=== PATIENT | female | born 1975 | race African-American/Black ===

== ENCOUNTER 2018-09-16 08:23 | Inpatient (IN) | payer OTHER ==
[~2018-09-16] VITALS: Ht 180.3 cm; Wt 77.4 kg
[~2018-09-16 08:23] MED LIST: ACET325T14 PO; ALBU0.63 NEB; ALBU1.25 NEB; ALBU18HF INH; ALBU90AE INH; AMOX1TAB64 PO; AZIT250T89 PO; BECL8.7A6 INH; BECL8.7A7 INH; CEFD300C37 PO; CYAN10005 PO; DIPH25CA61 PO; DOXY100T PO; FOLI-17 PO; IBUP-1222 PO; LACT1CAP24 PO; LEVO750T26 PO; METH4TAB2 PO; METO25TA35 PO; MOME13HF2 INH; MULT1TAB60 PO; NICO-485 TD; PRED20TA PO; RISP1TAB45 PO
[2018-09-16 08:54] LABS: BASOPHILS # (AUTO) 0.05 x10^3/uL (0-0.1); BASOPHILS % (AUTO) 1 % (0-1); EOSINOPHILS % (AUTO) 2 % (1-7); LYMPHOCYTES # (AUTO) 2.29 x10^3/uL (1-3.4); LYMPHOCYTES % (AUTO) 49 % (22-44); MD NO; MEAN CORPUSCULAR HEMOGLOBIN 30.5 pg (27.0-34.8); MEAN CORPUSCULAR HGB CONC 32.5 g/dL (32.4-35.8); MEAN CORPUSCULAR VOLUME 93.6 fL (80-100); MEAN PLATELET VOLUME 7.5 fL (7.4-10.4); MONOCYTES # (AUTO) 0.34 x10^3/uL (0.2-0.8); MONOCYTES % (AUTO) 7 % (2-9); NEUTROPHILS % (AUTO) 41 % (42-75); PLATELET COUNT 569 x10^3/uL (130-400); RED BLOOD COUNT 3.68 x10^6/uL (3.82-5.3); RED CELL DISTRIBUTION WIDTH 16.7 % (9.6-15.2)
[2018-09-16 09:04] LABS: ALANINE AMINOTRANSFERASE 38 U/L (12-78); ALBUMIN 2.6 g/dL (3.4-5.0); ANION GAP 7 mmol/L (5-15); CALCIUM 8.3 mg/dL (8.5-10.1); CHLORIDE 112 mmol/L (98-107); CREATININE 0.44 mg/dL (0.55-1.02)
[2018-09-16 09:06] LABS: ALKALINE PHOSPHATASE 80 U/L (45-117); BILIRUBIN,TOTAL 0.1 mg/dL (0.2-1.0); TOTAL PROTEIN 7.7 g/dL (6.4-8.2)
[2018-09-16] MEDS ORDERED: SODIUM CHLORIDE 0.9% 1,000 ML IV ONE ×2 (10:08→11:22)
[2018-09-16] MEDS ORDERED: SODIUM CHLORIDE FLUSH 10ML SYR IVF ONE (10:30)
[2018-09-16] MEDS ORDERED: SODIUM CHLORIDE 0.9% 1,000ML IVBOLUS ONE (10:30)
[2018-09-16] MEDS ORDERED: SODIUM CHLORIDE FLUSH 10ML SYR IVF PRN (11:30)
[2018-09-16] MEDS ORDERED: ONDANSETRON 2MG/ML, 2ML IVPush PRN (13:00)
[2018-09-16] MEDS ORDERED: POLYETHYLENE GLYCOL 17 GM PACKET PO PRN (13:00)
[2018-09-16] MEDS ORDERED: ONDANSETRON ODT 4 MG PO PRN (13:00)
[2018-09-16] MEDS ORDERED: DOCUSATE 100 MG CAPSULE PO PRN (13:00)
[2018-09-16] MEDS ORDERED: GABAPENTIN 300 MG CAPSULE PO PRN (13:00)
[2018-09-16] MEDS ORDERED: BISACODYL 10 MG SUPP PR PRN (13:00)
[2018-09-16 13:54] LABS: FREE T4 (FREE THYROXINE) 0.87 ng/dL (0.76-1.46); THYROID STIMULATING HORMONE 1.31 mIU/L (0.358-3.740)
[2018-09-16 14:07] LABS: HEMOGLOBIN A1C 5.3 % (4.2-6.3)
[2018-09-16 14:17] VITALS: BP 113/69
[2018-09-16 14:39] LABS: MICROSCOPIC NOT IND
[2018-09-16] MEDS: D5%-0.9% NACL+KCL 20MEQ 1,000 ML IV SCH ×2 (14:42→22:08)
[2018-09-16] MEDS: ENOXAPARIN 40 MG/0.4 ML SQ SCH (14:43)
[2018-09-16] MEDS: NICOTINE 7 MG/24 HR PATCH.TD24 TD SCH (14:43)
[2018-09-16 14:48] LABS: CULTURE INDICATED? NO
[2018-09-16] MEDS ORDERED: ALBUTEROL SULFATE 2.5MG/0.5ML ONE (16:28)
[2018-09-16] MEDS ORDERED: ALBUTEROL SULFATE 2.5 MG/3 ML NPPB PRN (17:00)
[2018-09-16] MEDS: PROMETHAZINE 25 MG/ML, 1ML IM PRN (17:07)
[2018-09-16] MEDS: LORazepam 1MG TABLET PO PRN ×2 (18:23→22:09)
[2018-09-16 18:52] VITALS: BP 123/76
[2018-09-16] MEDS: ALBUTEROL SULFATE 2.5 MG/3 ML NPPB SCH (20:31)
[2018-09-16 22:03] VITALS: BP 97/58
[2018-09-16 23:05] VITALS: BP 93/54
[2018-09-17] VITALS (7 sets, daily range): BP systolic 93–125; BP diastolic 55–82
[2018-09-17] MEDS: D5%-0.9% NACL+KCL 20MEQ 1,000 ML IV SCH (04:12)
[2018-09-17] MEDS: LORazepam 1MG TABLET PO PRN ×3 (04:25→16:46)
[2018-09-17] MEDS ORDERED: LORazepam 2 MG/ML, 1ML IV PRN ×5 (04:30)
[2018-09-17] MEDS ORDERED: LORazepam 1MG TABLET PO PRN ×3 (04:30)
[2018-09-17 05:50] LABS: ALBUMIN 2.3 g/dL (3.4-5.0); ANION GAP 7 mmol/L (5-15); CHLORIDE 106 mmol/L (98-107)
[2018-09-17 05:54] LABS: ALANINE AMINOTRANSFERASE 27 U/L (12-78); ALKALINE PHOSPHATASE 68 U/L (45-117); BILIRUBIN,TOTAL 0.2 mg/dL (0.2-1.0); CALCIUM 6.6 mg/dL (8.5-10.1); CHOL/HDL RATIO 1.8; CHOLESTEROL, TOTAL 102 mg/dL (140-239); CREATININE 0.57 mg/dL (0.55-1.02); HDL CHOL % 55 % (28-40); HDL CHOLESTEROL (DIRECT) 56 mg/dL (40-60); LDL CHOLESTEROL,CALCULATED 25 mg/dL (54-169); LDL/HDL RATIO 0.4 (0.5-3.0); TOTAL PROTEIN 6.5 g/dL (6.4-8.2); TRIGLYCERIDES 104 mg/dL (50-200); VLDL CHOLESTEROL 21 mg/dL (0-25)
[2018-09-17] MEDS: ALBUTEROL SULFATE 2.5 MG/3 ML NPPB SCH ×4 (07:07→18:43)
[2018-09-17] MEDS: MULTIVITAMIN 1 TABLET PO SCH (08:59)
[2018-09-17] MEDS: SODIUM CHLORIDE 0.9% 1,000 ML IV SCH ×2 (08:59→19:28)
[2018-09-17 11:25] LABS: BASOPHILS # (AUTO) 0.06 x10^3/uL (0-0.1); BASOPHILS % (AUTO) 1 % (0-1); EOSINOPHILS # (AUTO) 0.07 x10^3/uL (0-0.4); EOSINOPHILS % (AUTO) 1 % (1-7); LYMPHOCYTES % (AUTO) 32 % (22-44); MD NO; MEAN CORPUSCULAR HEMOGLOBIN 30.8 pg (27.0-34.8); MEAN CORPUSCULAR HGB CONC 32.3 g/dL (32.4-35.8); MEAN CORPUSCULAR VOLUME 95.5 fL (80-100); MONOCYTES # (AUTO) 0.82 x10^3/uL (0.2-0.8); MONOCYTES % (AUTO) 12 % (2-9); NEUTROPHILS # (AUTO) 3.64 x10^3/uL (1.8-6.8); NEUTROPHILS % (AUTO) 54 % (42-75); PLATELET COUNT 453 x10^3/uL (130-400); RED BLOOD COUNT 3.08 x10^6/uL (3.82-5.3)
[2018-09-17] MEDS: NICOTINE 7 MG/24 HR PATCH.TD24 TD SCH (13:36)
[2018-09-17] MEDS: ENOXAPARIN 40 MG/0.4 ML SQ SCH (13:36)
[2018-09-17] MEDS: PROMETHAZINE 25 MG/ML, 1ML IM PRN (13:37)
[2018-09-17] MEDS: LORazepam 0.5MG TABLET PO PRN (21:40)
[2018-09-18 01:09] VITALS: BP 128/75
[2018-09-18] MEDS: LORazepam 0.5MG TABLET PO PRN (01:17)
[2018-09-18] MEDS: SODIUM CHLORIDE 0.9% 1,000 ML IV SCH (05:06)
[2018-09-18 05:44] LABS: ANION GAP 8 mmol/L (5-15); CALCIUM 7.9 mg/dL (8.5-10.1); CHLORIDE 111 mmol/L (98-107); CREATININE 0.49 mg/dL (0.55-1.02); TOTAL IRON BINDING CAPACITY 253 mcg/dL (250-450)
[2018-09-18 05:49] LABS: % IRON SATURATION 18 % (20-55); IRON LEVEL 45 mcg/dL (50-170)
[2018-09-18 06:52] VITALS: BP 143/82
[2018-09-18] MEDS: ALBUTEROL SULFATE 2.5 MG/3 ML NPPB SCH ×2 (07:00→09:57)
[2018-09-18] MEDS ORDERED: CARVEDILOL 6.25 MG TABLET PO SCH (07:30)
[2018-09-18] MEDS ORDERED: SODIUM CHLORIDE 0.9% 1,000 ML IV SCH (09:00)
[2018-09-18] MEDS: MULTIVITAMIN 1 TABLET PO SCH (09:22)
[2018-09-18] MEDS: LORazepam 1MG TABLET PO PRN (09:29)
== END 2018-09-18 13:26 | disposition home or self-care (01) | DRG 896 ==
LOC: ED 11:15 → EDIP 11:22 → 4EST 14:11 → DCLOUNGE 09-18 13:18
PROVIDERS: ADMIT Internal Medicine; ATTEND Internal Medicine
DX: F10.229 Alcohol dependence with intoxication, unspecified (principal); E43 Unspecified severe protein-calorie malnutrition; E87.1 Hypo-osmolality and hyponatremia; T68.XXXA Hypothermia, initial encounter; D64.9 Anemia, unspecified; Z71.6 Tobacco abuse counseling; E86.0 Dehydration; F12.10 Cannabis abuse, uncomplicated; Y90.8 Blood alcohol level of 240 mg/100 ml or more; F17.200 Nicotine dependence, unspecified, uncomplicated; G47.00 Insomnia, unspecified; J44.9 Chronic obstructive pulmonary disease, unspecified; X31.XXXA Exposure to excessive natural cold, initial encounter; Z59.0 Homelessness; Z91.14 Patient's other noncompliance with medication regimen; Z68.23 Body mass index [BMI] 23.0-23.9, adult
CPT/HCPCS: 36415; 99285; J7613; 70450; 71045; 80048; 80053; 80061; 80307; 81003; 82274; 82330; 83036; 83540; 83550; 83605; 83735; 84100; 84439; 84443; 85025; 87040; 93005; 93306; 94640; 96360; G0378; J1650; J2550; Q0162; J3480; J7030

== ENCOUNTER 2018-10-08 16:12 | Emergency (ER) | payer SELFPAY ==
[~2018-10-08] VITALS: Ht 180.3 cm; Wt 73.0 kg
[~2018-10-08 16:12] MED LIST changes: +ALBU6.7H INH
[2018-10-08 18:06] VITALS: BP 131/90
== END 2018-10-08 18:45 | disposition home or self-care (01) ==
LOC: ED 17:01
DX: F10.120 Alcohol abuse with intoxication, uncomplicated (principal); J45.909 Unspecified asthma, uncomplicated
CPT/HCPCS: 99283

== ENCOUNTER 2018-10-21 14:47 | Inpatient (IN) | payer SELFPAY ==
[~2018-10-21] VITALS: Ht 180.3 cm; Wt 89.7 kg
--- NOTE | 2018-10-21 14:55 | NUR ---
BIB [facility] FOR WOUND TO R TOE W/ DRAINAGE AND FOUL ODOR AND BILAT LEG SWELLING. WAS TOLD SHE NE, RR EDED IT REMOVED 1 MONTH AGO REFUSED TO HAVE IT REMOVED. ETOH 1 PINT VODAK TODAY. LAST DRINK AT 1400 TODAY. DENIES HX DM. 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 HR , 95% RA, BS 69. WAS PICKED UP BY [employer] FOR WARRANT FOR HER ARREST. RESIDENTIAL WILL NOT TAKE PT UNTIL SHE IS MEDICALLY CLEARED. SHE WAS RELEASED AND PER [facility] MAY/MAY NOT NEED TO HAVE [employer] PICK HER UP ONCE SHE IS MEDICALLY CLEARED. PT RESTING ON GURNEY. MONITORS APPLIED.
[2018-10-21] MEDS ORDERED: SODIUM CHLORIDE FLUSH 10ML SYR IVF ONE (15:00)
[2018-10-21 15:31] LABS: MEAN CORPUSCULAR HEMOGLOBIN 29.6 pg (27.0-34.8); MEAN CORPUSCULAR HGB CONC 32.1 g/dL (32.4-35.8); MEAN CORPUSCULAR VOLUME 92.1 fL (80-100); MEAN PLATELET VOLUME 7.8 fL (7.4-10.4); PLATELET COUNT 359 x10^3/uL (130-400); RED BLOOD COUNT 3.64 x10^6/uL (3.82-5.3); RED CELL DISTRIBUTION WIDTH 16.7 % (9.6-15.2)
[2018-10-21 15:37] LABS: ALANINE AMINOTRANSFERASE 38 U/L (12-78); ANION GAP 9 mmol/L (5-15); CALCIUM 8.3 mg/dL (8.5-10.1); CHLORIDE 104 mmol/L (98-107); CREATININE 0.65 mg/dL (0.55-1.02)
[2018-10-21 15:39] LABS: ALKALINE PHOSPHATASE 113 U/L (45-117); BILIRUBIN,TOTAL 0.2 mg/dL (0.2-1.0); TOTAL PROTEIN 8.8 g/dL (6.4-8.2)
[2018-10-21 15:49] LABS: HCT (SEDRATE) 33.6 % (34.6-47.8)
[2018-10-21] MEDS ORDERED: SODIUM CHLORIDE 0.9% 1,000ML IVBOLUS ONE (16:00)
[2018-10-21] MEDS ORDERED: AMPICILLIN/SULBACTAM 3 GM in SODIUM CHLORIDE 0.9% 100 ML IV ONE (16:00)
[2018-10-21 16:19] LABS: BASOPHILS # (AUTO) 0.25 x10^3/uL (0-0.1); BASOPHILS % (AUTO) 2 % (0-1); EOSINOPHILS # (AUTO) 0.01 x10^3/uL (0-0.4); EOSINOPHILS % (AUTO) 0 % (1-7); LYMPHOCYTES # (AUTO) 2.33 x10^3/uL (1-3.4); LYMPHOCYTES % (AUTO) 15 % (22-44); MD SCAN; MONOCYTES # (AUTO) 0.96 x10^3/uL (0.2-0.8); MONOCYTES % (AUTO) 6 % (2-9); NEUTROPHILS # (AUTO) 12.46 x10^3/uL (1.8-6.8); NEUTROPHILS % (AUTO) 78 % (42-75)
[2018-10-21] MEDS ORDERED: GADOBUTROL 7.5 MMOL/7.5 ML PFS ONE (17:08)
[2018-10-21] MEDS ORDERED: ACETAMINOPHEN 325 MG TABLET ONE (17:57)
[2018-10-21] MEDS ORDERED: ACETAMINOPHEN 325 MG TABLET PO ONE (18:00)
[2018-10-21] MEDS ORDERED: HEPARIN 5,000 UNITS/ML, 1ML SQ SCH (18:30)
--- NOTE | 2018-10-21 18:49 | NUR ---
Report to Lenyn ROME. Pt NAD at this time.
[2018-10-21] MEDS ORDERED: DOCUSATE 100 MG CAPSULE PO PRN (19:00)
[2018-10-21] MEDS ORDERED: hydrALAzine 20 MG/ML, 1ML IVPush PRN (19:00)
[2018-10-21] MEDS ORDERED: LORazepam 1MG TABLET PO PRN (19:00)
[2018-10-21] MEDS ORDERED: ONDANSETRON ODT 4 MG PO PRN (19:00)
--- NOTE | 2018-10-21 19:00 | NUR ---
PT BEDSIDE REPORT FROM EMILIA RN. THIS RN TO ASSUME CARE OF PT.
[2018-10-21] MEDS: SODIUM CHLORIDE 0.9% 1,000 ML IV SCH (20:02)
[2018-10-21 20:05] VITALS: BP 104/59
[2018-10-21] MEDS: TRAZODONE 50MG TABLET PO PRN (21:23)
[2018-10-21] MEDS: GABAPENTIN 300 MG CAPSULE PO PRN (21:23)
[2018-10-21] MEDS: AMPICILLIN/SULBACTAM 3 GM in SODIUM CHLORIDE 0.9% 100 ML IV SCH (23:38)
[2018-10-21 23:41] VITALS: BP 104/59
[2018-10-22 01:22] VITALS: BP 162/77
[2018-10-22] MEDS: ACETAMINOPHEN 325 MG TABLET PO PRN (01:44)
[2018-10-22 07:49] VITALS: BP 149/87
[2018-10-22] MEDS: AMPICILLIN/SULBACTAM 3 GM in SODIUM CHLORIDE 0.9% 100 ML IV SCH ×3 (08:07→23:06)
[2018-10-22] MEDS: SODIUM CHLORIDE 0.9% 1,000 ML IV SCH ×2 (08:07→22:13)
[2018-10-22] MEDS ORDERED: FENTANYL PF 100 MCG/2ML ONE ×2 (10:51→11:43)
[2018-10-22] MEDS ORDERED: MIDAZOLAM 1 MG/ML, 2ML ONE (10:51)
[2018-10-22] MEDS ORDERED: PROPOFOL 10 MG/ML, 20ML ONE (10:51)
[2018-10-22] MEDS ORDERED: LIDOCAINE 2% 100MG/5ML SYRINGE ONE (11:22)
[2018-10-22] MEDS ORDERED: ONDANSETRON 2MG/ML, 2ML ONE (11:22)
[2018-10-22] MEDS ORDERED: DEXAMETHASONE 4 MG/ML, 1ML ONE (11:22)
[2018-10-22] MEDS ORDERED: LABETALOL 5MG/ML, 20ML IV PRN (12:30)
[2018-10-22] MEDS ORDERED: FENTANYL PF 100 MCG/2ML IV PRN (12:30)
[2018-10-22] MEDS ORDERED: HYDROmorphone 2 MG/ML, 1ML IVPush PRN (12:30)
[2018-10-22] MEDS ORDERED: HALOPERIDOL 5 MG/ML IV PRN (12:30)
[2018-10-22] MEDS ORDERED: ALBUTEROL SULFATE 2.5 MG/3 ML NPPB PRN (12:30)
[2018-10-22] MEDS ORDERED: OXYcodone 5 MG/5 ML ORAL.SOL UDC PO PRN (12:30)
[2018-10-22] MEDS ORDERED: PROMETHAZINE 25 MG/ML, 1ML IV PRN (12:30)
[2018-10-22] MEDS ORDERED: hydrALAzine 20 MG/ML, 1ML IV PRN (12:30)
[2018-10-22 13:00] VITALS: BP 138/78
[2018-10-22 14:20] LABS: MEAN CORPUSCULAR HEMOGLOBIN 29.1 pg (27.0-34.8); MEAN CORPUSCULAR HGB CONC 31.8 g/dL (32.4-35.8); MEAN CORPUSCULAR VOLUME 91.6 fL (80-100); MEAN PLATELET VOLUME 7.8 fL (7.4-10.4); PLATELET COUNT 329 x10^3/uL (130-400); RED BLOOD COUNT 3.33 x10^6/uL (3.82-5.3); RED CELL DISTRIBUTION WIDTH 17.3 % (9.6-15.2)
[2018-10-22 14:29] LABS: ANION GAP 9 mmol/L (5-15); CALCIUM 8.2 mg/dL (8.5-10.1); CHLORIDE 103 mmol/L (98-107); CREATININE 0.52 mg/dL (0.55-1.02); INTERNATIONAL NORMALIZED RATIO 1.01 (0.93-1.1); PROTHROMBIN TIME 10.7 Seconds (9.6-11.5)
[2018-10-22 14:40] LABS: BASOPHILS # (AUTO) 0.01 x10^3/uL (0-0.1); BASOPHILS % (AUTO) 0 % (0-1); EOSINOPHILS % (AUTO) 0 % (1-7); LYMPHOCYTES # (AUTO) 0.48 x10^3/uL (1-3.4); LYMPHOCYTES % (AUTO) 5 % (22-44); MD SCAN; MONOCYTES # (AUTO) 0.18 x10^3/uL (0.2-0.8); MONOCYTES % (AUTO) 2 % (2-9); NEUTROPHILS # (AUTO) 9.33 x10^3/uL (1.8-6.8); NEUTROPHILS % (AUTO) 93 % (42-75)
[2018-10-22] MEDS: BACLOFEN 10 MG TABLET PO SCH ×2 (15:11→22:14)
[2018-10-22] MEDS: GABAPENTIN 300 MG CAPSULE PO PRN (15:11)
[2018-10-22 18:41] VITALS: BP 122/83
[2018-10-22] MEDS: TRAZODONE 50MG TABLET PO PRN (22:14)
[2018-10-23] MEDS: ACETAMINOPHEN 325 MG TABLET PO PRN ×3 (00:14→21:20)
[2018-10-23 01:48] VITALS: BP 118/58
[2018-10-23 06:26] LABS: BASOPHILS % (AUTO) 0 % (0-1); EOSINOPHILS # (AUTO) 0.01 x10^3/uL (0-0.4); EOSINOPHILS % (AUTO) 0 % (1-7); LYMPHOCYTES # (AUTO) 1.08 x10^3/uL (1-3.4); LYMPHOCYTES % (AUTO) 15 % (22-44); MD NO; MEAN CORPUSCULAR HEMOGLOBIN 30.3 pg (27.0-34.8); MEAN CORPUSCULAR HGB CONC 32.9 g/dL (32.4-35.8); MEAN CORPUSCULAR VOLUME 92.1 fL (80-100); MEAN PLATELET VOLUME 8.1 fL (7.4-10.4); MONOCYTES # (AUTO) 0.77 x10^3/uL (0.2-0.8); MONOCYTES % (AUTO) 11 % (2-9); NEUTROPHILS # (AUTO) 5.47 x10^3/uL (1.8-6.8); NEUTROPHILS % (AUTO) 75 % (42-75); PLATELET COUNT 311 x10^3/uL (130-400); RED BLOOD COUNT 3.05 x10^6/uL (3.82-5.3); RED CELL DISTRIBUTION WIDTH 17.1 % (9.6-15.2)
[2018-10-23 06:34] LABS: ALBUMIN 2.2 g/dL (3.4-5.0); ANION GAP 7 mmol/L (5-15); CALCIUM 8.1 mg/dL (8.5-10.1); CHLORIDE 108 mmol/L (98-107)
[2018-10-23 06:50] LABS: ALANINE AMINOTRANSFERASE 25 U/L (12-78); ALKALINE PHOSPHATASE 78 U/L (45-117); BILIRUBIN,TOTAL 0.2 mg/dL (0.2-1.0); CREATININE 0.55 mg/dL (0.55-1.02); TOTAL PROTEIN 6.9 g/dL (6.4-8.2)
[2018-10-23] MEDS: SODIUM CHLORIDE 0.9% 1,000 ML IV SCH ×2 (07:00→14:30)
[2018-10-23 07:34] VITALS: BP 150/87
[2018-10-23] MEDS: BACLOFEN 10 MG TABLET PO SCH ×3 (08:04→21:13)
[2018-10-23] MEDS: AMPICILLIN/SULBACTAM 3 GM in SODIUM CHLORIDE 0.9% 100 ML IV SCH ×3 (08:04→23:09)
[2018-10-23] MEDS: GABAPENTIN 300 MG CAPSULE PO PRN (08:04)
[2018-10-23 12:14] VITALS: BP 133/81
[2018-10-23] MEDS: NICOTINE 7 MG/24 HR PATCH.TD24 TD SCH (16:23)
[2018-10-23 19:26] VITALS: BP 126/78
[2018-10-24] MEDS: ACETAMINOPHEN 325 MG TABLET PO PRN ×2 (01:58→16:26)
[2018-10-24] MEDS: GABAPENTIN 300 MG CAPSULE PO PRN ×3 (02:13→20:38)
[2018-10-24 03:28] VITALS: BP 133/87
[2018-10-24 06:02] LABS: ANION GAP 4 mmol/L (5-15); CALCIUM 8.9 mg/dL (8.5-10.1); CHLORIDE 107 mmol/L (98-107); CREATININE 0.53 mg/dL (0.55-1.02)
[2018-10-24 06:15] LABS: BASOPHILS # (AUTO) 0.01 x10^3/uL (0-0.1); BASOPHILS % (AUTO) 0 % (0-1); EOSINOPHILS # (AUTO) 0.03 x10^3/uL (0-0.4); EOSINOPHILS % (AUTO) 0 % (1-7); LYMPHOCYTES # (AUTO) 1.71 x10^3/uL (1-3.4); LYMPHOCYTES % (AUTO) 19 % (22-44); MD NO; MEAN CORPUSCULAR HEMOGLOBIN 29.5 pg (27.0-34.8); MEAN CORPUSCULAR HGB CONC 31.8 g/dL (32.4-35.8); MEAN CORPUSCULAR VOLUME 92.7 fL (80-100); MEAN PLATELET VOLUME 7.7 fL (7.4-10.4); MONOCYTES # (AUTO) 0.92 x10^3/uL (0.2-0.8); MONOCYTES % (AUTO) 10 % (2-9); NEUTROPHILS % (AUTO) 70 % (42-75); PLATELET COUNT 350 x10^3/uL (130-400); RED CELL DISTRIBUTION WIDTH 17.4 % (9.6-15.2)
[2018-10-24 08:30] VITALS: BP 129/83
[2018-10-24] MEDS: BACLOFEN 10 MG TABLET PO SCH ×3 (08:32→20:38)
[2018-10-24] MEDS: AMPICILLIN/SULBACTAM 3 GM in SODIUM CHLORIDE 0.9% 100 ML IV SCH ×3 (08:32→23:31)
[2018-10-24 13:39] VITALS: BP 132/79
[2018-10-24] MEDS: NICOTINE 7 MG/24 HR PATCH.TD24 TD SCH (17:44)
[2018-10-24 19:19] VITALS: BP 127/72
[2018-10-25 02:30] VITALS: BP 132/70
[2018-10-25 05:05] LABS: BASOPHILS # (AUTO) 0.04 x10^3/uL (0-0.1); BASOPHILS % (AUTO) 0 % (0-1); EOSINOPHILS # (AUTO) 0.04 x10^3/uL (0-0.4); EOSINOPHILS % (AUTO) 0 % (1-7); LYMPHOCYTES # (AUTO) 1.86 x10^3/uL (1-3.4); LYMPHOCYTES % (AUTO) 17 % (22-44); MD NO; MEAN CORPUSCULAR HGB CONC 32.7 g/dL (32.4-35.8); MEAN CORPUSCULAR VOLUME 91.9 fL (80-100); MEAN PLATELET VOLUME 7.8 fL (7.4-10.4); MONOCYTES # (AUTO) 0.95 x10^3/uL (0.2-0.8); MONOCYTES % (AUTO) 9 % (2-9); NEUTROPHILS # (AUTO) 7.89 x10^3/uL (1.8-6.8); NEUTROPHILS % (AUTO) 73 % (42-75); PLATELET COUNT 371 x10^3/uL (130-400); RED BLOOD COUNT 3.39 x10^6/uL (3.82-5.3)
[2018-10-25 05:08] LABS: ANION GAP 6 mmol/L (5-15); CALCIUM 8.7 mg/dL (8.5-10.1); CHLORIDE 102 mmol/L (98-107)
[2018-10-25 05:09] LABS: CREATININE 0.61 mg/dL (0.55-1.02)
[2018-10-25] MEDS: BACLOFEN 10 MG TABLET PO SCH ×3 (07:32→21:37)
[2018-10-25] MEDS: THIAMINE 100MG TABLET PO SCH (07:32)
[2018-10-25] MEDS: AMPICILLIN/SULBACTAM 3 GM in SODIUM CHLORIDE 0.9% 100 ML IV SCH ×3 (07:32→23:12)
[2018-10-25 07:44] VITALS: BP 116/72
[2018-10-25 12:50] VITALS: BP 126/77
[2018-10-25] MEDS: NICOTINE 7 MG/24 HR PATCH.TD24 TD SCH (16:31)
[2018-10-25 19:49] VITALS: BP 128/69
[2018-10-25] MEDS: GABAPENTIN 300 MG CAPSULE PO PRN (21:37)
[2018-10-26 01:30] VITALS: BP 113/71
[2018-10-26 05:22] LABS: BASOPHILS # (AUTO) 0.04 x10^3/uL (0-0.1); BASOPHILS % (AUTO) 0 % (0-1); EOSINOPHILS # (AUTO) 0.06 x10^3/uL (0-0.4); EOSINOPHILS % (AUTO) 1 % (1-7); LYMPHOCYTES # (AUTO) 2.13 x10^3/uL (1-3.4); LYMPHOCYTES % (AUTO) 18 % (22-44); MD NO; MEAN CORPUSCULAR HEMOGLOBIN 29.9 pg (27.0-34.8); MEAN CORPUSCULAR HGB CONC 32.2 g/dL (32.4-35.8); MEAN CORPUSCULAR VOLUME 92.8 fL (80-100); MEAN PLATELET VOLUME 7.9 fL (7.4-10.4); MONOCYTES % (AUTO) 10 % (2-9); NEUTROPHILS % (AUTO) 71 % (42-75); PLATELET COUNT 440 x10^3/uL (130-400); RED BLOOD COUNT 3.55 x10^6/uL (3.82-5.3); RED CELL DISTRIBUTION WIDTH 17.1 % (9.6-15.2)
[2018-10-26 05:29] LABS: CHLORIDE 104 mmol/L (98-107)
[2018-10-26 05:39] LABS: ALBUMIN 2.5 g/dL (3.4-5.0); ANION GAP 8 mmol/L (5-15); CALCIUM 9.2 mg/dL (8.5-10.1); CREATININE 0.72 mg/dL (0.55-1.02)
[2018-10-26 07:50] VITALS: BP 103/62
[2018-10-26] MEDS: THIAMINE 100MG TABLET PO SCH (09:05)
[2018-10-26] MEDS: BACLOFEN 10 MG TABLET PO SCH ×3 (09:05→21:35)
[2018-10-26] MEDS: AMPICILLIN/SULBACTAM 3 GM in SODIUM CHLORIDE 0.9% 100 ML IV SCH ×3 (09:05→23:09)
[2018-10-26] MEDS: DOXYCYCLINE 100 MG in DEXTROSE 5% 250 ML IV SCH ×2 (10:15→20:58)
[2018-10-26] MEDS: ACETAMINOPHEN 325 MG TABLET PO PRN ×3 (13:00→23:10)
[2018-10-26 13:29] VITALS: BP 109/71
[2018-10-26] MEDS: NICOTINE 7 MG/24 HR PATCH.TD24 TD SCH (15:54)
[2018-10-26 18:52] VITALS: BP 112/75
[2018-10-26] MEDS: GABAPENTIN 300 MG CAPSULE PO PRN (20:58)
[2018-10-27 00:51] VITALS: BP 103/63
[2018-10-27 05:54] LABS: CHLORIDE 104 mmol/L (98-107)
[2018-10-27 05:55] LABS: BASOPHILS # (AUTO) 0.03 x10^3/uL (0-0.1); BASOPHILS % (AUTO) 0 % (0-1); EOSINOPHILS # (AUTO) 0.08 x10^3/uL (0-0.4); EOSINOPHILS % (AUTO) 1 % (1-7); LYMPHOCYTES # (AUTO) 1.26 x10^3/uL (1-3.4); LYMPHOCYTES % (AUTO) 15 % (22-44); MD NO; MEAN CORPUSCULAR HGB CONC 32.6 g/dL (32.4-35.8); MEAN CORPUSCULAR VOLUME 92.1 fL (80-100); MONOCYTES # (AUTO) 0.86 x10^3/uL (0.2-0.8); MONOCYTES % (AUTO) 10 % (2-9); NEUTROPHILS # (AUTO) 6.07 x10^3/uL (1.8-6.8); NEUTROPHILS % (AUTO) 73 % (42-75); PLATELET COUNT 516 x10^3/uL (130-400); RED BLOOD COUNT 3.32 x10^6/uL (3.82-5.3); RED CELL DISTRIBUTION WIDTH 17.4 % (9.6-15.2)
[2018-10-27 06:04] LABS: ALBUMIN 2.5 g/dL (3.4-5.0); ANION GAP 9 mmol/L (5-15); CALCIUM 9.1 mg/dL (8.5-10.1); CREATININE 0.54 mg/dL (0.55-1.02)
[2018-10-27] MEDS: AMPICILLIN/SULBACTAM 3 GM in SODIUM CHLORIDE 0.9% 100 ML IV SCH ×3 (08:01→22:54)
[2018-10-27 09:35] VITALS: BP 114/75
[2018-10-27] MEDS: THIAMINE 100MG TABLET PO SCH (09:58)
[2018-10-27] MEDS: DOXYCYCLINE 100 MG in DEXTROSE 5% 250 ML IV SCH (09:58)
[2018-10-27] MEDS: BACLOFEN 10 MG TABLET PO SCH ×3 (09:58→21:31)
[2018-10-27 13:50] VITALS: BP 121/75
[2018-10-27] MEDS: NICOTINE 7 MG/24 HR PATCH.TD24 TD SCH (15:41)
[2018-10-27] MEDS: SODIUM CHLORIDE 0.9% 1,000 ML IV SCH (16:30)
[2018-10-27] MEDS ORDERED: VANCOMYCIN PER PHARMACY MC PRN (16:30)
[2018-10-27] MEDS ORDERED: PHARMACOKINETIC MONITORING MC PRN (17:00)
[2018-10-27] MEDS: VANCOMYCIN 1,300 MG in SODIUM CHLORIDE 0.9% 250 ML IV SCH (17:41)
[2018-10-27] MEDS ORDERED: GADOBUTROL 7.5 MMOL/7.5 ML PFS ONE (18:51)
[2018-10-27 20:58] VITALS: BP 122/78
[2018-10-27] MEDS: ACETAMINOPHEN 325 MG TABLET PO PRN (21:31)
[2018-10-28 02:25] VITALS: BP 119/75
[2018-10-28 05:01] LABS: ALBUMIN 2.6 g/dL (3.4-5.0); ANION GAP 6 mmol/L (5-15); CALCIUM 9.1 mg/dL (8.5-10.1); CHLORIDE 104 mmol/L (98-107)
[2018-10-28 05:02] LABS: CREATININE 0.61 mg/dL (0.55-1.02)
[2018-10-28 05:09] LABS: BASOPHILS % (AUTO) 0 % (0-1); EOSINOPHILS # (AUTO) 0.06 x10^3/uL (0-0.4); EOSINOPHILS % (AUTO) 1 % (1-7); LYMPHOCYTES # (AUTO) 1.64 x10^3/uL (1-3.4); LYMPHOCYTES % (AUTO) 20 % (22-44); MD NO; MEAN CORPUSCULAR HEMOGLOBIN 29.8 pg (27.0-34.8); MEAN CORPUSCULAR VOLUME 90.4 fL (80-100); MEAN PLATELET VOLUME 7.9 fL (7.4-10.4); MONOCYTES # (AUTO) 1.07 x10^3/uL (0.2-0.8); MONOCYTES % (AUTO) 13 % (2-9); NEUTROPHILS # (AUTO) 5.67 x10^3/uL (1.8-6.8); NEUTROPHILS % (AUTO) 67 % (42-75); PLATELET COUNT 631 x10^3/uL (130-400); RED BLOOD COUNT 3.27 x10^6/uL (3.82-5.3); RED CELL DISTRIBUTION WIDTH 17.2 % (9.6-15.2)
[2018-10-28] MEDS: VANCOMYCIN 1,300 MG in SODIUM CHLORIDE 0.9% 250 ML IV SCH ×2 (05:23→17:39)
[2018-10-28] MEDS: AMPICILLIN/SULBACTAM 3 GM in SODIUM CHLORIDE 0.9% 100 ML IV SCH ×3 (07:18→22:04)
[2018-10-28 08:39] VITALS: BP 105/73
[2018-10-28] MEDS ORDERED: GADOBUTROL 7.5 MMOL/7.5 ML PFS ONE (09:17)
[2018-10-28] MEDS: BACLOFEN 10 MG TABLET PO SCH ×3 (10:00→22:04)
[2018-10-28] MEDS: THIAMINE 100MG TABLET PO SCH (10:00)
[2018-10-28] MEDS: SODIUM CHLORIDE 0.9% 1,000 ML IV SCH (13:00)
[2018-10-28] MEDS: ACETAMINOPHEN 325 MG TABLET PO PRN (13:38)
[2018-10-28 13:55] VITALS: BP 104/67
[2018-10-28] MEDS: NICOTINE 7 MG/24 HR PATCH.TD24 TD SCH (16:43)
[2018-10-28 19:38] VITALS: BP 120/81
[2018-10-29 01:56] VITALS: BP 120/79
[2018-10-29] MEDS: SODIUM CHLORIDE 0.9% 1,000 ML IV SCH ×2 (03:09→20:44)
[2018-10-29] MEDS: ACETAMINOPHEN 325 MG TABLET PO PRN (04:20)
[2018-10-29] MEDS: GABAPENTIN 300 MG CAPSULE PO PRN ×2 (04:20→20:42)
[2018-10-29] MEDS: VANCOMYCIN 1,300 MG in SODIUM CHLORIDE 0.9% 250 ML IV SCH ×2 (05:11→17:06)
[2018-10-29 06:24] LABS: BASOPHILS # (AUTO) 0.03 x10^3/uL (0-0.1); BASOPHILS % (AUTO) 0 % (0-1); EOSINOPHILS # (AUTO) 0.12 x10^3/uL (0-0.4); EOSINOPHILS % (AUTO) 2 % (1-7); LYMPHOCYTES # (AUTO) 1.63 x10^3/uL (1-3.4); LYMPHOCYTES % (AUTO) 22 % (22-44); MD NO; MEAN CORPUSCULAR HEMOGLOBIN 29.4 pg (27.0-34.8); MEAN CORPUSCULAR HGB CONC 32.4 g/dL (32.4-35.8); MEAN CORPUSCULAR VOLUME 90.9 fL (80-100); MEAN PLATELET VOLUME 7.8 fL (7.4-10.4); MONOCYTES # (AUTO) 0.68 x10^3/uL (0.2-0.8); MONOCYTES % (AUTO) 9 % (2-9); NEUTROPHILS # (AUTO) 5.04 x10^3/uL (1.8-6.8); NEUTROPHILS % (AUTO) 67 % (42-75); PLATELET COUNT 696 x10^3/uL (130-400); RED BLOOD COUNT 3.41 x10^6/uL (3.82-5.3); RED CELL DISTRIBUTION WIDTH 17.4 % (9.6-15.2)
[2018-10-29 06:31] LABS: ALBUMIN 2.5 g/dL (3.4-5.0); ANION GAP 7 mmol/L (5-15); CALCIUM 9.1 mg/dL (8.5-10.1); CHLORIDE 107 mmol/L (98-107)
[2018-10-29 06:33] LABS: CREATININE 0.57 mg/dL (0.55-1.02)
[2018-10-29] MEDS: AMPICILLIN/SULBACTAM 3 GM in SODIUM CHLORIDE 0.9% 100 ML IV SCH ×3 (07:33→23:16)
[2018-10-29 07:35] VITALS: BP 113/84
[2018-10-29] MEDS: THIAMINE 100MG TABLET PO SCH (08:35)
[2018-10-29] MEDS: BACLOFEN 10 MG TABLET PO SCH ×3 (08:35→20:42)
[2018-10-29] MEDS: ASPIRIN 81 MG TABLET EC PO SCH (09:19)
[2018-10-29 13:45] VITALS: BP 117/79
[2018-10-29] MEDS: NICOTINE 7 MG/24 HR PATCH.TD24 TD SCH (16:34)
[2018-10-29 18:55] VITALS: BP 108/72
[2018-10-30 01:15] VITALS: BP 117/60
[2018-10-30 05:53] LABS: VANCOMYCIN,TROUGH 13.8 mcg/mL (5.0-10.0)
[2018-10-30 05:54] LABS: C-REACTIVE PROTEIN, QUANT 1.5 mg/dL (0.02-0.49); LDL/HDL RATIO 1.7 (0.5-3.0)
[2018-10-30] MEDS: VANCOMYCIN 1,300 MG in SODIUM CHLORIDE 0.9% 250 ML IV SCH (06:07)
[2018-10-30] MEDS: ASPIRIN 81 MG TABLET EC PO SCH (06:07)
[2018-10-30 06:58] VITALS: BP 116/78
[2018-10-30] MEDS: ENOXAPARIN 40 MG/0.4 ML SQ SCH (07:57)
[2018-10-30] MEDS: THIAMINE 100MG TABLET PO SCH (07:57)
[2018-10-30] MEDS: FERROUS SULFATE 325 MG TABLET PO SCH (07:57)
[2018-10-30] MEDS: AMPICILLIN/SULBACTAM 3 GM in SODIUM CHLORIDE 0.9% 100 ML IV SCH (07:57)
[2018-10-30] MEDS: BACLOFEN 10 MG TABLET PO SCH ×3 (07:58→21:59)
[2018-10-30] MEDS: SODIUM CHLORIDE 0.9% 1,000 ML IV SCH (12:23)
[2018-10-30 12:52] VITALS: BP 128/84
[2018-10-30] MEDS: DAPTOMYCIN 400 MG in SODIUM CHLORIDE 0.9% 100 ML IVPB SCH (14:50)
[2018-10-30] MEDS: ACETAMINOPHEN 325 MG TABLET PO PRN ×2 (15:07→21:59)
[2018-10-30 18:48] VITALS: BP 137/83
[2018-10-30] MEDS: GABAPENTIN 300 MG CAPSULE PO PRN (21:58)
[2018-10-31] MEDS: SODIUM CHLORIDE 0.9% 1,000 ML IV SCH ×2 (01:13→15:02)
[2018-10-31 04:36] VITALS: BP 113/70
[2018-10-31] MEDS: ASPIRIN 81 MG TABLET EC PO SCH (05:09)
[2018-10-31] MEDS: ACETAMINOPHEN 325 MG TABLET PO PRN (05:09)
[2018-10-31 07:24] VITALS: BP 128/79
[2018-10-31] MEDS: ENOXAPARIN 40 MG/0.4 ML SQ SCH (08:27)
[2018-10-31] MEDS: THIAMINE 100MG TABLET PO SCH (08:27)
[2018-10-31 13:27] VITALS: BP 143/80
[2018-10-31] MEDS: DAPTOMYCIN 400 MG in SODIUM CHLORIDE 0.9% 100 ML IVPB SCH (15:02)
[2018-10-31] MEDS: GABAPENTIN 300 MG CAPSULE PO PRN (15:06)
[2018-10-31 20:06] VITALS: BP 133/87
[2018-11-01 01:15] VITALS: BP 123/77
[2018-11-01] MEDS: ACETAMINOPHEN 325 MG TABLET PO PRN ×2 (04:02→20:55)
[2018-11-01] MEDS: ASPIRIN 81 MG TABLET EC PO SCH (05:09)
[2018-11-01] MEDS: SODIUM CHLORIDE 0.9% 1,000 ML IV SCH ×2 (05:09→20:49)
[2018-11-01] MEDS ORDERED: MULTIVITAMIN 1 TABLET ONE (08:18)
[2018-11-01] MEDS: THIAMINE 100MG TABLET PO SCH (08:21)
[2018-11-01] MEDS: FERROUS SULFATE 325 MG TABLET PO SCH (08:21)
[2018-11-01] MEDS: MULTIVITAMIN 1 TABLET PO SCH (08:21)
[2018-11-01] MEDS: ENOXAPARIN 40 MG/0.4 ML SQ SCH (08:21)
[2018-11-01 09:11] VITALS: BP 125/76
[2018-11-01 12:07] VITALS: BP 132/80
[2018-11-01] MEDS: DAPTOMYCIN 400 MG in SODIUM CHLORIDE 0.9% 100 ML IVPB SCH (15:58)
[2018-11-01 19:51] VITALS: BP 139/79
[2018-11-01] MEDS: GABAPENTIN 300 MG CAPSULE PO PRN (20:55)
[2018-11-02 01:49] VITALS: BP 141/74
[2018-11-02] MEDS: ASPIRIN 81 MG TABLET EC PO SCH (06:17)
[2018-11-02 08:20] VITALS: BP 122/75
[2018-11-02] MEDS: MULTIVITAMIN 1 TABLET PO SCH (08:30)
[2018-11-02] MEDS: THIAMINE 100MG TABLET PO SCH (08:30)
[2018-11-02] MEDS: ENOXAPARIN 40 MG/0.4 ML SQ SCH (08:31)
[2018-11-02] MEDS: SODIUM CHLORIDE 0.9% 1,000 ML IV SCH (14:15)
[2018-11-02 14:54] VITALS: BP 110/68
[2018-11-02] MEDS: GABAPENTIN 300 MG CAPSULE PO SCH ×2 (16:58→21:18)
[2018-11-02] MEDS: DAPTOMYCIN 400 MG in SODIUM CHLORIDE 0.9% 100 ML IVPB SCH (16:58)
[2018-11-02 18:45] VITALS: BP 117/72
[2018-11-03 01:31] VITALS: BP 119/67
[2018-11-03] MEDS: ASPIRIN 81 MG TABLET EC PO SCH (05:48)
[2018-11-03 07:20] VITALS: BP 107/70
[2018-11-03] MEDS: THIAMINE 100MG TABLET PO SCH (07:59)
[2018-11-03] MEDS: ENOXAPARIN 40 MG/0.4 ML SQ SCH (07:59)
[2018-11-03] MEDS: MULTIVITAMIN 1 TABLET PO SCH (07:59)
[2018-11-03] MEDS: FERROUS SULFATE 325 MG TABLET PO SCH (07:59)
[2018-11-03] MEDS: GABAPENTIN 300 MG CAPSULE PO SCH ×3 (07:59→21:08)
[2018-11-03] MEDS: SODIUM CHLORIDE 0.9% 1,000 ML IV SCH (08:04)
[2018-11-03 12:45] VITALS: BP 117/70
[2018-11-03] MEDS: DAPTOMYCIN 400 MG in SODIUM CHLORIDE 0.9% 100 ML IVPB SCH (16:36)
[2018-11-03] MEDS: ACETAMINOPHEN 325 MG TABLET PO PRN (16:39)
[2018-11-03 18:48] VITALS: BP 119/68
[2018-11-04 00:27] VITALS: BP 121/75
[2018-11-04] MEDS: SODIUM CHLORIDE 0.9% 1,000 ML IV SCH (03:23)
[2018-11-04] MEDS: ASPIRIN 81 MG TABLET EC PO SCH (05:02)
[2018-11-04 06:14] LABS: ALANINE AMINOTRANSFERASE 18 U/L (12-78); ANION GAP 6 mmol/L (5-15); CALCIUM 9.6 mg/dL (8.5-10.1); CHLORIDE 103 mmol/L (98-107); CREATININE 0.69 mg/dL (0.55-1.02)
[2018-11-04 06:17] LABS: ALKALINE PHOSPHATASE 66 U/L (45-117); BILIRUBIN,TOTAL 0.2 mg/dL (0.2-1.0); TOTAL PROTEIN 8.2 g/dL (6.4-8.2)
[2018-11-04 06:18] LABS: BASOPHILS # (AUTO) 0.04 x10^3/uL (0-0.1); BASOPHILS % (AUTO) 1 % (0-1); EOSINOPHILS # (AUTO) 0.05 x10^3/uL (0-0.4); EOSINOPHILS % (AUTO) 1 % (1-7); LYMPHOCYTES # (AUTO) 2.02 x10^3/uL (1-3.4); LYMPHOCYTES % (AUTO) 24 % (22-44); MD NO; MEAN CORPUSCULAR HGB CONC 32.2 g/dL (32.4-35.8); MEAN CORPUSCULAR VOLUME 90.2 fL (80-100); MEAN PLATELET VOLUME 7.1 fL (7.4-10.4); MONOCYTES # (AUTO) 0.34 x10^3/uL (0.2-0.8); MONOCYTES % (AUTO) 4 % (2-9); NEUTROPHILS # (AUTO) 6.01 x10^3/uL (1.8-6.8); NEUTROPHILS % (AUTO) 71 % (42-75); PLATELET COUNT 926 x10^3/uL (130-400); RED CELL DISTRIBUTION WIDTH 17.5 % (9.6-15.2)
[2018-11-04 07:26] VITALS: BP 100/72
[2018-11-04] MEDS: GABAPENTIN 300 MG CAPSULE PO SCH ×3 (10:35→19:40)
[2018-11-04] MEDS: THIAMINE 100MG TABLET PO SCH (10:35)
[2018-11-04] MEDS: ENOXAPARIN 40 MG/0.4 ML SQ SCH (10:35)
[2018-11-04] MEDS: MULTIVITAMIN 1 TABLET PO SCH (10:35)
[2018-11-04] MEDS: AMPICILLIN/SULBACTAM 1,500 MG in SODIUM CHLORIDE 0.9% 50 ML IV SCH ×2 (13:23→18:31)
[2018-11-04 14:00] VITALS: BP 117/70
[2018-11-04] MEDS: DAPTOMYCIN 400 MG in SODIUM CHLORIDE 0.9% 100 ML IVPB SCH (16:09)
[2018-11-04 16:30] VITALS: BP 107/70
[2018-11-04 20:06] VITALS: BP 104/64
[2018-11-05] MEDS: AMPICILLIN/SULBACTAM 1,500 MG in SODIUM CHLORIDE 0.9% 50 ML IV SCH ×4 (00:28→19:41)
[2018-11-05 01:58] VITALS: BP 101/65
[2018-11-05] MEDS: ASPIRIN 81 MG TABLET EC PO SCH (06:04)
[2018-11-05 07:58] VITALS: BP 97/62
[2018-11-05] MEDS: GABAPENTIN 300 MG CAPSULE PO SCH ×3 (07:59→21:26)
[2018-11-05] MEDS: MULTIVITAMIN 1 TABLET PO SCH (07:59)
[2018-11-05] MEDS: ENOXAPARIN 40 MG/0.4 ML SQ SCH (07:59)
[2018-11-05] MEDS: THIAMINE 100MG TABLET PO SCH (07:59)
[2018-11-05] MEDS: FERROUS SULFATE 325 MG TABLET PO SCH (08:00)
[2018-11-05] MEDS: NICOTINE 14MG/24 HR PATCH.TD24 TD SCH (13:19)
[2018-11-05 14:34] VITALS: BP 99/68
[2018-11-05] MEDS: DAPTOMYCIN 400 MG in SODIUM CHLORIDE 0.9% 100 ML IVPB SCH (17:38)
[2018-11-05 19:44] VITALS: BP 109/64
[2018-11-06] MEDS: AMPICILLIN/SULBACTAM 1,500 MG in SODIUM CHLORIDE 0.9% 50 ML IV SCH ×4 (01:10→20:32)
[2018-11-06 01:15] VITALS: BP 104/62
[2018-11-06] MEDS: ASPIRIN 81 MG TABLET EC PO SCH (05:20)
[2018-11-06 05:57] LABS: HCT (SEDRATE) 32.9 % (34.6-47.8)
[2018-11-06 06:45] VITALS: BP 100/66
[2018-11-06] MEDS: ENOXAPARIN 40 MG/0.4 ML SQ SCH (08:27)
[2018-11-06] MEDS: GABAPENTIN 300 MG CAPSULE PO SCH ×3 (08:27→20:32)
[2018-11-06] MEDS: THIAMINE 100MG TABLET PO SCH (08:27)
[2018-11-06] MEDS: MULTIVITAMIN 1 TABLET PO SCH (08:27)
[2018-11-06 13:37] VITALS: BP 111/67
[2018-11-06] MEDS: ACETAMINOPHEN 325 MG TABLET PO PRN (14:09)
[2018-11-06] MEDS: DAPTOMYCIN 400 MG in SODIUM CHLORIDE 0.9% 100 ML IVPB SCH (17:00)
[2018-11-06] MEDS: NICOTINE 14MG/24 HR PATCH.TD24 TD SCH (17:00)
[2018-11-06 19:59] VITALS: BP 113/65
[2018-11-07 01:50] VITALS: BP 97/62
[2018-11-07] MEDS: AMPICILLIN/SULBACTAM 1,500 MG in SODIUM CHLORIDE 0.9% 50 ML IV SCH ×4 (02:19→21:00)
[2018-11-07] MEDS: ASPIRIN 81 MG TABLET EC PO SCH (05:39)
[2018-11-07] MEDS: ACETAMINOPHEN 325 MG TABLET PO PRN ×2 (05:39→13:28)
[2018-11-07 07:25] VITALS: BP 100/67
[2018-11-07] MEDS: THIAMINE 100MG TABLET PO SCH (08:46)
[2018-11-07] MEDS: ENOXAPARIN 40 MG/0.4 ML SQ SCH (08:47)
[2018-11-07] MEDS: GABAPENTIN 300 MG CAPSULE PO SCH ×3 (08:47→20:59)
[2018-11-07] MEDS: MULTIVITAMIN 1 TABLET PO SCH (08:47)
[2018-11-07] MEDS: FERROUS SULFATE 325 MG TABLET PO SCH (08:53)
[2018-11-07 13:25] VITALS: BP 109/67
[2018-11-07] MEDS: NICOTINE 14MG/24 HR PATCH.TD24 TD SCH (16:35)
[2018-11-07] MEDS: DAPTOMYCIN 400 MG in SODIUM CHLORIDE 0.9% 100 ML IVPB SCH (17:47)
[2018-11-07 19:51] VITALS: BP 120/75
[2018-11-08 01:18] VITALS: BP 98/63
[2018-11-08] MEDS: AMPICILLIN/SULBACTAM 1,500 MG in SODIUM CHLORIDE 0.9% 50 ML IV SCH ×4 (02:04→20:56)
[2018-11-08] MEDS: ASPIRIN 81 MG TABLET EC PO SCH (05:31)
[2018-11-08 06:41] LABS: BASOPHILS % (AUTO) 1 % (0-1); EOSINOPHILS # (AUTO) 0.05 x10^3/uL (0-0.4); EOSINOPHILS % (AUTO) 1 % (1-7); LYMPHOCYTES # (AUTO) 2.35 x10^3/uL (1-3.4); LYMPHOCYTES % (AUTO) 31 % (22-44); MD NO; MEAN CORPUSCULAR VOLUME 90.5 fL (80-100); MEAN PLATELET VOLUME 7.2 fL (7.4-10.4); MONOCYTES # (AUTO) 0.42 x10^3/uL (0.2-0.8); MONOCYTES % (AUTO) 6 % (2-9); NEUTROPHILS # (AUTO) 4.58 x10^3/uL (1.8-6.8); NEUTROPHILS % (AUTO) 61 % (42-75); PLATELET COUNT 658 x10^3/uL (130-400); RED BLOOD COUNT 3.72 x10^6/uL (3.82-5.3); RED CELL DISTRIBUTION WIDTH 17.1 % (9.6-15.2)
[2018-11-08 06:52] LABS: ALBUMIN 3.1 g/dL (3.4-5.0); ANION GAP 7 mmol/L (5-15); CALCIUM 9.2 mg/dL (8.5-10.1); CHLORIDE 102 mmol/L (98-107)
[2018-11-08 06:56] LABS: ALANINE AMINOTRANSFERASE 23 U/L (12-78); ALKALINE PHOSPHATASE 66 U/L (45-117); BILIRUBIN,TOTAL 0.2 mg/dL (0.2-1.0); CREATININE 0.83 mg/dL (0.55-1.02); TOTAL PROTEIN 7.9 g/dL (6.4-8.2)
[2018-11-08 07:42] VITALS: BP 110/73
[2018-11-08] MEDS: ENOXAPARIN 40 MG/0.4 ML SQ SCH (08:13)
[2018-11-08] MEDS: THIAMINE 100MG TABLET PO SCH (08:13)
[2018-11-08] MEDS: GABAPENTIN 300 MG CAPSULE PO SCH ×3 (08:13→20:56)
[2018-11-08] MEDS: MULTIVITAMIN 1 TABLET PO SCH (08:13)
[2018-11-08 13:20] VITALS: BP 113/72
[2018-11-08] MEDS: DAPTOMYCIN 400 MG in SODIUM CHLORIDE 0.9% 100 ML IVPB SCH (17:35)
[2018-11-08] MEDS: NICOTINE 14MG/24 HR PATCH.TD24 TD SCH (17:36)
[2018-11-08 19:30] VITALS: BP 109/71
[2018-11-09 01:01] VITALS: BP 111/66
[2018-11-09] MEDS: AMPICILLIN/SULBACTAM 1,500 MG in SODIUM CHLORIDE 0.9% 50 ML IV SCH ×4 (02:36→22:59)
[2018-11-09] MEDS: ACETAMINOPHEN 325 MG TABLET PO PRN ×2 (03:45→23:05)
[2018-11-09] MEDS: ASPIRIN 81 MG TABLET EC PO SCH (05:28)
[2018-11-09 07:27] VITALS: BP 119/79
[2018-11-09] MEDS: MULTIVITAMIN 1 TABLET PO SCH (08:29)
[2018-11-09] MEDS: THIAMINE 100MG TABLET PO SCH (08:29)
[2018-11-09] MEDS: GABAPENTIN 300 MG CAPSULE PO SCH ×3 (08:29→22:59)
[2018-11-09] MEDS: ENOXAPARIN 40 MG/0.4 ML SQ SCH (08:30)
[2018-11-09] MEDS: FERROUS SULFATE 325 MG TABLET PO SCH (08:33)
[2018-11-09 13:38] VITALS: BP 118/76
[2018-11-09] MEDS: DAPTOMYCIN 400 MG in SODIUM CHLORIDE 0.9% 100 ML IVPB SCH (18:36)
[2018-11-09] MEDS: NICOTINE 14MG/24 HR PATCH.TD24 TD SCH (18:37)
[2018-11-09 19:35] VITALS: BP 111/73
[2018-11-10 00:56] VITALS: BP 126/81
[2018-11-10] MEDS: AMPICILLIN/SULBACTAM 1,500 MG in SODIUM CHLORIDE 0.9% 50 ML IV SCH ×4 (05:03→22:51)
[2018-11-10] MEDS: ASPIRIN 81 MG TABLET EC PO SCH (05:06)
[2018-11-10 07:07] VITALS: BP 104/70
[2018-11-10] MEDS: THIAMINE 100MG TABLET PO SCH (10:59)
[2018-11-10] MEDS: GABAPENTIN 300 MG CAPSULE PO SCH ×3 (10:59→22:50)
[2018-11-10] MEDS: MULTIVITAMIN 1 TABLET PO SCH (10:59)
[2018-11-10] MEDS: ENOXAPARIN 40 MG/0.4 ML SQ SCH (11:00)
[2018-11-10 13:29] VITALS: BP 116/72
[2018-11-10] MEDS: NICOTINE 14MG/24 HR PATCH.TD24 TD SCH (17:19)
[2018-11-10] MEDS: DAPTOMYCIN 400 MG in SODIUM CHLORIDE 0.9% 100 ML IVPB SCH (17:20)
[2018-11-10 19:52] VITALS: BP 105/68
[2018-11-11 01:43] VITALS: BP 83/39
[2018-11-11] MEDS: AMPICILLIN/SULBACTAM 1,500 MG in SODIUM CHLORIDE 0.9% 50 ML IV SCH ×4 (04:42→23:44)
[2018-11-11] MEDS: ASPIRIN 81 MG TABLET EC PO SCH (04:42)
[2018-11-11 06:34] VITALS: BP 112/74
[2018-11-11] MEDS: MULTIVITAMIN 1 TABLET PO SCH (09:36)
[2018-11-11] MEDS: THIAMINE 100MG TABLET PO SCH (09:36)
[2018-11-11] MEDS: GABAPENTIN 300 MG CAPSULE PO SCH ×3 (09:36→20:48)
[2018-11-11] MEDS: ENOXAPARIN 40 MG/0.4 ML SQ SCH (09:37)
[2018-11-11] MEDS: ACETAMINOPHEN 325 MG TABLET PO PRN ×2 (10:16→19:32)
[2018-11-11] MEDS: FERROUS SULFATE 325 MG TABLET PO SCH (12:19)
[2018-11-11 13:49] VITALS: BP 104/61
[2018-11-11] MEDS: NICOTINE 14MG/24 HR PATCH.TD24 TD SCH (17:47)
[2018-11-11 19:00] VITALS: BP 115/69
[2018-11-11] MEDS: DAPTOMYCIN 500 MG in SODIUM CHLORIDE 0.9% 100 ML IVPB SCH (19:32)
[2018-11-11] MEDS: TRAZODONE 50MG TABLET PO PRN (20:48)
[2018-11-12 01:13] VITALS: BP 102/58
[2018-11-12] MEDS: ASPIRIN 81 MG TABLET EC PO SCH (05:43)
[2018-11-12] MEDS: AMPICILLIN/SULBACTAM 1,500 MG in SODIUM CHLORIDE 0.9% 50 ML IV SCH ×3 (05:43→19:22)
[2018-11-12 07:04] VITALS: BP 113/74
[2018-11-12] MEDS: GABAPENTIN 300 MG CAPSULE PO SCH ×3 (08:15→21:01)
[2018-11-12] MEDS: ENOXAPARIN 40 MG/0.4 ML SQ SCH (08:15)
[2018-11-12] MEDS: THIAMINE 100MG TABLET PO SCH (08:15)
[2018-11-12] MEDS: MULTIVITAMIN 1 TABLET PO SCH (08:15)
[2018-11-12 12:37] VITALS: BP 112/69
[2018-11-12] MEDS: NICOTINE 14MG/24 HR PATCH.TD24 TD SCH (17:28)
[2018-11-12] MEDS: ACETAMINOPHEN 325 MG TABLET PO PRN (19:22)
[2018-11-12] MEDS: DAPTOMYCIN 500 MG in SODIUM CHLORIDE 0.9% 100 ML IVPB SCH (20:00)
[2018-11-12 20:23] VITALS: BP 115/75
[2018-11-12] MEDS: TRAZODONE 50MG TABLET PO PRN (21:01)
[2018-11-13] MEDS: AMPICILLIN/SULBACTAM 1,500 MG in SODIUM CHLORIDE 0.9% 50 ML IV SCH ×4 (01:24→19:44)
[2018-11-13 01:50] VITALS: BP 120/71
[2018-11-13] MEDS: ACETAMINOPHEN 325 MG TABLET PO PRN ×2 (05:09→19:44)
[2018-11-13] MEDS: ASPIRIN 81 MG TABLET EC PO SCH (05:09)
[2018-11-13 06:46] VITALS: BP 97/57
[2018-11-13] MEDS: MULTIVITAMIN 1 TABLET PO SCH (08:13)
[2018-11-13] MEDS: THIAMINE 100MG TABLET PO SCH (08:13)
[2018-11-13] MEDS: ENOXAPARIN 40 MG/0.4 ML SQ SCH (08:13)
[2018-11-13] MEDS: GABAPENTIN 300 MG CAPSULE PO SCH ×3 (08:13→21:05)
[2018-11-13] MEDS: FERROUS SULFATE 325 MG TABLET PO SCH (10:41)
[2018-11-13 12:29] VITALS: BP 120/77
[2018-11-13] MEDS: NICOTINE 14MG/24 HR PATCH.TD24 TD SCH (16:00)
[2018-11-13 20:25] VITALS: BP 100/63
[2018-11-13] MEDS: DAPTOMYCIN 500 MG in SODIUM CHLORIDE 0.9% 100 ML IVPB SCH (21:05)
[2018-11-14 01:30] VITALS: BP 104/53
[2018-11-14] MEDS: AMPICILLIN/SULBACTAM 1,500 MG in SODIUM CHLORIDE 0.9% 50 ML IV SCH ×4 (02:27→19:29)
[2018-11-14] MEDS: ASPIRIN 81 MG TABLET EC PO SCH (04:57)
[2018-11-14 06:48] LABS: BASOPHILS # (AUTO) 0.13 x10^3/uL (0-0.1); BASOPHILS % (AUTO) 2 % (0-1); EOSINOPHILS # (AUTO) 0.11 x10^3/uL (0-0.4); EOSINOPHILS % (AUTO) 2 % (1-7); HCT (SEDRATE) 33.4 % (34.6-47.8); LYMPHOCYTES # (AUTO) 1.96 x10^3/uL (1-3.4); LYMPHOCYTES % (AUTO) 28 % (22-44); MD NO; MEAN CORPUSCULAR HEMOGLOBIN 28.8 pg (27.0-34.8); MEAN CORPUSCULAR HGB CONC 32.2 g/dL (32.4-35.8); MEAN CORPUSCULAR VOLUME 89.4 fL (80-100); MEAN PLATELET VOLUME 7.4 fL (7.4-10.4); MONOCYTES # (AUTO) 0.47 x10^3/uL (0.2-0.8); MONOCYTES % (AUTO) 7 % (2-9); NEUTROPHILS # (AUTO) 4.28 x10^3/uL (1.8-6.8); NEUTROPHILS % (AUTO) 62 % (42-75); PLATELET COUNT 445 x10^3/uL (130-400); RED BLOOD COUNT 3.79 x10^6/uL (3.82-5.3); RED CELL DISTRIBUTION WIDTH 17.5 % (9.6-15.2)
[2018-11-14 07:01] LABS: ALANINE AMINOTRANSFERASE 18 U/L (12-78); ALBUMIN 3.2 g/dL (3.4-5.0); ANION GAP 4 mmol/L (5-15); C-REACTIVE PROTEIN, QUANT 0.27 mg/dL (0.02-0.49); CALCIUM 9.1 mg/dL (8.5-10.1); CHLORIDE 107 mmol/L (98-107); CREATININE 0.73 mg/dL (0.55-1.02)
[2018-11-14 07:04] LABS: ALKALINE PHOSPHATASE 64 U/L (45-117); BILIRUBIN,TOTAL 0.2 mg/dL (0.2-1.0); CREATINE KINASE, TOTAL 67 U/L (26-192); TOTAL PROTEIN 7.8 g/dL (6.4-8.2)
[2018-11-14 07:05] VITALS: BP 105/71
[2018-11-14] MEDS: GABAPENTIN 300 MG CAPSULE PO SCH ×3 (07:49→20:20)
[2018-11-14] MEDS: MULTIVITAMIN 1 TABLET PO SCH (07:49)
[2018-11-14] MEDS: THIAMINE 100MG TABLET PO SCH (07:49)
[2018-11-14] MEDS: ENOXAPARIN 40 MG/0.4 ML SQ SCH (07:50)
[2018-11-14 13:11] VITALS: BP 111/73
[2018-11-14] MEDS: NICOTINE 14MG/24 HR PATCH.TD24 TD SCH (16:32)
[2018-11-14] MEDS: ACETAMINOPHEN 325 MG TABLET PO PRN (20:20)
[2018-11-14] MEDS: DAPTOMYCIN 500 MG in SODIUM CHLORIDE 0.9% 100 ML IVPB SCH (20:20)
[2018-11-14 21:57] VITALS: BP 127/82
[2018-11-15 01:27] VITALS: BP 109/73
[2018-11-15] MEDS: AMPICILLIN/SULBACTAM 1,500 MG in SODIUM CHLORIDE 0.9% 50 ML IV SCH ×4 (01:31→19:42)
[2018-11-15] MEDS: ASPIRIN 81 MG TABLET EC PO SCH (06:36)
[2018-11-15] MEDS: MULTIVITAMIN 1 TABLET PO SCH (07:37)
[2018-11-15] MEDS: THIAMINE 100MG TABLET PO SCH (07:37)
[2018-11-15] MEDS: ENOXAPARIN 40 MG/0.4 ML SQ SCH (07:37)
[2018-11-15] MEDS: GABAPENTIN 300 MG CAPSULE PO SCH ×3 (07:37→21:10)
[2018-11-15 08:29] VITALS: BP 95/55
[2018-11-15] MEDS: FERROUS SULFATE 325 MG TABLET PO SCH (13:56)
[2018-11-15 14:01] VITALS: BP 93/61
[2018-11-15] MEDS: NICOTINE 14MG/24 HR PATCH.TD24 TD SCH (17:19)
[2018-11-15 21:08] VITALS: BP 108/69
[2018-11-15] MEDS: DAPTOMYCIN 500 MG in SODIUM CHLORIDE 0.9% 100 ML IVPB SCH (21:10)
[2018-11-16] MEDS: ACETAMINOPHEN 325 MG TABLET PO PRN ×2 (00:15→12:40)
[2018-11-16 01:25] VITALS: BP 112/76
[2018-11-16] MEDS: AMPICILLIN/SULBACTAM 1,500 MG in SODIUM CHLORIDE 0.9% 50 ML IV SCH ×4 (01:36→21:35)
[2018-11-16] MEDS: ASPIRIN 81 MG TABLET EC PO SCH (06:29)
[2018-11-16 08:00] VITALS: BP 101/73
[2018-11-16] MEDS: ENOXAPARIN 40 MG/0.4 ML SQ SCH (08:54)
[2018-11-16] MEDS: THIAMINE 100MG TABLET PO SCH (08:54)
[2018-11-16] MEDS: GABAPENTIN 300 MG CAPSULE PO SCH ×3 (08:54→19:55)
[2018-11-16] MEDS: MULTIVITAMIN 1 TABLET PO SCH (08:54)
[2018-11-16 14:44] VITALS: BP 94/56
[2018-11-16] MEDS: NICOTINE 14MG/24 HR PATCH.TD24 TD SCH (15:16)
[2018-11-16] MEDS: DAPTOMYCIN 500 MG in SODIUM CHLORIDE 0.9% 100 ML IVPB SCH (19:56)
[2018-11-16 21:04] VITALS: BP 112/63
[2018-11-17 00:30] VITALS: BP 108/73
[2018-11-17] MEDS: AMPICILLIN/SULBACTAM 1,500 MG in SODIUM CHLORIDE 0.9% 50 ML IV SCH ×4 (02:54→21:12)
[2018-11-17] MEDS: ASPIRIN 81 MG TABLET EC PO SCH (06:27)
[2018-11-17] MEDS: THIAMINE 100MG TABLET PO SCH (08:46)
[2018-11-17] MEDS: ENOXAPARIN 40 MG/0.4 ML SQ SCH (08:46)
[2018-11-17] MEDS: GABAPENTIN 300 MG CAPSULE PO SCH ×3 (08:46→21:12)
[2018-11-17] MEDS: MULTIVITAMIN 1 TABLET PO SCH (08:46)
[2018-11-17 09:21] VITALS: BP 109/69
[2018-11-17] MEDS: FERROUS SULFATE 325 MG TABLET PO SCH (13:24)
[2018-11-17] MEDS: ACETAMINOPHEN 325 MG TABLET PO PRN (13:24)
[2018-11-17 15:53] VITALS: BP 103/62
[2018-11-17] MEDS: NICOTINE 14MG/24 HR PATCH.TD24 TD SCH (16:30)
[2018-11-17] MEDS: DAPTOMYCIN 500 MG in SODIUM CHLORIDE 0.9% 100 ML IVPB SCH (20:18)
[2018-11-17 20:27] VITALS: BP 101/66
[2018-11-18 02:41] VITALS: BP 95/59
[2018-11-18] MEDS: AMPICILLIN/SULBACTAM 1,500 MG in SODIUM CHLORIDE 0.9% 50 ML IV SCH ×4 (03:11→23:45)
[2018-11-18] MEDS: ASPIRIN 81 MG TABLET EC PO SCH (06:18)
[2018-11-18 07:20] VITALS: BP 106/63
[2018-11-18] MEDS: THIAMINE 100MG TABLET PO SCH (09:04)
[2018-11-18] MEDS: MULTIVITAMIN 1 TABLET PO SCH (09:04)
[2018-11-18] MEDS: GABAPENTIN 300 MG CAPSULE PO SCH ×3 (09:04→21:12)
[2018-11-18] MEDS: ENOXAPARIN 40 MG/0.4 ML SQ SCH (09:04)
[2018-11-18 13:56] VITALS: BP 110/61
[2018-11-18] MEDS: NICOTINE 14MG/24 HR PATCH.TD24 TD SCH (16:47)
[2018-11-18 19:34] VITALS: BP 98/63
[2018-11-18] MEDS: DAPTOMYCIN 500 MG in SODIUM CHLORIDE 0.9% 100 ML IVPB SCH (20:00)
[2018-11-19 02:06] VITALS: BP 95/61
[2018-11-19 05:56] LABS: BASOPHILS # (AUTO) 0.03 x10^3/uL (0-0.1); BASOPHILS % (AUTO) 0 % (0-1); EOSINOPHILS % (AUTO) 3 % (1-7); LYMPHOCYTES # (AUTO) 2.11 x10^3/uL (1-3.4); LYMPHOCYTES % (AUTO) 32 % (22-44); MD NO; MEAN CORPUSCULAR HEMOGLOBIN 28.4 pg (27.0-34.8); MEAN CORPUSCULAR VOLUME 88.7 fL (80-100); MEAN PLATELET VOLUME 7.7 fL (7.4-10.4); MONOCYTES # (AUTO) 0.82 x10^3/uL (0.2-0.8); MONOCYTES % (AUTO) 13 % (2-9); NEUTROPHILS # (AUTO) 3.35 x10^3/uL (1.8-6.8); NEUTROPHILS % (AUTO) 52 % (42-75); PLATELET COUNT 393 x10^3/uL (130-400); RED BLOOD COUNT 3.67 x10^6/uL (3.82-5.3); RED CELL DISTRIBUTION WIDTH 17.5 % (9.6-15.2)
[2018-11-19] MEDS: AMPICILLIN/SULBACTAM 1,500 MG in SODIUM CHLORIDE 0.9% 50 ML IV SCH ×3 (05:59→18:23)
[2018-11-19] MEDS: ASPIRIN 81 MG TABLET EC PO SCH (06:00)
[2018-11-19 06:01] LABS: ALBUMIN 3.2 g/dL (3.4-5.0); ANION GAP 6 mmol/L (5-15); CALCIUM 8.8 mg/dL (8.5-10.1); CHLORIDE 110 mmol/L (98-107)
[2018-11-19 06:05] LABS: ALANINE AMINOTRANSFERASE 16 U/L (12-78); ALKALINE PHOSPHATASE 57 U/L (45-117); BILIRUBIN,TOTAL 0.3 mg/dL (0.2-1.0); CREATININE 0.69 mg/dL (0.55-1.02); TOTAL PROTEIN 7.5 g/dL (6.4-8.2)
[2018-11-19 07:03] VITALS: BP 119/75
[2018-11-19] MEDS: ACETAMINOPHEN 325 MG TABLET PO PRN ×2 (08:54→16:14)
[2018-11-19] MEDS: THIAMINE 100MG TABLET PO SCH (08:54)
[2018-11-19] MEDS: ENOXAPARIN 40 MG/0.4 ML SQ SCH (08:55)
[2018-11-19] MEDS: GABAPENTIN 300 MG CAPSULE PO SCH ×3 (08:55→20:24)
[2018-11-19] MEDS: MULTIVITAMIN 1 TABLET PO SCH (08:55)
[2018-11-19] MEDS: FERROUS SULFATE 325 MG TABLET PO SCH (11:58)
[2018-11-19 12:32] VITALS: BP 106/70
[2018-11-19] MEDS: NICOTINE 14MG/24 HR PATCH.TD24 TD SCH (16:18)
[2018-11-19 19:25] VITALS: BP 109/65
[2018-11-19] MEDS: DAPTOMYCIN 500 MG in SODIUM CHLORIDE 0.9% 100 ML IVPB SCH (20:27)
[2018-11-20] MEDS: AMPICILLIN/SULBACTAM 1,500 MG in SODIUM CHLORIDE 0.9% 50 ML IV SCH ×4 (00:04→17:53)
[2018-11-20 01:00] VITALS: BP 93/55
[2018-11-20] MEDS: ASPIRIN 81 MG TABLET EC PO SCH (05:33)
[2018-11-20 06:42] VITALS: BP 114/69
[2018-11-20] MEDS: THIAMINE 100MG TABLET PO SCH (08:00)
[2018-11-20] MEDS: MULTIVITAMIN 1 TABLET PO SCH (08:00)
[2018-11-20] MEDS: GABAPENTIN 300 MG CAPSULE PO SCH ×3 (08:00→21:16)
[2018-11-20] MEDS: ACETAMINOPHEN 325 MG TABLET PO PRN ×2 (08:00→15:53)
[2018-11-20] MEDS: ENOXAPARIN 40 MG/0.4 ML SQ SCH (08:01)
[2018-11-20] MEDS: BACLOFEN 10 MG TABLET PO PRN (12:11)
[2018-11-20 12:13] VITALS: BP 121/73
[2018-11-20] MEDS: NICOTINE 14MG/24 HR PATCH.TD24 TD SCH (15:55)
[2018-11-20 19:48] VITALS: BP 117/68
[2018-11-20] MEDS: DAPTOMYCIN 500 MG in SODIUM CHLORIDE 0.9% 100 ML IVPB SCH (21:16)
[2018-11-21] MEDS: AMPICILLIN/SULBACTAM 1,500 MG in SODIUM CHLORIDE 0.9% 50 ML IV SCH ×4 (00:11→18:03)
[2018-11-21 01:24] VITALS: BP 110/64
[2018-11-21] MEDS: ASPIRIN 81 MG TABLET EC PO SCH (06:01)
[2018-11-21 07:52] VITALS: BP 97/60
[2018-11-21] MEDS: MULTIVITAMIN 1 TABLET PO SCH (08:20)
[2018-11-21] MEDS: THIAMINE 100MG TABLET PO SCH (08:20)
[2018-11-21] MEDS: GABAPENTIN 300 MG CAPSULE PO SCH ×3 (08:21→19:48)
[2018-11-21] MEDS: ENOXAPARIN 40 MG/0.4 ML SQ SCH (08:22)
[2018-11-21] MEDS: FERROUS SULFATE 325 MG TABLET PO SCH (12:05)
[2018-11-21] MEDS: ACETAMINOPHEN 325 MG TABLET PO PRN (12:05)
[2018-11-21 12:29] VITALS: BP 109/67
[2018-11-21] MEDS: NICOTINE 14MG/24 HR PATCH.TD24 TD SCH (16:16)
[2018-11-21] MEDS: DAPTOMYCIN 500 MG in SODIUM CHLORIDE 0.9% 100 ML IVPB SCH (19:49)
[2018-11-21 20:00] VITALS: BP 109/73
[2018-11-22 02:00] VITALS: BP 106/72
[2018-11-22 05:11] LABS: CREATININE 0.69 mg/dL (0.55-1.02)
[2018-11-22] MEDS: AMPICILLIN/SULBACTAM 1,500 MG in SODIUM CHLORIDE 0.9% 50 ML IV SCH ×4 (05:17→23:17)
[2018-11-22] MEDS: ASPIRIN 81 MG TABLET EC PO SCH (05:21)
[2018-11-22 06:49] VITALS: BP 98/67
[2018-11-22] MEDS: ENOXAPARIN 40 MG/0.4 ML SQ SCH (08:27)
[2018-11-22] MEDS: GABAPENTIN 300 MG CAPSULE PO SCH ×3 (08:27→20:03)
[2018-11-22] MEDS: MULTIVITAMIN 1 TABLET PO SCH (08:28)
[2018-11-22] MEDS: THIAMINE 100MG TABLET PO SCH (08:28)
[2018-11-22 15:27] VITALS: BP 100/64
[2018-11-22] MEDS: NICOTINE 14MG/24 HR PATCH.TD24 TD SCH (17:05)
[2018-11-22 20:00] VITALS: BP 105/69
[2018-11-22] MEDS: ACETAMINOPHEN 325 MG TABLET PO PRN (20:09)
[2018-11-22] MEDS: DAPTOMYCIN 500 MG in SODIUM CHLORIDE 0.9% 100 ML IVPB SCH (20:57)
[2018-11-23 02:00] VITALS: BP 106/71
[2018-11-23] MEDS: ASPIRIN 81 MG TABLET EC PO SCH (05:06)
[2018-11-23] MEDS: AMPICILLIN/SULBACTAM 1,500 MG in SODIUM CHLORIDE 0.9% 50 ML IV SCH ×4 (05:06→23:05)
[2018-11-23 07:38] VITALS: BP 101/63
[2018-11-23] MEDS: THIAMINE 100MG TABLET PO SCH (08:37)
[2018-11-23] MEDS: GABAPENTIN 300 MG CAPSULE PO SCH ×3 (08:37→20:13)
[2018-11-23] MEDS: ENOXAPARIN 40 MG/0.4 ML SQ SCH (08:37)
[2018-11-23] MEDS: MULTIVITAMIN 1 TABLET PO SCH (08:37)
[2018-11-23] MEDS: FERROUS SULFATE 325 MG TABLET PO SCH (11:50)
[2018-11-23 12:37] VITALS: BP 105/69
[2018-11-23] MEDS: NICOTINE 14MG/24 HR PATCH.TD24 TD SCH (16:15)
[2018-11-23 19:51] VITALS: BP 105/57
[2018-11-23] MEDS: DAPTOMYCIN 500 MG in SODIUM CHLORIDE 0.9% 100 ML IVPB SCH (20:12)
[2018-11-23] MEDS: ACETAMINOPHEN 325 MG TABLET PO PRN (20:12)
[2018-11-24 02:00] VITALS: BP 103/69
[2018-11-24] MEDS: AMPICILLIN/SULBACTAM 1,500 MG in SODIUM CHLORIDE 0.9% 50 ML IV SCH ×4 (05:32→22:58)
[2018-11-24] MEDS: ASPIRIN 81 MG TABLET EC PO SCH (05:32)
[2018-11-24 07:08] VITALS: BP 102/71
[2018-11-24] MEDS: THIAMINE 100MG TABLET PO SCH (07:50)
[2018-11-24] MEDS: ACETAMINOPHEN 325 MG TABLET PO PRN ×2 (07:50→16:49)
[2018-11-24] MEDS: GABAPENTIN 300 MG CAPSULE PO SCH ×3 (07:51→20:28)
[2018-11-24] MEDS: MULTIVITAMIN 1 TABLET PO SCH (07:51)
[2018-11-24] MEDS: BACLOFEN 10 MG TABLET PO PRN (09:04)
[2018-11-24] MEDS: LIDODERM 5% PATCH TD PRN (09:04)
[2018-11-24] MEDS: ENOXAPARIN 40 MG/0.4 ML SQ SCH (09:20)
[2018-11-24 14:35] VITALS: BP 114/77
[2018-11-24] MEDS: NICOTINE 14MG/24 HR PATCH.TD24 TD SCH (16:49)
[2018-11-24 19:17] VITALS: BP 114/77
[2018-11-24] MEDS: DAPTOMYCIN 500 MG in SODIUM CHLORIDE 0.9% 100 ML IVPB SCH (21:20)
[2018-11-25 00:34] VITALS: BP 117/68
[2018-11-25] MEDS: AMPICILLIN/SULBACTAM 1,500 MG in SODIUM CHLORIDE 0.9% 50 ML IV SCH ×4 (05:07→23:06)
[2018-11-25] MEDS: ASPIRIN 81 MG TABLET EC PO SCH (05:07)
[2018-11-25 07:05] VITALS: BP 120/89
[2018-11-25] MEDS: GABAPENTIN 300 MG CAPSULE PO SCH ×3 (08:31→20:51)
[2018-11-25] MEDS: MULTIVITAMIN 1 TABLET PO SCH (08:31)
[2018-11-25] MEDS: ENOXAPARIN 40 MG/0.4 ML SQ SCH (08:31)
[2018-11-25] MEDS: THIAMINE 100MG TABLET PO SCH (08:31)
[2018-11-25] MEDS: FERROUS SULFATE 325 MG TABLET PO SCH (11:07)
[2018-11-25] MEDS: ACETAMINOPHEN 325 MG TABLET PO PRN ×2 (11:26→19:32)
[2018-11-25 13:11] VITALS: BP 113/72
[2018-11-25] MEDS: NICOTINE 14MG/24 HR PATCH.TD24 TD SCH (17:17)
[2018-11-25 20:21] VITALS: BP 128/74
[2018-11-25] MEDS: DAPTOMYCIN 500 MG in SODIUM CHLORIDE 0.9% 100 ML IVPB SCH (21:10)
[2018-11-26 01:38] VITALS: BP 100/66
[2018-11-26] MEDS: AMPICILLIN/SULBACTAM 1,500 MG in SODIUM CHLORIDE 0.9% 50 ML IV SCH ×4 (03:06→22:38)
[2018-11-26] MEDS: ASPIRIN 81 MG TABLET EC PO SCH (06:18)
[2018-11-26 08:30] VITALS: BP 97/63
[2018-11-26] MEDS: GABAPENTIN 300 MG CAPSULE PO SCH ×3 (09:27→20:22)
[2018-11-26] MEDS: MULTIVITAMIN 1 TABLET PO SCH (09:27)
[2018-11-26] MEDS: THIAMINE 100MG TABLET PO SCH (09:27)
[2018-11-26] MEDS: ENOXAPARIN 40 MG/0.4 ML SQ SCH (09:27)
[2018-11-26] MEDS: ACETAMINOPHEN 325 MG TABLET PO PRN (10:16)
[2018-11-26 14:58] VITALS: BP 112/72
[2018-11-26] MEDS: NICOTINE 14MG/24 HR PATCH.TD24 TD SCH (16:47)
[2018-11-26 19:53] VITALS: BP 125/79
[2018-11-26] MEDS: DAPTOMYCIN 500 MG in SODIUM CHLORIDE 0.9% 100 ML IVPB SCH (20:22)
[2018-11-26] MEDS: LIDODERM 5% PATCH TD PRN (20:23)
[2018-11-27 01:12] VITALS: BP 102/64
[2018-11-27] MEDS: ASPIRIN 81 MG TABLET EC PO SCH (04:29)
[2018-11-27] MEDS: AMPICILLIN/SULBACTAM 1,500 MG in SODIUM CHLORIDE 0.9% 50 ML IV SCH ×4 (04:30→23:10)
[2018-11-27 05:20] LABS: BASOPHILS # (AUTO) 0.03 x10^3/uL (0-0.1); BASOPHILS % (AUTO) 1 % (0-1); EOSINOPHILS # (AUTO) 0.18 x10^3/uL (0-0.4); EOSINOPHILS % (AUTO) 3 % (1-7); LYMPHOCYTES # (AUTO) 2.41 x10^3/uL (1-3.4); LYMPHOCYTES % (AUTO) 38 % (22-44); MD NO; MEAN CORPUSCULAR HEMOGLOBIN 28.8 pg (27.0-34.8); MEAN CORPUSCULAR HGB CONC 32.8 g/dL (32.4-35.8); MEAN CORPUSCULAR VOLUME 87.8 fL (80-100); MEAN PLATELET VOLUME 7.7 fL (7.4-10.4); MONOCYTES # (AUTO) 0.51 x10^3/uL (0.2-0.8); MONOCYTES % (AUTO) 8 % (2-9); NEUTROPHILS # (AUTO) 3.25 x10^3/uL (1.8-6.8); NEUTROPHILS % (AUTO) 51 % (42-75); PLATELET COUNT 432 x10^3/uL (130-400); RED BLOOD COUNT 3.81 x10^6/uL (3.82-5.3)
[2018-11-27 05:22] LABS: HCT (SEDRATE) 33.8 % (34.6-47.8)
[2018-11-27 05:27] LABS: CHLORIDE 107 mmol/L (98-107)
[2018-11-27 05:34] LABS: ALANINE AMINOTRANSFERASE 17 U/L (12-78); ALBUMIN 3.1 g/dL (3.4-5.0); ALKALINE PHOSPHATASE 60 U/L (45-117); ANION GAP 6 mmol/L (5-15); BILIRUBIN,TOTAL 0.1 mg/dL (0.2-1.0); CALCIUM 9.3 mg/dL (8.5-10.1); CREATINE KINASE, TOTAL 86 U/L (26-192); TOTAL PROTEIN 7.4 g/dL (6.4-8.2)
[2018-11-27 07:30] VITALS: BP 106/68
[2018-11-27] MEDS: MULTIVITAMIN 1 TABLET PO SCH (08:48)
[2018-11-27] MEDS: GABAPENTIN 300 MG CAPSULE PO SCH ×3 (08:48→20:39)
[2018-11-27] MEDS: ACETAMINOPHEN 325 MG TABLET PO PRN (08:48)
[2018-11-27] MEDS: ENOXAPARIN 40 MG/0.4 ML SQ SCH (08:48)
[2018-11-27] MEDS: FERROUS SULFATE 325 MG TABLET PO SCH (11:27)
[2018-11-27 14:03] VITALS: BP 110/74
[2018-11-27] MEDS: NICOTINE 14MG/24 HR PATCH.TD24 TD SCH (16:44)
[2018-11-27 20:35] VITALS: BP 115/72
[2018-11-27] MEDS: DAPTOMYCIN 500 MG in SODIUM CHLORIDE 0.9% 100 ML IVPB SCH (20:39)
[2018-11-28 03:31] VITALS: BP 103/66
[2018-11-28] MEDS: ASPIRIN 81 MG TABLET EC PO SCH (04:48)
[2018-11-28] MEDS: AMPICILLIN/SULBACTAM 1,500 MG in SODIUM CHLORIDE 0.9% 50 ML IV SCH ×4 (04:48→22:31)
[2018-11-28 05:24] LABS: CREATININE 0.73 mg/dL (0.55-1.02)
[2018-11-28 07:13] VITALS: BP 111/73
[2018-11-28] MEDS: MULTIVITAMIN 1 TABLET PO SCH (08:50)
[2018-11-28] MEDS: GABAPENTIN 300 MG CAPSULE PO SCH ×3 (08:51→20:30)
[2018-11-28] MEDS: ENOXAPARIN 40 MG/0.4 ML SQ SCH (08:51)
[2018-11-28 13:57] VITALS: BP 112/68
[2018-11-28] MEDS: NICOTINE 14MG/24 HR PATCH.TD24 TD SCH (16:52)
[2018-11-28 20:10] VITALS: BP 99/63
[2018-11-28] MEDS: DAPTOMYCIN 500 MG in SODIUM CHLORIDE 0.9% 100 ML IVPB SCH (20:30)
[2018-11-29 01:26] VITALS: BP 102/65
[2018-11-29] MEDS: ASPIRIN 81 MG TABLET EC PO SCH (04:30)
[2018-11-29] MEDS: AMPICILLIN/SULBACTAM 1,500 MG in SODIUM CHLORIDE 0.9% 50 ML IV SCH ×4 (04:31→22:54)
[2018-11-29 07:14] VITALS: BP 99/66
[2018-11-29] MEDS: ENOXAPARIN 40 MG/0.4 ML SQ SCH (08:50)
[2018-11-29] MEDS: GABAPENTIN 300 MG CAPSULE PO SCH ×3 (08:51→20:43)
[2018-11-29] MEDS: MULTIVITAMIN 1 TABLET PO SCH (08:51)
[2018-11-29] MEDS: FERROUS SULFATE 325 MG TABLET PO SCH (12:24)
[2018-11-29 14:00] VITALS: BP 107/69
[2018-11-29] MEDS: NICOTINE 14MG/24 HR PATCH.TD24 TD SCH (15:41)
[2018-11-29 19:53] VITALS: BP 99/64
[2018-11-29] MEDS: DAPTOMYCIN 500 MG in SODIUM CHLORIDE 0.9% 100 ML IVPB SCH (20:43)
[2018-11-30 02:44] VITALS: BP 102/63
[2018-11-30] MEDS: AMPICILLIN/SULBACTAM 1,500 MG in SODIUM CHLORIDE 0.9% 50 ML IV SCH ×3 (04:55→17:08)
[2018-11-30] MEDS: ASPIRIN 81 MG TABLET EC PO SCH (04:55)
[2018-11-30 06:53] VITALS: BP 102/66
[2018-11-30] MEDS ORDERED: ACETAMINOPHEN 650 MG/20.3 ML UDC ONE (10:09)
[2018-11-30] MEDS: ENOXAPARIN 40 MG/0.4 ML SQ SCH (10:13)
[2018-11-30] MEDS: MULTIVITAMIN 1 TABLET PO SCH (10:13)
[2018-11-30] MEDS: ACETAMINOPHEN 325 MG TABLET PO PRN (10:13)
[2018-11-30] MEDS: GABAPENTIN 300 MG CAPSULE PO SCH ×3 (10:13→21:41)
[2018-11-30 13:01] VITALS: BP 112/70
[2018-11-30] MEDS: NICOTINE 14MG/24 HR PATCH.TD24 TD SCH (17:09)
[2018-11-30 19:37] VITALS: BP 103/64
[2018-11-30] MEDS: DAPTOMYCIN 500 MG in SODIUM CHLORIDE 0.9% 100 ML IVPB SCH (21:41)
[2018-12-01] MEDS: AMPICILLIN/SULBACTAM 1,500 MG in SODIUM CHLORIDE 0.9% 50 ML IV SCH ×5 (00:08→23:36)
[2018-12-01 02:08] VITALS: BP 98/60
[2018-12-01] MEDS: ACETAMINOPHEN 325 MG TABLET PO PRN (02:20)
[2018-12-01] MEDS: ASPIRIN 81 MG TABLET EC PO SCH (05:41)
[2018-12-01 05:42] LABS: CREATININE 0.74 mg/dL (0.55-1.02)
[2018-12-01 07:45] VITALS: BP 101/55
[2018-12-01] MEDS: MULTIVITAMIN 1 TABLET PO SCH (09:32)
[2018-12-01] MEDS: GABAPENTIN 300 MG CAPSULE PO SCH ×3 (09:32→20:59)
[2018-12-01] MEDS: ENOXAPARIN 40 MG/0.4 ML SQ SCH (09:32)
[2018-12-01] MEDS: FERROUS SULFATE 325 MG TABLET PO SCH (11:57)
[2018-12-01 14:00] VITALS: BP 109/63
[2018-12-01] MEDS: NICOTINE 14MG/24 HR PATCH.TD24 TD SCH (17:49)
[2018-12-01 19:41] VITALS: BP 99/66
[2018-12-01] MEDS: TRAZODONE 50MG TABLET PO PRN (20:59)
[2018-12-01] MEDS: DAPTOMYCIN 500 MG in SODIUM CHLORIDE 0.9% 100 ML IVPB SCH (20:59)
[2018-12-02 03:15] VITALS: BP 97/64
[2018-12-02] MEDS: AMPICILLIN/SULBACTAM 1,500 MG in SODIUM CHLORIDE 0.9% 50 ML IV SCH ×4 (05:38→23:49)
[2018-12-02] MEDS: ASPIRIN 81 MG TABLET EC PO SCH (05:42)
[2018-12-02 08:00] VITALS: BP 120/73
[2018-12-02] MEDS: ENOXAPARIN 40 MG/0.4 ML SQ SCH (09:03)
[2018-12-02] MEDS: MULTIVITAMIN 1 TABLET PO SCH (09:03)
[2018-12-02] MEDS: GABAPENTIN 300 MG CAPSULE PO SCH ×3 (09:03→22:04)
[2018-12-02 14:43] VITALS: BP 119/71
[2018-12-02] MEDS: NICOTINE 14MG/24 HR PATCH.TD24 TD SCH (16:53)
[2018-12-02 19:25] VITALS: BP 114/74
[2018-12-02] MEDS: DAPTOMYCIN 500 MG in SODIUM CHLORIDE 0.9% 100 ML IVPB SCH (22:03)
[2018-12-03 00:21] VITALS: BP 115/75
[2018-12-03] MEDS: LIDODERM 5% PATCH TD PRN (01:18)
[2018-12-03] MEDS: AMPICILLIN/SULBACTAM 1,500 MG in SODIUM CHLORIDE 0.9% 50 ML IV SCH ×4 (05:46→23:16)
[2018-12-03] MEDS: ASPIRIN 81 MG TABLET EC PO SCH (05:54)
[2018-12-03 07:05] VITALS: BP 93/55
[2018-12-03] MEDS: GABAPENTIN 300 MG CAPSULE PO SCH ×3 (09:55→20:55)
[2018-12-03] MEDS: FERROUS SULFATE 325 MG TABLET PO SCH (09:55)
[2018-12-03] MEDS: ENOXAPARIN 40 MG/0.4 ML SQ SCH (09:55)
[2018-12-03] MEDS: MULTIVITAMIN 1 TABLET PO SCH (09:55)
[2018-12-03 12:44] VITALS: BP 111/75
[2018-12-03] MEDS: NICOTINE 14MG/24 HR PATCH.TD24 TD SCH (17:17)
[2018-12-03 20:50] VITALS: BP 111/70
[2018-12-03] MEDS: DAPTOMYCIN 500 MG in SODIUM CHLORIDE 0.9% 100 ML IVPB SCH (20:55)
[2018-12-04 00:30] VITALS: BP 100/65
[2018-12-04] MEDS: ASPIRIN 81 MG TABLET EC PO SCH (05:08)
[2018-12-04] MEDS: AMPICILLIN/SULBACTAM 1,500 MG in SODIUM CHLORIDE 0.9% 50 ML IV SCH ×4 (05:08→23:00)
[2018-12-04 05:14] LABS: CREATININE 0.73 mg/dL (0.55-1.02)
[2018-12-04 07:37] VITALS: BP 111/71
[2018-12-04] MEDS: MULTIVITAMIN 1 TABLET PO SCH (07:55)
[2018-12-04] MEDS: ENOXAPARIN 40 MG/0.4 ML SQ SCH (07:55)
[2018-12-04] MEDS: GABAPENTIN 300 MG CAPSULE PO SCH ×3 (07:55→20:42)
[2018-12-04] MEDS: NICOTINE 14MG/24 HR PATCH.TD24 TD SCH (16:26)
[2018-12-04] MEDS: LIDODERM 5% PATCH TD PRN (16:41)
[2018-12-04 20:38] VITALS: BP 118/77
[2018-12-04] MEDS: DAPTOMYCIN 500 MG in SODIUM CHLORIDE 0.9% 100 ML IVPB SCH (20:42)
[2018-12-05 00:48] VITALS: BP 101/65
[2018-12-05] MEDS: ASPIRIN 81 MG TABLET EC PO SCH (05:22)
[2018-12-05] MEDS: AMPICILLIN/SULBACTAM 1,500 MG in SODIUM CHLORIDE 0.9% 50 ML IV SCH ×4 (05:22→22:46)
[2018-12-05 07:22] VITALS: BP 105/66
[2018-12-05] MEDS: ENOXAPARIN 40 MG/0.4 ML SQ SCH (08:52)
[2018-12-05] MEDS: MULTIVITAMIN 1 TABLET PO SCH (08:52)
[2018-12-05] MEDS: GABAPENTIN 300 MG CAPSULE PO SCH ×3 (08:52→20:27)
[2018-12-05] MEDS: FERROUS SULFATE 325 MG TABLET PO SCH (11:46)
[2018-12-05 13:50] VITALS: BP 114/73
[2018-12-05] MEDS: NICOTINE 14MG/24 HR PATCH.TD24 TD SCH (16:51)
[2018-12-05 18:38] VITALS: BP 113/75
[2018-12-05] MEDS: DAPTOMYCIN 500 MG in SODIUM CHLORIDE 0.9% 100 ML IVPB SCH (20:27)
[2018-12-06 01:18] VITALS: BP 109/71
[2018-12-06] MEDS: AMPICILLIN/SULBACTAM 1,500 MG in SODIUM CHLORIDE 0.9% 50 ML IV SCH ×4 (05:00→23:40)
[2018-12-06] MEDS: ASPIRIN 81 MG TABLET EC PO SCH (05:00)
[2018-12-06 08:00] VITALS: BP 95/61
[2018-12-06] MEDS: GABAPENTIN 300 MG CAPSULE PO SCH ×3 (09:07→21:05)
[2018-12-06] MEDS: ENOXAPARIN 40 MG/0.4 ML SQ SCH (09:07)
[2018-12-06] MEDS: MULTIVITAMIN 1 TABLET PO SCH (09:07)
[2018-12-06 14:00] VITALS: BP 109/71
[2018-12-06] MEDS: NICOTINE 14MG/24 HR PATCH.TD24 TD SCH (17:19)
[2018-12-06 19:28] VITALS: BP 115/76
[2018-12-06] MEDS: DAPTOMYCIN 500 MG in SODIUM CHLORIDE 0.9% 100 ML IVPB SCH (21:05)
[2018-12-07 01:13] VITALS: BP 113/73
[2018-12-07] MEDS: ASPIRIN 81 MG TABLET EC PO SCH (05:33)
[2018-12-07] MEDS: AMPICILLIN/SULBACTAM 1,500 MG in SODIUM CHLORIDE 0.9% 50 ML IV SCH ×4 (05:33→22:54)
[2018-12-07 05:59] LABS: CREATININE 0.82 mg/dL (0.55-1.02)
[2018-12-07 07:50] VITALS: BP 89/55
[2018-12-07] MEDS: ENOXAPARIN 40 MG/0.4 ML SQ SCH (09:53)
[2018-12-07] MEDS: GABAPENTIN 300 MG CAPSULE PO SCH ×3 (09:53→20:51)
[2018-12-07] MEDS: MULTIVITAMIN 1 TABLET PO SCH (09:53)
[2018-12-07] MEDS: FERROUS SULFATE 325 MG TABLET PO SCH (11:26)
[2018-12-07 13:06] VITALS: BP 110/73
[2018-12-07] MEDS: NICOTINE 14MG/24 HR PATCH.TD24 TD SCH (16:14)
[2018-12-07 19:37] VITALS: BP 104/72
[2018-12-07] MEDS: DAPTOMYCIN 500 MG in SODIUM CHLORIDE 0.9% 100 ML IVPB SCH (20:51)
[2018-12-08 01:31] VITALS: BP 98/65
[2018-12-08] MEDS: ASPIRIN 81 MG TABLET EC PO SCH (06:08)
[2018-12-08] MEDS: AMPICILLIN/SULBACTAM 1,500 MG in SODIUM CHLORIDE 0.9% 50 ML IV SCH ×4 (06:08→23:44)
[2018-12-08 08:15] VITALS: BP 89/51
[2018-12-08 08:42] VITALS: BP 98/63
[2018-12-08] MEDS: ENOXAPARIN 40 MG/0.4 ML SQ SCH (08:44)
[2018-12-08] MEDS: MULTIVITAMIN 1 TABLET PO SCH (08:44)
[2018-12-08] MEDS: GABAPENTIN 300 MG CAPSULE PO SCH ×3 (08:44→20:26)
[2018-12-08 13:32] VITALS: BP 107/74
[2018-12-08] MEDS: NICOTINE 14MG/24 HR PATCH.TD24 TD SCH (16:58)
[2018-12-08 19:25] VITALS: BP 106/71
[2018-12-08] MEDS: DAPTOMYCIN 500 MG in SODIUM CHLORIDE 0.9% 100 ML IVPB SCH (20:27)
[2018-12-09 01:29] VITALS: BP 106/70
[2018-12-09] MEDS: ASPIRIN 81 MG TABLET EC PO SCH (04:58)
[2018-12-09] MEDS: AMPICILLIN/SULBACTAM 1,500 MG in SODIUM CHLORIDE 0.9% 50 ML IV SCH ×4 (04:58→23:50)
[2018-12-09] MEDS: LIDODERM 5% PATCH TD PRN (05:05)
[2018-12-09 07:01] VITALS: BP 105/69
[2018-12-09] MEDS: ENOXAPARIN 40 MG/0.4 ML SQ SCH (10:05)
[2018-12-09] MEDS: MULTIVITAMIN 1 TABLET PO SCH (10:05)
[2018-12-09] MEDS: GABAPENTIN 300 MG CAPSULE PO SCH ×3 (10:05→20:49)
[2018-12-09] MEDS: FERROUS SULFATE 325 MG TABLET PO SCH (10:05)
[2018-12-09 14:26] VITALS: BP 114/73
[2018-12-09] MEDS: NICOTINE 14MG/24 HR PATCH.TD24 TD SCH (16:15)
[2018-12-09 19:30] VITALS: BP 103/68
[2018-12-09] MEDS: DAPTOMYCIN 500 MG in SODIUM CHLORIDE 0.9% 100 ML IVPB SCH (20:45)
[2018-12-09] MEDS: TRAZODONE 50MG TABLET PO PRN (20:45)
[2018-12-10 00:50] VITALS: BP 112/72
[2018-12-10] MEDS: ASPIRIN 81 MG TABLET EC PO SCH (05:10)
[2018-12-10] MEDS: AMPICILLIN/SULBACTAM 1,500 MG in SODIUM CHLORIDE 0.9% 50 ML IV SCH ×3 (05:10→17:19)
[2018-12-10] MEDS: LIDODERM 5% PATCH TD PRN (05:17)
[2018-12-10 05:18] LABS: CREATININE 0.81 mg/dL (0.55-1.02)
[2018-12-10] MEDS: GABAPENTIN 300 MG CAPSULE PO SCH ×3 (09:39→21:33)
[2018-12-10] MEDS: MULTIVITAMIN 1 TABLET PO SCH (09:39)
[2018-12-10] MEDS: ENOXAPARIN 40 MG/0.4 ML SQ SCH (09:40)
[2018-12-10 09:50] VITALS: BP 101/65
[2018-12-10 14:34] VITALS: BP 103/70
[2018-12-10] MEDS: NICOTINE 14MG/24 HR PATCH.TD24 TD SCH (16:10)
[2018-12-10 19:55] VITALS: BP 101/66
[2018-12-10] MEDS: DAPTOMYCIN 500 MG in SODIUM CHLORIDE 0.9% 100 ML IVPB SCH (21:32)
[2018-12-10] MEDS: TRAZODONE 50MG TABLET PO PRN (21:33)
[2018-12-11] MEDS: AMPICILLIN/SULBACTAM 1,500 MG in SODIUM CHLORIDE 0.9% 50 ML IV SCH ×3 (00:10→12:00)
[2018-12-11 01:30] VITALS: BP 104/60
[2018-12-11] MEDS: ASPIRIN 81 MG TABLET EC PO SCH (05:48)
[2018-12-11 07:45] VITALS: BP 102/67
[2018-12-11] MEDS: GABAPENTIN 300 MG CAPSULE PO SCH ×2 (09:37→16:09)
[2018-12-11] MEDS: MULTIVITAMIN 1 TABLET PO SCH (09:37)
[2018-12-11] MEDS: ENOXAPARIN 40 MG/0.4 ML SQ SCH (09:37)
[2018-12-11] MEDS ORDERED: ERTAPENEM 1 GM in SODIUM CHLORIDE 0.9% 50 ML IV ONE (10:00)
[2018-12-11] MEDS: FERROUS SULFATE 325 MG TABLET PO SCH (11:00)
[2018-12-11] MEDS ORDERED: ASPI81TA45 PO (12:51)
[2018-12-11] MEDS ORDERED: GABA300C10 PO (12:51)
[2018-12-11 13:43] VITALS: BP 106/73
[2018-12-11] MEDS: DAPTOMYCIN 500 MG in SODIUM CHLORIDE 0.9% 100 ML IVPB SCH (14:10)
[2018-12-11] MEDS: NICOTINE 14MG/24 HR PATCH.TD24 TD SCH (16:00)
== END 2018-12-11 16:48 | disposition home or self-care (01) | DRG 854 ==
LOC: ED 15:39 → EDIP 18:18 → 4EST 19:27 → 4WST 19:40 → 3NE 11-04 03:25
PROVIDERS: ADMIT Hospitalist; ATTEND Hospitalist
PROC: 0Y6W0Z0 Detachment at Left 4th Toe, Complete, Open Approach (ICD-10-PCS; principal; 2018-10-22 11:00)
DX: A41.9 Sepsis, unspecified organism (principal); L02.811 Cutaneous abscess of head [any part, except face]; L02.612 Cutaneous abscess of left foot; L03.116 Cellulitis of left lower limb; L03.115 Cellulitis of right lower limb; F10.239 Alcohol dependence with withdrawal, unspecified; E87.1 Hypo-osmolality and hyponatremia; M86.8X7 Other osteomyelitis, ankle and foot; D50.9 Iron deficiency anemia, unspecified; E11.649 Type 2 diabetes mellitus with hypoglycemia without coma; E11.69 Type 2 diabetes mellitus with other specified complication; F17.210 Nicotine dependence, cigarettes, uncomplicated; R65.20 Severe sepsis without septic shock; F12.90 Cannabis use, unspecified, uncomplicated; Z53.20 Procedure and treatment not carried out because of patient's decision for unspecified reasons; Z79.82 Long term (current) use of aspirin; Z59.0 Homelessness; Z83.3 Family history of diabetes mellitus; Z91.19 Patient's noncompliance with other medical treatment and regimen; J45.909 Unspecified asthma, uncomplicated; E11.40 Type 2 diabetes mellitus with diabetic neuropathy, unspecified
CPT/HCPCS: 36415; 71045; 80048; 80053; 80061; 80202; 82040; 82550; 82565; 83540; 83550; 83605; 83735; 84100; 84145; 84702; 85025; 85610; 85651; 86140; 87040; 87070; 87205; 88305; 88311; 90656; 93922; 96365; 99291; A9585; G0378; J0295; J0878; J1100; J1335; J1644; J1650; J2250; J2405; J2704; J3010; J3370; J7060; J7030; J7050

== ENCOUNTER 2018-12-12 10:16 | Emergency (ER) | payer SELFPAY ==
[~2018-12-12] VITALS: Ht 180.3 cm; Wt 80.8 kg
[~2018-12-12 10:16] MED LIST changes: +ASPI81TA45 PO; +GABA300C10 PO
--- NOTE | 2018-12-12 10:55 | NUR ---
NO ANSWER IN LOBBY OR LOBBY RESTROOM.
[2018-12-12 11:07] VITALS: BP 118/66
[2018-12-12 11:29] LABS: BASOPHILS # (AUTO) 0.04 x10^3/uL (0-0.1); BASOPHILS % (AUTO) 0 % (0-1); EOSINOPHILS # (AUTO) 0.02 x10^3/uL (0-0.4); EOSINOPHILS % (AUTO) 0 % (1-7); LYMPHOCYTES # (AUTO) 1.95 x10^3/uL (1-3.4); LYMPHOCYTES % (AUTO) 18 % (22-44); MD NO; MEAN CORPUSCULAR HEMOGLOBIN 28.1 pg (27.0-34.8); MEAN CORPUSCULAR HGB CONC 32.3 g/dL (32.4-35.8); MEAN CORPUSCULAR VOLUME 86.9 fL (80-100); MEAN PLATELET VOLUME 7.5 fL (7.4-10.4); MONOCYTES # (AUTO) 0.45 x10^3/uL (0.2-0.8); MONOCYTES % (AUTO) 4 % (2-9); NEUTROPHILS # (AUTO) 8.28 x10^3/uL (1.8-6.8); NEUTROPHILS % (AUTO) 77 % (42-75); PLATELET COUNT 422 x10^3/uL (130-400); RED BLOOD COUNT 4.43 x10^6/uL (3.82-5.3); RED CELL DISTRIBUTION WIDTH 16.1 % (9.6-15.2)
--- NOTE | 2018-12-12 11:42 | NUR ---
GRINDER OPERATOR AUTOMATIC: PT NOT IN LOBBY AT THIS TIME
--- NOTE | 2018-12-12 11:45 | NUR ---
PAN DEVULCANIZER: PT NOT IN LOBBY AT THIS TIME
--- NOTE | 2018-12-12 11:56 | NUR ---
GARMENT FINISHER: PT NOT IN LOBBY AT THIS TIME
== END 2018-12-12 11:59 | disposition left against medical advice (07) ==
LOC: ED 11:53
DX: L03.116 Cellulitis of left lower limb (principal); R53.81 Other malaise
CPT/HCPCS: 36415; 80307; 83605; 85025; 99283

== ENCOUNTER 2018-12-25 07:30 | Emergency (ER) | payer OTHER ==
[~2018-12-25] VITALS: Ht 180.3 cm; Wt 72.7 kg
[~2018-12-25 07:30] MED LIST changes: +OLAN5TAB3 PO
--- NOTE | 2018-12-25 07:32 | NUR ---
First contact with pt. Pt resting on gurney with [facility] guard at bedside, pt in ankle cuffs and waist chair with hand cuffs as pt came in to ED in custody. DONAVAN. 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 I started having the same thing happen to my right foot (second toe). I was given 6 weeks antibiotics to help it heal, but they said if the bone started showing I had to come back in. The bone is showing now, it's been this way since October." Pt denies n/v/d. Pt states she has loss of sensation in her right second toe and numbness throughout her feet bilaterally. All safety measures in place. Call light within reach. Pt connected to NIBP and continous pulse ox.
[2018-12-25 08:36] LABS: BASOPHILS # (AUTO) 0.07 x10^3/uL (0-0.1); BASOPHILS % (AUTO) 2 % (0-1); EOSINOPHILS # (AUTO) 0.14 x10^3/uL (0-0.4); EOSINOPHILS % (AUTO) 3 % (1-7); LYMPHOCYTES # (AUTO) 1.72 x10^3/uL (1-3.4); LYMPHOCYTES % (AUTO) 40 % (22-44); MD NO; MEAN CORPUSCULAR HEMOGLOBIN 27.7 pg (27.0-34.8); MEAN CORPUSCULAR VOLUME 86.7 fL (80-100); MEAN PLATELET VOLUME 7.4 fL (7.4-10.4); MONOCYTES # (AUTO) 0.35 x10^3/uL (0.2-0.8); MONOCYTES % (AUTO) 8 % (2-9); NEUTROPHILS # (AUTO) 1.99 x10^3/uL (1.8-6.8); NEUTROPHILS % (AUTO) 47 % (42-75); PLATELET COUNT 511 x10^3/uL (130-400); RED BLOOD COUNT 4.28 x10^6/uL (3.82-5.3); RED CELL DISTRIBUTION WIDTH 16.4 % (9.6-15.2)
[2018-12-25 08:54] LABS: ANION GAP 4 mmol/L (5-15); CALCIUM 9.2 mg/dL (8.5-10.1); CHLORIDE 108 mmol/L (98-107); CREATININE 0.88 mg/dL (0.55-1.02)
[2018-12-25] MEDS ORDERED: BACITRACIN ZINC OINT 500U/GM, 0.9 GM ONE (10:22)
[2018-12-25 10:35] VITALS: BP 126/80
--- NOTE | 2018-12-25 10:59 | NUR ---
Patient given discharge instructions and they have confirmed that they understand the instructions. Patient ambulatory with steady gait. Pt and law enforcement left with all personal belongings and discharge paperwork.
== END 2018-12-25 11:02 | disposition home or self-care (01) ==
LOC: ED 07:55
DX: L89.899 Pressure ulcer of other site, unspecified stage (principal); E11.9 Type 2 diabetes mellitus without complications; J45.909 Unspecified asthma, uncomplicated
CPT/HCPCS: 36415; 80048; 82040; 85025; 99284

== ENCOUNTER 2019-02-22 03:10 | Emergency (ER) | payer MEDICAID ==
[~2019-02-22] VITALS: Ht 180.3 cm; Wt 75.0 kg
--- NOTE | 2019-02-22 03:15 | NUR ---
BIB [facility] W/ CO DIARRHEA X FOUR DAYS. +GENERALIZED ABD PAIN. WHEN ASKED, PT REPORTS STERNAL CP/MORA/"ALL OVER BODY PAIN". DENIES PAINFUL URINATION/PRODUCTIVE COUGH/BLOOD IN STOOL. SINUS TACH ON MONITOR, HR 115 BP/SPO2/ECG MONITORING IN PLACE
--- NOTE | 2019-02-22 04:00 | NUR ---
REPORT TO WILD HERNANDES
[2019-02-22 04:40] LABS: ANION GAP 8 mmol/L (5-15); CALCIUM 8.5 mg/dL (8.5-10.1); CHLORIDE 107 mmol/L (98-107); CREATININE 0.74 mg/dL (0.55-1.02)
--- NOTE | 2019-02-22 04:48 | NUR ---
Patient up to use restroom, ambulates independently with steady gait.
[2019-02-22 04:55] LABS: MD YES; MEAN CORPUSCULAR HEMOGLOBIN 28.2 pg (27.0-34.8); MEAN CORPUSCULAR HGB CONC 33.7 g/dL (32.4-35.8); MEAN CORPUSCULAR VOLUME 83.6 fL (80-100); MEAN PLATELET VOLUME 8.1 fL (7.4-10.4); PLATELET COUNT 287 x10^3/uL (130-400); RED BLOOD COUNT 3.74 x10^6/uL (3.82-5.3); RED CELL DISTRIBUTION WIDTH 15.1 % (9.6-15.2)
[2019-02-22 04:58] LABS: LYMPH#(MANUAL) 2.81 x10^3/uL (1-3.4); LYMPHS% (MANUAL) 36 % (22-44); MONOS#(MANUAL) 0.31 x10^3/uL (0.3-2.7); MONOS% (MANUAL) 4 % (2-9); SEG#(MANUAL) 4.68 x10^3/uL (1.8-6.8); SEGS% (MANUAL) 60 % (42-75)
[2019-02-22 04:59] LABS: <PLATELET ESTIMATE> ADEQUATE; <PLT MORPHOLOGY> NORMAL PLT MORPH; ANISOCYTOSIS 1+
[2019-02-22 05:35] VITALS: BP 131/81
--- NOTE | 2019-02-22 05:40 | NUR ---
Discharge instructions discussed with patient, patient verbalizes understanding. Patient ambulates with steady gait to discharge desk in no acute distress.
== END 2019-02-22 05:42 | disposition home or self-care (01) ==
LOC: ED 03:44
DX: G89.29 Other chronic pain (principal); R19.7 Diarrhea, unspecified; M79.672 Pain in left foot; M79.671 Pain in right foot; F17.200 Nicotine dependence, unspecified, uncomplicated; E11.9 Type 2 diabetes mellitus without complications; J45.909 Unspecified asthma, uncomplicated
CPT/HCPCS: 36415; 80048; 80307; 85025; 93005; 99284

== ENCOUNTER 2019-08-21 06:11 | Emergency (ER) | payer SELFPAY ==
[~2019-08-21] VITALS: Ht 177.8 cm; Wt 98.8 kg
[~2019-08-21 06:11] MED LIST changes: -ALBU6.7H INH; +ALBU6.7H8 INH; +CYAN-27 PO; -CYAN10005 PO
[2019-08-21] MEDS ORDERED: ASPIRIN 81 MG TABLET CHEW ONE (06:53)
[2019-08-21] MEDS ORDERED: KETOROLAC 30 MG/1 ML ONE (06:53)
[2019-08-21] MEDS ORDERED: ONDANSETRON ODT 4 MG ONE (06:53)
[2019-08-21] MEDS ORDERED: ASPIRIN 81 MG TABLET CHEW PO ONE (07:00)
[2019-08-21] MEDS ORDERED: ONDANSETRON ODT 4 MG PO ONE (07:00)
[2019-08-21] MEDS ORDERED: KETOROLAC 30 MG/1 ML IM ONE (07:00)
--- NOTE | 2019-08-21 07:05 | NUR ---
REPORT RECEIVED FROM WILD LEI. PLAN OF CARE DISCUSSED WITH THERESA MARCELO. THIS IS A 44 YO FEMALE COMING IN FOR CHEST PAIN STARTING AT 0400 THIS MORNING. PATIENT STATES IT WORSENS WITH BREATHING AND MOVEMENT, RATED 8/10. PATIENT STATES TAHT SHE ALSO HAS DIZZINESS, HEADACHE, NAUSEA, LOW BACK PAIN, AND ABDOMINAL PAIN ACCOMPANYING THE CHEST PAIN. ALL SX STARTED AT 0400. PATIENT MEDICATED PER EMAR, PLACED ON TRIAL JUDGE, SINUS TACHYCARDIA NOTED. CONTINUOUS SPO2 AT 96%, CYCLE BP Q1HR.
[2019-08-21] MEDS ORDERED: ACETAMINOPHEN 500 MG TABLET ONE (07:09)
[2019-08-21 07:14] LABS: BASOPHILS # (AUTO) 0.04 x10^3/uL (0-0.1); BASOPHILS % (AUTO) 1 % (0-1); EOSINOPHILS # (AUTO) 0.01 x10^3/uL (0-0.4); EOSINOPHILS % (AUTO) 0 % (1-7); LYMPHOCYTES # (AUTO) 1.34 x10^3/uL (1-3.4); LYMPHOCYTES % (AUTO) 15 % (22-44); MD NO; MEAN CORPUSCULAR HEMOGLOBIN 28.2 pg (27.0-34.8); MEAN CORPUSCULAR HGB CONC 32.5 g/dL (32.4-35.8); MEAN CORPUSCULAR VOLUME 86.7 fL (80-100); MEAN PLATELET VOLUME 7.2 fL (7.4-10.4); MONOCYTES # (AUTO) 0.36 x10^3/uL (0.2-0.8); MONOCYTES % (AUTO) 4 % (2-9); NEUTROPHILS # (AUTO) 7.07 x10^3/uL (1.8-6.8); NEUTROPHILS % (AUTO) 80 % (42-75); PLATELET COUNT 340 x10^3/uL (130-400); RED BLOOD COUNT 4.19 x10^6/uL (3.82-5.3); RED CELL DISTRIBUTION WIDTH 13.1 % (9.6-15.2)
[2019-08-21 07:16] LABS: ALBUMIN 4.1 g/dL (3.4-5.0); ANION GAP 10 mmol/L (5-15); CALCIUM 8.7 mg/dL (8.5-10.1); CHLORIDE 104 mmol/L (98-107); CREATININE 0.84 mg/dL (0.55-1.02)
[2019-08-21 07:19] LABS: TROPONIN I < 0.015 ng/mL (0.000-0.045)
--- NOTE | 2019-08-21 07:42 | NUR ---
PT PROVIDED WITH JUICE DUE TO LOW BG. PT RESTING COMFORTABLY. DENIES FURTHER NEEDS AT THIS TIME.
[2019-08-21 07:47] VITALS: BP 149/74
[2019-08-21] MEDS ORDERED: ALBUTEROL/IPRATROPIUM 2.5MG/0.5MG, 3 ML ONE (07:51)
[2019-08-21] MEDS: ALBUTEROL/IPRATROPIUM 2.5MG/0.5MG, 3 ML NPPB SCH (07:55)
--- NOTE | 2019-08-21 07:58 | NUR ---
PATIENT MEDICATED PER EMAR, RT FINISHED BREATHING TX. PATIENT STATES NO IMPROVEMENT IN PAIN OR BREATHING.
--- NOTE | 2019-08-21 08:26 | NUR ---
PATIENT PRESENTED WITH DISCHARGE PAPERWORK, STATES "I'M NOT SIGNING ANYTHING, THAT'S NOT MY NAME. MY NAME IS DMITRIY CORBETT". WHEN ASKED IF PATIENT HAD AN ID CARD PATIENT STATED "I DON'T HAVE AN ID MY WALLET WAS STOLEN". MD AND PA AWARE, REGISTRATION AWARE. REGISTRATION CHECKED WITH FUNNEL COATER, STATED "PATIENT STATED THAT NAME NAD WAS CORRECT WHEN PRESENTED WITH WRIST BAND".
== END 2019-08-21 08:36 | disposition home or self-care (01) ==
LOC: ED 08:20
DX: J40 Bronchitis, not specified as acute or chronic (principal); R07.89 Other chest pain; E11.649 Type 2 diabetes mellitus with hypoglycemia without coma; F17.209 Nicotine dependence, unspecified, with unspecified nicotine-induced disorders; F12.90 Cannabis use, unspecified, uncomplicated
CPT/HCPCS: 36415; 71046; 80048; 82040; 83880; 84484; 85025; 93005; 94640; 96372; 99284; J1885; J7512; J7620; Q0162

== ENCOUNTER 2019-09-16 21:15 | Emergency (ER) | payer SELFPAY ==
[~2019-09-16] VITALS: Ht 180.3 cm; Wt 86.0 kg
--- NOTE | 2019-09-16 21:45 | NUR ---
CALLED RESP. FOR NEB.
[2019-09-16] MEDS ORDERED: PLEASE ENTER ALLERGIES MC SCH (21:46)
[2019-09-16] MEDS ORDERED: ALBUTEROL SULFATE 2.5 MG/3 ML NPPB ONE (22:00)
[2019-09-16] MEDS ORDERED: ALBUTEROL SULFATE 2.5 MG/3 ML ONE (22:02)
[2019-09-16 22:05] LABS: MEAN CORPUSCULAR HEMOGLOBIN 28.7 pg (27.0-34.8); MEAN CORPUSCULAR VOLUME 89.6 fL (80-100); RED BLOOD COUNT 4.74 x10^6/uL (3.82-5.3); RED CELL DISTRIBUTION WIDTH 16.4 % (9.6-15.2)
[2019-09-16 22:06] LABS: MD YES; MEAN PLATELET VOLUME 8.1 fL (7.4-10.4); PLATELET COUNT 274 x10^3/uL (130-400)
--- NOTE | 2019-09-16 22:06 | NUR ---
ANNY FROM STREET. [facility] CALLED AMBULANCE, PT WAS SITTING ON [address] ALL DAY IN RAIN AND SNOW. 1 PINT VODKA. PANTS WET ON ARRIVAL. PT PLACED IN GOWN AND WRAPPED IN WARM BLANKETS W/ MARVA HUGGER. BILAT COLD RED LOWER LEGS, BILAT COLD PALE FEET. PALPABLE DP R FOOT. CAN MOVE FEET, TROUBLE WIGGLING TOES. C/O 9/10 PAIN. C/O NUMBNESS. ST ON MONITOR. C/O SOB, HX COPD, COUGH X1 WK.RHONCHI/WHEEZES BILAT. DENIES FEVER/N/V/D/CP. ERMD AT BEDSIDE FOR EVAL. PLAN FOR LABS/CXR/DOPPLER. CALL IN REACH.
[2019-09-16 22:15] LABS: LYMPH#(MANUAL) 2.05 x10^3/uL (1-3.4); LYMPHS% (MANUAL) 41 % (22-44); MONOS#(MANUAL) 0.25 x10^3/uL (0.3-2.7); MONOS% (MANUAL) 5 % (2-9); REACTIVE LYMPHS # (MANUAL) 0.15 x10^3/uL (0-0); REACTIVE LYMPHS % (MANUAL) 3 % (0-0); SEG#(MANUAL) 2.55 x10^3/uL (1.8-6.8); SEGS% (MANUAL) 51 % (42-75)
--- NOTE | 2019-09-16 22:15 | NUR ---
ATTEMPT TO DOPPLER PULSE ON L FOOT, UNABLE. WILL NOTIFY . MEDS PER MAR, NEB TX PER RESP, PT REPORTS FEELS NO DIFFERENT. CNTINUE TO WARM.
[2019-09-16 22:16] LABS: <PLATELET ESTIMATE> ADEQUATE; <PLT MORPHOLOGY> NORMAL PLT MORPH; ANISOCYTOSIS 1+
--- NOTE | 2019-09-16 22:16 | NUR ---
Received report from serajesús ROME. Assumed patient care. Patient resting comfortably, awaiting results.
--- NOTE | 2019-09-16 22:16 | NUR ---
REPORT TO LASHONDA ROME.
[2019-09-16 22:20] LABS: ALANINE AMINOTRANSFERASE 103 U/L (12-78); ALBUMIN 3.2 g/dL (3.4-5.0); ANION GAP 8 mmol/L (5-15); CALCIUM 8.2 mg/dL (8.5-10.1); CHLORIDE 103 mmol/L (98-107); CREATININE 0.64 mg/dL (0.55-1.02)
[2019-09-16 22:24] LABS: ALKALINE PHOSPHATASE 116 U/L (45-117); BILIRUBIN,TOTAL 0.1 mg/dL (0.2-1.0); TOTAL PROTEIN 7.9 g/dL (6.4-8.2); TROPONIN I < 0.015 ng/mL (0.000-0.045)
--- NOTE | 2019-09-16 22:43 | NUR ---
RN returned to bedside given update on plan of care. RN to bedside to inform of urinalysis order. Patient verbalized understanding. Reevaluated pedal pulses. Left foot and right foot pedal pulses are weak but palpable. Feet are cold, but sensation is intact.
--- NOTE | 2019-09-17 00:51 | NUR ---
break rn: pt resting with eyess closed, nadn, respirations even and unlabored, monitors in place, call light within reach
--- NOTE | 2019-09-17 01:39 | NUR ---
Rn returned from break. To bedside, patient still lethargic. Vital signs updated (see vital signs flowsheet) and stable.
--- NOTE | 2019-09-17 03:11 | NUR ---
ATTEMPTED TO AMBULATE PT. PT WAS UNSTEADY ON FEET. STAFF ENCOURAGE PT TO LAY BACK DOWN.
[2019-09-17 03:32] VITALS: BP 128/75
[2019-09-17 03:38] LABS: RAPID INFLUENZA A Negative (Negative); RAPID INFLUENZA B Negative (Negative)
== END 2019-09-17 04:52 | disposition home or self-care (01) ==
LOC: MERGE 22:21 → ED 22:21
DX: T33.72XA Superficial frostbite of left knee and lower leg, initial encounter (principal); T33.71XA Superficial frostbite of right knee and lower leg, initial encounter; M79.662 Pain in left lower leg; M79.661 Pain in right lower leg; F10.120 Alcohol abuse with intoxication, uncomplicated; J44.9 Chronic obstructive pulmonary disease, unspecified; X31.XXXA Exposure to excessive natural cold, initial encounter; Y93.89 Activity, other specified; Y92.89 Other specified places as the place of occurrence of the external cause; Y99.8 Other external cause status
CPT/HCPCS: 36415; 71045; 80053; 80307; 84484; 85025; 87400; 93005; 94640; 99284; J7512

== ENCOUNTER 2019-09-22 19:14 | Emergency (ER) | payer OTHER ==
[~2019-09-22] VITALS: Ht 167.6 cm; Wt 75.0 kg
--- NOTE | 2019-09-22 20:05 | NUR ---
PT WITH WET CLOTHES REMOVED AND NOW WITH WARMING MEASURES IN PLACE.
--- NOTE | 2019-09-22 20:16 | NUR ---
PT TO US
[2019-09-22 21:06] LABS: BASOPHILS # (AUTO) 0.05 x10^3/uL (0-0.1); BASOPHILS % (AUTO) 1 % (0-1); EOSINOPHILS # (AUTO) 0.01 x10^3/uL (0-0.4); EOSINOPHILS % (AUTO) 0 % (1-7); LYMPHOCYTES # (AUTO) 1.04 x10^3/uL (1-3.4); LYMPHOCYTES % (AUTO) 12 % (22-44); MD NO; MEAN CORPUSCULAR HEMOGLOBIN 28.8 pg (27.0-34.8); MEAN PLATELET VOLUME 8.6 fL (7.4-10.4); MONOCYTES # (AUTO) 0.44 x10^3/uL (0.2-0.8); MONOCYTES % (AUTO) 5 % (2-9); NEUTROPHILS # (AUTO) 7.21 x10^3/uL (1.8-6.8); NEUTROPHILS % (AUTO) 82 % (42-75); PLATELET COUNT 237 x10^3/uL (130-400); RED CELL DISTRIBUTION WIDTH 15.9 % (9.6-15.2)
[2019-09-22 21:18] LABS: ALANINE AMINOTRANSFERASE 135 U/L (12-78); ALBUMIN 2.2 g/dL (3.4-5.0); ANION GAP 12 mmol/L (5-15); CALCIUM 8.6 mg/dL (8.5-10.1); CHLORIDE 89 mmol/L (98-107); CREATININE 0.58 mg/dL (0.55-1.02)
[2019-09-22 21:20] LABS: ALKALINE PHOSPHATASE 113 U/L (45-117); BILIRUBIN,TOTAL 0.3 mg/dL (0.2-1.0); TOTAL PROTEIN 8.2 g/dL (6.4-8.2)
[2019-09-22] MEDS ORDERED: POTASSIUM CHLORIDE 20 MEQ TAB.ER.PRT PO ONE (21:30)
--- NOTE | 2019-09-22 21:30 | NUR ---
PT ASLEEP HEATER IN PLACE PT IN NO DISTRESS VSS
[2019-09-22] MEDS ORDERED: SODIUM CHLORIDE 0.9% 1,000ML IVBOLUS ONE (22:00)
[2019-09-22] MEDS ORDERED: POTASSIUM CHLORIDE 20 MEQ TAB.ER.PRT ONE (22:05)
--- NOTE | 2019-09-22 22:30 | NUR ---
PT ASLEEP NO CHANGE IVF RUNNING
--- NOTE | 2019-09-22 23:40 | NUR ---
PT GIVEN SNACK AND WILL BE DC VIA CAB TO THE LONG-TERM.
[2019-09-22 23:42] VITALS: BP 137/81
== END 2019-09-23 00:31 | disposition home or self-care (01) ==
LOC: ED 22:35
DX: F10.220 Alcohol dependence with intoxication, uncomplicated (principal); E87.6 Hypokalemia; E87.1 Hypo-osmolality and hyponatremia; F17.200 Nicotine dependence, unspecified, uncomplicated; J44.9 Chronic obstructive pulmonary disease, unspecified; E11.9 Type 2 diabetes mellitus without complications
CPT/HCPCS: 36415; 80053; 80307; 85025; 93970; 99284; J7030

== ENCOUNTER 2019-09-27 18:55 | Inpatient (IN) | payer SELFPAY ==
[~2019-09-27] VITALS: Ht 180.3 cm; Wt 85.9 kg
[2019-09-27 20:36] LABS: MEAN CORPUSCULAR HEMOGLOBIN 28.4 pg (27.0-34.8); MEAN CORPUSCULAR HGB CONC 32.4 g/dL (32.4-35.8); MEAN CORPUSCULAR VOLUME 87.6 fL (80-100); MEAN PLATELET VOLUME 8.1 fL (7.4-10.4); PLATELET COUNT 256 x10^3/uL (130-400); RED BLOOD COUNT 4.15 x10^6/uL (3.82-5.3); RED CELL DISTRIBUTION WIDTH 15.9 % (9.6-15.2)
[2019-09-27 20:44] LABS: PROTHROMBIN TIME 10.5 Seconds (9.6-11.5)
[2019-09-27 20:47] LABS: ANION GAP 8 mmol/L (5-15); CALCIUM 8.4 mg/dL (8.5-10.1); CHLORIDE 89 mmol/L (98-107); CREATININE 0.68 mg/dL (0.55-1.02)
[2019-09-27 20:48] LABS: ALANINE AMINOTRANSFERASE 91 U/L (12-78); ALBUMIN 2.1 g/dL (3.4-5.0)
[2019-09-27 20:50] LABS: ALKALINE PHOSPHATASE 108 U/L (45-117); BILIRUBIN,TOTAL 0.4 mg/dL (0.2-1.0); TOTAL PROTEIN 7.1 g/dL (6.4-8.2)
--- NOTE | 2019-09-27 20:59 | NUR ---
REPORT RECEIVED FROM EARNEST ROME
[2019-09-27 21:02] LABS: MD YES
[2019-09-27 21:05] LABS: BAND#(MANUAL) 0.68 x10^3/uL; BANDS%(MANUAL) 6 % (0-7); LYMPHS% (MANUAL) 8 % (22-44); MONOS% (MANUAL) 8 % (2-9); SEG#(MANUAL) 8.81 x10^3/uL (1.8-6.8); SEGS% (MANUAL) 78 % (42-75)
[2019-09-27 21:06] LABS: <PLATELET ESTIMATE> ADEQUATE; <PLT MORPHOLOGY> NORMAL PLT MORPH; ANISOCYTOSIS 1+
[2019-09-27] MEDS ORDERED: OMNIPAQUE 350 MG/ML, 150 ML BOTTLE ONE (21:23)
--- NOTE | 2019-09-27 22:10 | NUR ---
REPORT GIVEN TO LISA ROME
--- NOTE | 2019-09-27 22:17 | NUR ---
RECEIVED REPORT FROM SG RN AT 2205 TO ASSUME CARE OF PT.
--- NOTE | 2019-09-27 23:03 | NUR ---
PT. RESTING ON GURNEY IN POSITION. PT. AWARE OF PLAN FOR ADMISSION TO THE HOSPITAL. PT. C/O 07/26 PAIN; WILL DISCUSS WITH ERP.
[2019-09-27] MEDS ORDERED: MORPHINE SULFATE 4 MG/ML, 1ML ONE (23:39)
--- NOTE | 2019-09-27 23:43 | NUR ---
REPORT WAS CALLED TO FLOOR RN PREVIOUSLY; WAS AWAITING TO SPEAK WITH ERP PRIOR TO PT. TRANSPORT TO FLOOR. FLOOR READY FOR PT. TRANPORT.
--- NOTE | 2019-09-27 23:43 | NUR ---
NEW ORDERS RECEIVED AFTER DISCUSSION WITH DR. POMPA.
[2019-09-28] MEDS ORDERED: MORPHINE SULFATE 4 MG/ML, 1ML IVPush PRN
[2019-09-28] MEDS ORDERED: SODIUM CHLORIDE 0.9% 1,000ML IVBOLUS ONE
[2019-09-28 00:22] VITALS: BP 103/66
[2019-09-28 00:44] VITALS: BP 121/75
[2019-09-28] MEDS ORDERED: LIDODERM 5% PATCH TD PRN (01:00)
[2019-09-28] MEDS ORDERED: ENALAPRILAT 1.25 MG/ML, 2ML IVPush PRN (01:00)
[2019-09-28] MEDS ORDERED: TEMAZEPAM 15 MG CAPSULE PO PRN (01:00)
[2019-09-28] MEDS ORDERED: ONDANSETRON 2MG/ML, 2ML IVPush PRN (01:00)
[2019-09-28] MEDS ORDERED: DOCUSATE 100 MG CAPSULE PO PRN (01:00)
[2019-09-28] MEDS ORDERED: LORazepam 2 MG/ML, 1ML IV PRN ×5 (01:30)
[2019-09-28] MEDS: morphine SULFATE 10 MG/ML, 1ML IVPush PRN ×6 (01:34→22:17)
[2019-09-28] MEDS: IBUPROFEN 600 MG TABLET PO PRN (01:34)
[2019-09-28] MEDS: ENOXAPARIN 40 MG/0.4 ML SQ SCH (01:35)
[2019-09-28 04:26] LABS: CHLORIDE,URINE RANDOM < 10 mmol/L; POTASSIUM,URINE RANDOM 42 mmol/L; SODIUM,URINE RANDOM 13 mmol/L
[2019-09-28 04:50] LABS: OSMOLALITY,URINE 400 mOsm/kg (500-850)
[2019-09-28] MEDS: ASPIRIN 81 MG TABLET EC PO SCH (05:16)
[2019-09-28] MEDS ORDERED: FLU VACC QS2019-20 36MOS UP/PF 0.5 ML IM-VACC ONE (07:00)
[2019-09-28] MEDS ORDERED: OLANZAPINE 5 MG TABLET PO SCH (09:00)
[2019-09-28] MEDS: MULTIVITAMINS/MINERALS TABLET PO SCH (09:20)
[2019-09-28] MEDS: GABAPENTIN 300 MG CAPSULE PO SCH ×3 (09:21→21:17)
[2019-09-28 09:48] VITALS: BP 94/62
[2019-09-28 14:00] VITALS: BP 102/64
[2019-09-28 19:52] VITALS: BP 113/65
[2019-09-29] MEDS: IBUPROFEN 600 MG TABLET PO PRN (01:36)
[2019-09-29] MEDS: ENOXAPARIN 40 MG/0.4 ML SQ SCH (01:36)
[2019-09-29 03:39] VITALS: BP 102/59
[2019-09-29] MEDS: ASPIRIN 81 MG TABLET EC PO SCH (05:43)
[2019-09-29] MEDS: morphine SULFATE 10 MG/ML, 1ML IVPush PRN ×5 (05:45→20:58)
[2019-09-29 06:11] LABS: BASOPHILS # (AUTO) 0.02 x10^3/uL (0-0.1); BASOPHILS % (AUTO) 0 % (0-1); EOSINOPHILS # (AUTO) 0.03 x10^3/uL (0-0.4); EOSINOPHILS % (AUTO) 0 % (1-7); LYMPHOCYTES # (AUTO) 2.05 x10^3/uL (1-3.4); LYMPHOCYTES % (AUTO) 16 % (22-44); MD NO; MEAN CORPUSCULAR HEMOGLOBIN 28.8 pg (27.0-34.8); MEAN CORPUSCULAR HGB CONC 32.3 g/dL (32.4-35.8); MEAN CORPUSCULAR VOLUME 89.2 fL (80-100); MEAN PLATELET VOLUME 7.8 fL (7.4-10.4); MONOCYTES # (AUTO) 0.55 x10^3/uL (0.2-0.8); MONOCYTES % (AUTO) 4 % (2-9); NEUTROPHILS # (AUTO) 10.02 x10^3/uL (1.8-6.8); NEUTROPHILS % (AUTO) 79 % (42-75); PLATELET COUNT 247 x10^3/uL (130-400); RED BLOOD COUNT 3.33 x10^6/uL (3.82-5.3)
[2019-09-29 07:49] LABS: ANION GAP 6 mmol/L (5-15); CALCIUM 7.6 mg/dL (8.5-10.1); CHLORIDE 85 mmol/L (98-107)
[2019-09-29 07:50] LABS: CREATININE 1.04 mg/dL (0.55-1.02)
[2019-09-29 08:34] VITALS: BP 95/52
[2019-09-29] MEDS: SODIUM CHLORIDE 1 GM TABLET PO SCH ×2 (09:00→09:56)
[2019-09-29] MEDS: MULTIVITAMINS/MINERALS TABLET PO SCH (09:55)
[2019-09-29] MEDS: GABAPENTIN 300 MG CAPSULE PO SCH ×3 (09:56→20:59)
[2019-09-29 12:27] LABS: ANION GAP 7 mmol/L (5-15); CALCIUM 7.9 mg/dL (8.5-10.1); CHLORIDE 91 mmol/L (98-107); CREATININE 0.92 mg/dL (0.55-1.02)
[2019-09-29 13:02] VITALS: BP 154/87
[2019-09-29] MEDS: SODIUM CHLORIDE 0.9% 1,000 ML IV SCH (15:00)
[2019-09-29 17:12] LABS: ANION GAP 7 mmol/L (5-15); CHLORIDE 94 mmol/L (98-107); CREATININE 0.84 mg/dL (0.55-1.02)
[2019-09-29 18:49] VITALS: BP 103/65
[2019-09-29] MEDS: ACETAMINOPHEN 325 MG TABLET PO PRN (20:58)
[2019-09-29] MEDS: THIAMINE 100MG TABLET PO SCH (20:59)
[2019-09-29] MEDS ORDERED: ATORVASTATIN 40 MG TABLET PO SCH (21:00)
[2019-09-29 21:39] LABS: ANION GAP 5 mmol/L (5-15); CALCIUM 7.8 mg/dL (8.5-10.1); CHLORIDE 95 mmol/L (98-107); CREATININE 0.89 mg/dL (0.55-1.02)
[2019-09-30] MEDS: morphine SULFATE 10 MG/ML, 1ML IVPush PRN ×3 (01:56→10:16)
[2019-09-30 04:14] VITALS: BP 108/65
[2019-09-30] MEDS: SODIUM CHLORIDE 0.9% 1,000 ML IV SCH ×5 (04:24→21:49)
[2019-09-30] MEDS: ACETAMINOPHEN 325 MG TABLET PO PRN (04:24)
[2019-09-30 05:12] LABS: MEAN CORPUSCULAR HEMOGLOBIN 28.9 pg (27.0-34.8); MEAN CORPUSCULAR HGB CONC 32.4 g/dL (32.4-35.8); MEAN CORPUSCULAR VOLUME 89.3 fL (80-100); MEAN PLATELET VOLUME 7.5 fL (7.4-10.4); PLATELET COUNT 294 x10^3/uL (130-400); RED BLOOD COUNT 3.05 x10^6/uL (3.82-5.3); RED CELL DISTRIBUTION WIDTH 15.8 % (9.6-15.2)
[2019-09-30 05:22] LABS: ALANINE AMINOTRANSFERASE 143 U/L (12-78); ALBUMIN 1.5 g/dL (3.4-5.0); ANION GAP 5 mmol/L (5-15); CALCIUM 7.4 mg/dL (8.5-10.1); CHLORIDE 94 mmol/L (98-107); CREATININE 0.92 mg/dL (0.55-1.02)
[2019-09-30 05:24] LABS: ALKALINE PHOSPHATASE 83 U/L (45-117); BILIRUBIN,TOTAL 0.3 mg/dL (0.2-1.0); TOTAL PROTEIN 6.1 g/dL (6.4-8.2)
[2019-09-30] MEDS ORDERED: ENOXAPARIN 40 MG/0.4 ML SQ ONE (05:30)
[2019-09-30 05:57] LABS: BASOPHILS % (AUTO) 0 % (0-1); EOSINOPHILS % (AUTO) 0 % (1-7); LYMPHOCYTES # (AUTO) 0.67 x10^3/uL (1-3.4); LYMPHOCYTES % (AUTO) 6 % (22-44); MD SCAN; MONOCYTES # (AUTO) 0.53 x10^3/uL (0.2-0.8); MONOCYTES % (AUTO) 4 % (2-9); NEUTROPHILS # (AUTO) 10.67 x10^3/uL (1.8-6.8); NEUTROPHILS % (AUTO) 90 % (42-75)
[2019-09-30] MEDS: ASPIRIN 81 MG TABLET EC PO SCH (06:24)
[2019-09-30] MEDS: PIPERACILLIN/TAZO/PMX 3.375GM 50 ML IV SCH ×3 (06:28→20:06)
[2019-09-30 07:28] VITALS: BP 102/53
[2019-09-30] MEDS ORDERED: VANCOMYCIN PER PHARMACY MC PRN (07:30)
[2019-09-30] MEDS ORDERED: IBUPROFEN 200 MG TABLET ONE (07:47)
[2019-09-30] MEDS: MULTIVITAMINS/MINERALS TABLET PO SCH (07:50)
[2019-09-30] MEDS: FOLIC ACID 1 MG TABLET PO SCH (07:50)
[2019-09-30] MEDS: GABAPENTIN 300 MG CAPSULE PO SCH ×3 (07:50→20:07)
[2019-09-30] MEDS: THIAMINE 100MG TABLET PO SCH ×2 (07:50→20:07)
[2019-09-30] MEDS: IBUPROFEN 200 MG TABLET PO PRN ×2 (07:50→22:38)
[2019-09-30] MEDS: OXYcodone IR 5MG TABLET PO SCH ×3 (07:54→20:07)
[2019-09-30] MEDS ORDERED: PHARMACOKINETIC MONITORING MC PRN (09:00)
[2019-09-30 09:26] VITALS: BP 111/62
[2019-09-30 11:40] LABS: ANION GAP 9 mmol/L (5-15); CALCIUM 7.2 mg/dL (8.5-10.1); CHLORIDE 91 mmol/L (98-107); CREATININE 0.94 mg/dL (0.55-1.02)
[2019-09-30] MEDS: VANCOMYCIN 1,400 MG in SODIUM CHLORIDE 0.9% 250 ML IV SCH ×2 (11:57→21:49)
[2019-09-30 13:40] VITALS: BP 111/62
[2019-09-30 13:49] LABS: ANION GAP 7 mmol/L (5-15); CALCIUM 7.5 mg/dL (8.5-10.1); CHLORIDE 93 mmol/L (98-107); CREATININE 0.82 mg/dL (0.55-1.02)
[2019-09-30 13:52] LABS: TROPONIN I < 0.015 ng/mL (0.000-0.045)
[2019-09-30] MEDS: HEPARIN 5,000 UNITS/ML, 1ML SQ SCH ×2 (14:44→22:38)
[2019-09-30] MEDS: METOPROLOL TARTRATE 25 MG TABLET PO SCH ×2 (17:14→22:38)
[2019-09-30 18:43] VITALS: BP 131/68
[2019-09-30 22:40] VITALS: BP 103/58
[2019-10-01 00:05] LABS: TROPONIN I 0.035 ng/mL (0.000-0.045)
[2019-10-01 00:19] VITALS: BP 90/55
[2019-10-01] MEDS: PIPERACILLIN/TAZO/PMX 3.375GM 50 ML IV SCH ×4 (02:49→19:43)
[2019-10-01] MEDS: OXYcodone IR 5MG TABLET PO SCH ×4 (02:50→19:43)
[2019-10-01 05:21] VITALS: BP 102/59
[2019-10-01] MEDS: ASPIRIN 81 MG TABLET EC PO SCH (05:22)
[2019-10-01] MEDS: METOPROLOL TARTRATE 25 MG TABLET PO SCH ×4 (05:22→19:43)
[2019-10-01] MEDS: IBUPROFEN 200 MG TABLET PO PRN ×2 (06:46→20:56)
[2019-10-01 06:56] LABS: MICROSCOPIC AUTO
[2019-10-01 06:59] LABS: CULTURE INDICATED? YES
[2019-10-01 07:00] VITALS: BP 106/64
[2019-10-01 07:20] LABS: BASOPHILS # (AUTO) 0.02 x10^3/uL (0-0.1); BASOPHILS % (AUTO) 0 % (0-1); EOSINOPHILS # (AUTO) 0.04 x10^3/uL (0-0.4); EOSINOPHILS % (AUTO) 0 % (1-7); LYMPHOCYTES % (AUTO) 9 % (22-44); MD NO; MEAN CORPUSCULAR HEMOGLOBIN 29.1 pg (27.0-34.8); MEAN CORPUSCULAR HGB CONC 32.3 g/dL (32.4-35.8); MEAN CORPUSCULAR VOLUME 90.1 fL (80-100); MEAN PLATELET VOLUME 7.2 fL (7.4-10.4); MONOCYTES # (AUTO) 0.59 x10^3/uL (0.2-0.8); MONOCYTES % (AUTO) 7 % (2-9); NEUTROPHILS # (AUTO) 7.56 x10^3/uL (1.8-6.8); NEUTROPHILS % (AUTO) 84 % (42-75); PLATELET COUNT 310 x10^3/uL (130-400); RED BLOOD COUNT 2.77 x10^6/uL (3.82-5.3); RED CELL DISTRIBUTION WIDTH 16.1 % (9.6-15.2)
[2019-10-01 07:29] LABS: ALBUMIN 1.5 g/dL (3.4-5.0); ANION GAP 7 mmol/L (5-15); CALCIUM 7.3 mg/dL (8.5-10.1); CHLORIDE 98 mmol/L (98-107); TROPONIN I 0.041 ng/mL (0.000-0.045)
[2019-10-01 07:32] LABS: ALANINE AMINOTRANSFERASE 136 U/L (12-78); ALKALINE PHOSPHATASE 80 U/L (45-117); BILIRUBIN,TOTAL 0.4 mg/dL (0.2-1.0)
[2019-10-01] MEDS: VANCOMYCIN 1,400 MG in SODIUM CHLORIDE 0.9% 250 ML IV SCH ×2 (10:03→20:56)
[2019-10-01] MEDS: POTASSIUM CHLORIDE 20 MEQ TAB.ER.PRT PO SCH ×2 (10:03→17:48)
[2019-10-01] MEDS: HEPARIN 5,000 UNITS/ML, 1ML SQ SCH ×2 (10:03→17:49)
[2019-10-01] MEDS: THIAMINE 100MG TABLET PO SCH ×2 (10:03→19:44)
[2019-10-01] MEDS: GABAPENTIN 300 MG CAPSULE PO SCH ×3 (10:03→19:43)
[2019-10-01] MEDS: FOLIC ACID 1 MG TABLET PO SCH (10:03)
[2019-10-01] MEDS: MULTIVITAMINS/MINERALS TABLET PO SCH (10:04)
[2019-10-01] MEDS: morphine SULFATE 10 MG/ML, 1ML IVPush PRN ×2 (10:50→15:23)
[2019-10-01 11:57] VITALS: BP 95/61
[2019-10-01 12:00] VITALS: BP 119/65
[2019-10-01 13:49] LABS: HCG UR SG 1.008 (1.003-1.030)
[2019-10-01] MEDS: SODIUM CHLORIDE 0.9% 1,000 ML IV SCH (15:22)
[2019-10-01 18:52] VITALS: BP 119/68
[2019-10-02] MEDS: HEPARIN 5,000 UNITS/ML, 1ML SQ SCH ×3 (00:11→16:08)
[2019-10-02 00:18] VITALS: BP 99/69
[2019-10-02] MEDS: morphine SULFATE 10 MG/ML, 1ML IVPush PRN ×3 (00:27→12:16)
[2019-10-02] MEDS: SODIUM CHLORIDE 0.9% 1,000 ML IV SCH ×2 (00:27→07:30)
[2019-10-02] MEDS: PIPERACILLIN/TAZO/PMX 3.375GM 50 ML IV SCH ×4 (02:37→20:30)
[2019-10-02] MEDS: OXYcodone IR 5MG TABLET PO SCH ×4 (02:37→20:31)
[2019-10-02] MEDS: ASPIRIN 81 MG TABLET EC PO SCH (05:31)
[2019-10-02 06:53] LABS: BASOPHILS # (AUTO) 0.06 x10^3/uL (0-0.1); BASOPHILS % (AUTO) 1 % (0-1); EOSINOPHILS # (AUTO) 0.01 x10^3/uL (0-0.4); EOSINOPHILS % (AUTO) 0 % (1-7); LYMPHOCYTES # (AUTO) 1.24 x10^3/uL (1-3.4); LYMPHOCYTES % (AUTO) 20 % (22-44); MD NO; MEAN CORPUSCULAR HEMOGLOBIN 28.6 pg (27.0-34.8); MEAN CORPUSCULAR HGB CONC 31.7 g/dL (32.4-35.8); MEAN CORPUSCULAR VOLUME 90.3 fL (80-100); MEAN PLATELET VOLUME 7.2 fL (7.4-10.4); MONOCYTES # (AUTO) 0.65 x10^3/uL (0.2-0.8); MONOCYTES % (AUTO) 10 % (2-9); NEUTROPHILS # (AUTO) 4.32 x10^3/uL (1.8-6.8); NEUTROPHILS % (AUTO) 69 % (42-75); PLATELET COUNT 362 x10^3/uL (130-400); RED BLOOD COUNT 2.91 x10^6/uL (3.82-5.3); RED CELL DISTRIBUTION WIDTH 16.2 % (9.6-15.2)
[2019-10-02 07:04] LABS: CHLORIDE 101 mmol/L (98-107)
[2019-10-02 07:16] LABS: ALANINE AMINOTRANSFERASE 127 U/L (12-78); ALBUMIN 1.6 g/dL (3.4-5.0); ALKALINE PHOSPHATASE 74 U/L (45-117); ANION GAP 7 mmol/L (5-15); BILIRUBIN,TOTAL 0.2 mg/dL (0.2-1.0); CALCIUM 7.8 mg/dL (8.5-10.1); TOTAL PROTEIN 6.1 g/dL (6.4-8.2)
[2019-10-02 07:21] VITALS: BP 103/68
[2019-10-02] MEDS: GABAPENTIN 300 MG CAPSULE PO SCH ×3 (08:54→20:31)
[2019-10-02] MEDS: MULTIVITAMINS/MINERALS TABLET PO SCH (08:54)
[2019-10-02] MEDS: METOPROLOL TARTRATE 25 MG TABLET PO SCH ×2 (08:54→20:32)
[2019-10-02] MEDS: FOLIC ACID 1 MG TABLET PO SCH (08:54)
[2019-10-02] MEDS: THIAMINE 100MG TABLET PO SCH ×2 (08:55→20:32)
[2019-10-02] MEDS: POTASSIUM CHLORIDE 20 MEQ TAB.ER.PRT PO SCH ×2 (10:15→16:07)
[2019-10-02] MEDS: VANCOMYCIN 1,400 MG in SODIUM CHLORIDE 0.9% 250 ML IV SCH (10:15)
[2019-10-02] MEDS: IBUPROFEN 200 MG TABLET PO PRN (12:16)
[2019-10-02] MEDS ORDERED: ALBUTEROL/IPRATROPIUM 2.5MG/0.5MG, 3 ML ONE (12:34)
[2019-10-02 12:36] VITALS: BP 97/64
[2019-10-02] MEDS ORDERED: ALBUTEROL SULFATE 2.5 MG/3 ML NPPB PRN (13:00)
[2019-10-02] MEDS ORDERED: SODIUM CHLORIDE 0.9% 1,000 ML IV SCH (15:00)
[2019-10-02] MEDS: ALBUTEROL/IPRATROPIUM 2.5MG/0.5MG, 3 ML NPPB SCH ×2 (16:03→19:15)
[2019-10-02 19:56] VITALS: BP 98/65
[2019-10-03] MEDS: morphine SULFATE 10 MG/ML, 1ML IVPush PRN ×4 (00:12→20:58)
[2019-10-03] MEDS: HEPARIN 5,000 UNITS/ML, 1ML SQ SCH ×3 (00:13→16:35)
[2019-10-03 02:14] VITALS: BP 95/62
[2019-10-03] MEDS: PIPERACILLIN/TAZO/PMX 3.375GM 50 ML IV SCH ×4 (02:38→20:01)
[2019-10-03] MEDS: OXYcodone IR 5MG TABLET PO SCH ×2 (02:38→09:00)
[2019-10-03] MEDS: VANCOMYCIN 1,800 MG in SODIUM CHLORIDE 0.9% 250 ML IV SCH ×2 (04:55→22:18)
[2019-10-03] MEDS: ASPIRIN 81 MG TABLET EC PO SCH (05:40)
[2019-10-03 05:50] LABS: BASOPHILS % (AUTO) 0 % (0-1); EOSINOPHILS % (AUTO) 0 % (1-7); LYMPHOCYTES # (AUTO) 0.58 x10^3/uL (1-3.4); LYMPHOCYTES % (AUTO) 11 % (22-44); MD NO; MEAN CORPUSCULAR HEMOGLOBIN 28.3 pg (27.0-34.8); MEAN CORPUSCULAR VOLUME 88.4 fL (80-100); MONOCYTES # (AUTO) 0.42 x10^3/uL (0.2-0.8); MONOCYTES % (AUTO) 8 % (2-9); NEUTROPHILS # (AUTO) 4.22 x10^3/uL (1.8-6.8); NEUTROPHILS % (AUTO) 81 % (42-75); PLATELET COUNT 408 x10^3/uL (130-400); RED BLOOD COUNT 2.98 x10^6/uL (3.82-5.3); RED CELL DISTRIBUTION WIDTH 16.2 % (9.6-15.2)
[2019-10-03 06:00] LABS: CHLORIDE 99 mmol/L (98-107)
[2019-10-03 06:05] LABS: ALANINE AMINOTRANSFERASE 126 U/L (12-78); ALBUMIN 1.8 g/dL (3.4-5.0); ALKALINE PHOSPHATASE 68 U/L (45-117); ANION GAP 5 mmol/L (5-15); BILIRUBIN,TOTAL 0.2 mg/dL (0.2-1.0); CALCIUM 8.2 mg/dL (8.5-10.1); CREATININE 0.97 mg/dL (0.55-1.02); TOTAL PROTEIN 6.7 g/dL (6.4-8.2)
[2019-10-03] MEDS: ALBUTEROL/IPRATROPIUM 2.5MG/0.5MG, 3 ML NPPB SCH ×4 (07:51→20:00)
[2019-10-03 08:00] VITALS: BP 101/61
[2019-10-03] MEDS: METOPROLOL TARTRATE 25 MG TABLET PO SCH ×2 (10:19→20:57)
[2019-10-03] MEDS: FOLIC ACID 1 MG TABLET PO SCH (10:20)
[2019-10-03] MEDS: MULTIVITAMINS/MINERALS TABLET PO SCH (10:20)
[2019-10-03] MEDS: GABAPENTIN 300 MG CAPSULE PO SCH ×3 (10:20→20:57)
[2019-10-03] MEDS: THIAMINE 100MG TABLET PO SCH ×2 (10:20→20:57)
[2019-10-03 14:30] VITALS: BP 112/73
[2019-10-03 20:04] VITALS: BP 119/78
[2019-10-04] MEDS: HEPARIN 5,000 UNITS/ML, 1ML SQ SCH ×3 (00:11→15:57)
[2019-10-04 01:32] VITALS: BP 120/81
[2019-10-04] MEDS: PIPERACILLIN/TAZO/PMX 3.375GM 50 ML IV SCH ×3 (02:33→14:46)
[2019-10-04] MEDS: morphine SULFATE 10 MG/ML, 1ML IVPush PRN ×5 (02:49→21:35)
[2019-10-04] MEDS: ALBUTEROL/IPRATROPIUM 2.5MG/0.5MG, 3 ML NPPB SCH ×4 (06:57→19:00)
[2019-10-04 07:20] LABS: ALANINE AMINOTRANSFERASE 110 U/L (12-78); ALBUMIN 1.7 g/dL (3.4-5.0); ANION GAP 7 mmol/L (5-15); CALCIUM 8.4 mg/dL (8.5-10.1); CHLORIDE 101 mmol/L (98-107); CREATININE 0.96 mg/dL (0.55-1.02)
[2019-10-04 07:23] LABS: ALKALINE PHOSPHATASE 65 U/L (45-117); BILIRUBIN,TOTAL 0.3 mg/dL (0.2-1.0); TOTAL PROTEIN 6.5 g/dL (6.4-8.2)
[2019-10-04 07:58] VITALS: BP 140/89
[2019-10-04] MEDS: METOPROLOL TARTRATE 25 MG TABLET PO SCH ×2 (08:01→20:22)
[2019-10-04] MEDS: FOLIC ACID 1 MG TABLET PO SCH (08:01)
[2019-10-04] MEDS: MULTIVITAMINS/MINERALS TABLET PO SCH (08:01)
[2019-10-04] MEDS: GABAPENTIN 300 MG CAPSULE PO SCH ×3 (08:01→20:23)
[2019-10-04] MEDS: THIAMINE 100MG TABLET PO SCH ×2 (08:02→20:23)
[2019-10-04 12:55] VITALS: BP 137/87
[2019-10-04] MEDS: VANCOMYCIN 1,800 MG in SODIUM CHLORIDE 0.9% 250 ML IV SCH (16:00)
[2019-10-04] MEDS ORDERED: DAPTOMYCIN 400 MG in SODIUM CHLORIDE 0.9% 100 ML IV SCH (17:00)
[2019-10-04 20:20] VITALS: BP 127/79
[2019-10-04] MEDS: AMPICILLIN/SULBACTAM 3 GM in SODIUM CHLORIDE 0.9% 100 ML IV SCH (20:23)
[2019-10-05] MEDS: HEPARIN 5,000 UNITS/ML, 1ML SQ SCH ×4 (00:06→23:24)
[2019-10-05] MEDS: AMPICILLIN/SULBACTAM 3 GM in SODIUM CHLORIDE 0.9% 100 ML IV SCH ×3 (00:42→13:00)
[2019-10-05 00:49] VITALS: BP 127/81
[2019-10-05] MEDS: morphine SULFATE 10 MG/ML, 1ML IVPush PRN ×6 (02:50→23:24)
[2019-10-05 06:33] LABS: ANION GAP 7 mmol/L (5-15); CALCIUM 8.9 mg/dL (8.5-10.1); CHLORIDE 102 mmol/L (98-107)
[2019-10-05 06:48] LABS: ALANINE AMINOTRANSFERASE 108 U/L (12-78); ALKALINE PHOSPHATASE 65 U/L (45-117); BILIRUBIN,TOTAL 0.2 mg/dL (0.2-1.0); CREATINE KINASE, TOTAL 1184 U/L (26-192); CREATININE 0.79 mg/dL (0.55-1.02); TOTAL PROTEIN 6.8 g/dL (6.4-8.2)
[2019-10-05 07:04] VITALS: BP 113/74
[2019-10-05] MEDS: ALBUTEROL/IPRATROPIUM 2.5MG/0.5MG, 3 ML NPPB SCH ×4 (07:30→19:25)
[2019-10-05] MEDS: THIAMINE 100MG TABLET PO SCH ×2 (07:33→20:04)
[2019-10-05] MEDS: METOPROLOL TARTRATE 25 MG TABLET PO SCH ×2 (07:33→20:04)
[2019-10-05] MEDS: MULTIVITAMINS/MINERALS TABLET PO SCH (07:33)
[2019-10-05] MEDS: FOLIC ACID 1 MG TABLET PO SCH (07:34)
[2019-10-05] MEDS: GABAPENTIN 300 MG CAPSULE PO SCH ×3 (07:34→20:05)
[2019-10-05] MEDS ORDERED: GADOTERATE 10 MMOL/20 ML VIAL ONE (11:18)
[2019-10-05 13:54] VITALS: BP 123/77
[2019-10-05 20:01] VITALS: BP 126/78
[2019-10-05] MEDS: CEFTAROLINE 600 MG in SODIUM CHLORIDE 0.9% 100 ML IV SCH (20:03)
[2019-10-06 01:34] VITALS: BP 124/81
[2019-10-06] MEDS: morphine SULFATE 10 MG/ML, 1ML IVPush PRN ×6 (02:56→21:57)
[2019-10-06 04:50] LABS: ALANINE AMINOTRANSFERASE 92 U/L (12-78); ALBUMIN 1.9 g/dL (3.4-5.0); ANION GAP 7 mmol/L (5-15); CHLORIDE 100 mmol/L (98-107); CREATININE 0.77 mg/dL (0.55-1.02)
[2019-10-06 04:52] LABS: ALKALINE PHOSPHATASE 65 U/L (45-117); BILIRUBIN,TOTAL 0.5 mg/dL (0.2-1.0); TOTAL PROTEIN 6.4 g/dL (6.4-8.2)
[2019-10-06 05:00] LABS: MEAN CORPUSCULAR HEMOGLOBIN 28.5 pg (27.0-34.8); MEAN CORPUSCULAR HGB CONC 31.8 g/dL (32.4-35.8); MEAN CORPUSCULAR VOLUME 89.6 fL (80-100); MEAN PLATELET VOLUME 7.2 fL (7.4-10.4); PLATELET COUNT 521 x10^3/uL (130-400); RED BLOOD COUNT 2.94 x10^6/uL (3.82-5.3); RED CELL DISTRIBUTION WIDTH 16.7 % (9.6-15.2)
[2019-10-06 06:30] LABS: BASOPHILS # (AUTO) 0.03 x10^3/uL (0-0.1); BASOPHILS % (AUTO) 0 % (0-1); EOSINOPHILS # (AUTO) 0.02 x10^3/uL (0-0.4); EOSINOPHILS % (AUTO) 0 % (1-7); LYMPHOCYTES # (AUTO) 2.43 x10^3/uL (1-3.4); LYMPHOCYTES % (AUTO) 23 % (22-44); MD SCAN; MONOCYTES # (AUTO) 0.58 x10^3/uL (0.2-0.8); MONOCYTES % (AUTO) 5 % (2-9); NEUTROPHILS # (AUTO) 7.68 x10^3/uL (1.8-6.8); NEUTROPHILS % (AUTO) 72 % (42-75)
[2019-10-06 06:38] VITALS: BP 125/80
[2019-10-06] MEDS: CEFTAROLINE 600 MG in SODIUM CHLORIDE 0.9% 100 ML IV SCH ×2 (07:30→20:37)
[2019-10-06] MEDS: MULTIVITAMINS/MINERALS TABLET PO SCH (07:31)
[2019-10-06] MEDS: GABAPENTIN 300 MG CAPSULE PO SCH ×3 (07:31→20:37)
[2019-10-06] MEDS: THIAMINE 100MG TABLET PO SCH ×2 (07:31→20:38)
[2019-10-06] MEDS: HEPARIN 5,000 UNITS/ML, 1ML SQ SCH ×2 (07:31→16:13)
[2019-10-06] MEDS: METOPROLOL TARTRATE 25 MG TABLET PO SCH ×2 (07:32→20:37)
[2019-10-06] MEDS: FOLIC ACID 1 MG TABLET PO SCH (07:32)
[2019-10-06] MEDS: ALBUTEROL/IPRATROPIUM 2.5MG/0.5MG, 3 ML NPPB SCH ×3 (09:40→19:54)
[2019-10-06 12:12] VITALS: BP 117/83
[2019-10-06 20:17] VITALS: BP 105/65
[2019-10-07] MEDS: HEPARIN 5,000 UNITS/ML, 1ML SQ SCH ×3 (01:41→16:34)
[2019-10-07] MEDS: morphine SULFATE 10 MG/ML, 1ML IVPush PRN ×3 (01:41→13:53)
[2019-10-07 02:51] VITALS: BP 130/78
[2019-10-07 05:29] LABS: ALANINE AMINOTRANSFERASE 73 U/L (12-78); ALBUMIN 1.8 g/dL (3.4-5.0); ANION GAP 7 mmol/L (5-15); CALCIUM 7.9 mg/dL (8.5-10.1); CHLORIDE 103 mmol/L (98-107); CREATININE 0.95 mg/dL (0.55-1.02)
[2019-10-07 05:31] LABS: ALKALINE PHOSPHATASE 65 U/L (45-117); BILIRUBIN,TOTAL 0.2 mg/dL (0.2-1.0); TOTAL PROTEIN 6.3 g/dL (6.4-8.2)
[2019-10-07 05:36] LABS: BASOPHILS # (AUTO) 0.02 x10^3/uL (0-0.1); BASOPHILS % (AUTO) 0 % (0-1); EOSINOPHILS # (AUTO) 0.04 x10^3/uL (0-0.4); EOSINOPHILS % (AUTO) 0 % (1-7); LYMPHOCYTES # (AUTO) 2.57 x10^3/uL (1-3.4); LYMPHOCYTES % (AUTO) 24 % (22-44); MD NO; MEAN CORPUSCULAR HEMOGLOBIN 28.5 pg (27.0-34.8); MEAN CORPUSCULAR HGB CONC 32.7 g/dL (32.4-35.8); MEAN CORPUSCULAR VOLUME 87.2 fL (80-100); MEAN PLATELET VOLUME 7.3 fL (7.4-10.4); MONOCYTES # (AUTO) 0.43 x10^3/uL (0.2-0.8); MONOCYTES % (AUTO) 4 % (2-9); NEUTROPHILS # (AUTO) 7.58 x10^3/uL (1.8-6.8); NEUTROPHILS % (AUTO) 71 % (42-75); PLATELET COUNT 572 x10^3/uL (130-400); RED BLOOD COUNT 2.92 x10^6/uL (3.82-5.3); RED CELL DISTRIBUTION WIDTH 16.1 % (9.6-15.2)
[2019-10-07 07:43] VITALS: BP 122/77
[2019-10-07] MEDS: ALBUTEROL/IPRATROPIUM 2.5MG/0.5MG, 3 ML NPPB SCH ×4 (07:45→20:00)
[2019-10-07] MEDS: FOLIC ACID 1 MG TABLET PO SCH (09:06)
[2019-10-07] MEDS: THIAMINE 100MG TABLET PO SCH ×2 (09:06→20:43)
[2019-10-07] MEDS: MULTIVITAMINS/MINERALS TABLET PO SCH (09:06)
[2019-10-07] MEDS: CEFTAROLINE 600 MG in SODIUM CHLORIDE 0.9% 100 ML IV SCH ×2 (09:06→20:43)
[2019-10-07] MEDS: GABAPENTIN 300 MG CAPSULE PO SCH ×3 (09:06→20:43)
[2019-10-07] MEDS: OXYcodone IR 5MG TABLET PO PRN (09:07)
[2019-10-07] MEDS: METOPROLOL TARTRATE 25 MG TABLET PO SCH ×2 (09:07→20:43)
[2019-10-07 09:44] LABS: HCT (SEDRATE) 25.4 % (34.6-47.8)
[2019-10-07] MEDS: DOCUSATE 100 MG CAPSULE PO SCH ×2 (10:55→20:43)
[2019-10-07 13:49] VITALS: BP 119/71
[2019-10-07 20:26] VITALS: BP 137/79
[2019-10-08 00:27] VITALS: BP 125/73
[2019-10-08] MEDS: HEPARIN 5,000 UNITS/ML, 1ML SQ SCH ×3 (05:53→21:30)
[2019-10-08 06:03] LABS: CHLORIDE 104 mmol/L (98-107)
[2019-10-08 06:16] LABS: ALANINE AMINOTRANSFERASE 56 U/L (12-78); ALBUMIN 1.8 g/dL (3.4-5.0); ALKALINE PHOSPHATASE 58 U/L (45-117); ANION GAP 7 mmol/L (5-15); BILIRUBIN,TOTAL 0.4 mg/dL (0.2-1.0); CALCIUM 8.3 mg/dL (8.5-10.1); CREATINE KINASE, TOTAL 498 U/L (26-192); CREATININE 1.04 mg/dL (0.55-1.02); TOTAL PROTEIN 6.6 g/dL (6.4-8.2)
[2019-10-08] MEDS: ALBUTEROL/IPRATROPIUM 2.5MG/0.5MG, 3 ML NPPB SCH ×4 (06:59→18:40)
[2019-10-08 07:20] VITALS: BP 130/69
[2019-10-08] MEDS: CEFTAROLINE 600 MG in SODIUM CHLORIDE 0.9% 100 ML IV SCH ×2 (09:05→20:21)
[2019-10-08] MEDS: SODIUM CHLORIDE 0.9% 1,000 ML IV SCH ×2 (09:05→17:54)
[2019-10-08] MEDS: MAGNESIUM HYDROXIDE 8%, 30ML UDC PO SCH (09:06)
[2019-10-08] MEDS: METOPROLOL TARTRATE 25 MG TABLET PO SCH ×2 (09:07→21:31)
[2019-10-08] MEDS: THIAMINE 100MG TABLET PO SCH ×2 (09:07→21:31)
[2019-10-08] MEDS: FOLIC ACID 1 MG TABLET PO SCH (09:07)
[2019-10-08] MEDS: MULTIVITAMINS/MINERALS TABLET PO SCH (09:07)
[2019-10-08] MEDS: DOCUSATE 100 MG CAPSULE PO SCH ×2 (09:07→21:31)
[2019-10-08] MEDS: OXYcodone IR 5MG TABLET PO PRN ×2 (09:10→17:54)
[2019-10-08] MEDS: GABAPENTIN 300 MG CAPSULE PO SCH ×3 (09:11→21:30)
[2019-10-08 12:34] VITALS: BP 111/72
[2019-10-08 19:15] VITALS: BP 108/59
[2019-10-08] MEDS: morphine SULFATE 10 MG/ML, 1ML IVPush PRN (22:26)
[2019-10-09] MEDS: SODIUM CHLORIDE 0.9% 1,000 ML IV SCH ×3 (01:11→19:53)
[2019-10-09 01:23] VITALS: BP 107/65
[2019-10-09] MEDS: HEPARIN 5,000 UNITS/ML, 1ML SQ SCH ×3 (05:00→19:54)
[2019-10-09 06:38] LABS: ALBUMIN 1.8 g/dL (3.4-5.0); ANION GAP 7 mmol/L (5-15); CALCIUM 7.8 mg/dL (8.5-10.1); CHLORIDE 101 mmol/L (98-107)
[2019-10-09 06:42] LABS: ALANINE AMINOTRANSFERASE 49 U/L (12-78); ALKALINE PHOSPHATASE 54 U/L (45-117); BILIRUBIN,TOTAL 0.3 mg/dL (0.2-1.0); CREATINE KINASE, TOTAL 451 U/L (26-192); CREATININE 1.03 mg/dL (0.55-1.02); TOTAL PROTEIN 6.5 g/dL (6.4-8.2)
[2019-10-09 06:46] VITALS: BP 121/80
[2019-10-09] MEDS: ALBUTEROL/IPRATROPIUM 2.5MG/0.5MG, 3 ML NPPB SCH ×4 (07:21→18:42)
[2019-10-09] MEDS: CEFTAROLINE 600 MG in SODIUM CHLORIDE 0.9% 100 ML IV SCH ×2 (08:50→19:53)
[2019-10-09] MEDS: THIAMINE 100MG TABLET PO SCH ×2 (08:52→19:54)
[2019-10-09] MEDS: DOCUSATE 100 MG CAPSULE PO SCH ×2 (08:52→19:54)
[2019-10-09] MEDS: GABAPENTIN 300 MG CAPSULE PO SCH ×3 (08:52→19:54)
[2019-10-09] MEDS: MULTIVITAMINS/MINERALS TABLET PO SCH (08:53)
[2019-10-09] MEDS: FOLIC ACID 1 MG TABLET PO SCH (08:53)
[2019-10-09] MEDS: METOPROLOL TARTRATE 100 MG TABLET PO SCH ×2 (08:53→19:54)
[2019-10-09] MEDS: MAGNESIUM HYDROXIDE 8%, 30ML UDC PO SCH (08:53)
[2019-10-09] MEDS: OXYcodone IR 5MG TABLET PO PRN ×2 (09:15→21:17)
[2019-10-09] MEDS: morphine SULFATE 10 MG/ML, 1ML IVPush PRN ×4 (10:32→23:09)
[2019-10-09 12:34] VITALS: BP 125/72
[2019-10-09 19:35] VITALS: BP 108/70
[2019-10-10 01:10] VITALS: BP 107/69
[2019-10-10] MEDS: morphine SULFATE 10 MG/ML, 1ML IVPush PRN ×6 (02:28→20:00)
[2019-10-10] MEDS: OXYcodone IR 5MG TABLET PO PRN ×3 (04:09→23:02)
[2019-10-10] MEDS: HEPARIN 5,000 UNITS/ML, 1ML SQ SCH ×2 (04:54→12:47)
[2019-10-10] MEDS: SODIUM CHLORIDE 0.9% 1,000 ML IV SCH (04:54)
[2019-10-10 05:59] LABS: BASOPHILS # (AUTO) 0.01 x10^3/uL (0-0.1); BASOPHILS % (AUTO) 0 % (0-1); EOSINOPHILS # (AUTO) 0.12 x10^3/uL (0-0.4); EOSINOPHILS % (AUTO) 1 % (1-7); LYMPHOCYTES # (AUTO) 2.34 x10^3/uL (1-3.4); LYMPHOCYTES % (AUTO) 23 % (22-44); MD NO; MEAN CORPUSCULAR HEMOGLOBIN 27.8 pg (27.0-34.8); MEAN CORPUSCULAR HGB CONC 31.4 g/dL (32.4-35.8); MEAN CORPUSCULAR VOLUME 88.6 fL (80-100); MONOCYTES # (AUTO) 0.42 x10^3/uL (0.2-0.8); MONOCYTES % (AUTO) 4 % (2-9); NEUTROPHILS # (AUTO) 7.42 x10^3/uL (1.8-6.8); NEUTROPHILS % (AUTO) 72 % (42-75); PLATELET COUNT 523 x10^3/uL (130-400); RED BLOOD COUNT 2.62 x10^6/uL (3.82-5.3); RED CELL DISTRIBUTION WIDTH 16.7 % (9.6-15.2)
[2019-10-10 06:14] LABS: CHLORIDE 105 mmol/L (98-107)
[2019-10-10 06:27] LABS: ANION GAP 8 mmol/L (5-15); CALCIUM 7.9 mg/dL (8.5-10.1); CREATININE 0.85 mg/dL (0.55-1.02)
[2019-10-10 06:28] LABS: ALANINE AMINOTRANSFERASE 47 U/L (12-78); ALBUMIN 1.8 g/dL (3.4-5.0); ALKALINE PHOSPHATASE 54 U/L (45-117); BILIRUBIN,TOTAL 0.4 mg/dL (0.2-1.0); TOTAL PROTEIN 6.5 g/dL (6.4-8.2)
[2019-10-10] MEDS: ALBUTEROL/IPRATROPIUM 2.5MG/0.5MG, 3 ML NPPB SCH ×4 (07:00→20:00)
[2019-10-10 07:17] VITALS: BP 109/71
[2019-10-10] MEDS: THIAMINE 100MG TABLET PO SCH (09:12)
[2019-10-10] MEDS: CEFTAROLINE 600 MG in SODIUM CHLORIDE 0.9% 100 ML IV SCH ×2 (09:12→20:00)
[2019-10-10] MEDS: DOCUSATE 100 MG CAPSULE PO SCH ×2 (09:13→20:00)
[2019-10-10] MEDS: FOLIC ACID 1 MG TABLET PO SCH (09:13)
[2019-10-10] MEDS: MAGNESIUM HYDROXIDE 8%, 30ML UDC PO SCH (09:13)
[2019-10-10] MEDS: MULTIVITAMINS/MINERALS TABLET PO SCH (09:13)
[2019-10-10] MEDS: GABAPENTIN 300 MG CAPSULE PO SCH ×3 (09:13→20:00)
[2019-10-10] MEDS: METOPROLOL TARTRATE 100 MG TABLET PO SCH ×2 (09:13→20:00)
[2019-10-10] MEDS: FERROUS SULFATE 325 MG TABLET PO SCH (09:13)
[2019-10-10 16:54] VITALS: BP 103/68
[2019-10-10 18:24] VITALS: BP 106/70
[2019-10-11 00:37] VITALS: BP 111/73
[2019-10-11] MEDS: morphine SULFATE 10 MG/ML, 1ML IVPush PRN ×5 (01:56→19:38)
[2019-10-11] MEDS: OXYcodone IR 5MG TABLET PO PRN ×3 (05:12→22:42)
[2019-10-11 05:33] LABS: ANION GAP 7 mmol/L (5-15); CHLORIDE 104 mmol/L (98-107)
[2019-10-11 05:38] LABS: MEAN CORPUSCULAR HEMOGLOBIN 27.6 pg (27.0-34.8); MEAN CORPUSCULAR HGB CONC 31.3 g/dL (32.4-35.8); MEAN PLATELET VOLUME 7.9 fL (7.4-10.4); PLATELET COUNT 646 x10^3/uL (130-400); RED BLOOD COUNT 2.65 x10^6/uL (3.82-5.3); RED CELL DISTRIBUTION WIDTH 16.9 % (9.6-15.2)
[2019-10-11 05:39] LABS: ALANINE AMINOTRANSFERASE 45 U/L (12-78); ALKALINE PHOSPHATASE 57 U/L (45-117); CREATINE KINASE, TOTAL 323 U/L (26-192); CREATININE 0.99 mg/dL (0.55-1.02); TOTAL PROTEIN 6.6 g/dL (6.4-8.2)
[2019-10-11 05:43] LABS: BILIRUBIN,TOTAL < 0.1 mg/dL (0.2-1.0)
[2019-10-11 05:56] LABS: BASOPHILS # (AUTO) 0.11 x10^3/uL (0-0.1); BASOPHILS % (AUTO) 1 % (0-1); EOSINOPHILS # (AUTO) 0.18 x10^3/uL (0-0.4); EOSINOPHILS % (AUTO) 2 % (1-7); LYMPHOCYTES % (AUTO) 19 % (22-44); MD SCAN; MONOCYTES # (AUTO) 0.63 x10^3/uL (0.2-0.8); MONOCYTES % (AUTO) 7 % (2-9); NEUTROPHILS # (AUTO) 7.02 x10^3/uL (1.8-6.8); NEUTROPHILS % (AUTO) 72 % (42-75)
[2019-10-11 07:13] VITALS: BP 114/69
[2019-10-11] MEDS: ALBUTEROL/IPRATROPIUM 2.5MG/0.5MG, 3 ML NPPB SCH ×4 (07:15→19:13)
[2019-10-11] MEDS: DOCUSATE 100 MG CAPSULE PO SCH ×2 (07:43→21:27)
[2019-10-11] MEDS: MAGNESIUM HYDROXIDE 8%, 30ML UDC PO SCH (07:43)
[2019-10-11] MEDS: FERROUS SULFATE 325 MG TABLET PO SCH (07:44)
[2019-10-11] MEDS: METOPROLOL TARTRATE 100 MG TABLET PO SCH ×2 (07:44→21:27)
[2019-10-11] MEDS: CEFTAROLINE 600 MG in SODIUM CHLORIDE 0.9% 100 ML IV SCH ×2 (07:44→19:37)
[2019-10-11] MEDS: GABAPENTIN 300 MG CAPSULE PO SCH ×3 (07:44→21:27)
[2019-10-11 12:27] VITALS: BP 94/60
[2019-10-11 18:46] VITALS: BP 107/69
[2019-10-11] MEDS ORDERED: ALBUTEROL/IPRATROPIUM 2.5MG/0.5MG, 3 ML ONE (18:49)
[2019-10-11 21:25] VITALS: BP 117/73
[2019-10-12 00:51] VITALS: BP 110/70
[2019-10-12] MEDS: morphine SULFATE 10 MG/ML, 1ML IVPush PRN ×6 (03:26→23:47)
[2019-10-12 07:27] VITALS: BP 102/61
[2019-10-12] MEDS: GABAPENTIN 300 MG CAPSULE PO SCH ×3 (08:25→21:39)
[2019-10-12] MEDS: FERROUS SULFATE 325 MG TABLET PO SCH (08:25)
[2019-10-12] MEDS: MAGNESIUM HYDROXIDE 8%, 30ML UDC PO SCH (08:25)
[2019-10-12] MEDS: CEFTAROLINE 600 MG in SODIUM CHLORIDE 0.9% 100 ML IV SCH ×2 (08:25→19:56)
[2019-10-12] MEDS: OXYcodone IR 5MG TABLET PO PRN ×2 (08:26→15:19)
[2019-10-12] MEDS: METOPROLOL TARTRATE 100 MG TABLET PO SCH ×2 (08:26→21:39)
[2019-10-12] MEDS: DOCUSATE 100 MG CAPSULE PO SCH ×2 (08:28→21:39)
[2019-10-12] MEDS: ALBUTEROL/IPRATROPIUM 2.5MG/0.5MG, 3 ML NPPB SCH ×3 (09:23→21:00)
[2019-10-12 14:06] VITALS: BP 100/66
[2019-10-12 19:41] VITALS: BP 103/68
[2019-10-12 21:37] VITALS: BP 109/72
[2019-10-13 01:41] VITALS: BP 99/54
[2019-10-13] MEDS: morphine SULFATE 10 MG/ML, 1ML IVPush PRN ×6 (03:22→23:56)
[2019-10-13 06:36] VITALS: BP 98/61
[2019-10-13 07:33] LABS: MEAN CORPUSCULAR HEMOGLOBIN 27.2 pg (27.0-34.8); MEAN CORPUSCULAR HGB CONC 31.8 g/dL (32.4-35.8); MEAN CORPUSCULAR VOLUME 85.6 fL (80-100); MEAN PLATELET VOLUME 7.2 fL (7.4-10.4); PLATELET COUNT 842 x10^3/uL (130-400); RED BLOOD COUNT 2.98 x10^6/uL (3.82-5.3); RED CELL DISTRIBUTION WIDTH 16.7 % (9.6-15.2)
[2019-10-13 07:35] LABS: ANION GAP 8 mmol/L (5-15); CALCIUM 8.2 mg/dL (8.5-10.1); CHLORIDE 106 mmol/L (98-107); CREATININE 1.09 mg/dL (0.55-1.02)
[2019-10-13 07:59] LABS: BASOPHILS # (AUTO) 0.11 x10^3/uL (0-0.1); BASOPHILS % (AUTO) 1 % (0-1); EOSINOPHILS # (AUTO) 0.01 x10^3/uL (0-0.4); EOSINOPHILS % (AUTO) 0 % (1-7); LYMPHOCYTES # (AUTO) 1.59 x10^3/uL (1-3.4); LYMPHOCYTES % (AUTO) 19 % (22-44); MD SCAN; MONOCYTES # (AUTO) 0.66 x10^3/uL (0.2-0.8); MONOCYTES % (AUTO) 8 % (2-9); NEUTROPHILS % (AUTO) 72 % (42-75)
[2019-10-13] MEDS: CEFTAROLINE 600 MG in SODIUM CHLORIDE 0.9% 100 ML IV SCH ×2 (08:24→19:52)
[2019-10-13] MEDS: FERROUS SULFATE 325 MG TABLET PO SCH (08:25)
[2019-10-13] MEDS: GABAPENTIN 300 MG CAPSULE PO SCH ×3 (08:25→19:52)
[2019-10-13] MEDS: DOCUSATE 100 MG CAPSULE PO SCH ×2 (08:25→19:52)
[2019-10-13] MEDS: METOPROLOL TARTRATE 100 MG TABLET PO SCH ×2 (08:25→21:00)
[2019-10-13] MEDS: MAGNESIUM HYDROXIDE 8%, 30ML UDC PO SCH (08:25)
[2019-10-13] MEDS: ALBUTEROL/IPRATROPIUM 2.5MG/0.5MG, 3 ML NPPB SCH (09:00)
[2019-10-13] MEDS: OXYcodone IR 5MG TABLET PO PRN (12:49)
[2019-10-13 14:00] VITALS: BP 102/68
[2019-10-13 19:14] VITALS: BP 96/61
[2019-10-14 00:55] VITALS: BP 102/66
[2019-10-14] MEDS: morphine SULFATE 10 MG/ML, 1ML IVPush PRN ×6 (04:36→22:32)
[2019-10-14 05:37] LABS: ANION GAP 7 mmol/L (5-15); CALCIUM 8.2 mg/dL (8.5-10.1); CHLORIDE 101 mmol/L (98-107)
[2019-10-14 05:38] LABS: CREATININE 1.27 mg/dL (0.55-1.02)
[2019-10-14 06:30] LABS: BASOPHILS # (AUTO) 0.09 x10^3/uL (0-0.1); BASOPHILS % (AUTO) 1 % (0-1); EOSINOPHILS # (AUTO) 0.19 x10^3/uL (0-0.4); EOSINOPHILS % (AUTO) 2 % (1-7); LYMPHOCYTES # (AUTO) 1.61 x10^3/uL (1-3.4); LYMPHOCYTES % (AUTO) 18 % (22-44); MD NO; MEAN CORPUSCULAR HEMOGLOBIN 27.4 pg (27.0-34.8); MEAN CORPUSCULAR HGB CONC 31.8 g/dL (32.4-35.8); MEAN CORPUSCULAR VOLUME 86.2 fL (80-100); MEAN PLATELET VOLUME 7.4 fL (7.4-10.4); MONOCYTES # (AUTO) 0.76 x10^3/uL (0.2-0.8); MONOCYTES % (AUTO) 8 % (2-9); NEUTROPHILS # (AUTO) 6.56 x10^3/uL (1.8-6.8); NEUTROPHILS % (AUTO) 71 % (42-75); PLATELET COUNT 777 x10^3/uL (130-400); RED BLOOD COUNT 2.88 x10^6/uL (3.82-5.3); RED CELL DISTRIBUTION WIDTH 16.5 % (9.6-15.2)
[2019-10-14 07:26] VITALS: BP 102/65
[2019-10-14] MEDS: GABAPENTIN 300 MG CAPSULE PO SCH ×3 (08:24→20:59)
[2019-10-14] MEDS: MAGNESIUM HYDROXIDE 8%, 30ML UDC PO SCH (08:24)
[2019-10-14] MEDS: FERROUS SULFATE 325 MG TABLET PO SCH (08:24)
[2019-10-14] MEDS: CEFTAROLINE 600 MG in SODIUM CHLORIDE 0.9% 100 ML IV SCH ×2 (08:24→20:33)
[2019-10-14] MEDS: METOPROLOL TARTRATE 100 MG TABLET PO SCH ×2 (08:25→21:00)
[2019-10-14] MEDS: DOCUSATE 100 MG CAPSULE PO SCH ×2 (08:25→20:59)
[2019-10-14] MEDS: OXYcodone IR 5MG TABLET PO PRN (10:57)
[2019-10-14 14:30] VITALS: BP 127/82
[2019-10-14 20:05] VITALS: BP 100/65
[2019-10-14 20:54] VITALS: BP 105/66
[2019-10-15 00:19] VITALS: BP 104/67
[2019-10-15 00:40] LABS: MICROSCOPIC NOT IND
[2019-10-15 00:47] LABS: CULTURE INDICATED? NO
[2019-10-15] MEDS: OXYcodone IR 5MG TABLET PO PRN ×3 (01:41→15:39)
[2019-10-15] MEDS: morphine SULFATE 10 MG/ML, 1ML IVPush PRN ×5 (03:40→18:20)
[2019-10-15 05:35] LABS: BASOPHILS # (AUTO) 0.05 x10^3/uL (0-0.1); BASOPHILS % (AUTO) 1 % (0-1); EOSINOPHILS # (AUTO) 0.03 x10^3/uL (0-0.4); EOSINOPHILS % (AUTO) 0 % (1-7); LYMPHOCYTES # (AUTO) 1.59 x10^3/uL (1-3.4); LYMPHOCYTES % (AUTO) 21 % (22-44); MD NO; MEAN CORPUSCULAR HEMOGLOBIN 27.1 pg (27.0-34.8); MEAN CORPUSCULAR HGB CONC 31.7 g/dL (32.4-35.8); MEAN CORPUSCULAR VOLUME 85.5 fL (80-100); MEAN PLATELET VOLUME 7.4 fL (7.4-10.4); MONOCYTES % (AUTO) 8 % (2-9); NEUTROPHILS # (AUTO) 5.36 x10^3/uL (1.8-6.8); NEUTROPHILS % (AUTO) 70 % (42-75); PLATELET COUNT 769 x10^3/uL (130-400); RED BLOOD COUNT 2.84 x10^6/uL (3.82-5.3); RED CELL DISTRIBUTION WIDTH 16.4 % (9.6-15.2)
[2019-10-15 05:41] LABS: HCT (SEDRATE) 24.3 % (34.6-47.8)
[2019-10-15 05:41] LABS: ALBUMIN 2.2 g/dL (3.4-5.0); ANION GAP 7 mmol/L (5-15); CALCIUM 8.2 mg/dL (8.5-10.1); CHLORIDE 102 mmol/L (98-107)
[2019-10-15 05:50] LABS: ALANINE AMINOTRANSFERASE 27 U/L (12-78); ALKALINE PHOSPHATASE 60 U/L (45-117); BILIRUBIN,TOTAL 0.2 mg/dL (0.2-1.0); CREATININE 0.97 mg/dL (0.55-1.02); TOTAL PROTEIN 7.3 g/dL (6.4-8.2)
[2019-10-15 07:24] LABS: SEDIMENTATION RATE > 120 mm/hr (0-20)
[2019-10-15 07:50] VITALS: BP 101/66
[2019-10-15] MEDS: MAGNESIUM HYDROXIDE 8%, 30ML UDC PO SCH (07:53)
[2019-10-15] MEDS: FERROUS SULFATE 325 MG TABLET PO SCH (07:53)
[2019-10-15] MEDS: CEFTAROLINE 600 MG in SODIUM CHLORIDE 0.9% 100 ML IV SCH ×2 (07:53→20:45)
[2019-10-15] MEDS: DOCUSATE 100 MG CAPSULE PO SCH ×2 (07:54→20:46)
[2019-10-15] MEDS: METOPROLOL TARTRATE 100 MG TABLET PO SCH ×2 (07:54→20:46)
[2019-10-15] MEDS: GABAPENTIN 300 MG CAPSULE PO SCH ×3 (07:54→20:45)
[2019-10-15 12:41] VITALS: BP 107/67
[2019-10-15 19:35] VITALS: BP 113/72
[2019-10-16 01:33] VITALS: BP 101/65
[2019-10-16] MEDS: morphine SULFATE 10 MG/ML, 1ML IVPush PRN ×5 (01:57→22:54)
[2019-10-16 06:39] VITALS: BP 102/68
[2019-10-16 06:54] LABS: BASOPHILS # (AUTO) 0.06 x10^3/uL (0-0.1); BASOPHILS % (AUTO) 1 % (0-1); EOSINOPHILS # (AUTO) 0.15 x10^3/uL (0-0.4); EOSINOPHILS % (AUTO) 2 % (1-7); LYMPHOCYTES % (AUTO) 27 % (22-44); MD NO; MEAN CORPUSCULAR HEMOGLOBIN 26.6 pg (27.0-34.8); MEAN CORPUSCULAR HGB CONC 31.8 g/dL (32.4-35.8); MEAN CORPUSCULAR VOLUME 83.7 fL (80-100); MEAN PLATELET VOLUME 7.6 fL (7.4-10.4); MONOCYTES # (AUTO) 0.49 x10^3/uL (0.2-0.8); MONOCYTES % (AUTO) 7 % (2-9); NEUTROPHILS # (AUTO) 4.15 x10^3/uL (1.8-6.8); NEUTROPHILS % (AUTO) 62 % (42-75); PLATELET COUNT 642 x10^3/uL (130-400); RED CELL DISTRIBUTION WIDTH 16.8 % (9.6-15.2)
[2019-10-16 07:03] LABS: ANION GAP 8 mmol/L (5-15); CALCIUM 8.2 mg/dL (8.5-10.1); CHLORIDE 103 mmol/L (98-107); CREATININE 0.98 mg/dL (0.55-1.02)
[2019-10-16] MEDS: DOCUSATE 100 MG CAPSULE PO SCH ×2 (08:08→21:23)
[2019-10-16] MEDS: FERROUS SULFATE 325 MG TABLET PO SCH (08:08)
[2019-10-16] MEDS: CEFTAROLINE 600 MG in SODIUM CHLORIDE 0.9% 100 ML IV SCH ×2 (08:08→21:22)
[2019-10-16] MEDS: MAGNESIUM HYDROXIDE 8%, 30ML UDC PO SCH (08:08)
[2019-10-16] MEDS: OXYcodone IR 5MG TABLET PO PRN ×3 (08:08→21:26)
[2019-10-16] MEDS: GABAPENTIN 300 MG CAPSULE PO SCH ×3 (08:08→21:22)
[2019-10-16] MEDS: METOPROLOL TARTRATE 100 MG TABLET PO SCH ×2 (08:09→21:23)
[2019-10-16 13:03] VITALS: BP 104/67
[2019-10-16 18:48] VITALS: BP 92/60
[2019-10-16 21:20] VITALS: BP 107/70
[2019-10-16] MEDS: POLYETHYLENE GLYCOL 17 GM PACKET PO PRN (21:23)
[2019-10-17] MEDS: morphine SULFATE 10 MG/ML, 1ML IVPush PRN ×5 (00:12→19:19)
[2019-10-17 00:16] VITALS: BP 115/76
[2019-10-17] MEDS: OXYcodone IR 5MG TABLET PO PRN ×3 (04:06→18:28)
[2019-10-17 06:35] VITALS: BP 105/70
[2019-10-17] MEDS: GABAPENTIN 300 MG CAPSULE PO SCH ×3 (08:01→19:18)
[2019-10-17] MEDS: CEFTAROLINE 600 MG in SODIUM CHLORIDE 0.9% 100 ML IV SCH ×2 (08:01→19:17)
[2019-10-17] MEDS: MAGNESIUM HYDROXIDE 8%, 30ML UDC PO SCH (08:01)
[2019-10-17] MEDS: METOPROLOL TARTRATE 100 MG TABLET PO SCH ×2 (08:01→19:18)
[2019-10-17] MEDS: FERROUS SULFATE 325 MG TABLET PO SCH (08:01)
[2019-10-17] MEDS: DOCUSATE 100 MG CAPSULE PO SCH ×2 (08:01→19:18)
[2019-10-17 13:55] VITALS: BP 109/74
[2019-10-17 19:09] VITALS: BP 106/70
[2019-10-18 01:14] VITALS: BP 96/64
[2019-10-18] MEDS: morphine SULFATE 10 MG/ML, 1ML IVPush PRN ×3 (04:50→18:13)
[2019-10-18] MEDS: POLYETHYLENE GLYCOL 17 GM PACKET PO PRN (04:51)
[2019-10-18 07:39] VITALS: BP 103/67
[2019-10-18] MEDS: DOCUSATE 100 MG CAPSULE PO SCH ×2 (08:21→20:16)
[2019-10-18] MEDS: GABAPENTIN 300 MG CAPSULE PO SCH ×3 (08:21→20:15)
[2019-10-18] MEDS: METOPROLOL TARTRATE 100 MG TABLET PO SCH ×2 (08:21→20:16)
[2019-10-18] MEDS: MAGNESIUM HYDROXIDE 8%, 30ML UDC PO SCH (08:21)
[2019-10-18] MEDS: CEFTAROLINE 600 MG in SODIUM CHLORIDE 0.9% 100 ML IV SCH ×2 (08:22→20:15)
[2019-10-18] MEDS: FERROUS SULFATE 325 MG TABLET PO SCH (08:22)
[2019-10-18] MEDS: OXYcodone IR 5MG TABLET PO PRN ×3 (08:22→20:15)
[2019-10-18 14:00] VITALS: BP 118/79
[2019-10-18 18:53] VITALS: BP 107/70
[2019-10-19] MEDS: morphine SULFATE 10 MG/ML, 1ML IVPush PRN ×3 (00:21→16:21)
[2019-10-19 01:17] VITALS: BP 99/66
[2019-10-19] MEDS: OXYcodone IR 5MG TABLET PO PRN ×3 (03:29→20:19)
[2019-10-19 08:00] VITALS: BP 105/70
[2019-10-19] MEDS: CEFTAROLINE 600 MG in SODIUM CHLORIDE 0.9% 100 ML IV SCH (08:59)
[2019-10-19] MEDS: MAGNESIUM HYDROXIDE 8%, 30ML UDC PO SCH (09:00)
[2019-10-19] MEDS: FERROUS SULFATE 325 MG TABLET PO SCH (09:00)
[2019-10-19] MEDS: GABAPENTIN 300 MG CAPSULE PO SCH ×3 (09:00→20:19)
[2019-10-19] MEDS: DOCUSATE 100 MG CAPSULE PO SCH ×2 (09:00→20:20)
[2019-10-19] MEDS: METOPROLOL TARTRATE 100 MG TABLET PO SCH ×2 (09:00→20:19)
[2019-10-19 14:00] VITALS: BP 105/65
[2019-10-19 19:14] VITALS: BP 108/71
[2019-10-19] MEDS: DOXYCYCLINE 100MG TABLET PO SCH (20:19)
[2019-10-20] MEDS: OXYcodone IR 5MG TABLET PO PRN ×3 (00:11→22:20)
[2019-10-20] MEDS: POLYETHYLENE GLYCOL 17 GM PACKET PO PRN (00:12)
[2019-10-20 01:03] VITALS: BP 111/71
[2019-10-20] MEDS: morphine SULFATE 10 MG/ML, 1ML IVPush PRN ×3 (01:19→17:29)
[2019-10-20 06:02] VITALS: BP 111/73
[2019-10-20] MEDS: DOCUSATE 100 MG CAPSULE PO SCH ×2 (09:00→22:18)
[2019-10-20] MEDS: METOPROLOL TARTRATE 100 MG TABLET PO SCH ×2 (09:00→22:19)
[2019-10-20] MEDS: GABAPENTIN 300 MG CAPSULE PO SCH ×3 (09:00→22:19)
[2019-10-20] MEDS: FERROUS SULFATE 325 MG TABLET PO SCH (09:00)
[2019-10-20] MEDS: MAGNESIUM HYDROXIDE 8%, 30ML UDC PO SCH (09:00)
[2019-10-20] MEDS: DOXYCYCLINE 100MG TABLET PO SCH ×2 (09:00→22:19)
[2019-10-20] MEDS ORDERED: ACETAMINOPHEN 325 MG TABLET PO PRN (10:30)
[2019-10-20 11:08] LABS: BASOPHILS % (AUTO) 0 % (0-1); EOSINOPHILS # (AUTO) 0.05 x10^3/uL (0-0.4); EOSINOPHILS % (AUTO) 1 % (1-7); LYMPHOCYTES # (AUTO) 1.59 x10^3/uL (1-3.4); LYMPHOCYTES % (AUTO) 21 % (22-44); MD NO; MEAN CORPUSCULAR HGB CONC 31.3 g/dL (32.4-35.8); MEAN CORPUSCULAR VOLUME 82.9 fL (80-100); MEAN PLATELET VOLUME 6.9 fL (7.4-10.4); MONOCYTES # (AUTO) 0.38 x10^3/uL (0.2-0.8); MONOCYTES % (AUTO) 5 % (2-9); NEUTROPHILS # (AUTO) 5.58 x10^3/uL (1.8-6.8); NEUTROPHILS % (AUTO) 74 % (42-75); PLATELET COUNT 791 x10^3/uL (130-400); RED CELL DISTRIBUTION WIDTH 17.6 % (9.6-15.2)
[2019-10-20 14:00] VITALS: BP 98/62
[2019-10-20 18:57] VITALS: BP 112/75
[2019-10-20 22:17] VITALS: BP 122/76
[2019-10-21] MEDS: morphine SULFATE 10 MG/ML, 1ML IVPush PRN ×4 (00:08→18:14)
[2019-10-21 01:53] VITALS: BP 117/77
[2019-10-21] MEDS: OXYcodone IR 5MG TABLET PO PRN ×4 (03:57→19:47)
[2019-10-21 05:28] LABS: BASOPHILS # (AUTO) 0.09 x10^3/uL (0-0.1); BASOPHILS % (AUTO) 1 % (0-1); EOSINOPHILS # (AUTO) 0.03 x10^3/uL (0-0.4); EOSINOPHILS % (AUTO) 0 % (1-7); LYMPHOCYTES # (AUTO) 2.17 x10^3/uL (1-3.4); LYMPHOCYTES % (AUTO) 30 % (22-44); MD NO; MEAN CORPUSCULAR HEMOGLOBIN 26.3 pg (27.0-34.8); MEAN CORPUSCULAR HGB CONC 31.1 g/dL (32.4-35.8); MEAN CORPUSCULAR VOLUME 84.5 fL (80-100); MEAN PLATELET VOLUME 6.9 fL (7.4-10.4); MONOCYTES # (AUTO) 0.44 x10^3/uL (0.2-0.8); MONOCYTES % (AUTO) 6 % (2-9); NEUTROPHILS # (AUTO) 4.44 x10^3/uL (1.8-6.8); NEUTROPHILS % (AUTO) 62 % (42-75); PLATELET COUNT 743 x10^3/uL (130-400); RED BLOOD COUNT 3.26 x10^6/uL (3.82-5.3); RED CELL DISTRIBUTION WIDTH 17.4 % (9.6-15.2)
[2019-10-21 05:31] LABS: ANION GAP 6 mmol/L (5-15); CALCIUM 8.8 mg/dL (8.5-10.1); CHLORIDE 105 mmol/L (98-107); CREATININE 0.94 mg/dL (0.55-1.02)
[2019-10-21 07:36] VITALS: BP 103/68
[2019-10-21] MEDS: MULTIVITAMIN 1 TABLET PO SCH (08:19)
[2019-10-21] MEDS: DOXYCYCLINE 100MG TABLET PO SCH ×2 (08:19→19:46)
[2019-10-21] MEDS: FERROUS SULFATE 325 MG TABLET PO SCH (08:19)
[2019-10-21] MEDS: DOCUSATE 100 MG CAPSULE PO SCH ×2 (08:19→19:46)
[2019-10-21] MEDS: GABAPENTIN 300 MG CAPSULE PO SCH ×3 (08:19→19:47)
[2019-10-21] MEDS: METOPROLOL TARTRATE 100 MG TABLET PO SCH ×2 (08:19→19:47)
[2019-10-21] MEDS: MAGNESIUM HYDROXIDE 8%, 30ML UDC PO SCH (08:19)
[2019-10-21 14:00] VITALS: BP 115/72
[2019-10-21 19:37] VITALS: BP 110/72
[2019-10-22] MEDS: morphine SULFATE 10 MG/ML, 1ML IVPush PRN ×4 (00:32→20:54)
[2019-10-22 03:25] VITALS: BP 131/79
[2019-10-22] MEDS: OXYcodone IR 5MG TABLET PO PRN ×3 (03:39→16:48)
[2019-10-22 05:09] LABS: BASOPHILS # (AUTO) 0.04 x10^3/uL (0-0.1); BASOPHILS % (AUTO) 1 % (0-1); EOSINOPHILS # (AUTO) 0.05 x10^3/uL (0-0.4); EOSINOPHILS % (AUTO) 1 % (1-7); LYMPHOCYTES # (AUTO) 2.77 x10^3/uL (1-3.4); LYMPHOCYTES % (AUTO) 37 % (22-44); MD NO; MEAN CORPUSCULAR HEMOGLOBIN 26.4 pg (27.0-34.8); MEAN CORPUSCULAR HGB CONC 31.3 g/dL (32.4-35.8); MEAN CORPUSCULAR VOLUME 84.2 fL (80-100); MEAN PLATELET VOLUME 6.9 fL (7.4-10.4); MONOCYTES # (AUTO) 0.45 x10^3/uL (0.2-0.8); MONOCYTES % (AUTO) 6 % (2-9); NEUTROPHILS # (AUTO) 4.12 x10^3/uL (1.8-6.8); NEUTROPHILS % (AUTO) 56 % (42-75); PLATELET COUNT 778 x10^3/uL (130-400); RED BLOOD COUNT 3.36 x10^6/uL (3.82-5.3); RED CELL DISTRIBUTION WIDTH 17.4 % (9.6-15.2)
[2019-10-22 05:13] LABS: HCT (SEDRATE) 28.3 % (34.6-47.8)
[2019-10-22 05:17] LABS: CHLORIDE 102 mmol/L (98-107)
[2019-10-22 05:28] LABS: ALANINE AMINOTRANSFERASE 12 U/L (12-78); ALBUMIN 2.4 g/dL (3.4-5.0); ALKALINE PHOSPHATASE 71 U/L (45-117); BILIRUBIN,TOTAL 0.2 mg/dL (0.2-1.0); CALCIUM 9.2 mg/dL (8.5-10.1); CREATININE 0.95 mg/dL (0.55-1.02); TOTAL PROTEIN 8.1 g/dL (6.4-8.2)
[2019-10-22 05:29] LABS: ANION GAP 5 mmol/L (5-15)
[2019-10-22 08:08] VITALS: BP 104/71
[2019-10-22] MEDS: MAGNESIUM HYDROXIDE 8%, 30ML UDC PO SCH (09:18)
[2019-10-22] MEDS: FERROUS SULFATE 325 MG TABLET PO SCH (09:19)
[2019-10-22] MEDS: MULTIVITAMIN 1 TABLET PO SCH (09:19)
[2019-10-22] MEDS: DOCUSATE 100 MG CAPSULE PO SCH ×2 (09:19→20:55)
[2019-10-22] MEDS: GABAPENTIN 300 MG CAPSULE PO SCH ×3 (09:19→20:54)
[2019-10-22] MEDS: METOPROLOL TARTRATE 100 MG TABLET PO SCH ×2 (09:19→20:55)
[2019-10-22] MEDS: DOXYCYCLINE 100MG TABLET PO SCH ×2 (09:19→20:55)
[2019-10-22 13:10] VITALS: BP 116/73
[2019-10-22] MEDS ORDERED: MORPHINE SULFATE 4 MG/ML, 1ML ONE (13:47)
[2019-10-22 18:46] VITALS: BP 120/77
[2019-10-23 01:05] VITALS: BP 113/72
[2019-10-23] MEDS: morphine SULFATE 10 MG/ML, 1ML IVPush PRN ×3 (04:11→22:12)
[2019-10-23] MEDS: OXYcodone IR 5MG TABLET PO PRN ×3 (07:47→18:42)
[2019-10-23] MEDS: DOXYCYCLINE 100MG TABLET PO SCH ×2 (07:48→20:59)
[2019-10-23] MEDS: MULTIVITAMIN 1 TABLET PO SCH (07:48)
[2019-10-23] MEDS: DOCUSATE 100 MG CAPSULE PO SCH ×2 (07:48→20:59)
[2019-10-23] MEDS: GABAPENTIN 300 MG CAPSULE PO SCH ×3 (07:48→20:59)
[2019-10-23] MEDS: METOPROLOL TARTRATE 100 MG TABLET PO SCH ×2 (07:48→21:00)
[2019-10-23] MEDS: MAGNESIUM HYDROXIDE 8%, 30ML UDC PO SCH (07:48)
[2019-10-23] MEDS: FERROUS SULFATE 325 MG TABLET PO SCH (07:48)
[2019-10-23 12:34] VITALS: BP 111/77
[2019-10-23] MEDS ORDERED: IBUPROFEN 600 MG TABLET PO PRN (14:30)
[2019-10-23] MEDS: ACETAMINOPHEN 500 MG TABLET PO SCH ×2 (16:11→22:12)
[2019-10-23 18:50] VITALS: BP 112/76
[2019-10-23] MEDS: SENNA/DOCUSATE TABLET PO SCH (20:59)
[2019-10-24 00:50] VITALS: BP 101/73
[2019-10-24] MEDS: OXYcodone IR 5MG TABLET PO PRN ×3 (00:51→17:09)
[2019-10-24] MEDS: morphine SULFATE 10 MG/ML, 1ML IVPush PRN ×2 (04:25→11:20)
[2019-10-24] MEDS: MAGNESIUM HYDROXIDE 8%, 30ML UDC PO SCH (08:11)
[2019-10-24] MEDS: DOXYCYCLINE 100MG TABLET PO SCH (08:11)
[2019-10-24] MEDS: GABAPENTIN 300 MG CAPSULE PO SCH ×2 (08:11→17:09)
[2019-10-24] MEDS: METOPROLOL TARTRATE 100 MG TABLET PO SCH (08:11)
[2019-10-24] MEDS: SENNA/DOCUSATE TABLET PO SCH (08:11)
[2019-10-24] MEDS: ACETAMINOPHEN 500 MG TABLET PO SCH ×2 (08:12→17:09)
[2019-10-24] MEDS: DOCUSATE 100 MG CAPSULE PO SCH (08:12)
[2019-10-24] MEDS: FERROUS SULFATE 325 MG TABLET PO SCH (08:12)
[2019-10-24] MEDS: MULTIVITAMIN 1 TABLET PO SCH (08:12)
[2019-10-24 09:24] VITALS: BP 104/68
[2019-10-24] MEDS ORDERED: OXYC5TAB3 PO (12:26)
[2019-10-24] MEDS ORDERED: FERR-51 PO (12:26)
[2019-10-24] MEDS ORDERED: DOXY100T PO (12:26)
[2019-10-24] MEDS ORDERED: SENN-193 PO (12:26)
[2019-10-24 13:49] VITALS: BP 104/67
== END 2019-10-24 20:10 | disposition home or self-care (01) | DRG 872 ==
LOC: ED 20:22 → EDIP 22:59 → 3N 23:59 → 4WST 09-30 08:46 → 3N 10-08 00:05
PROVIDERS: ADMIT Internal Medicine; ATTEND Family Medicine
DX: A41.02 Sepsis due to Methicillin resistant Staphylococcus aureus (principal); B19.10 Unspecified viral hepatitis B without hepatic coma; E11.52 Type 2 diabetes mellitus with diabetic peripheral angiopathy with gangrene; F10.239 Alcohol dependence with withdrawal, unspecified; J44.1 Chronic obstructive pulmonary disease with (acute) exacerbation; J45.901 Unspecified asthma with (acute) exacerbation; L03.116 Cellulitis of left lower limb; L03.115 Cellulitis of right lower limb; N17.9 Acute kidney failure, unspecified; E22.2 Syndrome of inappropriate secretion of antidiuretic hormone; D64.9 Anemia, unspecified; E87.6 Hypokalemia; Y90.9 Presence of alcohol in blood, level not specified; F12.90 Cannabis use, unspecified, uncomplicated; F17.210 Nicotine dependence, cigarettes, uncomplicated; F20.9 Schizophrenia, unspecified; F31.9 Bipolar disorder, unspecified; G60.8 Other hereditary and idiopathic neuropathies; K59.00 Constipation, unspecified; K70.10 Alcoholic hepatitis without ascites; M60.9 Myositis, unspecified; R79.1 Abnormal coagulation profile; T39.395A Adverse effect of other nonsteroidal anti-inflammatory drugs [NSAID], initial encounter; Y92.89 Other specified places as the place of occurrence of the external cause; Z59.0 Homelessness; Z63.8 Other specified problems related to primary support group; Z83.3 Family history of diabetes mellitus; Z87.01 Personal history of pneumonia (recurrent); I99.8 Other disorder of circulatory system
CPT/HCPCS: 36415; 84145; 87806; 96374; 99285; J7613; J7620; 71045; 71046; 75635; 76700; 80048; 80053; 80202; 81001; 81003; 81025; 82436; 82550; 82607; 82728; 82784; 82787; 83540; 83550; 83605; 83735; 83930; 83935; 84100; 84133; 84300; 84443; 84484; 85025; 85610; 85651; 86140; 86480; 86704; 86706; 86708; 86803; 87040; 87070; 87077; 87086; 87147; 87186; 87205; 87340; 90686; 93005; 93306; 94640; G0378; J0295; J0712; J0878; J1644; J1650; J2543; J3370; Q9967; A9575; G0475; J2270; J7030; J7050; J7512

== ENCOUNTER 2019-10-25 13:19 | Inpatient (IN) | payer MEDICAID, OTHER ==
[~2019-10-25] VITALS: Ht 180.3 cm; Wt 74.5 kg
[~2019-10-25 13:19] MED LIST changes: +FERR-51 PO; +OXYC5TAB3 PO; +SENN-193 PO
--- NOTE | 2019-10-25 14:15 | NUR ---
RECEIVED REPORT FROM WILD TINOCO. PT RESTING ON MALIRNEY. NADN. SUMNERS. PT STATES HER ISSUES W/ BILAT FEET STARTED IN SEP 2019 AND ISSUES W/ HER HADNS STARTED THIS OCTOBER 2019.
--- NOTE | 2019-10-25 14:17 | NUR ---
ALINE REILLY AT BEDSIDE.
--- NOTE | 2019-10-25 14:51 | NUR ---
REPORT GIVEN TO STEVE OGDEN RN. ALL QUESTIONS ANSWERED. AWAITING PT TRANSPORT.
[2019-10-25] MEDS ORDERED: ACETAMINOPHEN 325 MG TABLET PO PRN ×2 (15:00→15:30)
--- NOTE | 2019-10-25 15:11 | NUR ---
PT RESTING ON [facility]. DONAVAN. VSS. PT ASSISTED X 1 TO COMMODE. PT REPOSITIONED ON [facility].
[2019-10-25] MEDS: GABAPENTIN 300 MG CAPSULE PO SCH ×2 (17:02→20:16)
[2019-10-25] MEDS: ACETAMINOPHEN 500 MG TABLET PO SCH ×2 (17:02→23:07)
[2019-10-25] MEDS: ENOXAPARIN 40 MG/0.4 ML SQ SCH (17:06)
[2019-10-25 18:00] LABS: BASOPHILS # (AUTO) 0.08 x10^3/uL (0-0.1); BASOPHILS % (AUTO) 1 % (0-1); EOSINOPHILS # (AUTO) 0.01 x10^3/uL (0-0.4); EOSINOPHILS % (AUTO) 0 % (1-7); LYMPHOCYTES # (AUTO) 1.65 x10^3/uL (1-3.4); LYMPHOCYTES % (AUTO) 17 % (22-44); MD NO; MEAN CORPUSCULAR HEMOGLOBIN 25.6 pg (27.0-34.8); MEAN CORPUSCULAR HGB CONC 31.6 g/dL (32.4-35.8); MEAN CORPUSCULAR VOLUME 81.2 fL (80-100); MEAN PLATELET VOLUME 6.7 fL (7.4-10.4); MONOCYTES # (AUTO) 0.59 x10^3/uL (0.2-0.8); MONOCYTES % (AUTO) 6 % (2-9); NEUTROPHILS # (AUTO) 7.24 x10^3/uL (1.8-6.8); NEUTROPHILS % (AUTO) 76 % (42-75); PLATELET COUNT 727 x10^3/uL (130-400); RED BLOOD COUNT 3.37 x10^6/uL (3.82-5.3); RED CELL DISTRIBUTION WIDTH 17.8 % (9.6-15.2)
[2019-10-25 18:08] LABS: ALANINE AMINOTRANSFERASE 9 U/L (12-78); ALBUMIN 2.5 g/dL (3.4-5.0); CALCIUM 9.1 mg/dL (8.5-10.1); CHLORIDE 107 mmol/L (98-107)
[2019-10-25 18:10] LABS: ALKALINE PHOSPHATASE 69 U/L (45-117); BILIRUBIN,TOTAL 0.2 mg/dL (0.2-1.0)
[2019-10-25 18:32] LABS: ANION GAP 10 mmol/L (5-15)
[2019-10-25 19:39] VITALS: BP 90/47
[2019-10-25] MEDS: DOXYCYCLINE 100MG TABLET PO SCH (20:16)
[2019-10-25] MEDS: IBUPROFEN 600 MG TABLET PO SCH (20:16)
[2019-10-25 20:19] VITALS: BP 105/65
[2019-10-25] MEDS ORDERED: SODIUM CHLORIDE 0.9%, 500ML IVBOLUS ONE (21:30)
[2019-10-25 22:19] VITALS: BP 96/61
[2019-10-25] MEDS ORDERED: SODIUM CHLORIDE 0.9% 1,000ML IVBOLUS ONE (23:30)
[2019-10-26 00:41] VITALS: BP 102/61
[2019-10-26] MEDS: OXYcodone IR 5MG TABLET PO PRN ×4 (00:51→20:57)
[2019-10-26 05:41] LABS: BASOPHILS # (AUTO) 0.01 x10^3/uL (0-0.1); BASOPHILS % (AUTO) 0 % (0-1); EOSINOPHILS # (AUTO) 0.02 x10^3/uL (0-0.4); EOSINOPHILS % (AUTO) 0 % (1-7); LYMPHOCYTES # (AUTO) 2.39 x10^3/uL (1-3.4); LYMPHOCYTES % (AUTO) 37 % (22-44); MD NO; MEAN CORPUSCULAR HEMOGLOBIN 26.1 pg (27.0-34.8); MEAN CORPUSCULAR HGB CONC 31.4 g/dL (32.4-35.8); MEAN CORPUSCULAR VOLUME 83.3 fL (80-100); MEAN PLATELET VOLUME 6.5 fL (7.4-10.4); MONOCYTES % (AUTO) 12 % (2-9); NEUTROPHILS # (AUTO) 3.23 x10^3/uL (1.8-6.8); NEUTROPHILS % (AUTO) 50 % (42-75); PLATELET COUNT 705 x10^3/uL (130-400); RED BLOOD COUNT 3.33 x10^6/uL (3.82-5.3); RED CELL DISTRIBUTION WIDTH 17.1 % (9.6-15.2)
[2019-10-26 05:49] LABS: ANION GAP 7 mmol/L (5-15); CALCIUM 8.1 mg/dL (8.5-10.1); CHLORIDE 107 mmol/L (98-107); CREATININE 0.91 mg/dL (0.55-1.02)
[2019-10-26] MEDS: ACETAMINOPHEN 500 MG TABLET PO SCH ×4 (05:49→23:48)
[2019-10-26] MEDS: ASPIRIN 81 MG TABLET EC PO SCH (05:49)
[2019-10-26 07:33] VITALS: BP 117/79
[2019-10-26] MEDS: DOXYCYCLINE 100MG TABLET PO SCH ×2 (10:00→20:56)
[2019-10-26] MEDS: IBUPROFEN 600 MG TABLET PO SCH ×2 (10:00→20:56)
[2019-10-26] MEDS: GABAPENTIN 300 MG CAPSULE PO SCH ×3 (10:00→20:56)
[2019-10-26 12:16] VITALS: BP 121/79
[2019-10-26] MEDS: ENOXAPARIN 40 MG/0.4 ML SQ SCH (16:30)
[2019-10-26 17:43] VITALS: BP 117/73
[2019-10-26 20:03] VITALS: BP 122/81
[2019-10-27] MEDS: OXYcodone IR 5MG TABLET PO PRN ×4 (01:21→21:15)
[2019-10-27 01:27] VITALS: BP 113/77
[2019-10-27] MEDS: ACETAMINOPHEN 500 MG TABLET PO SCH ×3 (06:15→18:07)
[2019-10-27] MEDS: ASPIRIN 81 MG TABLET EC PO SCH (06:15)
[2019-10-27] MEDS: FERROUS SULFATE 325 MG TABLET PO SCH (09:14)
[2019-10-27] MEDS: GABAPENTIN 300 MG CAPSULE PO SCH ×3 (09:14→21:14)
[2019-10-27] MEDS: DOXYCYCLINE 100MG TABLET PO SCH ×2 (09:14→21:14)
[2019-10-27] MEDS: IBUPROFEN 600 MG TABLET PO SCH ×2 (09:14→21:15)
[2019-10-27 09:32] VITALS: BP 109/72
[2019-10-27] MEDS: POLYETHYLENE GLYCOL 17 GM PACKET PO PRN (11:52)
[2019-10-27 14:36] VITALS: BP 105/72
[2019-10-27] MEDS: ENOXAPARIN 40 MG/0.4 ML SQ SCH (16:40)
[2019-10-27 20:06] VITALS: BP 118/76
[2019-10-28] MEDS: ACETAMINOPHEN 500 MG TABLET PO SCH ×4 (01:47→16:58)
[2019-10-28] MEDS: OXYcodone IR 5MG TABLET PO PRN ×4 (01:48→18:36)
[2019-10-28 01:50] VITALS: BP 107/70
[2019-10-28] MEDS: ASPIRIN 81 MG TABLET EC PO SCH (06:00)
[2019-10-28 07:27] VITALS: BP 113/70
[2019-10-28 09:04] LABS: ANION GAP 6 mmol/L (5-15); CALCIUM 8.5 mg/dL (8.5-10.1); CHLORIDE 104 mmol/L (98-107); CREATININE 0.85 mg/dL (0.55-1.02)
[2019-10-28] MEDS: GABAPENTIN 300 MG CAPSULE PO SCH ×3 (09:09→21:39)
[2019-10-28] MEDS: OLANZAPINE 5 MG TABLET PO SCH (09:09)
[2019-10-28] MEDS: DOXYCYCLINE 100MG TABLET PO SCH ×2 (09:09→21:39)
[2019-10-28] MEDS: IBUPROFEN 600 MG TABLET PO SCH ×2 (09:09→21:39)
[2019-10-28 12:33] VITALS: BP 133/82
[2019-10-28] MEDS: ENOXAPARIN 40 MG/0.4 ML SQ SCH (15:29)
[2019-10-28 18:36] VITALS: BP 117/73
[2019-10-29 01:02] VITALS: BP 114/74
[2019-10-29] MEDS: ACETAMINOPHEN 500 MG TABLET PO SCH ×4 (01:44→18:11)
[2019-10-29] MEDS: OXYcodone IR 5MG TABLET PO PRN ×5 (01:45→20:38)
[2019-10-29] MEDS: ASPIRIN 81 MG TABLET EC PO SCH (06:12)
[2019-10-29 07:25] VITALS: BP 138/82
[2019-10-29] MEDS: OLANZAPINE 5 MG TABLET PO SCH (08:08)
[2019-10-29] MEDS: IBUPROFEN 600 MG TABLET PO SCH ×2 (08:08→20:29)
[2019-10-29] MEDS: FERROUS SULFATE 325 MG TABLET PO SCH (08:08)
[2019-10-29] MEDS: GABAPENTIN 300 MG CAPSULE PO SCH ×3 (08:08→20:29)
[2019-10-29] MEDS: DOXYCYCLINE 100MG TABLET PO SCH ×2 (08:08→20:29)
[2019-10-29 11:58] VITALS: BP 134/84
[2019-10-29 14:56] VITALS: BP 134/84
[2019-10-29] MEDS: ENOXAPARIN 40 MG/0.4 ML SQ SCH (16:33)
[2019-10-29 20:24] VITALS: BP 109/73
[2019-10-30 00:46] VITALS: BP 127/84
[2019-10-30] MEDS: OXYcodone IR 5MG TABLET PO PRN ×4 (00:46→20:21)
[2019-10-30] MEDS: ASPIRIN 81 MG TABLET EC PO SCH (06:19)
[2019-10-30] MEDS: ACETAMINOPHEN 500 MG TABLET PO SCH ×4 (06:19→17:50)
[2019-10-30 07:14] VITALS: BP 130/76
[2019-10-30] MEDS: DOXYCYCLINE 100MG TABLET PO SCH ×2 (09:17→20:21)
[2019-10-30] MEDS: OLANZAPINE 5 MG TABLET PO SCH (09:17)
[2019-10-30] MEDS: GABAPENTIN 300 MG CAPSULE PO SCH ×3 (09:17→20:21)
[2019-10-30] MEDS: IBUPROFEN 600 MG TABLET PO SCH ×2 (09:17→20:21)
[2019-10-30 12:44] VITALS: BP 125/77
[2019-10-30] MEDS: ENOXAPARIN 40 MG/0.4 ML SQ SCH (16:19)
[2019-10-30 19:26] VITALS: BP 109/72
[2019-10-31 00:19] VITALS: BP 104/69
[2019-10-31] MEDS: ACETAMINOPHEN 500 MG TABLET PO SCH ×4 (00:21→17:54)
[2019-10-31 05:30] LABS: BASOPHILS # (AUTO) 0.04 x10^3/uL (0-0.1); BASOPHILS % (AUTO) 1 % (0-1); EOSINOPHILS # (AUTO) 0.16 x10^3/uL (0-0.4); EOSINOPHILS % (AUTO) 2 % (1-7); LYMPHOCYTES # (AUTO) 1.68 x10^3/uL (1-3.4); LYMPHOCYTES % (AUTO) 23 % (22-44); MD NO; MEAN CORPUSCULAR HEMOGLOBIN 25.4 pg (27.0-34.8); MEAN CORPUSCULAR VOLUME 81.8 fL (80-100); MEAN PLATELET VOLUME 7.1 fL (7.4-10.4); MONOCYTES # (AUTO) 0.55 x10^3/uL (0.2-0.8); MONOCYTES % (AUTO) 8 % (2-9); NEUTROPHILS # (AUTO) 4.88 x10^3/uL (1.8-6.8); NEUTROPHILS % (AUTO) 67 % (42-75); PLATELET COUNT 701 x10^3/uL (130-400); RED BLOOD COUNT 3.31 x10^6/uL (3.82-5.3)
[2019-10-31 05:41] LABS: ANION GAP 7 mmol/L (5-15); CALCIUM 8.7 mg/dL (8.5-10.1); CHLORIDE 108 mmol/L (98-107)
[2019-10-31 05:42] LABS: CREATININE 0.93 mg/dL (0.55-1.02)
[2019-10-31] MEDS: ASPIRIN 81 MG TABLET EC PO SCH (06:28)
[2019-10-31 07:07] VITALS: BP 112/63
[2019-10-31] MEDS: FERROUS SULFATE 325 MG TABLET PO SCH (09:21)
[2019-10-31] MEDS: GABAPENTIN 300 MG CAPSULE PO SCH ×3 (09:21→20:12)
[2019-10-31] MEDS: OLANZAPINE 5 MG TABLET PO SCH (09:21)
[2019-10-31] MEDS: OXYcodone IR 5MG TABLET PO PRN ×2 (09:21→16:11)
[2019-10-31] MEDS: DOXYCYCLINE 100MG TABLET PO SCH ×2 (09:21→20:12)
[2019-10-31] MEDS: IBUPROFEN 600 MG TABLET PO SCH ×2 (09:21→20:12)
[2019-10-31 13:01] VITALS: BP 109/70
[2019-10-31] MEDS: ENOXAPARIN 40 MG/0.4 ML SQ SCH (16:11)
[2019-10-31 19:10] VITALS: BP 105/71
[2019-11-01] MEDS: ACETAMINOPHEN 500 MG TABLET PO SCH ×4 (00:34→19:13)
[2019-11-01 02:18] VITALS: BP 125/80
[2019-11-01] MEDS: ASPIRIN 81 MG TABLET EC PO SCH (05:53)
[2019-11-01 07:43] VITALS: BP 110/69
[2019-11-01] MEDS: DOXYCYCLINE 100MG TABLET PO SCH ×2 (09:44→21:16)
[2019-11-01] MEDS: GABAPENTIN 300 MG CAPSULE PO SCH ×3 (09:45→21:16)
[2019-11-01] MEDS: OLANZAPINE 5 MG TABLET PO SCH (09:45)
[2019-11-01] MEDS: IBUPROFEN 600 MG TABLET PO SCH ×2 (09:45→21:16)
[2019-11-01 13:15] VITALS: BP 100/63
[2019-11-01] MEDS: ENOXAPARIN 40 MG/0.4 ML SQ SCH (16:42)
[2019-11-01 18:51] VITALS: BP 119/74
[2019-11-02 00:36] VITALS: BP 106/67
[2019-11-02] MEDS: ACETAMINOPHEN 500 MG TABLET PO SCH ×4 (01:08→21:55)
[2019-11-02] MEDS: ASPIRIN 81 MG TABLET EC PO SCH (06:25)
[2019-11-02 07:21] VITALS: BP 124/81
[2019-11-02] MEDS: DOXYCYCLINE 100MG TABLET PO SCH ×2 (09:26→21:55)
[2019-11-02] MEDS: IBUPROFEN 600 MG TABLET PO SCH ×2 (09:26→21:55)
[2019-11-02] MEDS: FERROUS SULFATE 325 MG TABLET PO SCH (09:26)
[2019-11-02] MEDS: OLANZAPINE 5 MG TABLET PO SCH (09:26)
[2019-11-02] MEDS: GABAPENTIN 300 MG CAPSULE PO SCH ×3 (09:26→21:55)
[2019-11-02 15:38] VITALS: BP 120/77
[2019-11-02] MEDS: ENOXAPARIN 40 MG/0.4 ML SQ SCH (16:20)
[2019-11-02 19:45] VITALS: BP 113/74
[2019-11-02] MEDS: OXYcodone IR 5MG TABLET PO PRN (19:55)
[2019-11-03 01:39] VITALS: BP 153/93
[2019-11-03 02:57] VITALS: BP 115/74
[2019-11-03] MEDS: ACETAMINOPHEN 500 MG TABLET PO SCH ×4 (03:30→21:52)
[2019-11-03] MEDS: ASPIRIN 81 MG TABLET EC PO SCH (06:20)
[2019-11-03 08:22] VITALS: BP 120/73
[2019-11-03] MEDS: OLANZAPINE 5 MG TABLET PO SCH (09:18)
[2019-11-03] MEDS: IBUPROFEN 600 MG TABLET PO SCH ×2 (09:18→21:52)
[2019-11-03] MEDS: DOXYCYCLINE 100MG TABLET PO SCH ×2 (09:18→21:52)
[2019-11-03] MEDS: GABAPENTIN 300 MG CAPSULE PO SCH ×3 (09:19→21:52)
[2019-11-03 12:18] VITALS: BP 108/73
[2019-11-03] MEDS: ENOXAPARIN 40 MG/0.4 ML SQ SCH (16:10)
[2019-11-03 20:00] VITALS: BP 103/68
[2019-11-04 00:03] VITALS: BP 104/71
[2019-11-04] MEDS: ASPIRIN 81 MG TABLET EC PO SCH (05:26)
[2019-11-04] MEDS: ACETAMINOPHEN 500 MG TABLET PO SCH ×4 (05:26→21:30)
[2019-11-04 09:00] VITALS: BP 112/74
[2019-11-04] MEDS: OLANZAPINE 5 MG TABLET PO SCH (09:45)
[2019-11-04] MEDS: FERROUS SULFATE 325 MG TABLET PO SCH (09:45)
[2019-11-04] MEDS: DOXYCYCLINE 100MG TABLET PO SCH ×2 (09:45→21:30)
[2019-11-04] MEDS: GABAPENTIN 300 MG CAPSULE PO SCH ×3 (09:45→21:31)
[2019-11-04] MEDS: IBUPROFEN 600 MG TABLET PO SCH ×2 (09:45→21:30)
[2019-11-04] MEDS: OXYcodone IR 5MG TABLET PO PRN ×2 (12:25→16:52)
[2019-11-04 14:58] VITALS: BP 111/71
[2019-11-04] MEDS: ENOXAPARIN 40 MG/0.4 ML SQ SCH (16:52)
[2019-11-04 20:26] VITALS: BP 121/77
[2019-11-04] MEDS ORDERED: GABAPENTIN 100 MG CAPSULE ONE (21:24)
[2019-11-05 00:21] VITALS: BP 116/76
[2019-11-05] MEDS: ACETAMINOPHEN 500 MG TABLET PO SCH ×3 (06:20→18:35)
[2019-11-05] MEDS: ASPIRIN 81 MG TABLET EC PO SCH (06:20)
[2019-11-05] MEDS: GABAPENTIN 300 MG CAPSULE PO SCH ×3 (08:34→21:29)
[2019-11-05] MEDS: OLANZAPINE 5 MG TABLET PO SCH (08:34)
[2019-11-05] MEDS: IBUPROFEN 600 MG TABLET PO SCH ×2 (08:34→21:29)
[2019-11-05] MEDS: DOXYCYCLINE 100MG TABLET PO SCH ×2 (08:34→21:29)
[2019-11-05 10:00] VITALS: BP 116/77
[2019-11-05 11:25] VITALS: BP 108/71
[2019-11-05 15:40] VITALS: BP 118/62
[2019-11-05] MEDS: ENOXAPARIN 40 MG/0.4 ML SQ SCH (15:58)
[2019-11-05] MEDS: OXYcodone IR 5MG TABLET PO PRN (15:59)
[2019-11-05 19:59] VITALS: BP 103/68
[2019-11-06] MEDS: ACETAMINOPHEN 500 MG TABLET PO SCH ×4 (00:19→18:04)
[2019-11-06 02:01] VITALS: BP 99/61
[2019-11-06] MEDS: OXYcodone IR 5MG TABLET PO PRN ×2 (02:13→16:11)
[2019-11-06] MEDS: ASPIRIN 81 MG TABLET EC PO SCH (06:17)
[2019-11-06 08:42] VITALS: BP 100/68
[2019-11-06] MEDS ORDERED: GABAPENTIN 100 MG CAPSULE PO SCH (09:00)
[2019-11-06] MEDS: GABAPENTIN 300 MG CAPSULE PO SCH (09:00)
[2019-11-06] MEDS: FERROUS SULFATE 325 MG TABLET PO SCH (09:32)
[2019-11-06] MEDS: OLANZAPINE 5 MG TABLET PO SCH (09:32)
[2019-11-06] MEDS: DOXYCYCLINE 100MG TABLET PO SCH ×2 (09:32→20:25)
[2019-11-06] MEDS: GABAPENTIN 400 MG CAPSULE PO SCH ×3 (09:32→20:25)
[2019-11-06] MEDS: IBUPROFEN 600 MG TABLET PO SCH ×2 (09:32→20:25)
[2019-11-06] MEDS ORDERED: GABAPENTIN 300 MG CAPSULE PO SCH (16:00)
[2019-11-06] MEDS: ENOXAPARIN 40 MG/0.4 ML SQ SCH (16:11)
[2019-11-06 18:59] VITALS: BP 101/67
[2019-11-07 01:50] VITALS: BP 107/69
[2019-11-07] MEDS: ACETAMINOPHEN 500 MG TABLET PO SCH ×3 (05:46→17:01)
[2019-11-07] MEDS: ASPIRIN 81 MG TABLET EC PO SCH (05:46)
[2019-11-07 05:50] LABS: CREATININE 0.86 mg/dL (0.55-1.02)
[2019-11-07 08:27] VITALS: BP 111/65
[2019-11-07] MEDS: IBUPROFEN 600 MG TABLET PO SCH ×2 (11:07→22:14)
[2019-11-07] MEDS: GABAPENTIN 400 MG CAPSULE PO SCH ×3 (11:07→22:14)
[2019-11-07] MEDS: OLANZAPINE 5 MG TABLET PO SCH (11:07)
[2019-11-07] MEDS: DOXYCYCLINE 100MG TABLET PO SCH ×2 (11:07→22:14)
[2019-11-07] MEDS: OXYcodone IR 5MG TABLET PO PRN (11:08)
[2019-11-07 16:27] VITALS: BP 109/71
[2019-11-07] MEDS: ENOXAPARIN 40 MG/0.4 ML SQ SCH (17:01)
[2019-11-07 19:09] VITALS: BP 110/74
[2019-11-08] MEDS: ACETAMINOPHEN 500 MG TABLET PO SCH ×4 (01:02→18:02)
[2019-11-08 01:50] VITALS: BP 105/61
[2019-11-08] MEDS: ASPIRIN 81 MG TABLET EC PO SCH (06:25)
[2019-11-08 07:25] VITALS: BP 114/74
[2019-11-08] MEDS: OLANZAPINE 5 MG TABLET PO SCH (08:44)
[2019-11-08] MEDS: FERROUS SULFATE 325 MG TABLET PO SCH (08:44)
[2019-11-08] MEDS: GABAPENTIN 400 MG CAPSULE PO SCH ×3 (08:44→21:25)
[2019-11-08] MEDS: DOXYCYCLINE 100MG TABLET PO SCH ×2 (08:44→21:25)
[2019-11-08] MEDS: IBUPROFEN 600 MG TABLET PO SCH ×2 (08:44→21:25)
[2019-11-08] MEDS: OXYcodone IR 5MG TABLET PO PRN ×2 (08:56→18:03)
[2019-11-08 12:47] VITALS: BP 108/73
[2019-11-08] MEDS: ENOXAPARIN 40 MG/0.4 ML SQ SCH (18:03)
[2019-11-08 19:29] VITALS: BP 107/71
[2019-11-09 00:20] VITALS: BP 101/67
[2019-11-09] MEDS: OXYcodone IR 5MG TABLET PO PRN ×4 (00:23→17:56)
[2019-11-09] MEDS: ACETAMINOPHEN 500 MG TABLET PO SCH ×4 (00:23→17:56)
[2019-11-09] MEDS: ASPIRIN 81 MG TABLET EC PO SCH (06:39)
[2019-11-09 07:05] VITALS: BP 98/61
[2019-11-09] MEDS: IBUPROFEN 600 MG TABLET PO SCH ×2 (08:32→20:54)
[2019-11-09] MEDS: GABAPENTIN 400 MG CAPSULE PO SCH (08:32)
[2019-11-09] MEDS: OLANZAPINE 5 MG TABLET PO SCH (08:32)
[2019-11-09] MEDS: DOXYCYCLINE 100MG TABLET PO SCH ×2 (08:32→20:54)
[2019-11-09 08:33] VITALS: BP 107/68
[2019-11-09 10:47] LABS: ANION GAP 6 mmol/L (5-15); CHLORIDE 102 mmol/L (98-107)
[2019-11-09 13:23] LABS: BASOPHILS # (AUTO) 0.07 x10^3/uL (0-0.1); BASOPHILS % (AUTO) 1 % (0-1); EOSINOPHILS # (AUTO) 0.17 x10^3/uL (0-0.4); EOSINOPHILS % (AUTO) 2 % (1-7); LYMPHOCYTES # (AUTO) 1.65 x10^3/uL (1-3.4); LYMPHOCYTES % (AUTO) 21 % (22-44); MD NO; MEAN CORPUSCULAR HEMOGLOBIN 24.9 pg (27.0-34.8); MEAN CORPUSCULAR HGB CONC 31.2 g/dL (32.4-35.8); MEAN PLATELET VOLUME 7.3 fL (7.4-10.4); MONOCYTES # (AUTO) 0.78 x10^3/uL (0.2-0.8); MONOCYTES % (AUTO) 10 % (2-9); NEUTROPHILS % (AUTO) 66 % (42-75); PLATELET COUNT 822 x10^3/uL (130-400); RED BLOOD COUNT 3.39 x10^6/uL (3.82-5.3); RED CELL DISTRIBUTION WIDTH 18.5 % (9.6-15.2)
[2019-11-09 16:17] VITALS: BP 105/71
[2019-11-09] MEDS: GABAPENTIN 300 MG CAPSULE PO SCH ×2 (17:56→20:54)
[2019-11-09] MEDS: ENOXAPARIN 40 MG/0.4 ML SQ SCH (17:56)
[2019-11-09 20:33] VITALS: BP 101/67
[2019-11-10] MEDS: ACETAMINOPHEN 500 MG TABLET PO SCH ×2 (00:30→06:13)
[2019-11-10 02:37] VITALS: BP 99/70
[2019-11-10] MEDS: ASPIRIN 81 MG TABLET EC PO SCH (06:12)
[2019-11-10 06:36] LABS: CREATININE 0.86 mg/dL (0.55-1.02)
[2019-11-10 08:00] VITALS: BP 107/70
[2019-11-10] MEDS: IBUPROFEN 600 MG TABLET PO SCH (09:00)
[2019-11-10] MEDS ORDERED: ACETAMINOPHEN 500 MG TABLET PO SCH (09:30)
[2019-11-10] MEDS: OLANZAPINE 5 MG TABLET PO SCH (10:00)
[2019-11-10] MEDS: FERROUS SULFATE 325 MG TABLET PO SCH (10:00)
[2019-11-10] MEDS: DOXYCYCLINE 100MG TABLET PO SCH (10:00)
[2019-11-10] MEDS: GABAPENTIN 300 MG CAPSULE PO SCH ×3 (10:01→21:18)
[2019-11-10] MEDS: OXYcodone IR 5MG TABLET PO PRN (10:01)
[2019-11-10 10:47] LABS: RAPID INFLUENZA A Negative (Negative); RAPID INFLUENZA B Negative (Negative)
[2019-11-10 13:46] VITALS: BP 104/67
[2019-11-10] MEDS: ACETAMINOPHEN 500 MG TABLET PO PRN (13:59)
[2019-11-10 14:20] LABS: MICROSCOPIC NOT IND
[2019-11-10] MEDS ORDERED: VANCOMYCIN PER PHARMACY MC PRN (14:30)
[2019-11-10 14:57] LABS: HCT (SEDRATE) 26.1 % (34.6-47.8)
[2019-11-10] MEDS ORDERED: PHARMACOKINETIC MONITORING MC PRN (15:00)
[2019-11-10] MEDS ORDERED: PHARMACOKINETIC CONSULTATION MC ONE (15:00)
[2019-11-10] MEDS: AMPICILLIN/SULBACTAM 3 GM in SODIUM CHLORIDE 0.9% 100 ML IV SCH ×2 (16:34→21:18)
[2019-11-10] MEDS: MORPHINE SULFATE 4 MG/ML, 1ML IVPush PRN (17:30)
[2019-11-10] MEDS: ENOXAPARIN 40 MG/0.4 ML SQ SCH (17:31)
[2019-11-10 19:02] VITALS: BP 112/71
[2019-11-10] MEDS: VANCOMYCIN 1,700 MG in SODIUM CHLORIDE 0.9% 250 ML IV SCH (19:16)
[2019-11-11 00:14] VITALS: BP 108/53
[2019-11-11] MEDS: MORPHINE SULFATE 4 MG/ML, 1ML IVPush PRN ×4 (00:52→22:58)
[2019-11-11] MEDS: AMPICILLIN/SULBACTAM 3 GM in SODIUM CHLORIDE 0.9% 100 ML IV SCH ×5 (03:11→23:51)
[2019-11-11] MEDS: ASPIRIN 81 MG TABLET EC PO SCH (05:28)
[2019-11-11 05:56] LABS: BASOPHILS # (AUTO) 0.13 x10^3/uL (0-0.1); BASOPHILS % (AUTO) 2 % (0-1); EOSINOPHILS # (AUTO) 0.01 x10^3/uL (0-0.4); EOSINOPHILS % (AUTO) 0 % (1-7); LYMPHOCYTES # (AUTO) 2.39 x10^3/uL (1-3.4); LYMPHOCYTES % (AUTO) 29 % (22-44); MD NO; MEAN CORPUSCULAR HEMOGLOBIN 24.8 pg (27.0-34.8); MEAN CORPUSCULAR HGB CONC 31.4 g/dL (32.4-35.8); MEAN PLATELET VOLUME 7.1 fL (7.4-10.4); MONOCYTES # (AUTO) 0.93 x10^3/uL (0.2-0.8); MONOCYTES % (AUTO) 11 % (2-9); NEUTROPHILS # (AUTO) 4.78 x10^3/uL (1.8-6.8); NEUTROPHILS % (AUTO) 58 % (42-75); PLATELET COUNT 742 x10^3/uL (130-400); RED BLOOD COUNT 3.37 x10^6/uL (3.82-5.3); RED CELL DISTRIBUTION WIDTH 18.7 % (9.6-15.2)
[2019-11-11 06:07] LABS: ANION GAP 9 mmol/L (5-15); CALCIUM 8.6 mg/dL (8.5-10.1); CHLORIDE 102 mmol/L (98-107)
[2019-11-11 06:08] LABS: CREATININE 0.98 mg/dL (0.55-1.02)
[2019-11-11 08:09] VITALS: BP 94/56
[2019-11-11] MEDS: GABAPENTIN 300 MG CAPSULE PO SCH ×3 (09:01→20:18)
[2019-11-11] MEDS: OLANZAPINE 5 MG TABLET PO SCH (09:01)
[2019-11-11] MEDS: VANCOMYCIN 1,700 MG in SODIUM CHLORIDE 0.9% 250 ML IV SCH (13:06)
[2019-11-11 14:32] VITALS: BP 104/65
[2019-11-11] MEDS: ACETAMINOPHEN 500 MG TABLET PO PRN (15:15)
[2019-11-11] MEDS: ENOXAPARIN 40 MG/0.4 ML SQ SCH (16:00)
[2019-11-11] MEDS ORDERED: IBUPROFEN 600 MG TABLET PO ONE (16:30)
[2019-11-11] MEDS: SODIUM CHLORIDE 0.9% 1,000 ML IV SCH ×2 (17:00→23:51)
[2019-11-11 19:51] VITALS: BP 114/74
[2019-11-11 21:00] LABS: RAPID INFLUENZA A Negative (Negative); RAPID INFLUENZA B Negative (Negative)
[2019-11-12 01:37] VITALS: BP 103/69
[2019-11-12] MEDS: ASPIRIN 81 MG TABLET EC PO SCH (05:27)
[2019-11-12] MEDS: AMPICILLIN/SULBACTAM 3 GM in SODIUM CHLORIDE 0.9% 100 ML IV SCH ×4 (05:28→23:37)
[2019-11-12] MEDS: MORPHINE SULFATE 4 MG/ML, 1ML IVPush PRN ×4 (06:02→22:07)
[2019-11-12 06:10] LABS: BASOPHILS # (AUTO) 0.02 x10^3/uL (0-0.1); BASOPHILS % (AUTO) 0 % (0-1); EOSINOPHILS # (AUTO) 0.07 x10^3/uL (0-0.4); EOSINOPHILS % (AUTO) 1 % (1-7); LYMPHOCYTES # (AUTO) 1.51 x10^3/uL (1-3.4); LYMPHOCYTES % (AUTO) 23 % (22-44); MD NO; MEAN CORPUSCULAR HEMOGLOBIN 24.6 pg (27.0-34.8); MEAN CORPUSCULAR HGB CONC 31.3 g/dL (32.4-35.8); MEAN CORPUSCULAR VOLUME 78.6 fL (80-100); MONOCYTES # (AUTO) 0.81 x10^3/uL (0.2-0.8); MONOCYTES % (AUTO) 12 % (2-9); NEUTROPHILS % (AUTO) 64 % (42-75); PLATELET COUNT 696 x10^3/uL (130-400); RED BLOOD COUNT 3.23 x10^6/uL (3.82-5.3); RED CELL DISTRIBUTION WIDTH 18.1 % (9.6-15.2)
[2019-11-12 06:20] LABS: ALBUMIN 2.3 g/dL (3.4-5.0); ANION GAP 7 mmol/L (5-15); CALCIUM 8.7 mg/dL (8.5-10.1); CHLORIDE 105 mmol/L (98-107)
[2019-11-12 06:23] LABS: ALANINE AMINOTRANSFERASE 7 U/L (12-78); ALKALINE PHOSPHATASE 55 U/L (45-117); BILIRUBIN,TOTAL 0.8 mg/dL (0.2-1.0); CREATININE 0.79 mg/dL (0.55-1.02); TOTAL PROTEIN 7.4 g/dL (6.4-8.2)
[2019-11-12] MEDS: VANCOMYCIN 1,700 MG in SODIUM CHLORIDE 0.9% 250 ML IV SCH (06:28)
[2019-11-12 07:30] VITALS: BP 107/59
[2019-11-12] MEDS: GABAPENTIN 300 MG CAPSULE PO SCH ×3 (08:55→21:46)
[2019-11-12] MEDS: FERROUS SULFATE 325 MG TABLET PO SCH (08:55)
[2019-11-12] MEDS: OLANZAPINE 5 MG TABLET PO SCH (08:56)
[2019-11-12] MEDS: SODIUM CHLORIDE 0.9% 1,000 ML IV SCH ×2 (10:00→17:29)
[2019-11-12 13:40] VITALS: BP 112/68
[2019-11-12] MEDS: ENOXAPARIN 40 MG/0.4 ML SQ SCH (16:00)
[2019-11-12 19:46] VITALS: BP 111/67
[2019-11-13] MEDS: VANCOMYCIN 1,700 MG in SODIUM CHLORIDE 0.9% 250 ML IV SCH ×2 (01:11→19:04)
[2019-11-13 02:14] VITALS: BP 107/69
[2019-11-13] MEDS: SODIUM CHLORIDE 0.9% 1,000 ML IV SCH ×3 (03:42→23:52)
[2019-11-13] MEDS: MORPHINE SULFATE 4 MG/ML, 1ML IVPush PRN ×5 (03:56→22:41)
[2019-11-13] MEDS: ASPIRIN 81 MG TABLET EC PO SCH (05:39)
[2019-11-13] MEDS: AMPICILLIN/SULBACTAM 3 GM in SODIUM CHLORIDE 0.9% 100 ML IV SCH ×4 (05:39→23:52)
[2019-11-13 06:51] LABS: BASOPHILS # (AUTO) 0.01 x10^3/uL (0-0.1); BASOPHILS % (AUTO) 0 % (0-1); EOSINOPHILS # (AUTO) 0.02 x10^3/uL (0-0.4); EOSINOPHILS % (AUTO) 0 % (1-7); LYMPHOCYTES # (AUTO) 1.91 x10^3/uL (1-3.4); LYMPHOCYTES % (AUTO) 26 % (22-44); MD NO; MEAN CORPUSCULAR HEMOGLOBIN 24.7 pg (27.0-34.8); MEAN CORPUSCULAR HGB CONC 31.4 g/dL (32.4-35.8); MEAN CORPUSCULAR VOLUME 78.6 fL (80-100); MEAN PLATELET VOLUME 7.3 fL (7.4-10.4); MONOCYTES # (AUTO) 1.06 x10^3/uL (0.2-0.8); MONOCYTES % (AUTO) 14 % (2-9); NEUTROPHILS # (AUTO) 4.39 x10^3/uL (1.8-6.8); NEUTROPHILS % (AUTO) 59 % (42-75); PLATELET COUNT 676 x10^3/uL (130-400); RED BLOOD COUNT 3.07 x10^6/uL (3.82-5.3); RED CELL DISTRIBUTION WIDTH 18.6 % (9.6-15.2)
[2019-11-13 06:56] LABS: CHLORIDE 106 mmol/L (98-107)
[2019-11-13 07:21] LABS: ALBUMIN 2.2 g/dL (3.4-5.0); ALKALINE PHOSPHATASE 54 U/L (45-117); ANION GAP 5 mmol/L (5-15); BILIRUBIN,TOTAL 0.2 mg/dL (0.2-1.0); CALCIUM 8.2 mg/dL (8.5-10.1); CREATININE 0.81 mg/dL (0.55-1.02); TOTAL PROTEIN 6.8 g/dL (6.4-8.2)
[2019-11-13 07:22] LABS: ALANINE AMINOTRANSFERASE < 6 U/L (12-78)
[2019-11-13 07:50] VITALS: BP 116/70
[2019-11-13] MEDS: OLANZAPINE 5 MG TABLET PO SCH (08:13)
[2019-11-13] MEDS: GABAPENTIN 300 MG CAPSULE PO SCH ×3 (08:13→20:15)
[2019-11-13 15:00] VITALS: BP 110/69
[2019-11-13] MEDS: ENOXAPARIN 40 MG/0.4 ML SQ SCH (17:31)
[2019-11-13 18:57] VITALS: BP 126/75
[2019-11-13] MEDS: ACETAMINOPHEN 500 MG TABLET PO PRN (19:05)
[2019-11-14 01:50] VITALS: BP 106/65
[2019-11-14] MEDS: ASPIRIN 81 MG TABLET EC PO SCH (05:11)
[2019-11-14] MEDS: AMPICILLIN/SULBACTAM 3 GM in SODIUM CHLORIDE 0.9% 100 ML IV SCH ×4 (05:11→18:17)
[2019-11-14] MEDS: MORPHINE SULFATE 4 MG/ML, 1ML IVPush PRN ×5 (05:12→23:03)
[2019-11-14 05:15] LABS: BASOPHILS # (AUTO) 0.01 x10^3/uL (0-0.1); BASOPHILS % (AUTO) 0 % (0-1); EOSINOPHILS # (AUTO) 0.17 x10^3/uL (0-0.4); EOSINOPHILS % (AUTO) 3 % (1-7); LYMPHOCYTES # (AUTO) 1.88 x10^3/uL (1-3.4); LYMPHOCYTES % (AUTO) 29 % (22-44); MD NO; MEAN CORPUSCULAR HEMOGLOBIN 24.9 pg (27.0-34.8); MEAN CORPUSCULAR HGB CONC 31.8 g/dL (32.4-35.8); MEAN CORPUSCULAR VOLUME 78.3 fL (80-100); MEAN PLATELET VOLUME 7.1 fL (7.4-10.4); MONOCYTES # (AUTO) 0.81 x10^3/uL (0.2-0.8); MONOCYTES % (AUTO) 13 % (2-9); NEUTROPHILS # (AUTO) 3.54 x10^3/uL (1.8-6.8); NEUTROPHILS % (AUTO) 55 % (42-75); PLATELET COUNT 655 x10^3/uL (130-400); RED BLOOD COUNT 3.17 x10^6/uL (3.82-5.3); RED CELL DISTRIBUTION WIDTH 18.2 % (9.6-15.2)
[2019-11-14 05:21] LABS: ANION GAP 7 mmol/L (5-15); CALCIUM 8.6 mg/dL (8.5-10.1); CHLORIDE 108 mmol/L (98-107); CREATININE 0.74 mg/dL (0.55-1.02)
[2019-11-14] MEDS: VANCOMYCIN 1,700 MG in SODIUM CHLORIDE 0.9% 250 ML IV SCH ×2 (06:22→19:19)
[2019-11-14 08:27] VITALS: BP 113/74
[2019-11-14] MEDS: GABAPENTIN 300 MG CAPSULE PO SCH ×3 (09:38→21:17)
[2019-11-14] MEDS: FERROUS SULFATE 325 MG TABLET PO SCH (09:38)
[2019-11-14] MEDS: OLANZAPINE 5 MG TABLET PO SCH (09:39)
[2019-11-14] MEDS: SODIUM CHLORIDE 0.9% 1,000 ML IV SCH ×3 (11:33→21:18)
[2019-11-14 15:35] VITALS: BP 111/72
[2019-11-14] MEDS: ENOXAPARIN 40 MG/0.4 ML SQ SCH (18:17)
[2019-11-14 19:00] VITALS: BP 99/59
[2019-11-15] MEDS: AMPICILLIN/SULBACTAM 3 GM in SODIUM CHLORIDE 0.9% 100 ML IV SCH ×4 (00:33→18:02)
[2019-11-15 01:21] VITALS: BP 109/75
[2019-11-15] MEDS: MORPHINE SULFATE 4 MG/ML, 1ML IVPush PRN ×4 (04:12→22:44)
[2019-11-15] MEDS: SODIUM CHLORIDE 0.9% 1,000 ML IV SCH ×2 (06:14→18:01)
[2019-11-15 06:18] LABS: MEAN CORPUSCULAR HEMOGLOBIN 24.4 pg (27.0-34.8); MEAN CORPUSCULAR HGB CONC 31.6 g/dL (32.4-35.8); MEAN CORPUSCULAR VOLUME 77.2 fL (80-100); MEAN PLATELET VOLUME 6.9 fL (7.4-10.4); PLATELET COUNT 693 x10^3/uL (130-400); RED BLOOD COUNT 2.85 x10^6/uL (3.82-5.3); RED CELL DISTRIBUTION WIDTH 18.3 % (9.6-15.2)
[2019-11-15] MEDS: ASPIRIN 81 MG TABLET EC PO SCH (06:21)
[2019-11-15] MEDS: ENOXAPARIN 40 MG/0.4 ML SQ SCH (07:13)
[2019-11-15 07:19] LABS: BASOPHILS # (AUTO) 0.01 x10^3/uL (0-0.1); BASOPHILS % (AUTO) 0 % (0-1); EOSINOPHILS % (AUTO) 2 % (1-7); LYMPHOCYTES # (AUTO) 1.93 x10^3/uL (1-3.4); LYMPHOCYTES % (AUTO) 36 % (22-44); MD SCAN; MONOCYTES # (AUTO) 0.94 x10^3/uL (0.2-0.8); MONOCYTES % (AUTO) 17 % (2-9); NEUTROPHILS # (AUTO) 2.42 x10^3/uL (1.8-6.8); NEUTROPHILS % (AUTO) 45 % (42-75)
[2019-11-15 07:55] VITALS: BP 117/68
[2019-11-15] MEDS: OLANZAPINE 5 MG TABLET PO SCH (07:59)
[2019-11-15] MEDS: GABAPENTIN 300 MG CAPSULE PO SCH ×3 (07:59→21:30)
[2019-11-15] MEDS: VANCOMYCIN 1,700 MG in SODIUM CHLORIDE 0.9% 250 ML IV SCH ×2 (07:59→19:46)
[2019-11-15 12:43] VITALS: BP 109/70
[2019-11-15 18:49] VITALS: BP 157/81
[2019-11-16] MEDS: AMPICILLIN/SULBACTAM 3 GM in SODIUM CHLORIDE 0.9% 100 ML IV SCH ×5 (00:09→17:46)
[2019-11-16 00:12] VITALS: BP 103/68
[2019-11-16] MEDS: MORPHINE SULFATE 4 MG/ML, 1ML IVPush PRN ×4 (04:22→20:12)
[2019-11-16] MEDS: ASPIRIN 81 MG TABLET EC PO SCH (06:01)
[2019-11-16] MEDS: SODIUM CHLORIDE 0.9% 1,000 ML IV SCH ×2 (06:01→17:45)
[2019-11-16 06:38] LABS: BASOPHILS % (AUTO) 0 % (0-1); EOSINOPHILS # (AUTO) 0.16 x10^3/uL (0-0.4); EOSINOPHILS % (AUTO) 2 % (1-7); LYMPHOCYTES # (AUTO) 1.89 x10^3/uL (1-3.4); LYMPHOCYTES % (AUTO) 28 % (22-44); MD NO; MEAN CORPUSCULAR HGB CONC 30.8 g/dL (32.4-35.8); MEAN CORPUSCULAR VOLUME 77.8 fL (80-100); MEAN PLATELET VOLUME 6.8 fL (7.4-10.4); MONOCYTES # (AUTO) 0.66 x10^3/uL (0.2-0.8); MONOCYTES % (AUTO) 10 % (2-9); NEUTROPHILS # (AUTO) 3.97 x10^3/uL (1.8-6.8); NEUTROPHILS % (AUTO) 59 % (42-75); PLATELET COUNT 756 x10^3/uL (130-400); RED BLOOD COUNT 3.21 x10^6/uL (3.82-5.3); RED CELL DISTRIBUTION WIDTH 18.9 % (9.6-15.2)
[2019-11-16 06:50] LABS: ANION GAP 7 mmol/L (5-15); CALCIUM 8.7 mg/dL (8.5-10.1); CHLORIDE 107 mmol/L (98-107); CREATININE 0.67 mg/dL (0.55-1.02)
[2019-11-16 06:52] LABS: VANCOMYCIN,TROUGH 17.6 mcg/mL (5.0-10.0)
[2019-11-16 06:57] VITALS: BP 94/66
[2019-11-16] MEDS: GABAPENTIN 300 MG CAPSULE PO SCH ×3 (09:28→23:01)
[2019-11-16] MEDS: OLANZAPINE 5 MG TABLET PO SCH (09:28)
[2019-11-16] MEDS: FERROUS SULFATE 325 MG TABLET PO SCH (09:28)
[2019-11-16] MEDS: VANCOMYCIN 1,700 MG in SODIUM CHLORIDE 0.9% 250 ML IV SCH ×2 (11:09→23:01)
[2019-11-16 13:40] VITALS: BP 102/66
[2019-11-16] MEDS: ENOXAPARIN 40 MG/0.4 ML SQ SCH (16:00)
[2019-11-16 18:47] VITALS: BP 106/69
[2019-11-17] MEDS: MORPHINE SULFATE 4 MG/ML, 1ML IVPush PRN ×6 (00:30→19:45)
[2019-11-17 01:44] VITALS: BP 103/70
[2019-11-17] MEDS: SODIUM CHLORIDE 0.9% 1,000 ML IV SCH ×3 (02:08→21:08)
[2019-11-17] MEDS: ASPIRIN 81 MG TABLET EC PO SCH (05:26)
[2019-11-17 05:54] LABS: BASOPHILS % (AUTO) 0 % (0-1); EOSINOPHILS # (AUTO) 0.18 x10^3/uL (0-0.4); EOSINOPHILS % (AUTO) 3 % (1-7); LYMPHOCYTES # (AUTO) 1.89 x10^3/uL (1-3.4); LYMPHOCYTES % (AUTO) 27 % (22-44); MD NO; MEAN CORPUSCULAR HEMOGLOBIN 24.2 pg (27.0-34.8); MEAN CORPUSCULAR HGB CONC 31.3 g/dL (32.4-35.8); MEAN CORPUSCULAR VOLUME 77.4 fL (80-100); MEAN PLATELET VOLUME 7.3 fL (7.4-10.4); MONOCYTES # (AUTO) 0.98 x10^3/uL (0.2-0.8); MONOCYTES % (AUTO) 14 % (2-9); NEUTROPHILS # (AUTO) 3.85 x10^3/uL (1.8-6.8); NEUTROPHILS % (AUTO) 56 % (42-75); PLATELET COUNT 738 x10^3/uL (130-400); RED BLOOD COUNT 3.15 x10^6/uL (3.82-5.3); RED CELL DISTRIBUTION WIDTH 18.5 % (9.6-15.2)
[2019-11-17 06:04] LABS: ANION GAP 7 mmol/L (5-15); CALCIUM 8.6 mg/dL (8.5-10.1); CHLORIDE 108 mmol/L (98-107); CREATININE 0.73 mg/dL (0.55-1.02)
[2019-11-17 07:10] VITALS: BP 105/69
[2019-11-17] MEDS: CEFTRIAXONE PMX 2GM/50ML 50 ML IV SCH (09:06)
[2019-11-17] MEDS: GABAPENTIN 300 MG CAPSULE PO SCH ×3 (09:06→21:07)
[2019-11-17] MEDS: OLANZAPINE 5 MG TABLET PO SCH (09:06)
[2019-11-17] MEDS: VANCOMYCIN 1,700 MG in SODIUM CHLORIDE 0.9% 250 ML IV SCH (13:47)
[2019-11-17 14:19] VITALS: BP 119/77
[2019-11-17] MEDS: ENOXAPARIN 40 MG/0.4 ML SQ SCH (16:00)
[2019-11-17 19:50] VITALS: BP 111/71
[2019-11-18] MEDS: VANCOMYCIN 1,700 MG in SODIUM CHLORIDE 0.9% 250 ML IV SCH ×2 (01:30→13:16)
[2019-11-18 01:31] VITALS: BP 108/70
[2019-11-18] MEDS: MORPHINE SULFATE 4 MG/ML, 1ML IVPush PRN ×6 (01:31→23:42)
[2019-11-18] MEDS: SODIUM CHLORIDE 0.9% 1,000 ML IV SCH ×2 (05:40→13:21)
[2019-11-18] MEDS: ASPIRIN 81 MG TABLET EC PO SCH (05:40)
[2019-11-18 07:34] VITALS: BP 100/68
[2019-11-18] MEDS: OLANZAPINE 5 MG TABLET PO SCH (09:54)
[2019-11-18] MEDS: CEFTRIAXONE PMX 2GM/50ML 50 ML IV SCH (09:54)
[2019-11-18] MEDS: GABAPENTIN 300 MG CAPSULE PO SCH ×3 (09:55→20:16)
[2019-11-18] MEDS: FERROUS SULFATE 325 MG TABLET PO SCH (09:55)
[2019-11-18 15:28] VITALS: BP 123/67
[2019-11-18] MEDS: ENOXAPARIN 40 MG/0.4 ML SQ SCH (16:28)
[2019-11-18] MEDS: OXYcodone IR 5MG TABLET PO PRN ×2 (16:29→20:38)
[2019-11-18 20:06] VITALS: BP 100/64
[2019-11-19 00:44] VITALS: BP 110/73
[2019-11-19] MEDS: VANCOMYCIN 1,700 MG in SODIUM CHLORIDE 0.9% 250 ML IV SCH ×2 (00:57→12:57)
[2019-11-19] MEDS: OXYcodone IR 5MG TABLET PO PRN ×2 (00:57→08:41)
[2019-11-19 05:32] LABS: HCT (SEDRATE) 24.6 % (34.6-47.8)
[2019-11-19] MEDS: MORPHINE SULFATE 4 MG/ML, 1ML IVPush PRN ×5 (05:34→23:02)
[2019-11-19] MEDS: ASPIRIN 81 MG TABLET EC PO SCH (05:34)
[2019-11-19] MEDS: SODIUM CHLORIDE 0.9% 1,000 ML IV SCH ×2 (05:34→16:27)
[2019-11-19 05:39] LABS: CALCIUM 8.7 mg/dL (8.5-10.1); CHLORIDE 104 mmol/L (98-107)
[2019-11-19 05:44] LABS: BASOPHILS # (AUTO) 0.05 x10^3/uL (0-0.1); BASOPHILS % (AUTO) 1 % (0-1); EOSINOPHILS # (AUTO) 0.26 x10^3/uL (0-0.4); EOSINOPHILS % (AUTO) 4 % (1-7); LYMPHOCYTES # (AUTO) 1.85 x10^3/uL (1-3.4); LYMPHOCYTES % (AUTO) 31 % (22-44); MD NO; MEAN CORPUSCULAR HEMOGLOBIN 24.3 pg (27.0-34.8); MEAN CORPUSCULAR HGB CONC 31.6 g/dL (32.4-35.8); MEAN CORPUSCULAR VOLUME 76.9 fL (80-100); MEAN PLATELET VOLUME 7.3 fL (7.4-10.4); MONOCYTES # (AUTO) 0.93 x10^3/uL (0.2-0.8); MONOCYTES % (AUTO) 15 % (2-9); NEUTROPHILS # (AUTO) 2.99 x10^3/uL (1.8-6.8); NEUTROPHILS % (AUTO) 49 % (42-75); PLATELET COUNT 735 x10^3/uL (130-400); RED CELL DISTRIBUTION WIDTH 19.2 % (9.6-15.2)
[2019-11-19 05:49] LABS: ALANINE AMINOTRANSFERASE < 6 U/L (12-78); ALBUMIN 2.3 g/dL (3.4-5.0); ALKALINE PHOSPHATASE 54 U/L (45-117); ANION GAP 8 mmol/L (5-15); BILIRUBIN,TOTAL 0.2 mg/dL (0.2-1.0); CREATININE 0.76 mg/dL (0.55-1.02); TOTAL PROTEIN 7.2 g/dL (6.4-8.2)
[2019-11-19 07:06] LABS: SEDIMENTATION RATE > 120 mm/hr (0-20)
[2019-11-19 08:14] VITALS: BP 103/64
[2019-11-19] MEDS: GABAPENTIN 300 MG CAPSULE PO SCH ×3 (08:41→21:31)
[2019-11-19] MEDS: OLANZAPINE 5 MG TABLET PO SCH (08:41)
[2019-11-19] MEDS: CEFTRIAXONE PMX 2GM/50ML 50 ML IV SCH (08:42)
[2019-11-19 13:48] VITALS: BP 107/71
[2019-11-19] MEDS: ENOXAPARIN 40 MG/0.4 ML SQ SCH (16:27)
[2019-11-19 18:48] VITALS: BP 100/61
[2019-11-19] MEDS: ACETAMINOPHEN 500 MG TABLET PO PRN (21:31)
[2019-11-20] MEDS: VANCOMYCIN 1,700 MG in SODIUM CHLORIDE 0.9% 250 ML IV SCH ×2 (00:32→13:16)
[2019-11-20 01:11] VITALS: BP 117/72
[2019-11-20] MEDS: MORPHINE SULFATE 4 MG/ML, 1ML IVPush PRN ×5 (05:03→23:10)
[2019-11-20] MEDS: ASPIRIN 81 MG TABLET EC PO SCH (05:03)
[2019-11-20 08:14] VITALS: BP 102/62
[2019-11-20] MEDS: GABAPENTIN 300 MG CAPSULE PO SCH ×3 (08:16→20:42)
[2019-11-20] MEDS: FERROUS SULFATE 325 MG TABLET PO SCH ×2 (08:16→09:00)
[2019-11-20] MEDS: OLANZAPINE 5 MG TABLET PO SCH (08:16)
[2019-11-20] MEDS: CEFTRIAXONE PMX 2GM/50ML 50 ML IV SCH (08:17)
[2019-11-20] MEDS: OXYcodone IR 5MG TABLET PO PRN (08:17)
[2019-11-20 15:00] VITALS: BP 104/69
[2019-11-20] MEDS: ENOXAPARIN 40 MG/0.4 ML SQ SCH (16:13)
[2019-11-20 18:52] VITALS: BP 108/67
[2019-11-20] MEDS: ACETAMINOPHEN 500 MG TABLET PO PRN (20:42)
[2019-11-21 00:18] VITALS: BP 99/65
[2019-11-21] MEDS: IBUPROFEN 600 MG TABLET PO PRN ×2 (00:50→20:04)
[2019-11-21] MEDS: VANCOMYCIN 1,700 MG in SODIUM CHLORIDE 0.9% 250 ML IV SCH ×2 (00:51→13:24)
[2019-11-21] MEDS: ASPIRIN 81 MG TABLET EC PO SCH (05:54)
[2019-11-21] MEDS: FERROUS SULFATE 325 MG TABLET PO SCH ×2 (08:21→10:14)
[2019-11-21] MEDS: GABAPENTIN 300 MG CAPSULE PO SCH ×3 (08:22→20:04)
[2019-11-21] MEDS: MORPHINE SULFATE 4 MG/ML, 1ML IVPush PRN ×3 (08:23→17:53)
[2019-11-21] MEDS: CEFTRIAXONE PMX 2GM/50ML 50 ML IV SCH (08:23)
[2019-11-21] MEDS: OLANZAPINE 5 MG TABLET PO SCH (10:02)
[2019-11-21] MEDS: OXYcodone IR 5MG TABLET PO PRN ×2 (11:00→16:40)
[2019-11-21 13:44] VITALS: BP 118/79
[2019-11-21] MEDS: ENOXAPARIN 40 MG/0.4 ML SQ SCH (16:40)
[2019-11-21 20:35] VITALS: BP 100/68
[2019-11-21 23:36] VITALS: BP 90/61
[2019-11-22] MEDS: VANCOMYCIN 1,700 MG in SODIUM CHLORIDE 0.9% 250 ML IV SCH ×2 (00:51→13:12)
[2019-11-22 00:56] VITALS: BP 100/64
[2019-11-22] MEDS: MORPHINE SULFATE 4 MG/ML, 1ML IVPush PRN ×5 (01:06→22:26)
[2019-11-22] MEDS: ASPIRIN 81 MG TABLET EC PO SCH (06:04)
[2019-11-22 06:05] LABS: BASOPHILS # (AUTO) 0.04 x10^3/uL (0-0.1); BASOPHILS % (AUTO) 1 % (0-1); EOSINOPHILS % (AUTO) 4 % (1-7); LYMPHOCYTES # (AUTO) 1.87 x10^3/uL (1-3.4); LYMPHOCYTES % (AUTO) 38 % (22-44); MD NO; MEAN CORPUSCULAR HEMOGLOBIN 23.9 pg (27.0-34.8); MEAN CORPUSCULAR VOLUME 77.3 fL (80-100); MEAN PLATELET VOLUME 7.1 fL (7.4-10.4); MONOCYTES # (AUTO) 0.68 x10^3/uL (0.2-0.8); MONOCYTES % (AUTO) 14 % (2-9); NEUTROPHILS # (AUTO) 2.14 x10^3/uL (1.8-6.8); NEUTROPHILS % (AUTO) 43 % (42-75); PLATELET COUNT 788 x10^3/uL (130-400); RED BLOOD COUNT 3.18 x10^6/uL (3.82-5.3); RED CELL DISTRIBUTION WIDTH 18.9 % (9.6-15.2)
[2019-11-22 06:15] LABS: ANION GAP 8 mmol/L (5-15); CALCIUM 8.8 mg/dL (8.5-10.1); CHLORIDE 105 mmol/L (98-107)
[2019-11-22 06:16] LABS: CREATININE 0.86 mg/dL (0.55-1.02)
[2019-11-22 06:59] VITALS: BP 103/67
[2019-11-22] MEDS: CEFTRIAXONE PMX 2GM/50ML 50 ML IV SCH (09:05)
[2019-11-22] MEDS: GABAPENTIN 300 MG CAPSULE PO SCH ×3 (09:05→19:56)
[2019-11-22] MEDS: OLANZAPINE 5 MG TABLET PO SCH (09:05)
[2019-11-22] MEDS: OXYcodone IR 5MG TABLET PO PRN ×2 (09:05→19:56)
[2019-11-22 14:25] VITALS: BP 108/68
[2019-11-22] MEDS: ENOXAPARIN 40 MG/0.4 ML SQ SCH (16:29)
[2019-11-22 19:13] VITALS: BP 114/72
[2019-11-23] MEDS: VANCOMYCIN 1,700 MG in SODIUM CHLORIDE 0.9% 250 ML IV SCH ×2 (01:25→15:10)
[2019-11-23 01:30] VITALS: BP 115/60
[2019-11-23] MEDS: MORPHINE SULFATE 4 MG/ML, 1ML IVPush PRN ×4 (02:39→23:00)
[2019-11-23] MEDS: GABAPENTIN 300 MG CAPSULE PO SCH ×3 (09:23→21:24)
[2019-11-23] MEDS: OLANZAPINE 5 MG TABLET PO SCH (09:24)
[2019-11-23] MEDS: ASPIRIN 81 MG TABLET EC PO SCH (09:24)
[2019-11-23 09:29] LABS: MEAN CORPUSCULAR HEMOGLOBIN 23.8 pg (27.0-34.8); MEAN CORPUSCULAR HGB CONC 31.1 g/dL (32.4-35.8); MEAN CORPUSCULAR VOLUME 76.3 fL (80-100); MEAN PLATELET VOLUME 6.7 fL (7.4-10.4); PLATELET COUNT 817 x10^3/uL (130-400); RED BLOOD COUNT 3.14 x10^6/uL (3.82-5.3); RED CELL DISTRIBUTION WIDTH 19.2 % (9.6-15.2)
[2019-11-23 09:30] LABS: ANION GAP 9 mmol/L (5-15); CALCIUM 8.6 mg/dL (8.5-10.1); CHLORIDE 103 mmol/L (98-107); CREATININE 0.89 mg/dL (0.55-1.02)
[2019-11-23 09:49] LABS: <PLATELET ESTIMATE> INCREASED; <PLT MORPHOLOGY> NORMAL PLT MORPH; ANISOCYTOSIS 1+; BASOPHILS # (AUTO) 0.05 x10^3/uL (0-0.1); BASOPHILS % (AUTO) 1 % (0-1); EOSINOPHILS # (AUTO) 0.25 x10^3/uL (0-0.4); EOSINOPHILS % (AUTO) 4 % (1-7); HYPOCHROMIA 1+; LYMPHOCYTES # (AUTO) 1.78 x10^3/uL (1-3.4); LYMPHOCYTES % (AUTO) 27 % (22-44); MD MORPH REVIEW ONLY; MICROCYTOSIS 1+; MONOCYTES % (AUTO) 11 % (2-9); NEUTROPHILS # (AUTO) 3.82 x10^3/uL (1.8-6.8); NEUTROPHILS % (AUTO) 58 % (42-75); OVALOCYTES 1+; POLYCHROMASIA 1+
[2019-11-23 13:20] VITALS: BP 107/64
[2019-11-23] MEDS: OXYcodone IR 5MG TABLET PO PRN (13:50)
[2019-11-23] MEDS: ENOXAPARIN 40 MG/0.4 ML SQ SCH (15:10)
[2019-11-23] MEDS: CEFTRIAXONE PMX 2GM/50ML 50 ML IV SCH (17:58)
[2019-11-23 20:22] VITALS: BP 111/75
[2019-11-24] MEDS: VANCOMYCIN 1,700 MG in SODIUM CHLORIDE 0.9% 250 ML IV SCH ×2 (03:21→16:13)
[2019-11-24 03:59] VITALS: BP 103/66
[2019-11-24 07:16] VITALS: BP 94/61
[2019-11-24] MEDS: ASPIRIN 81 MG TABLET EC PO SCH (08:22)
[2019-11-24] MEDS: GABAPENTIN 300 MG CAPSULE PO SCH ×3 (08:22→20:04)
[2019-11-24] MEDS: OLANZAPINE 5 MG TABLET PO SCH (08:22)
[2019-11-24] MEDS: FERROUS SULFATE 325 MG TABLET PO SCH (08:22)
[2019-11-24] MEDS: CEFTRIAXONE PMX 2GM/50ML 50 ML IV SCH (08:22)
[2019-11-24 13:10] VITALS: BP 102/66
[2019-11-24] MEDS: MORPHINE SULFATE 4 MG/ML, 1ML IVPush PRN ×2 (13:59→20:05)
[2019-11-24] MEDS: ENOXAPARIN 40 MG/0.4 ML SQ SCH (16:00)
[2019-11-24 21:27] VITALS: BP_SYST 128; BP_SYST 98; BP_DIAS 66; BP_DIAS 78
[2019-11-24] MEDS: ACETAMINOPHEN 500 MG TABLET PO PRN (21:54)
[2019-11-25 02:15] VITALS: BP 116/76
[2019-11-25] MEDS: MORPHINE SULFATE 4 MG/ML, 1ML IVPush PRN ×4 (02:17→21:42)
[2019-11-25] MEDS: VANCOMYCIN 1,700 MG in SODIUM CHLORIDE 0.9% 250 ML IV SCH ×2 (03:47→16:19)
[2019-11-25 04:13] LABS: CREATININE 0.72 mg/dL (0.55-1.02)
[2019-11-25] MEDS: ASPIRIN 81 MG TABLET EC PO SCH (05:31)
[2019-11-25 07:34] VITALS: BP 117/75
[2019-11-25] MEDS: OLANZAPINE 5 MG TABLET PO SCH (08:46)
[2019-11-25] MEDS: GABAPENTIN 300 MG CAPSULE PO SCH ×3 (08:46→20:05)
[2019-11-25] MEDS: CEFTRIAXONE PMX 2GM/50ML 50 ML IV SCH (08:48)
[2019-11-25 15:40] VITALS: BP 104/65
[2019-11-25] MEDS: ENOXAPARIN 40 MG/0.4 ML SQ SCH (16:00)
[2019-11-25] MEDS: OXYcodone IR 5MG TABLET PO PRN (20:14)
[2019-11-25 20:33] VITALS: BP 106/68
[2019-11-26 00:40] VITALS: BP 99/65
[2019-11-26] MEDS: MORPHINE SULFATE 4 MG/ML, 1ML IVPush PRN ×3 (02:52→19:56)
[2019-11-26] MEDS: VANCOMYCIN 1,700 MG in SODIUM CHLORIDE 0.9% 250 ML IV SCH ×2 (04:38→18:02)
[2019-11-26] MEDS: ASPIRIN 81 MG TABLET EC PO SCH (05:10)
[2019-11-26 05:19] LABS: HCT (SEDRATE) 23.1 % (34.6-47.8)
[2019-11-26 05:22] LABS: ALANINE AMINOTRANSFERASE 6 U/L (12-78); ALBUMIN 2.3 g/dL (3.4-5.0); ANION GAP 7 mmol/L (5-15); CALCIUM 8.4 mg/dL (8.5-10.1); CHLORIDE 101 mmol/L (98-107); CREATININE 0.86 mg/dL (0.55-1.02)
[2019-11-26 05:28] LABS: ALKALINE PHOSPHATASE 63 U/L (45-117); BILIRUBIN,TOTAL 0.2 mg/dL (0.2-1.0); TOTAL PROTEIN 7.1 g/dL (6.4-8.2)
[2019-11-26 05:31] LABS: BASOPHILS # (AUTO) 0.03 x10^3/uL (0-0.1); BASOPHILS % (AUTO) 1 % (0-1); EOSINOPHILS # (AUTO) 0.16 x10^3/uL (0-0.4); EOSINOPHILS % (AUTO) 3 % (1-7); LYMPHOCYTES # (AUTO) 2.17 x10^3/uL (1-3.4); LYMPHOCYTES % (AUTO) 38 % (22-44); MD NO; MEAN CORPUSCULAR HEMOGLOBIN 23.8 pg (27.0-34.8); MEAN CORPUSCULAR HGB CONC 31.3 g/dL (32.4-35.8); MEAN CORPUSCULAR VOLUME 75.9 fL (80-100); MEAN PLATELET VOLUME 7.2 fL (7.4-10.4); MONOCYTES % (AUTO) 9 % (2-9); NEUTROPHILS # (AUTO) 2.87 x10^3/uL (1.8-6.8); NEUTROPHILS % (AUTO) 50 % (42-75); PLATELET COUNT 733 x10^3/uL (130-400); RED BLOOD COUNT 3.04 x10^6/uL (3.82-5.3); RED CELL DISTRIBUTION WIDTH 19.3 % (9.6-15.2)
[2019-11-26 06:43] LABS: SEDIMENTATION RATE > 120 mm/hr (0-20)
[2019-11-26 09:25] VITALS: BP 108/74
[2019-11-26] MEDS: ENOXAPARIN 40 MG/0.4 ML SQ SCH (10:00)
[2019-11-26] MEDS: CEFTRIAXONE PMX 2GM/50ML 50 ML IV SCH (10:26)
[2019-11-26] MEDS: GABAPENTIN 300 MG CAPSULE PO SCH ×3 (10:26→19:55)
[2019-11-26] MEDS: OXYcodone IR 5MG TABLET PO PRN ×2 (10:28→18:23)
[2019-11-26] MEDS: OLANZAPINE 5 MG TABLET PO SCH (10:28)
[2019-11-26] MEDS: FERROUS SULFATE 325 MG TABLET PO SCH (10:28)
[2019-11-26 14:06] VITALS: BP 103/71
[2019-11-26 19:12] VITALS: BP 103/64
[2019-11-27 01:37] VITALS: BP 93/52
[2019-11-27] MEDS: ASPIRIN 81 MG TABLET EC PO SCH (06:13)
[2019-11-27] MEDS: VANCOMYCIN 1,700 MG in SODIUM CHLORIDE 0.9% 250 ML IV SCH ×2 (06:13→17:19)
[2019-11-27] MEDS: MORPHINE SULFATE 4 MG/ML, 1ML IVPush PRN ×3 (06:36→15:11)
[2019-11-27 07:59] VITALS: BP 104/69
[2019-11-27] MEDS: OLANZAPINE 5 MG TABLET PO SCH (08:20)
[2019-11-27] MEDS: GABAPENTIN 300 MG CAPSULE PO SCH ×3 (08:20→21:25)
[2019-11-27] MEDS: CEFTRIAXONE PMX 2GM/50ML 50 ML IV SCH (08:20)
[2019-11-27] MEDS: ENOXAPARIN 40 MG/0.4 ML SQ SCH (10:24)
[2019-11-27] MEDS: OXYcodone IR 5MG TABLET PO PRN ×2 (13:31→21:25)
[2019-11-27 13:32] VITALS: BP 102/63
[2019-11-27 19:52] VITALS: BP 102/65
[2019-11-27] MEDS ORDERED: CATHFLO-ALTEPLASE 2 MG/2 ML CATHFLUSH ONE (21:00)
[2019-11-27] MEDS: IBUPROFEN 600 MG TABLET PO PRN (21:26)
[2019-11-28] MEDS ORDERED: CATHFLO-ALTEPLASE 2 MG/2 ML CATHFLUSH ONE
[2019-11-28 00:10] VITALS: BP 103/59
[2019-11-28] MEDS: OXYcodone IR 5MG TABLET PO PRN ×2 (04:14→15:15)
[2019-11-28] MEDS: ASPIRIN 81 MG TABLET EC PO SCH (05:54)
[2019-11-28 06:05] LABS: CREATININE 0.86 mg/dL (0.55-1.02)
[2019-11-28] MEDS: CEFTRIAXONE PMX 2GM/50ML 50 ML IV SCH ×2 (09:00→14:00)
[2019-11-28] MEDS: ENOXAPARIN 40 MG/0.4 ML SQ SCH (10:00)
[2019-11-28] MEDS: GABAPENTIN 300 MG CAPSULE PO SCH ×3 (13:31→20:44)
[2019-11-28] MEDS: OLANZAPINE 5 MG TABLET PO SCH (13:32)
[2019-11-28] MEDS: FERROUS SULFATE 325 MG TABLET PO SCH (13:32)
[2019-11-28 13:37] VITALS: BP 103/59
[2019-11-28 17:00] VITALS: BP 106/67
[2019-11-28] MEDS: MORPHINE SULFATE 4 MG/ML, 1ML IVPush PRN (18:29)
[2019-11-28 18:50] VITALS: BP 101/64
[2019-11-29 02:00] VITALS: BP 104/57
[2019-11-29] MEDS: ASPIRIN 81 MG TABLET EC PO SCH (05:41)
[2019-11-29] MEDS: VANCOMYCIN 1,700 MG in SODIUM CHLORIDE 0.9% 250 ML IV SCH (05:41)
[2019-11-29] MEDS: MORPHINE SULFATE 4 MG/ML, 1ML IVPush PRN ×4 (05:59→21:07)
[2019-11-29 07:23] VITALS: BP 110/74
[2019-11-29] MEDS: ENOXAPARIN 40 MG/0.4 ML SQ SCH (08:29)
[2019-11-29] MEDS: GABAPENTIN 300 MG CAPSULE PO SCH ×3 (08:30→21:08)
[2019-11-29] MEDS: OLANZAPINE 5 MG TABLET PO SCH (08:30)
[2019-11-29] MEDS: DAKIN'S SOLUTION 1/4 STRENGTH 1,000 ML IRRIG SOLN EXT SCH (09:00)
[2019-11-29] MEDS ORDERED: GADOTERATE 7.5 MMOL/15 ML SYR ONE (12:45)
[2019-11-29] MEDS: CEFTRIAXONE PMX 2GM/50ML 50 ML IV SCH (14:10)
[2019-11-29 15:37] VITALS: BP 101/64
[2019-11-29 19:04] VITALS: BP 94/54
[2019-11-30 01:59] VITALS: BP 96/60
[2019-11-30] MEDS: MORPHINE SULFATE 4 MG/ML, 1ML IVPush PRN ×4 (03:26→20:21)
[2019-11-30] MEDS: ASPIRIN 81 MG TABLET EC PO SCH (05:32)
[2019-11-30] MEDS: VANCOMYCIN 1,700 MG in SODIUM CHLORIDE 0.9% 250 ML IV SCH ×2 (05:32→10:46)
[2019-11-30] MEDS: GABAPENTIN 300 MG CAPSULE PO SCH ×3 (07:23→20:20)
[2019-11-30] MEDS: FERROUS SULFATE 325 MG TABLET PO SCH (07:24)
[2019-11-30] MEDS: OLANZAPINE 5 MG TABLET PO SCH (07:24)
[2019-11-30] MEDS: DAKIN'S SOLUTION 1/4 STRENGTH 1,000 ML IRRIG SOLN EXT SCH (07:25)
[2019-11-30 08:00] VITALS: BP 111/75
[2019-11-30] MEDS: ENOXAPARIN 40 MG/0.4 ML SQ SCH (10:00)
[2019-11-30 13:49] VITALS: BP 96/57
[2019-11-30] MEDS: CEFTRIAXONE PMX 2GM/50ML 50 ML IV SCH (15:28)
[2019-11-30] MEDS: DOCUSATE 100 MG CAPSULE PO PRN (16:38)
[2019-11-30 19:30] VITALS: BP 96/60
[2019-12-01 01:20] VITALS: BP 91/55
[2019-12-01] MEDS: MORPHINE SULFATE 4 MG/ML, 1ML IVPush PRN ×5 (01:20→19:32)
[2019-12-01] MEDS: OXYcodone IR 5MG TABLET PO PRN (03:25)
[2019-12-01 03:37] LABS: ANION GAP 8 mmol/L (5-15); CALCIUM 8.6 mg/dL (8.5-10.1); CHLORIDE 100 mmol/L (98-107); CREATININE 0.75 mg/dL (0.55-1.02)
[2019-12-01 03:45] LABS: BASOPHILS # (AUTO) 0.12 x10^3/uL (0-0.1); BASOPHILS % (AUTO) 2 % (0-1); EOSINOPHILS # (AUTO) 0.23 x10^3/uL (0-0.4); EOSINOPHILS % (AUTO) 3 % (1-7); LYMPHOCYTES # (AUTO) 1.65 x10^3/uL (1-3.4); LYMPHOCYTES % (AUTO) 23 % (22-44); MD NO; MEAN CORPUSCULAR VOLUME 74.3 fL (80-100); MEAN PLATELET VOLUME 7.2 fL (7.4-10.4); MONOCYTES # (AUTO) 0.91 x10^3/uL (0.2-0.8); MONOCYTES % (AUTO) 13 % (2-9); NEUTROPHILS % (AUTO) 59 % (42-75); PLATELET COUNT 740 x10^3/uL (130-400); RED BLOOD COUNT 3.27 x10^6/uL (3.82-5.3); RED CELL DISTRIBUTION WIDTH 19.3 % (9.6-15.2)
[2019-12-01] MEDS: VANCOMYCIN 1,700 MG in SODIUM CHLORIDE 0.9% 250 ML IV SCH (05:47)
[2019-12-01] MEDS: ASPIRIN 81 MG TABLET EC PO SCH (05:47)
[2019-12-01 08:00] VITALS: BP 102/65
[2019-12-01] MEDS: OLANZAPINE 5 MG TABLET PO SCH (08:46)
[2019-12-01] MEDS: GABAPENTIN 300 MG CAPSULE PO SCH ×3 (08:46→19:32)
[2019-12-01] MEDS: DAKIN'S SOLUTION 1/4 STRENGTH 1,000 ML IRRIG SOLN EXT SCH (08:46)
[2019-12-01] MEDS: ENOXAPARIN 40 MG/0.4 ML SQ SCH (10:18)
[2019-12-01] MEDS: ACETAMINOPHEN 500 MG TABLET PO PRN (10:19)
[2019-12-01] MEDS: DOCUSATE 100 MG CAPSULE PO PRN (10:19)
[2019-12-01 14:00] VITALS: BP 102/68
[2019-12-01] MEDS: CEFTRIAXONE PMX 2GM/50ML 50 ML IV SCH (14:16)
[2019-12-01 18:32] VITALS: BP 106/72
[2019-12-02] MEDS: MORPHINE SULFATE 4 MG/ML, 1ML IVPush PRN ×5 (02:08→20:35)
[2019-12-02 02:12] VITALS: BP 99/63
[2019-12-02] MEDS: ASPIRIN 81 MG TABLET EC PO SCH (05:34)
[2019-12-02] MEDS: VANCOMYCIN 1,700 MG in SODIUM CHLORIDE 0.9% 250 ML IV SCH (05:35)
[2019-12-02 08:29] VITALS: BP 106/70
[2019-12-02] MEDS: DAKIN'S SOLUTION 1/4 STRENGTH 1,000 ML IRRIG SOLN EXT SCH (09:00)
[2019-12-02] MEDS: FERROUS SULFATE 325 MG TABLET PO SCH (10:59)
[2019-12-02] MEDS: OLANZAPINE 5 MG TABLET PO SCH (10:59)
[2019-12-02] MEDS: GABAPENTIN 300 MG CAPSULE PO SCH ×3 (10:59→20:34)
[2019-12-02] MEDS: ENOXAPARIN 40 MG/0.4 ML SQ SCH (11:00)
[2019-12-02 12:19] VITALS: BP 104/69
[2019-12-02] MEDS: CEFTRIAXONE PMX 2GM/50ML 50 ML IV SCH (15:27)
[2019-12-02 19:38] VITALS: BP 97/63
[2019-12-03 02:00] VITALS: BP 101/68
[2019-12-03 04:15] LABS: ALANINE AMINOTRANSFERASE 9 U/L (12-78); ALBUMIN 2.1 g/dL (3.4-5.0); ANION GAP 6 mmol/L (5-15); CALCIUM 8.4 mg/dL (8.5-10.1); CHLORIDE 106 mmol/L (98-107); CREATININE 0.73 mg/dL (0.55-1.02)
[2019-12-03 04:19] LABS: HCT (SEDRATE) 22.7 % (34.6-47.8)
[2019-12-03 04:22] LABS: ALKALINE PHOSPHATASE 61 U/L (45-117); TOTAL PROTEIN 6.9 g/dL (6.4-8.2)
[2019-12-03 04:24] LABS: BILIRUBIN,TOTAL < 0.1 mg/dL (0.2-1.0)
[2019-12-03 04:33] LABS: BASOPHILS # (AUTO) 0.01 x10^3/uL (0-0.1); BASOPHILS % (AUTO) 0 % (0-1); EOSINOPHILS # (AUTO) 0.28 x10^3/uL (0-0.4); EOSINOPHILS % (AUTO) 6 % (1-7); LYMPHOCYTES # (AUTO) 1.51 x10^3/uL (1-3.4); LYMPHOCYTES % (AUTO) 30 % (22-44); MD NO; MEAN CORPUSCULAR HEMOGLOBIN 23.1 pg (27.0-34.8); MEAN CORPUSCULAR HGB CONC 30.9 g/dL (32.4-35.8); MEAN CORPUSCULAR VOLUME 74.8 fL (80-100); MEAN PLATELET VOLUME 7.1 fL (7.4-10.4); MONOCYTES # (AUTO) 0.63 x10^3/uL (0.2-0.8); MONOCYTES % (AUTO) 12 % (2-9); NEUTROPHILS # (AUTO) 2.67 x10^3/uL (1.8-6.8); NEUTROPHILS % (AUTO) 52 % (42-75); PLATELET COUNT 670 x10^3/uL (130-400); RED BLOOD COUNT 3.22 x10^6/uL (3.82-5.3); RED CELL DISTRIBUTION WIDTH 19.3 % (9.6-15.2)
[2019-12-03] MEDS: MORPHINE SULFATE 4 MG/ML, 1ML IVPush PRN ×4 (05:41→21:33)
[2019-12-03] MEDS: VANCOMYCIN 1,700 MG in SODIUM CHLORIDE 0.9% 250 ML IV SCH (05:41)
[2019-12-03] MEDS: ASPIRIN 81 MG TABLET EC PO SCH (05:43)
[2019-12-03 07:00] VITALS: BP 98/66
[2019-12-03] MEDS: OXYcodone IR 5MG TABLET PO PRN (09:04)
[2019-12-03] MEDS: DAKIN'S SOLUTION 1/4 STRENGTH 1,000 ML IRRIG SOLN EXT SCH (09:04)
[2019-12-03] MEDS: GABAPENTIN 300 MG CAPSULE PO SCH ×3 (09:04→21:33)
[2019-12-03] MEDS: OLANZAPINE 5 MG TABLET PO SCH (09:05)
[2019-12-03] MEDS: ENOXAPARIN 40 MG/0.4 ML SQ SCH (09:05)
[2019-12-03] MEDS ORDERED: SENNOSIDES 8.6 MG TABLET PO PRN (12:30)
[2019-12-03] MEDS: CEFTRIAXONE PMX 2GM/50ML 50 ML IV SCH (14:39)
[2019-12-03 15:05] VITALS: BP 104/70
[2019-12-03 19:56] VITALS: BP 94/64
[2019-12-04 01:53] VITALS: BP 102/66
[2019-12-04] MEDS: MORPHINE SULFATE 4 MG/ML, 1ML IVPush PRN ×5 (03:29→22:35)
[2019-12-04 03:47] LABS: CREATININE 0.73 mg/dL (0.55-1.02)
[2019-12-04] MEDS: ASPIRIN 81 MG TABLET EC PO SCH (05:53)
[2019-12-04] MEDS: VANCOMYCIN 1,700 MG in SODIUM CHLORIDE 0.9% 250 ML IV SCH (05:53)
[2019-12-04 07:47] VITALS: BP 98/63
[2019-12-04] MEDS: GABAPENTIN 300 MG CAPSULE PO SCH ×3 (08:13→22:35)
[2019-12-04] MEDS: FERROUS SULFATE 325 MG TABLET PO SCH (08:13)
[2019-12-04] MEDS: OLANZAPINE 5 MG TABLET PO SCH (08:13)
[2019-12-04] MEDS: CEFTRIAXONE PMX 2GM/50ML 50 ML IV SCH (13:25)
[2019-12-04] MEDS: ENOXAPARIN 40 MG/0.4 ML SQ SCH (13:25)
[2019-12-04 14:25] VITALS: BP 104/69
[2019-12-04 18:36] VITALS: BP 109/73
[2019-12-04] MEDS: DAKIN'S SOLUTION 1/4 STRENGTH 1,000 ML IRRIG SOLN EXT SCH (22:36)
[2019-12-05 02:42] VITALS: BP 105/70
[2019-12-05] MEDS: MORPHINE SULFATE 4 MG/ML, 1ML IVPush PRN ×4 (02:44→19:41)
[2019-12-05] MEDS: VANCOMYCIN 1,700 MG in SODIUM CHLORIDE 0.9% 250 ML IV SCH (05:45)
[2019-12-05] MEDS: ASPIRIN 81 MG TABLET EC PO SCH (06:07)
[2019-12-05 07:57] VITALS: BP 108/67
[2019-12-05] MEDS: ENOXAPARIN 40 MG/0.4 ML SQ SCH (08:11)
[2019-12-05] MEDS: GABAPENTIN 300 MG CAPSULE PO SCH ×3 (08:11→21:28)
[2019-12-05] MEDS: OLANZAPINE 5 MG TABLET PO SCH (08:11)
[2019-12-05] MEDS: DAKIN'S SOLUTION 1/4 STRENGTH 1,000 ML IRRIG SOLN EXT SCH (11:30)
[2019-12-05] MEDS: CEFTRIAXONE PMX 2GM/50ML 50 ML IV SCH (16:23)
[2019-12-05 19:09] VITALS: BP 108/73
[2019-12-05] MEDS: IBUPROFEN 600 MG TABLET PO PRN (21:29)
[2019-12-06 01:12] VITALS: BP 103/71
[2019-12-06] MEDS: ASPIRIN 81 MG TABLET EC PO SCH (06:18)
[2019-12-06] MEDS: VANCOMYCIN 1,700 MG in SODIUM CHLORIDE 0.9% 250 ML IV SCH (06:18)
[2019-12-06] MEDS: MORPHINE SULFATE 4 MG/ML, 1ML IVPush PRN ×4 (06:27→20:53)
[2019-12-06 08:01] VITALS: BP 120/75
[2019-12-06 08:16] VITALS: BP 94/64
[2019-12-06] MEDS: OLANZAPINE 5 MG TABLET PO SCH (08:19)
[2019-12-06] MEDS: GABAPENTIN 300 MG CAPSULE PO SCH ×3 (08:19→20:52)
[2019-12-06] MEDS: FERROUS SULFATE 325 MG TABLET PO SCH (08:20)
[2019-12-06] MEDS: ENOXAPARIN 40 MG/0.4 ML SQ SCH (08:20)
[2019-12-06] MEDS: DAKIN'S SOLUTION 1/4 STRENGTH 1,000 ML IRRIG SOLN EXT SCH (11:35)
[2019-12-06 14:16] VITALS: BP 102/66
[2019-12-06] MEDS: CEFTRIAXONE PMX 2GM/50ML 50 ML IV SCH (15:53)
[2019-12-06 19:43] VITALS: BP 102/67
[2019-12-07 00:04] VITALS: BP 113/68
[2019-12-07] MEDS: MORPHINE SULFATE 4 MG/ML, 1ML IVPush PRN ×5 (04:13→22:37)
[2019-12-07] MEDS: ASPIRIN 81 MG TABLET EC PO SCH (06:00)
[2019-12-07] MEDS: VANCOMYCIN 1,700 MG in SODIUM CHLORIDE 0.9% 250 ML IV SCH (06:00)
[2019-12-07 06:37] LABS: CREATININE 0.77 mg/dL (0.55-1.02)
[2019-12-07 07:19] VITALS: BP 107/70
[2019-12-07] MEDS: ENOXAPARIN 40 MG/0.4 ML SQ SCH (09:56)
[2019-12-07] MEDS: GABAPENTIN 300 MG CAPSULE PO SCH ×3 (09:56→22:38)
[2019-12-07] MEDS: OLANZAPINE 5 MG TABLET PO SCH (09:56)
[2019-12-07 13:29] VITALS: BP_SYST 86; BP_SYST 90; BP_DIAS 57; BP_DIAS 60
[2019-12-07] MEDS: CEFTRIAXONE PMX 2GM/50ML 50 ML IV SCH (16:12)
[2019-12-07 19:12] VITALS: BP 117/76
[2019-12-07] MEDS: DAKIN'S SOLUTION 1/4 STRENGTH 1,000 ML IRRIG SOLN EXT SCH (23:59)
[2019-12-08 01:35] VITALS: BP 96/63
[2019-12-08] MEDS: MORPHINE SULFATE 4 MG/ML, 1ML IVPush PRN ×5 (02:47→22:43)
[2019-12-08] MEDS: ASPIRIN 81 MG TABLET EC PO SCH (05:26)
[2019-12-08] MEDS: VANCOMYCIN 1,700 MG in SODIUM CHLORIDE 0.9% 250 ML IV SCH ×2 (06:32→18:08)
[2019-12-08 07:45] VITALS: BP 100/66
[2019-12-08] MEDS: FERROUS SULFATE 325 MG TABLET PO SCH (08:39)
[2019-12-08] MEDS: OLANZAPINE 5 MG TABLET PO SCH (08:39)
[2019-12-08] MEDS: GABAPENTIN 300 MG CAPSULE PO SCH ×3 (08:39→22:44)
[2019-12-08] MEDS: ENOXAPARIN 40 MG/0.4 ML SQ SCH ×2 (08:40→08:41)
[2019-12-08 13:50] VITALS: BP 109/74
[2019-12-08] MEDS: CEFTRIAXONE PMX 2GM/50ML 50 ML IV SCH (16:28)
[2019-12-08 19:42] VITALS: BP 100/66
[2019-12-09] MEDS: DAKIN'S SOLUTION 1/4 STRENGTH 1,000 ML IRRIG SOLN EXT SCH ×2 (01:21→09:00)
[2019-12-09 01:58] VITALS: BP 100/65
[2019-12-09] MEDS: MORPHINE SULFATE 4 MG/ML, 1ML IVPush PRN ×4 (04:40→19:43)
[2019-12-09] MEDS: ASPIRIN 81 MG TABLET EC PO SCH (05:43)
[2019-12-09] MEDS: VANCOMYCIN 1,700 MG in SODIUM CHLORIDE 0.9% 250 ML IV SCH ×2 (05:43→18:22)
[2019-12-09 07:48] VITALS: BP 109/73
[2019-12-09] MEDS: ENOXAPARIN 40 MG/0.4 ML SQ SCH (09:11)
[2019-12-09] MEDS: GABAPENTIN 300 MG CAPSULE PO SCH ×3 (09:12→19:42)
[2019-12-09] MEDS: OLANZAPINE 5 MG TABLET PO SCH (09:12)
[2019-12-09 13:17] VITALS: BP 101/68
[2019-12-09] MEDS: CEFTRIAXONE PMX 2GM/50ML 50 ML IV SCH (16:50)
[2019-12-09 19:35] VITALS: BP 108/70
[2019-12-10] MEDS: MORPHINE SULFATE 4 MG/ML, 1ML IVPush PRN ×5 (00:19→18:54)
[2019-12-10 01:51] VITALS: BP 98/64
[2019-12-10] MEDS: ASPIRIN 81 MG TABLET EC PO SCH (05:13)
[2019-12-10] MEDS: VANCOMYCIN 1,700 MG in SODIUM CHLORIDE 0.9% 250 ML IV SCH (05:46)
[2019-12-10 08:00] VITALS: BP 99/66
[2019-12-10 08:46] LABS: HCT (SEDRATE) 26.3 % (34.6-47.8)
[2019-12-10 08:49] LABS: ALANINE AMINOTRANSFERASE 10 U/L (12-78); ALBUMIN 2.5 g/dL (3.4-5.0); ANION GAP 6 mmol/L (5-15); CALCIUM 8.5 mg/dL (8.5-10.1); CHLORIDE 105 mmol/L (98-107); CREATININE 0.73 mg/dL (0.55-1.02)
[2019-12-10 08:56] LABS: ALKALINE PHOSPHATASE 77 U/L (45-117); BILIRUBIN,TOTAL 0.2 mg/dL (0.2-1.0); TOTAL PROTEIN 7.4 g/dL (6.4-8.2)
[2019-12-10 10:29] LABS: MEAN CORPUSCULAR HGB CONC 31.4 g/dL (32.4-35.8); MEAN PLATELET VOLUME 6.8 fL (7.4-10.4); PLATELET COUNT 879 x10^3/uL (130-400); RED BLOOD COUNT 3.62 x10^6/uL (3.82-5.3); RED CELL DISTRIBUTION WIDTH 19.7 % (9.6-15.2)
[2019-12-10 10:49] LABS: MD YES
[2019-12-10 10:51] LABS: ANISOCYTOSIS 1+; BASOS#(MANUAL) 0.12 x10^3/uL (0-0.1); BASOS% (MANUAL) 2 % (0-1); EOS#(MANUAL) 0.18 x10^3/uL (0.0-0.4); EOS% (MANUAL) 3 % (1-7); LYMPH#(MANUAL) 1.62 x10^3/uL (1-3.4); LYMPHS% (MANUAL) 27 % (22-44); MICROCYTOSIS 1+; MONOS% (MANUAL) 15 % (2-9); SEG#(MANUAL) 3.18 x10^3/uL (1.8-6.8); SEGS% (MANUAL) 53 % (42-75)
[2019-12-10 10:52] LABS: <PLATELET ESTIMATE> INCREASED; POLYCHROMASIA 1+
[2019-12-10 10:53] LABS: <PLT MORPHOLOGY> NORMAL PLT MORPH
[2019-12-10] MEDS: OLANZAPINE 5 MG TABLET PO SCH (11:19)
[2019-12-10] MEDS: GABAPENTIN 300 MG CAPSULE PO SCH ×3 (11:20→21:13)
[2019-12-10] MEDS: FERROUS SULFATE 325 MG TABLET PO SCH (11:20)
[2019-12-10] MEDS: ENOXAPARIN 40 MG/0.4 ML SQ SCH (11:40)
[2019-12-10 13:27] VITALS: BP 113/76
[2019-12-10] MEDS: AMOXICILLIN/CLAV 875-125MG TABLET PO SCH (14:39)
[2019-12-10] MEDS: DAKIN'S SOLUTION 1/4 STRENGTH 1,000 ML IRRIG SOLN EXT SCH (14:41)
[2019-12-10] MEDS: OXYcodone IR 5MG TABLET PO PRN ×2 (16:46→21:13)
[2019-12-10 19:53] VITALS: BP 114/74
[2019-12-10] MEDS: DOXYCYCLINE 100MG CAP PO SCH (21:13)
[2019-12-11] MEDS: MORPHINE SULFATE 4 MG/ML, 1ML IVPush PRN ×5 (00:24→22:02)
[2019-12-11 01:33] VITALS: BP 103/60
[2019-12-11] MEDS: AMOXICILLIN/CLAV 875-125MG TABLET PO SCH ×2 (02:36→16:21)
[2019-12-11] MEDS: OXYcodone IR 5MG TABLET PO PRN ×2 (02:41→07:34)
[2019-12-11] MEDS: DOCUSATE 100 MG CAPSULE PO PRN (05:01)
[2019-12-11] MEDS: ASPIRIN 81 MG TABLET EC PO SCH (05:01)
[2019-12-11 09:26] VITALS: BP 100/65
[2019-12-11] MEDS: DAKIN'S SOLUTION 1/4 STRENGTH 1,000 ML IRRIG SOLN EXT SCH (10:23)
[2019-12-11] MEDS: OLANZAPINE 5 MG TABLET PO SCH (10:26)
[2019-12-11] MEDS: DOXYCYCLINE 100MG CAP PO SCH ×2 (10:26→22:00)
[2019-12-11] MEDS: GABAPENTIN 300 MG CAPSULE PO SCH ×3 (10:27→22:00)
[2019-12-11] MEDS: ENOXAPARIN 40 MG/0.4 ML SQ SCH (10:27)
[2019-12-11 15:29] VITALS: BP 100/65
[2019-12-11 19:34] VITALS: BP 109/73
[2019-12-12] MEDS: AMOXICILLIN/CLAV 875-125MG TABLET PO SCH ×2 (02:38→15:29)
[2019-12-12 02:39] VITALS: BP 120/77
[2019-12-12] MEDS: MORPHINE SULFATE 4 MG/ML, 1ML IVPush PRN ×5 (02:39→21:18)
[2019-12-12] MEDS: ASPIRIN 81 MG TABLET EC PO SCH (06:16)
[2019-12-12 08:30] VITALS: BP 100/65
[2019-12-12] MEDS: DAKIN'S SOLUTION 1/4 STRENGTH 1,000 ML IRRIG SOLN EXT SCH (10:41)
[2019-12-12] MEDS: DOXYCYCLINE 100MG CAP PO SCH ×2 (10:41→21:16)
[2019-12-12] MEDS: FERROUS SULFATE 325 MG TABLET PO SCH (10:41)
[2019-12-12] MEDS: GABAPENTIN 300 MG CAPSULE PO SCH ×3 (10:41→21:00)
[2019-12-12] MEDS: OLANZAPINE 5 MG TABLET PO SCH (10:41)
[2019-12-12] MEDS: ENOXAPARIN 40 MG/0.4 ML SQ SCH (10:56)
[2019-12-12 15:26] VITALS: BP 108/72
[2019-12-12 20:29] VITALS: BP 107/70
[2019-12-12] MEDS ORDERED: GABAPENTIN 400 MG CAPSULE ONE (21:12)
[2019-12-12] MEDS ORDERED: GABAPENTIN 100 MG CAPSULE ONE (21:12)
[2019-12-12] MEDS: ACETAMINOPHEN 500 MG TABLET PO PRN (21:18)
[2019-12-13] MEDS: MORPHINE SULFATE 4 MG/ML, 1ML IVPush PRN ×5 (02:02→20:05)
[2019-12-13] MEDS: AMOXICILLIN/CLAV 875-125MG TABLET PO SCH ×2 (02:02→15:38)
[2019-12-13 03:19] VITALS: BP 104/65
[2019-12-13] MEDS: OXYcodone IR 5MG TABLET PO PRN ×3 (03:25→19:25)
[2019-12-13] MEDS ORDERED: CATHFLO-ALTEPLASE 2 MG/2 ML CATHFLUSH ONE (05:30)
[2019-12-13 06:17] LABS: CREATININE 0.82 mg/dL (0.55-1.02)
[2019-12-13] MEDS: ASPIRIN 81 MG TABLET EC PO SCH (06:23)
[2019-12-13] MEDS: DAKIN'S SOLUTION 1/4 STRENGTH 1,000 ML IRRIG SOLN EXT SCH (09:00)
[2019-12-13 09:38] VITALS: BP 113/75
[2019-12-13] MEDS: DOXYCYCLINE 100MG CAP PO SCH ×2 (10:14→20:05)
[2019-12-13] MEDS: OLANZAPINE 5 MG TABLET PO SCH (10:14)
[2019-12-13] MEDS: GABAPENTIN 300 MG CAPSULE PO SCH ×3 (10:14→20:05)
[2019-12-13] MEDS: ENOXAPARIN 40 MG/0.4 ML SQ SCH (10:17)
[2019-12-13 14:00] VITALS: BP 100/67
[2019-12-13 20:41] VITALS: BP 101/67
[2019-12-14 00:25] VITALS: BP 106/70
[2019-12-14] MEDS: MORPHINE SULFATE 4 MG/ML, 1ML IVPush PRN ×5 (00:32→20:12)
[2019-12-14] MEDS: AMOXICILLIN/CLAV 875-125MG TABLET PO SCH ×2 (02:28→14:56)
[2019-12-14] MEDS: OXYcodone IR 5MG TABLET PO PRN ×2 (02:29→17:43)
[2019-12-14] MEDS: ASPIRIN 81 MG TABLET EC PO SCH (05:52)
[2019-12-14] MEDS: DAKIN'S SOLUTION 1/4 STRENGTH 1,000 ML IRRIG SOLN EXT SCH (07:24)
[2019-12-14 09:01] VITALS: BP 102/68
[2019-12-14] MEDS: ENOXAPARIN 40 MG/0.4 ML SQ SCH (09:58)
[2019-12-14] MEDS: GABAPENTIN 300 MG CAPSULE PO SCH ×3 (09:58→20:13)
[2019-12-14] MEDS: DOXYCYCLINE 100MG CAP PO SCH ×2 (09:59→20:13)
[2019-12-14] MEDS: OLANZAPINE 5 MG TABLET PO SCH (09:59)
[2019-12-14] MEDS: FERROUS SULFATE 325 MG TABLET PO SCH (09:59)
[2019-12-14 14:58] VITALS: BP 100/67
[2019-12-14 19:55] VITALS: BP 98/63
[2019-12-15 00:45] VITALS: BP 98/63
[2019-12-15] MEDS: MORPHINE SULFATE 4 MG/ML, 1ML IVPush PRN ×5 (00:49→20:08)
[2019-12-15] MEDS: AMOXICILLIN/CLAV 875-125MG TABLET PO SCH ×2 (02:37→14:36)
[2019-12-15] MEDS: OXYcodone IR 5MG TABLET PO PRN ×3 (03:35→17:44)
[2019-12-15] MEDS: ASPIRIN 81 MG TABLET EC PO SCH (06:06)
[2019-12-15] MEDS: DAKIN'S SOLUTION 1/4 STRENGTH 1,000 ML IRRIG SOLN EXT SCH (07:26)
[2019-12-15 08:13] VITALS: BP 103/71
[2019-12-15] MEDS: ENOXAPARIN 40 MG/0.4 ML SQ SCH (09:38)
[2019-12-15] MEDS: DOXYCYCLINE 100MG CAP PO SCH ×2 (09:38→20:08)
[2019-12-15] MEDS: GABAPENTIN 300 MG CAPSULE PO SCH ×3 (09:40→20:08)
[2019-12-15] MEDS: OLANZAPINE 5 MG TABLET PO SCH (09:40)
[2019-12-15 12:47] VITALS: BP 96/61
[2019-12-15 19:52] VITALS: BP 106/70
[2019-12-16] MEDS: AMOXICILLIN/CLAV 875-125MG TABLET PO SCH ×2 (02:47→16:06)
[2019-12-16] MEDS: MORPHINE SULFATE 4 MG/ML, 1ML IVPush PRN ×3 (02:57→20:09)
[2019-12-16 03:00] VITALS: BP 93/59
[2019-12-16] MEDS: OXYcodone IR 5MG TABLET PO PRN ×3 (04:28→22:58)
[2019-12-16] MEDS: ASPIRIN 81 MG TABLET EC PO SCH (05:08)
[2019-12-16 05:34] LABS: MEAN CORPUSCULAR HEMOGLOBIN 22.6 pg (27.0-34.8); MEAN CORPUSCULAR HGB CONC 31.1 g/dL (32.4-35.8); MEAN CORPUSCULAR VOLUME 72.7 fL (80-100); MEAN PLATELET VOLUME 6.9 fL (7.4-10.4); PLATELET COUNT 664 x10^3/uL (130-400); RED BLOOD COUNT 3.73 x10^6/uL (3.82-5.3); RED CELL DISTRIBUTION WIDTH 19.5 % (9.6-15.2)
[2019-12-16 06:01] LABS: BASOPHILS % (AUTO) 0 % (0-1); EOSINOPHILS # (AUTO) 0.14 x10^3/uL (0-0.4); EOSINOPHILS % (AUTO) 3 % (1-7); LYMPHOCYTES # (AUTO) 1.93 x10^3/uL (1-3.4); LYMPHOCYTES % (AUTO) 39 % (22-44); MD SCAN; MONOCYTES # (AUTO) 0.73 x10^3/uL (0.2-0.8); MONOCYTES % (AUTO) 15 % (2-9); NEUTROPHILS # (AUTO) 2.21 x10^3/uL (1.8-6.8); NEUTROPHILS % (AUTO) 44 % (42-75)
[2019-12-16 07:48] VITALS: BP 104/68
[2019-12-16] MEDS: OLANZAPINE 5 MG TABLET PO SCH (09:36)
[2019-12-16] MEDS: DOXYCYCLINE 100MG CAP PO SCH ×2 (09:36→20:08)
[2019-12-16] MEDS: FERROUS SULFATE 325 MG TABLET PO SCH (09:37)
[2019-12-16] MEDS: GABAPENTIN 300 MG CAPSULE PO SCH ×3 (09:37→20:08)
[2019-12-16] MEDS: ENOXAPARIN 40 MG/0.4 ML SQ SCH (12:11)
[2019-12-16 14:47] LABS: % IRON SATURATION 5 % (20-55); IRON LEVEL 11 mcg/dL (50-170); TOTAL IRON BINDING CAPACITY 228 mcg/dL (250-450)
[2019-12-16 16:00] VITALS: BP 120/67
[2019-12-16] MEDS: DAKIN'S SOLUTION 1/4 STRENGTH 1,000 ML IRRIG SOLN EXT SCH (16:07)
[2019-12-16 19:15] VITALS: BP 107/67
[2019-12-16] MEDS: ZIPRASIDONE 40MG CAPSULE PO SCH (20:09)
[2019-12-17 01:50] VITALS: BP 94/65
[2019-12-17] MEDS: AMOXICILLIN/CLAV 875-125MG TABLET PO SCH ×2 (04:40→18:14)
[2019-12-17] MEDS: MORPHINE SULFATE 4 MG/ML, 1ML IVPush PRN (04:49)
[2019-12-17] MEDS: ASPIRIN 81 MG TABLET EC PO SCH (05:09)
[2019-12-17 05:41] LABS: ALANINE AMINOTRANSFERASE 10 U/L (12-78); ALBUMIN 2.4 g/dL (3.4-5.0); ANION GAP 5 mmol/L (5-15); CALCIUM 8.5 mg/dL (8.5-10.1); CHLORIDE 106 mmol/L (98-107); CREATININE 0.73 mg/dL (0.55-1.02)
[2019-12-17 05:44] LABS: HCT (SEDRATE) 25.3 % (34.6-47.8)
[2019-12-17 05:49] LABS: ALKALINE PHOSPHATASE 76 U/L (45-117); BILIRUBIN,TOTAL 0.2 mg/dL (0.2-1.0)
[2019-12-17 07:28] VITALS: BP 102/67
[2019-12-17] MEDS: FERROUS SULFATE 325 MG TABLET PO SCH (10:21)
[2019-12-17] MEDS: ZIPRASIDONE 40MG CAPSULE PO SCH ×2 (10:21→21:40)
[2019-12-17] MEDS: GABAPENTIN 300 MG CAPSULE PO SCH ×3 (10:21→21:41)
[2019-12-17] MEDS: DOXYCYCLINE 100MG CAP PO SCH ×2 (10:21→21:40)
[2019-12-17] MEDS: DAKIN'S SOLUTION 1/4 STRENGTH 1,000 ML IRRIG SOLN EXT SCH (10:22)
[2019-12-17] MEDS: ENOXAPARIN 40 MG/0.4 ML SQ SCH (14:32)
[2019-12-17 15:55] VITALS: BP 103/67
[2019-12-17] MEDS: OXYcodone IR 5MG TABLET PO PRN (18:15)
[2019-12-17 20:46] VITALS: BP 100/67
[2019-12-17] MEDS ORDERED: GABAPENTIN 100 MG CAPSULE ONE (21:35)
[2019-12-17] MEDS ORDERED: GABAPENTIN 400 MG CAPSULE ONE (21:36)
[2019-12-18] MEDS: OXYcodone IR 5MG TABLET PO PRN ×3 (00:33→18:14)
[2019-12-18 01:34] VITALS: BP 115/75
[2019-12-18] MEDS: MORPHINE SULFATE 4 MG/ML, 1ML IVPush PRN ×2 (01:39→23:46)
[2019-12-18] MEDS: ASPIRIN 81 MG TABLET EC PO SCH (05:33)
[2019-12-18] MEDS: AMOXICILLIN/CLAV 875-125MG TABLET PO SCH ×2 (05:33→18:21)
[2019-12-18] MEDS: GABAPENTIN 300 MG CAPSULE PO SCH ×3 (10:16→22:03)
[2019-12-18] MEDS: DOXYCYCLINE 100MG CAP PO SCH ×2 (10:16→22:02)
[2019-12-18] MEDS: ZIPRASIDONE 40MG CAPSULE PO SCH ×2 (10:18→22:03)
[2019-12-18] MEDS: DAKIN'S SOLUTION 1/4 STRENGTH 1,000 ML IRRIG SOLN EXT SCH ×2 (10:23→22:00)
[2019-12-18] MEDS: ENOXAPARIN 40 MG/0.4 ML SQ SCH (10:25)
[2019-12-18 15:25] VITALS: BP 108/71
[2019-12-18] MEDS: IBUPROFEN 600 MG TABLET PO PRN (18:12)
[2019-12-18 19:23] VITALS: BP 110/64
[2019-12-19] MEDS: ASPIRIN 81 MG TABLET EC PO SCH (05:22)
[2019-12-19] MEDS: AMOXICILLIN/CLAV 875-125MG TABLET PO SCH ×2 (05:22→16:52)
[2019-12-19 05:49] LABS: CREATININE 0.69 mg/dL (0.55-1.02)
[2019-12-19 07:46] VITALS: BP 117/71
[2019-12-19] MEDS: DOXYCYCLINE 100MG CAP PO SCH ×2 (08:31→20:12)
[2019-12-19] MEDS: ZIPRASIDONE 40MG CAPSULE PO SCH ×2 (08:31→20:12)
[2019-12-19] MEDS: GABAPENTIN 300 MG CAPSULE PO SCH ×3 (08:31→20:12)
[2019-12-19] MEDS: DAKIN'S SOLUTION 1/4 STRENGTH 1,000 ML IRRIG SOLN EXT SCH (08:32)
[2019-12-19] MEDS: ENOXAPARIN 40 MG/0.4 ML SQ SCH (09:00)
[2019-12-19 12:11] VITALS: BP 128/80
[2019-12-19] MEDS: MORPHINE SULFATE 4 MG/ML, 1ML IVPush PRN ×2 (15:46→20:11)
[2019-12-19 19:29] VITALS: BP 122/57
[2019-12-19] MEDS ORDERED: GABAPENTIN 100 MG CAPSULE ONE (20:05)
[2019-12-20 00:29] VITALS: BP 113/71
[2019-12-20] MEDS: MORPHINE SULFATE 4 MG/ML, 1ML IVPush PRN ×5 (00:45→23:27)
[2019-12-20] MEDS: ASPIRIN 81 MG TABLET EC PO SCH (06:05)
[2019-12-20] MEDS: AMOXICILLIN/CLAV 875-125MG TABLET PO SCH ×2 (06:05→16:36)
[2019-12-20 07:59] VITALS: BP 115/76
[2019-12-20] MEDS: ENOXAPARIN 40 MG/0.4 ML SQ SCH (09:00)
[2019-12-20] MEDS: ZIPRASIDONE 40MG CAPSULE PO SCH ×2 (09:15→21:06)
[2019-12-20] MEDS: DAKIN'S SOLUTION 1/4 STRENGTH 1,000 ML IRRIG SOLN EXT SCH (09:15)
[2019-12-20] MEDS: GABAPENTIN 300 MG CAPSULE PO SCH ×3 (09:15→21:06)
[2019-12-20] MEDS: DOXYCYCLINE 100MG CAP PO SCH ×2 (09:15→21:06)
[2019-12-20] MEDS: FERROUS SULFATE 325 MG TABLET PO SCH (09:15)
[2019-12-20 13:44] VITALS: BP 119/79
[2019-12-20 19:47] VITALS: BP 104/68
[2019-12-20] MEDS: IBUPROFEN 600 MG TABLET PO PRN (21:06)
[2019-12-21 00:42] VITALS: BP 97/68
[2019-12-21] MEDS: DAKIN'S SOLUTION 1/4 STRENGTH 1,000 ML IRRIG SOLN EXT SCH (08:01)
[2019-12-21] MEDS: AMOXICILLIN/CLAV 875-125MG TABLET PO SCH ×2 (08:02→18:25)
[2019-12-21] MEDS: GABAPENTIN 300 MG CAPSULE PO SCH ×3 (08:02→21:06)
[2019-12-21] MEDS: ZIPRASIDONE 40MG CAPSULE PO SCH ×2 (08:02→21:06)
[2019-12-21] MEDS: DOXYCYCLINE 100MG CAP PO SCH ×2 (08:02→21:06)
[2019-12-21] MEDS: ASPIRIN 81 MG TABLET EC PO SCH (08:02)
[2019-12-21 08:54] VITALS: BP 106/71
[2019-12-21] MEDS: ENOXAPARIN 40 MG/0.4 ML SQ SCH (09:00)
[2019-12-21] MEDS: MORPHINE SULFATE 4 MG/ML, 1ML IVPush PRN ×3 (12:05→22:26)
[2019-12-21 15:00] VITALS: BP 108/63
[2019-12-21 19:14] VITALS: BP 129/73
[2019-12-22 00:35] VITALS: BP 106/71
[2019-12-22] MEDS: MORPHINE SULFATE 4 MG/ML, 1ML IVPush PRN ×5 (04:29→22:15)
[2019-12-22 04:37] LABS: MEAN CORPUSCULAR HEMOGLOBIN 21.7 pg (27.0-34.8); MEAN CORPUSCULAR HGB CONC 30.6 g/dL (32.4-35.8); MEAN CORPUSCULAR VOLUME 71.2 fL (80-100); MEAN PLATELET VOLUME 6.8 fL (7.4-10.4); PLATELET COUNT 697 x10^3/uL (130-400); RED BLOOD COUNT 3.45 x10^6/uL (3.82-5.3); RED CELL DISTRIBUTION WIDTH 19.2 % (9.6-15.2)
[2019-12-22 04:43] LABS: ALANINE AMINOTRANSFERASE 12 U/L (12-78); ALBUMIN 2.4 g/dL (3.4-5.0); ANION GAP 6 mmol/L (5-15); CALCIUM 8.6 mg/dL (8.5-10.1); CHLORIDE 103 mmol/L (98-107)
[2019-12-22 04:45] LABS: ALKALINE PHOSPHATASE 69 U/L (45-117); BILIRUBIN,TOTAL 0.2 mg/dL (0.2-1.0)
[2019-12-22] MEDS: AMOXICILLIN/CLAV 875-125MG TABLET PO SCH ×2 (04:59→17:21)
[2019-12-22] MEDS: ASPIRIN 81 MG TABLET EC PO SCH (05:00)
[2019-12-22 05:03] LABS: BASOPHILS # (AUTO) 0.02 x10^3/uL (0-0.1); BASOPHILS % (AUTO) 0 % (0-1); EOSINOPHILS # (AUTO) 0.31 x10^3/uL (0-0.4); EOSINOPHILS % (AUTO) 6 % (1-7); LYMPHOCYTES % (AUTO) 44 % (22-44); MD MORPH REVIEW ONLY; MONOCYTES # (AUTO) 0.61 x10^3/uL (0.2-0.8); MONOCYTES % (AUTO) 12 % (2-9); NEUTROPHILS % (AUTO) 38 % (42-75)
[2019-12-22 05:05] LABS: ANISOCYTOSIS 1+; MICROCYTOSIS 1+; OVALOCYTES 1+; POLYCHROMASIA 1+
[2019-12-22 05:06] LABS: ECHINOCYTES 1+; SCHISTOCYTES 1+; TARGET CELLS 1+
[2019-12-22 05:07] LABS: <PLATELET ESTIMATE> INCREASED; <PLT MORPHOLOGY> NORMAL PLT MORPH
[2019-12-22 07:14] VITALS: BP 108/72
[2019-12-22] MEDS: ENOXAPARIN 40 MG/0.4 ML SQ SCH (09:00)
[2019-12-22] MEDS: FERROUS SULFATE 325 MG TABLET PO SCH (09:08)
[2019-12-22] MEDS: DOXYCYCLINE 100MG CAP PO SCH ×2 (09:08→21:06)
[2019-12-22] MEDS: ZIPRASIDONE 40MG CAPSULE PO SCH ×2 (09:08→21:05)
[2019-12-22] MEDS: GABAPENTIN 300 MG CAPSULE PO SCH ×3 (09:08→21:05)
[2019-12-22] MEDS: DAKIN'S SOLUTION 1/4 STRENGTH 1,000 ML IRRIG SOLN EXT SCH (09:12)
[2019-12-22 13:03] VITALS: BP 112/73
[2019-12-22 19:21] VITALS: BP 124/73
[2019-12-23 00:13] VITALS: BP 107/71
[2019-12-23] MEDS: MORPHINE SULFATE 4 MG/ML, 1ML IVPush PRN ×4 (03:15→22:05)
[2019-12-23 04:34] LABS: MEAN CORPUSCULAR HEMOGLOBIN 21.5 pg (27.0-34.8); MEAN CORPUSCULAR HGB CONC 30.1 g/dL (32.4-35.8); MEAN CORPUSCULAR VOLUME 71.4 fL (80-100); PLATELET COUNT 721 x10^3/uL (130-400); RED BLOOD COUNT 3.37 x10^6/uL (3.82-5.3)
[2019-12-23 04:54] LABS: MD YES
[2019-12-23 04:59] LABS: ANISOCYTOSIS 1+; BASOS#(MANUAL) 0.15 x10^3/uL (0-0.1); BASOS% (MANUAL) 3 % (0-1); ECHINOCYTES 1+; EOS#(MANUAL) 0.26 x10^3/uL (0.0-0.4); EOS% (MANUAL) 5 % (1-7); LYMPHS% (MANUAL) 45 % (22-44); MONOS#(MANUAL) 0.77 x10^3/uL (0.3-2.7); MONOS% (MANUAL) 15 % (2-9); OVALOCYTES 1+; POLYCHROMASIA 1+; SCHISTOCYTES 1+; SEG#(MANUAL) 1.63 x10^3/uL (1.8-6.8); SEGS% (MANUAL) 32 % (42-75); TARGET CELLS 1+
[2019-12-23 05:00] LABS: <PLATELET ESTIMATE> INCREASED; <PLT MORPHOLOGY> NORMAL PLT MORPH
[2019-12-23] MEDS: AMOXICILLIN/CLAV 875-125MG TABLET PO SCH ×2 (05:35→17:40)
[2019-12-23] MEDS: ASPIRIN 81 MG TABLET EC PO SCH (05:36)
[2019-12-23 07:50] VITALS: BP 101/63
[2019-12-23] MEDS: ENOXAPARIN 40 MG/0.4 ML SQ SCH (09:00)
[2019-12-23] MEDS: DOXYCYCLINE 100MG CAP PO SCH ×2 (09:05→22:03)
[2019-12-23] MEDS: GABAPENTIN 300 MG CAPSULE PO SCH ×3 (09:06→22:04)
[2019-12-23] MEDS: ZIPRASIDONE 40MG CAPSULE PO SCH ×2 (09:07→22:04)
[2019-12-23] MEDS: DAKIN'S SOLUTION 1/4 STRENGTH 1,000 ML IRRIG SOLN EXT SCH (09:08)
[2019-12-23 13:25] VITALS: BP 98/64
[2019-12-23 19:32] VITALS: BP 115/79
[2019-12-24 01:43] VITALS: BP 114/73
[2019-12-24] MEDS: MORPHINE SULFATE 4 MG/ML, 1ML IVPush PRN ×2 (03:06→19:53)
[2019-12-24] MEDS: ACETAMINOPHEN 500 MG TABLET PO PRN (04:30)
[2019-12-24] MEDS: AMOXICILLIN/CLAV 875-125MG TABLET PO SCH ×2 (06:28→16:55)
[2019-12-24] MEDS: ASPIRIN 81 MG TABLET EC PO SCH (06:28)
[2019-12-24] MEDS: ENOXAPARIN 40 MG/0.4 ML SQ SCH (07:09)
[2019-12-24 07:11] VITALS: BP 96/58
[2019-12-24] MEDS: DOXYCYCLINE 100MG CAP PO SCH ×2 (11:24→21:40)
[2019-12-24] MEDS: DAKIN'S SOLUTION 1/4 STRENGTH 1,000 ML IRRIG SOLN EXT SCH (11:24)
[2019-12-24] MEDS: ZIPRASIDONE 40MG CAPSULE PO SCH ×2 (11:25→21:39)
[2019-12-24] MEDS: GABAPENTIN 300 MG CAPSULE PO SCH ×3 (11:25→21:40)
[2019-12-24] MEDS: FERROUS SULFATE 325 MG TABLET PO SCH (11:28)
[2019-12-24 13:50] VITALS: BP 103/71
[2019-12-24] MEDS: OXYcodone IR 5MG TABLET PO PRN (15:26)
[2019-12-24 20:27] VITALS: BP 103/68
[2019-12-24 21:38] VITALS: BP 103/70
[2019-12-25 00:24] VITALS: BP 93/59
[2019-12-25] MEDS: ACETAMINOPHEN 500 MG TABLET PO PRN (04:17)
[2019-12-25 04:19] VITALS: BP 94/62
[2019-12-25] MEDS: OXYcodone IR 5MG TABLET PO PRN (04:22)
[2019-12-25] MEDS: ASPIRIN 81 MG TABLET EC PO SCH (06:27)
[2019-12-25] MEDS: AMOXICILLIN/CLAV 875-125MG TABLET PO SCH ×2 (06:27→17:53)
[2019-12-25] MEDS: MORPHINE SULFATE 4 MG/ML, 1ML IVPush PRN ×3 (07:19→20:03)
[2019-12-25 08:01] VITALS: BP 94/62
[2019-12-25] MEDS: DAKIN'S SOLUTION 1/4 STRENGTH 1,000 ML IRRIG SOLN EXT SCH (09:00)
[2019-12-25] MEDS: ZIPRASIDONE 40MG CAPSULE PO SCH ×2 (09:29→21:16)
[2019-12-25] MEDS: GABAPENTIN 300 MG CAPSULE PO SCH ×3 (09:30→21:16)
[2019-12-25] MEDS: DOXYCYCLINE 100MG CAP PO SCH ×2 (09:30→21:16)
[2019-12-25] MEDS: ENOXAPARIN 40 MG/0.4 ML SQ SCH (09:30)
[2019-12-25 14:39] VITALS: BP 90/61
[2019-12-25 20:50] VITALS: BP 126/76
[2019-12-26 00:19] VITALS: BP 101/68
[2019-12-26] MEDS: ACETAMINOPHEN 500 MG TABLET PO PRN (00:48)
[2019-12-26 05:16] VITALS: BP 120/78
[2019-12-26] MEDS: MORPHINE SULFATE 4 MG/ML, 1ML IVPush PRN ×3 (05:16→20:16)
[2019-12-26] MEDS: AMOXICILLIN/CLAV 875-125MG TABLET PO SCH ×2 (05:50→18:12)
[2019-12-26] MEDS: ASPIRIN 81 MG TABLET EC PO SCH (05:50)
[2019-12-26 06:35] VITALS: BP 111/77
[2019-12-26] MEDS: FERROUS SULFATE 325 MG TABLET PO SCH (08:47)
[2019-12-26] MEDS: DAKIN'S SOLUTION 1/4 STRENGTH 1,000 ML IRRIG SOLN EXT SCH (08:47)
[2019-12-26] MEDS: GABAPENTIN 300 MG CAPSULE PO SCH ×3 (08:48→19:54)
[2019-12-26] MEDS: ZIPRASIDONE 40MG CAPSULE PO SCH ×2 (08:48→19:55)
[2019-12-26] MEDS: ENOXAPARIN 40 MG/0.4 ML SQ SCH (08:48)
[2019-12-26] MEDS: DOXYCYCLINE 100MG CAP PO SCH ×2 (08:48→19:55)
[2019-12-26 14:39] VITALS: BP 107/72
[2019-12-26 20:00] VITALS: BP 98/64
[2019-12-27 02:30] VITALS: BP 110/81
[2019-12-27] MEDS: MORPHINE SULFATE 4 MG/ML, 1ML IVPush PRN ×4 (03:58→21:11)
[2019-12-27 04:02] VITALS: BP 110/67
[2019-12-27] MEDS: ASPIRIN 81 MG TABLET EC PO SCH (06:07)
[2019-12-27] MEDS: AMOXICILLIN/CLAV 875-125MG TABLET PO SCH ×2 (06:07→17:04)
[2019-12-27 08:45] VITALS: BP 101/66
[2019-12-27] MEDS: ENOXAPARIN 40 MG/0.4 ML SQ SCH (09:00)
[2019-12-27] MEDS: DAKIN'S SOLUTION 1/4 STRENGTH 1,000 ML IRRIG SOLN EXT SCH (09:00)
[2019-12-27] MEDS: ZIPRASIDONE 40MG CAPSULE PO SCH ×2 (11:29→21:10)
[2019-12-27] MEDS: DOXYCYCLINE 100MG CAP PO SCH ×2 (11:29→21:11)
[2019-12-27] MEDS: FERROUS SULFATE 325 MG TABLET PO SCH (11:29)
[2019-12-27] MEDS: GABAPENTIN 300 MG CAPSULE PO SCH ×3 (11:29→21:10)
[2019-12-27 13:53] VITALS: BP 95/64
[2019-12-27 19:35] VITALS: BP 96/57
[2019-12-28 01:14] VITALS: BP 111/74
[2019-12-28] MEDS: MORPHINE SULFATE 4 MG/ML, 1ML IVPush PRN ×4 (02:00→20:57)
[2019-12-28] MEDS: AMOXICILLIN/CLAV 875-125MG TABLET PO SCH ×2 (06:18→17:09)
[2019-12-28] MEDS: ASPIRIN 81 MG TABLET EC PO SCH (06:18)
[2019-12-28] MEDS: DAKIN'S SOLUTION 1/4 STRENGTH 1,000 ML IRRIG SOLN EXT SCH (07:10)
[2019-12-28 07:23] VITALS: BP 106/74
[2019-12-28] MEDS: DOXYCYCLINE 100MG CAP PO SCH ×2 (08:37→20:37)
[2019-12-28] MEDS: ENOXAPARIN 40 MG/0.4 ML SQ SCH (08:37)
[2019-12-28] MEDS: GABAPENTIN 300 MG CAPSULE PO SCH ×3 (08:37→20:38)
[2019-12-28] MEDS: ZIPRASIDONE 40MG CAPSULE PO SCH ×2 (08:38→20:38)
[2019-12-28 14:21] VITALS: BP 104/69
[2019-12-28] MEDS: ACETAMINOPHEN 500 MG TABLET PO PRN (15:46)
[2019-12-28 19:41] VITALS: BP 104/71
[2019-12-29] MEDS: MORPHINE SULFATE 4 MG/ML, 1ML IVPush PRN ×4 (03:06→20:47)
[2019-12-29 04:55] VITALS: BP 109/71
[2019-12-29] MEDS: AMOXICILLIN/CLAV 875-125MG TABLET PO SCH ×2 (05:47→16:39)
[2019-12-29] MEDS: ASPIRIN 81 MG TABLET EC PO SCH (05:47)
[2019-12-29] MEDS: OXYcodone IR 5MG TABLET PO PRN (05:50)
[2019-12-29] MEDS: DAKIN'S SOLUTION 1/4 STRENGTH 1,000 ML IRRIG SOLN EXT SCH (07:21)
[2019-12-29] MEDS: ZIPRASIDONE 40MG CAPSULE PO SCH ×2 (08:23→20:48)
[2019-12-29] MEDS: DOXYCYCLINE 100MG CAP PO SCH ×2 (08:23→20:48)
[2019-12-29] MEDS: ENOXAPARIN 40 MG/0.4 ML SQ SCH (08:23)
[2019-12-29] MEDS: GABAPENTIN 300 MG CAPSULE PO SCH ×3 (08:24→20:48)
[2019-12-29 15:10] VITALS: BP 99/67
[2019-12-29 20:52] VITALS: BP 104/68
[2019-12-30] MEDS: MORPHINE SULFATE 4 MG/ML, 1ML IVPush PRN ×4 (02:13→22:59)
[2019-12-30 02:16] VITALS: BP 115/76
[2019-12-30 05:02] LABS: HCT (SEDRATE) 26.6 % (34.6-47.8)
[2019-12-30 05:12] LABS: MEAN CORPUSCULAR HEMOGLOBIN 21.3 pg (27.0-34.8); MEAN CORPUSCULAR HGB CONC 30.4 g/dL (32.4-35.8); MEAN PLATELET VOLUME 6.5 fL (7.4-10.4); PLATELET COUNT 879 x10^3/uL (130-400); RED BLOOD COUNT 3.82 x10^6/uL (3.82-5.3); RED CELL DISTRIBUTION WIDTH 18.6 % (9.6-15.2)
[2019-12-30 05:18] LABS: CHLORIDE 104 mmol/L (98-107)
[2019-12-30 05:36] LABS: ALANINE AMINOTRANSFERASE 10 U/L (12-78); ALBUMIN 2.4 g/dL (3.4-5.0); ALKALINE PHOSPHATASE 73 U/L (45-117); ANION GAP 7 mmol/L (5-15); BILIRUBIN,TOTAL 0.3 mg/dL (0.2-1.0); CALCIUM 8.8 mg/dL (8.5-10.1); CREATINE KINASE, TOTAL 26 U/L (26-192); CREATININE 0.76 mg/dL (0.55-1.02); TOTAL PROTEIN 7.2 g/dL (6.4-8.2)
[2019-12-30] MEDS: AMOXICILLIN/CLAV 875-125MG TABLET PO SCH ×2 (05:39→13:47)
[2019-12-30] MEDS: ASPIRIN 81 MG TABLET EC PO SCH (05:39)
[2019-12-30] MEDS: OXYcodone IR 5MG TABLET PO PRN ×2 (05:39→13:47)
[2019-12-30 05:49] LABS: BASOPHILS % (AUTO) 0 % (0-1); EOSINOPHILS # (AUTO) 0.31 x10^3/uL (0-0.4); EOSINOPHILS % (AUTO) 5 % (1-7); LYMPHOCYTES # (AUTO) 2.46 x10^3/uL (1-3.4); LYMPHOCYTES % (AUTO) 42 % (22-44); MD MORPH REVIEW ONLY; MONOCYTES # (AUTO) 0.83 x10^3/uL (0.2-0.8); MONOCYTES % (AUTO) 14 % (2-9); NEUTROPHILS # (AUTO) 2.29 x10^3/uL (1.8-6.8); NEUTROPHILS % (AUTO) 39 % (42-75)
[2019-12-30 05:50] LABS: ANISOCYTOSIS 1+; HYPOCHROMIA 1+; MICROCYTOSIS 1+; OVALOCYTES 1+; POLYCHROMASIA 1+
[2019-12-30 05:51] LABS: ECHINOCYTES 1+
[2019-12-30 05:52] LABS: <PLATELET ESTIMATE> INCREASED; <PLT MORPHOLOGY> NORMAL PLT MORPH; SCHISTOCYTES 1+
[2019-12-30 07:49] VITALS: BP 103/67
[2019-12-30] MEDS: ZIPRASIDONE 40MG CAPSULE PO SCH ×2 (08:43→21:22)
[2019-12-30] MEDS: GABAPENTIN 300 MG CAPSULE PO SCH ×3 (08:43→22:47)
[2019-12-30] MEDS: DOXYCYCLINE 100MG CAP PO SCH ×2 (08:43→21:22)
[2019-12-30] MEDS: FERROUS SULFATE 325 MG TABLET PO SCH (08:43)
[2019-12-30] MEDS: DAKIN'S SOLUTION 1/4 STRENGTH 1,000 ML IRRIG SOLN EXT SCH (08:48)
[2019-12-30] MEDS: ENOXAPARIN 40 MG/0.4 ML SQ SCH ×2 (09:00→13:48)
[2019-12-30 13:45] VITALS: BP 98/65
[2019-12-30 20:10] VITALS: BP 103/69
[2019-12-31 01:41] VITALS: BP 91/62
[2019-12-31 03:02] VITALS: BP 100/66
[2019-12-31] MEDS: AMOXICILLIN/CLAV 875-125MG TABLET PO SCH ×2 (04:32→16:39)
[2019-12-31] MEDS: DAKIN'S SOLUTION 1/4 STRENGTH 1,000 ML IRRIG SOLN EXT SCH (04:34)
[2019-12-31 04:35] VITALS: BP 108/69
[2019-12-31] MEDS: MORPHINE SULFATE 4 MG/ML, 1ML IVPush PRN ×3 (04:40→21:38)
[2019-12-31] MEDS: ASPIRIN 81 MG TABLET EC PO SCH (05:42)
[2019-12-31 07:46] VITALS: BP 105/69
[2019-12-31] MEDS: ENOXAPARIN 40 MG/0.4 ML SQ SCH (09:00)
[2019-12-31] MEDS: GABAPENTIN 300 MG CAPSULE PO SCH ×3 (11:04→21:38)
[2019-12-31] MEDS: ZIPRASIDONE 40MG CAPSULE PO SCH ×2 (11:05→21:38)
[2019-12-31] MEDS: FERROUS SULFATE 325 MG TABLET PO SCH (11:05)
[2019-12-31] MEDS: DOXYCYCLINE 100MG CAP PO SCH ×2 (11:05→21:38)
[2019-12-31 13:23] VITALS: BP 100/68
[2019-12-31 18:36] VITALS: BP 102/63
[2020-01-01 02:01] VITALS: BP 103/70
[2020-01-01] MEDS: MORPHINE SULFATE 4 MG/ML, 1ML IVPush PRN ×2 (03:41→20:19)
[2020-01-01] MEDS: AMOXICILLIN/CLAV 875-125MG TABLET PO SCH ×3 (03:41→15:00)
[2020-01-01] MEDS: ASPIRIN 81 MG TABLET EC PO SCH (05:51)
[2020-01-01 08:30] VITALS: BP 103/71
[2020-01-01] MEDS: ENOXAPARIN 40 MG/0.4 ML SQ SCH (09:00)
[2020-01-01] MEDS: DAKIN'S SOLUTION 1/4 STRENGTH 1,000 ML IRRIG SOLN EXT SCH (09:00)
[2020-01-01] MEDS: ZIPRASIDONE 40MG CAPSULE PO SCH ×2 (11:20→20:10)
[2020-01-01] MEDS: DOXYCYCLINE 100MG CAP PO SCH ×2 (11:21→20:10)
[2020-01-01] MEDS: GABAPENTIN 300 MG CAPSULE PO SCH ×3 (11:21→20:10)
[2020-01-01] MEDS: IBUPROFEN 600 MG TABLET PO PRN (12:14)
[2020-01-01] MEDS: OXYcodone IR 5MG TABLET PO PRN (12:15)
[2020-01-01 16:45] VITALS: BP 93/64
[2020-01-01 21:09] VITALS: BP 98/66
[2020-01-02] MEDS: MORPHINE SULFATE 4 MG/ML, 1ML IVPush PRN ×4 (00:18→20:17)
[2020-01-02 03:06] VITALS: BP 113/75
[2020-01-02] MEDS: AMOXICILLIN/CLAV 875-125MG TABLET PO SCH ×2 (03:10→15:05)
[2020-01-02] MEDS: ASPIRIN 81 MG TABLET EC PO SCH (05:33)
[2020-01-02] MEDS: DAKIN'S SOLUTION 1/4 STRENGTH 1,000 ML IRRIG SOLN EXT SCH (07:09)
[2020-01-02] MEDS: ENOXAPARIN 40 MG/0.4 ML SQ SCH (08:27)
[2020-01-02] MEDS: ZIPRASIDONE 40MG CAPSULE PO SCH ×2 (08:30→20:16)
[2020-01-02] MEDS: GABAPENTIN 300 MG CAPSULE PO SCH ×3 (08:30→20:16)
[2020-01-02] MEDS: DOXYCYCLINE 100MG CAP PO SCH ×2 (08:30→20:16)
[2020-01-02 08:43] VITALS: BP 102/68
[2020-01-02 14:07] VITALS: BP 108/72
[2020-01-02 20:10] VITALS: BP 107/74
[2020-01-02] MEDS: OXYcodone IR 5MG TABLET PO PRN (23:02)
[2020-01-03 00:48] VITALS: BP 103/70
[2020-01-03] MEDS: AMOXICILLIN/CLAV 875-125MG TABLET PO SCH ×2 (02:37→14:57)
[2020-01-03] MEDS: MORPHINE SULFATE 4 MG/ML, 1ML IVPush PRN ×4 (02:38→17:29)
[2020-01-03] MEDS: ASPIRIN 81 MG TABLET EC PO SCH (05:19)
[2020-01-03 07:40] VITALS: BP 100/65
[2020-01-03] MEDS: DAKIN'S SOLUTION 1/4 STRENGTH 1,000 ML IRRIG SOLN EXT SCH (07:57)
[2020-01-03] MEDS: DOXYCYCLINE 100MG CAP PO SCH ×2 (07:57→20:25)
[2020-01-03] MEDS: ZIPRASIDONE 40MG CAPSULE PO SCH ×2 (07:58→20:25)
[2020-01-03] MEDS: FERROUS SULFATE 325 MG TABLET PO SCH (07:58)
[2020-01-03] MEDS: GABAPENTIN 300 MG CAPSULE PO SCH ×3 (07:58→20:25)
[2020-01-03] MEDS: ENOXAPARIN 40 MG/0.4 ML SQ SCH (07:58)
[2020-01-03] MEDS: OXYcodone IR 5MG TABLET PO PRN (10:00)
[2020-01-03 14:41] VITALS: BP 109/68
[2020-01-03 18:48] VITALS: BP 113/77
[2020-01-03 23:28] VITALS: BP 121/80
[2020-01-04 00:37] VITALS: BP 121/80
[2020-01-04] MEDS: MORPHINE SULFATE 4 MG/ML, 1ML IVPush PRN ×4 (01:46→19:27)
[2020-01-04] MEDS: AMOXICILLIN/CLAV 875-125MG TABLET PO SCH ×2 (02:37→16:38)
[2020-01-04] MEDS: ASPIRIN 81 MG TABLET EC PO SCH (05:03)
[2020-01-04 06:14] LABS: CHLORIDE 100 mmol/L (98-107)
[2020-01-04 06:21] LABS: MEAN CORPUSCULAR HEMOGLOBIN 21.2 pg (27.0-34.8); MEAN CORPUSCULAR HGB CONC 30.7 g/dL (32.4-35.8); MEAN CORPUSCULAR VOLUME 69.2 fL (80-100); MEAN PLATELET VOLUME 6.8 fL (7.4-10.4); PLATELET COUNT 665 x10^3/uL (130-400); RED BLOOD COUNT 3.94 x10^6/uL (3.82-5.3); RED CELL DISTRIBUTION WIDTH 18.8 % (9.6-15.2)
[2020-01-04 06:26] LABS: ALBUMIN 2.5 g/dL (3.4-5.0); ALKALINE PHOSPHATASE 78 U/L (45-117); ANION GAP 7 mmol/L (5-15); BILIRUBIN,TOTAL 0.1 mg/dL (0.2-1.0); CALCIUM 8.9 mg/dL (8.5-10.1); CREATINE KINASE, TOTAL 27 U/L (26-192); CREATININE 0.75 mg/dL (0.55-1.02); TOTAL PROTEIN 7.2 g/dL (6.4-8.2)
[2020-01-04 06:31] LABS: ALANINE AMINOTRANSFERASE < 6 U/L (12-78)
[2020-01-04 06:49] LABS: HCT (SEDRATE) 27.2 % (34.6-47.8)
[2020-01-04 07:32] VITALS: BP 96/66
[2020-01-04 07:35] LABS: MD YES
[2020-01-04 07:37] LABS: <PLATELET ESTIMATE> INCREASED; <PLT MORPHOLOGY> NORMAL PLT MORPH; ANISOCYTOSIS 1+; ECHINOCYTES 1+; EOS% (MANUAL) 2 % (1-7); HYPOCHROMIA 1+; LYMPH#(MANUAL) 1.92 x10^3/uL (1-3.4); LYMPHS% (MANUAL) 37 % (22-44); MICROCYTOSIS 1+; MONOS#(MANUAL) 0.42 x10^3/uL (0.3-2.7); MONOS% (MANUAL) 8 % (2-9); OVALOCYTES 1+; POLYCHROMASIA 1+; SCHISTOCYTES 1+; SEG#(MANUAL) 2.76 x10^3/uL (1.8-6.8); SEGS% (MANUAL) 53 % (42-75)
[2020-01-04] MEDS: ENOXAPARIN 40 MG/0.4 ML SQ SCH (09:00)
[2020-01-04] MEDS: ZIPRASIDONE 40MG CAPSULE PO SCH ×2 (10:07→19:58)
[2020-01-04] MEDS: GABAPENTIN 300 MG CAPSULE PO SCH ×3 (10:07→19:58)
[2020-01-04] MEDS: DOXYCYCLINE 100MG CAP PO SCH ×2 (10:07→19:58)
[2020-01-04 10:09] VITALS: BP 102/70
[2020-01-04] MEDS: DAKIN'S SOLUTION 1/4 STRENGTH 1,000 ML IRRIG SOLN EXT SCH (10:09)
[2020-01-04 14:09] VITALS: BP 101/67
[2020-01-04 20:25] VITALS: BP 97/67
[2020-01-05 00:50] VITALS: BP 90/66
[2020-01-05] MEDS: AMOXICILLIN/CLAV 875-125MG TABLET PO SCH ×2 (03:59→16:59)
[2020-01-05] MEDS: MORPHINE SULFATE 4 MG/ML, 1ML IVPush PRN ×5 (04:46→22:35)
[2020-01-05] MEDS: ASPIRIN 81 MG TABLET EC PO SCH (05:36)
[2020-01-05 07:16] VITALS: BP 96/66
[2020-01-05] MEDS: ZIPRASIDONE 40MG CAPSULE PO SCH ×2 (08:57→20:23)
[2020-01-05] MEDS: DOXYCYCLINE 100MG CAP PO SCH ×2 (08:57→20:23)
[2020-01-05] MEDS: FERROUS SULFATE 325 MG TABLET PO SCH (08:58)
[2020-01-05] MEDS: GABAPENTIN 300 MG CAPSULE PO SCH ×3 (08:58→20:23)
[2020-01-05] MEDS: ENOXAPARIN 40 MG/0.4 ML SQ SCH (08:59)
[2020-01-05 13:19] VITALS: BP 108/74
[2020-01-05] MEDS: DAKIN'S SOLUTION 1/4 STRENGTH 1,000 ML IRRIG SOLN EXT SCH (14:04)
[2020-01-05 19:19] VITALS: BP 100/70
[2020-01-05] MEDS: OXYcodone IR 5MG TABLET PO PRN (20:23)
[2020-01-06 01:48] VITALS: BP 114/76
[2020-01-06] MEDS: MORPHINE SULFATE 4 MG/ML, 1ML IVPush PRN ×3 (02:27→22:12)
[2020-01-06] MEDS: AMOXICILLIN/CLAV 875-125MG TABLET PO SCH ×2 (04:20→16:49)
[2020-01-06] MEDS: ASPIRIN 81 MG TABLET EC PO SCH (05:48)
[2020-01-06 07:49] VITALS: BP 109/63
[2020-01-06] MEDS: DAKIN'S SOLUTION 1/4 STRENGTH 1,000 ML IRRIG SOLN EXT SCH (09:00)
[2020-01-06] MEDS: ENOXAPARIN 40 MG/0.4 ML SQ SCH (09:10)
[2020-01-06] MEDS: IBUPROFEN 600 MG TABLET PO PRN (11:18)
[2020-01-06] MEDS: OXYcodone IR 5MG TABLET PO PRN (11:18)
[2020-01-06] MEDS: DOXYCYCLINE 100MG CAP PO SCH ×2 (11:18→22:07)
[2020-01-06] MEDS: GABAPENTIN 300 MG CAPSULE PO SCH ×3 (11:18→22:07)
[2020-01-06] MEDS: ZIPRASIDONE 40MG CAPSULE PO SCH ×2 (11:18→22:07)
[2020-01-06] MEDS: METOPROLOL TARTRATE 25 MG TAB PO SCH ×2 (11:19→16:01)
[2020-01-06 13:27] VITALS: BP 90/65
[2020-01-06 19:03] VITALS: BP 104/71
[2020-01-07 01:17] VITALS: BP 111/76
[2020-01-07] MEDS: ACETAMINOPHEN 500 MG TABLET PO PRN (01:47)
[2020-01-07] MEDS: AMOXICILLIN/CLAV 875-125MG TABLET PO SCH ×2 (04:08→16:23)
[2020-01-07] MEDS: METOPROLOL TARTRATE 25 MG TAB PO SCH (06:00)
[2020-01-07 06:18] VITALS: BP 88/59
[2020-01-07] MEDS: ASPIRIN 81 MG TABLET EC PO SCH (06:22)
[2020-01-07 08:16] VITALS: BP 96/67
[2020-01-07] MEDS: ENOXAPARIN 40 MG/0.4 ML SQ SCH (09:00)
[2020-01-07] MEDS: DOXYCYCLINE 100MG CAP PO SCH ×2 (09:16→21:17)
[2020-01-07] MEDS: ZIPRASIDONE 40MG CAPSULE PO SCH ×2 (09:17→21:17)
[2020-01-07] MEDS: FERROUS SULFATE 325 MG TABLET PO SCH (09:18)
[2020-01-07] MEDS: GABAPENTIN 300 MG CAPSULE PO SCH ×3 (09:18→21:18)
[2020-01-07] MEDS: MORPHINE SULFATE 4 MG/ML, 1ML IVPush PRN ×3 (09:19→21:19)
[2020-01-07] MEDS: DAKIN'S SOLUTION 1/4 STRENGTH 1,000 ML IRRIG SOLN EXT SCH (09:19)
[2020-01-07 13:36] VITALS: BP 101/68
[2020-01-07 18:55] VITALS: BP 103/70
[2020-01-07] MEDS ORDERED: CATHFLO-ALTEPLASE 2 MG/2 ML CATHFLUSH ONE (23:00)
[2020-01-08 00:34] VITALS: BP 110/74
[2020-01-08] MEDS: OXYcodone IR 5MG TABLET PO PRN (00:55)
[2020-01-08] MEDS ORDERED: CATHFLO-ALTEPLASE 2 MG/2 ML CATHFLUSH ONE (03:30)
[2020-01-08] MEDS: AMOXICILLIN/CLAV 875-125MG TABLET PO SCH ×2 (04:30→16:15)
[2020-01-08 05:02] LABS: ALBUMIN 2.1 g/dL (3.4-5.0); ANION GAP 8 mmol/L (5-15); CALCIUM 8.6 mg/dL (8.5-10.1); CHLORIDE 103 mmol/L (98-107)
[2020-01-08 05:06] LABS: ALANINE AMINOTRANSFERASE 8 U/L (12-78); ALKALINE PHOSPHATASE 72 U/L (45-117); BILIRUBIN,TOTAL 0.2 mg/dL (0.2-1.0); CREATININE 0.78 mg/dL (0.55-1.02); TOTAL PROTEIN 6.3 g/dL (6.4-8.2)
[2020-01-08 05:27] LABS: MEAN CORPUSCULAR HEMOGLOBIN 21.4 pg (27.0-34.8); MEAN CORPUSCULAR VOLUME 69.1 fL (80-100); MEAN PLATELET VOLUME 6.7 fL (7.4-10.4); PLATELET COUNT 565 x10^3/uL (130-400); RED BLOOD COUNT 3.56 x10^6/uL (3.82-5.3); RED CELL DISTRIBUTION WIDTH 19.2 % (9.6-15.2)
[2020-01-08] MEDS: ASPIRIN 81 MG TABLET EC PO SCH (05:50)
[2020-01-08] MEDS: MORPHINE SULFATE 4 MG/ML, 1ML IVPush PRN ×3 (05:50→15:12)
[2020-01-08 05:54] LABS: MD YES
[2020-01-08 05:55] LABS: EOS#(MANUAL) 0.12 x10^3/uL (0.0-0.4); EOS% (MANUAL) 2 % (1-7); LYMPH#(MANUAL) 2.32 x10^3/uL (1-3.4); LYMPHS% (MANUAL) 40 % (22-44); MONOS#(MANUAL) 0.64 x10^3/uL (0.3-2.7); MONOS% (MANUAL) 11 % (2-9); SEG#(MANUAL) 2.73 x10^3/uL (1.8-6.8); SEGS% (MANUAL) 47 % (42-75)
[2020-01-08 05:56] LABS: <PLATELET ESTIMATE> INCREASED; <PLT MORPHOLOGY> NORMAL PLT MORPH; ANISOCYTOSIS 1+; ECHINOCYTES 1+; HYPOCHROMIA 1+; MICROCYTOSIS 1+; OVALOCYTES 1+; POLYCHROMASIA 1+; SCHISTOCYTES 1+
[2020-01-08 06:28] VITALS: BP 106/70
[2020-01-08] MEDS ORDERED: POTASSIUM CHLORIDE 20 MEQ TAB.ER.PRT PO ONE (08:00)
[2020-01-08] MEDS: ENOXAPARIN 40 MG/0.4 ML SQ SCH (09:00)
[2020-01-08] MEDS: DOXYCYCLINE 100MG CAP PO SCH ×2 (09:18→20:25)
[2020-01-08] MEDS: ZIPRASIDONE 40MG CAPSULE PO SCH ×2 (09:19→20:25)
[2020-01-08] MEDS: GABAPENTIN 300 MG CAPSULE PO SCH ×3 (09:19→20:25)
[2020-01-08] MEDS: DAKIN'S SOLUTION 1/4 STRENGTH 1,000 ML IRRIG SOLN EXT SCH (09:20)
[2020-01-08 14:37] VITALS: BP 107/67
[2020-01-08 19:03] VITALS: BP 107/72
[2020-01-09] MEDS: MORPHINE SULFATE 4 MG/ML, 1ML IVPush PRN ×5 (00:44→19:00)
[2020-01-09 01:16] VITALS: BP 95/63
[2020-01-09 04:13] VITALS: BP 102/68
[2020-01-09] MEDS: AMOXICILLIN/CLAV 875-125MG TABLET PO SCH ×2 (04:17→16:00)
[2020-01-09] MEDS: ACETAMINOPHEN 500 MG TABLET PO PRN (04:17)
[2020-01-09 05:11] LABS: ANION GAP 5 mmol/L (5-15); CALCIUM 8.7 mg/dL (8.5-10.1); CHLORIDE 104 mmol/L (98-107); CREATININE 0.78 mg/dL (0.55-1.02)
[2020-01-09] MEDS: ASPIRIN 81 MG TABLET EC PO SCH (05:18)
[2020-01-09 08:40] VITALS: BP 91/60
[2020-01-09] MEDS: DAKIN'S SOLUTION 1/4 STRENGTH 1,000 ML IRRIG SOLN EXT SCH (09:00)
[2020-01-09] MEDS: ENOXAPARIN 40 MG/0.4 ML SQ SCH (09:00)
[2020-01-09] MEDS: DOXYCYCLINE 100MG CAP PO SCH ×2 (10:16→22:00)
[2020-01-09] MEDS: FERROUS SULFATE 325 MG TABLET PO SCH (10:16)
[2020-01-09] MEDS: ZIPRASIDONE 40MG CAPSULE PO SCH ×2 (10:16→22:00)
[2020-01-09] MEDS: GABAPENTIN 300 MG CAPSULE PO SCH ×3 (10:16→22:00)
[2020-01-09 10:19] VITALS: BP 101/63
[2020-01-09 14:36] VITALS: BP 102/69
[2020-01-09 19:15] VITALS: BP 114/71
[2020-01-10 01:20] VITALS: BP 102/68
[2020-01-10] MEDS: AMOXICILLIN/CLAV 875-125MG TABLET PO SCH ×2 (04:28→17:50)
[2020-01-10] MEDS: MORPHINE SULFATE 4 MG/ML, 1ML IVPush PRN ×2 (04:29→12:24)
[2020-01-10] MEDS: ASPIRIN 81 MG TABLET EC PO SCH (05:25)
[2020-01-10 07:40] VITALS: BP 96/68
[2020-01-10] MEDS: ENOXAPARIN 40 MG/0.4 ML SQ SCH (09:00)
[2020-01-10] MEDS: DOXYCYCLINE 100MG CAP PO SCH ×2 (09:53→20:09)
[2020-01-10] MEDS: ZIPRASIDONE 40MG CAPSULE PO SCH ×2 (09:53→20:09)
[2020-01-10] MEDS: GABAPENTIN 300 MG CAPSULE PO SCH ×3 (09:54→20:09)
[2020-01-10] MEDS: DAKIN'S SOLUTION 1/4 STRENGTH 1,000 ML IRRIG SOLN EXT SCH (12:24)
[2020-01-10 12:46] VITALS: BP 106/74
[2020-01-10 19:00] VITALS: BP 127/84
[2020-01-11 00:54] VITALS: BP 103/72
[2020-01-11] MEDS: AMOXICILLIN/CLAV 875-125MG TABLET PO SCH ×2 (03:53→16:49)
[2020-01-11] MEDS: OXYcodone IR 5MG TABLET PO PRN ×2 (03:54→10:27)
[2020-01-11] MEDS: MORPHINE SULFATE 4 MG/ML, 1ML IVPush PRN ×3 (04:02→21:03)
[2020-01-11] MEDS: ASPIRIN 81 MG TABLET EC PO SCH (06:15)
[2020-01-11 08:19] VITALS: BP 100/65
[2020-01-11] MEDS: ENOXAPARIN 40 MG/0.4 ML SQ SCH (09:00)
[2020-01-11] MEDS: GABAPENTIN 300 MG CAPSULE PO SCH ×3 (09:01→20:51)
[2020-01-11] MEDS: ZIPRASIDONE 40MG CAPSULE PO SCH ×2 (09:01→20:51)
[2020-01-11] MEDS: FERROUS SULFATE 325 MG TABLET PO SCH (09:01)
[2020-01-11] MEDS: DOXYCYCLINE 100MG CAP PO SCH ×2 (09:01→20:51)
[2020-01-11 12:23] VITALS: BP 102/69
[2020-01-11] MEDS: DAKIN'S SOLUTION 1/4 STRENGTH 1,000 ML IRRIG SOLN EXT SCH (16:00)
[2020-01-11 18:43] VITALS: BP 124/80
[2020-01-12 00:11] VITALS: BP 101/69
[2020-01-12] MEDS: MORPHINE SULFATE 4 MG/ML, 1ML IVPush PRN ×5 (03:04→21:06)
[2020-01-12] MEDS: ASPIRIN 81 MG TABLET EC PO SCH (05:44)
[2020-01-12] MEDS: AMOXICILLIN/CLAV 875-125MG TABLET PO SCH ×2 (05:44→17:25)
[2020-01-12 08:17] VITALS: BP 96/63
[2020-01-12] MEDS: DOXYCYCLINE 100MG CAP PO SCH ×2 (08:20→21:05)
[2020-01-12] MEDS: ZIPRASIDONE 40MG CAPSULE PO SCH ×2 (08:21→21:05)
[2020-01-12] MEDS: GABAPENTIN 300 MG CAPSULE PO SCH ×3 (08:21→21:05)
[2020-01-12] MEDS: ENOXAPARIN 40 MG/0.4 ML SQ SCH (09:00)
[2020-01-12] MEDS: DAKIN'S SOLUTION 1/4 STRENGTH 1,000 ML IRRIG SOLN EXT SCH (09:00)
[2020-01-12 13:34] VITALS: BP 101/68
[2020-01-12 18:47] VITALS: BP 139/86
[2020-01-13] MEDS: MORPHINE SULFATE 4 MG/ML, 1ML IVPush PRN ×5 (01:02→23:53)
[2020-01-13 02:09] VITALS: BP 127/82
[2020-01-13] MEDS: ASPIRIN 81 MG TABLET EC PO SCH (06:21)
[2020-01-13] MEDS: AMOXICILLIN/CLAV 875-125MG TABLET PO SCH ×2 (06:21→18:03)
[2020-01-13 08:00] VITALS: BP 101/67
[2020-01-13] MEDS: DAKIN'S SOLUTION 1/4 STRENGTH 1,000 ML IRRIG SOLN EXT SCH (09:00)
[2020-01-13] MEDS: ENOXAPARIN 40 MG/0.4 ML SQ SCH (09:00)
[2020-01-13] MEDS: FERROUS SULFATE 325 MG TABLET PO SCH (09:35)
[2020-01-13] MEDS: GABAPENTIN 300 MG CAPSULE PO SCH ×3 (09:35→20:04)
[2020-01-13] MEDS: DOXYCYCLINE 100MG CAP PO SCH ×2 (09:36→20:04)
[2020-01-13] MEDS: ZIPRASIDONE 40MG CAPSULE PO SCH ×2 (09:36→20:04)
[2020-01-13 12:00] VITALS: BP 95/65
[2020-01-13 18:54] VITALS: BP 121/87
[2020-01-14 00:25] VITALS: BP 97/65
[2020-01-14] MEDS: MORPHINE SULFATE 4 MG/ML, 1ML IVPush PRN ×5 (04:51→21:27)
[2020-01-14 05:59] LABS: CREATININE 0.83 mg/dL (0.55-1.02)
[2020-01-14] MEDS: AMOXICILLIN/CLAV 875-125MG TABLET PO SCH ×2 (06:02→17:58)
[2020-01-14] MEDS: ASPIRIN 81 MG TABLET EC PO SCH (06:02)
[2020-01-14] MEDS: ENOXAPARIN 40 MG/0.4 ML SQ SCH (07:59)
[2020-01-14 08:02] VITALS: BP 102/70
[2020-01-14] MEDS: DAKIN'S SOLUTION 1/4 STRENGTH 1,000 ML IRRIG SOLN EXT SCH (09:00)
[2020-01-14] MEDS: GABAPENTIN 300 MG CAPSULE PO SCH ×3 (09:01→21:26)
[2020-01-14] MEDS: DOXYCYCLINE 100MG CAP PO SCH ×2 (09:01→21:26)
[2020-01-14] MEDS: ZIPRASIDONE 40MG CAPSULE PO SCH ×2 (09:02→21:26)
[2020-01-14 13:39] VITALS: BP 95/62
[2020-01-14 18:45] VITALS: BP 111/75
[2020-01-15 01:18] VITALS: BP 97/62
[2020-01-15] MEDS: MORPHINE SULFATE 4 MG/ML, 1ML IVPush PRN ×5 (01:43→21:29)
[2020-01-15] MEDS: ASPIRIN 81 MG TABLET EC PO SCH (05:36)
[2020-01-15] MEDS: AMOXICILLIN/CLAV 875-125MG TABLET PO SCH ×2 (05:36→17:26)
[2020-01-15 06:37] VITALS: BP 104/72
[2020-01-15] MEDS: FERROUS SULFATE 325 MG TABLET PO SCH (08:06)
[2020-01-15] MEDS: DOXYCYCLINE 100MG CAP PO SCH ×2 (08:06→21:28)
[2020-01-15] MEDS: GABAPENTIN 300 MG CAPSULE PO SCH ×3 (08:06→21:28)
[2020-01-15] MEDS: ZIPRASIDONE 40MG CAPSULE PO SCH ×2 (08:06→21:28)
[2020-01-15] MEDS: ENOXAPARIN 40 MG/0.4 ML SQ SCH (08:07)
[2020-01-15 15:30] VITALS: BP 98/68
[2020-01-15 19:25] VITALS: BP 108/67
[2020-01-16 00:54] VITALS: BP 101/67
[2020-01-16] MEDS: AMOXICILLIN/CLAV 875-125MG TABLET PO SCH ×2 (06:16→18:05)
[2020-01-16] MEDS: ASPIRIN 81 MG TABLET EC PO SCH (06:16)
[2020-01-16] MEDS: MORPHINE SULFATE 4 MG/ML, 1ML IVPush PRN ×4 (06:25→23:11)
[2020-01-16] MEDS: DOXYCYCLINE 100MG CAP PO SCH ×2 (08:35→21:18)
[2020-01-16] MEDS: ZIPRASIDONE 40MG CAPSULE PO SCH ×2 (08:35→21:18)
[2020-01-16] MEDS: GABAPENTIN 300 MG CAPSULE PO SCH ×3 (08:35→21:18)
[2020-01-16] MEDS: ENOXAPARIN 40 MG/0.4 ML SQ SCH (08:36)
[2020-01-16 09:07] VITALS: BP 94/61
[2020-01-16 12:52] VITALS: BP 104/71
[2020-01-16 18:42] VITALS: BP 104/67
[2020-01-17 00:42] VITALS: BP 100/68
[2020-01-17] MEDS: MORPHINE SULFATE 4 MG/ML, 1ML IVPush PRN ×5 (03:26→22:42)
[2020-01-17] MEDS: ASPIRIN 81 MG TABLET EC PO SCH (06:22)
[2020-01-17] MEDS: AMOXICILLIN/CLAV 875-125MG TABLET PO SCH ×2 (06:22→18:01)
[2020-01-17 07:10] VITALS: BP 92/57
[2020-01-17] MEDS: ENOXAPARIN 40 MG/0.4 ML SQ SCH (09:00)
[2020-01-17] MEDS: FERROUS SULFATE 325 MG TABLET PO SCH (09:55)
[2020-01-17] MEDS: ZIPRASIDONE 40MG CAPSULE PO SCH ×2 (09:55→20:56)
[2020-01-17] MEDS: DOXYCYCLINE 100MG CAP PO SCH ×2 (09:55→20:54)
[2020-01-17] MEDS: GABAPENTIN 300 MG CAPSULE PO SCH ×3 (09:55→20:56)
[2020-01-17 13:33] VITALS: BP 92/60
[2020-01-17 18:54] VITALS: BP 95/61
[2020-01-18 02:22] VITALS: BP 102/66
[2020-01-18] MEDS: AMOXICILLIN/CLAV 875-125MG TABLET PO SCH ×2 (06:27→15:45)
[2020-01-18] MEDS: ASPIRIN 81 MG TABLET EC PO SCH (06:27)
[2020-01-18] MEDS: MORPHINE SULFATE 4 MG/ML, 1ML IVPush PRN ×3 (06:28→19:38)
[2020-01-18 07:28] VITALS: BP 100/68
[2020-01-18] MEDS: ZIPRASIDONE 40MG CAPSULE PO SCH ×2 (08:46→19:39)
[2020-01-18] MEDS: DOXYCYCLINE 100MG CAP PO SCH ×2 (08:46→19:38)
[2020-01-18] MEDS: GABAPENTIN 300 MG CAPSULE PO SCH ×3 (08:47→19:39)
[2020-01-18] MEDS: ENOXAPARIN 40 MG/0.4 ML SQ SCH (08:47)
[2020-01-18 13:34] VITALS: BP 95/65
[2020-01-18 18:50] VITALS: BP 103/67
[2020-01-19 00:05] VITALS: BP 97/66
[2020-01-19] MEDS: MORPHINE SULFATE 4 MG/ML, 1ML IVPush PRN ×4 (00:21→22:42)
[2020-01-19] MEDS: ASPIRIN 81 MG TABLET EC PO SCH (05:42)
[2020-01-19] MEDS: AMOXICILLIN/CLAV 875-125MG TABLET PO SCH ×2 (05:42→17:32)
[2020-01-19 07:29] VITALS: BP 99/66
[2020-01-19] MEDS: ENOXAPARIN 40 MG/0.4 ML SQ SCH (09:00)
[2020-01-19] MEDS: DOXYCYCLINE 100MG CAP PO SCH ×2 (09:03→21:11)
[2020-01-19] MEDS: FERROUS SULFATE 325 MG TABLET PO SCH (09:03)
[2020-01-19] MEDS: GABAPENTIN 300 MG CAPSULE PO SCH ×3 (09:03→21:12)
[2020-01-19] MEDS: ZIPRASIDONE 40MG CAPSULE PO SCH ×2 (09:04→21:11)
[2020-01-19 14:15] VITALS: BP 95/57
[2020-01-19 19:09] VITALS: BP 109/76
[2020-01-20 02:58] VITALS: BP 102/68
[2020-01-20] MEDS: MORPHINE SULFATE 4 MG/ML, 1ML IVPush PRN ×4 (03:51→20:15)
[2020-01-20] MEDS: ASPIRIN 81 MG TABLET EC PO SCH (05:48)
[2020-01-20] MEDS: AMOXICILLIN/CLAV 875-125MG TABLET PO SCH ×2 (05:48→17:35)
[2020-01-20] MEDS: ENOXAPARIN 40 MG/0.4 ML SQ SCH (07:14)
[2020-01-20 07:47] VITALS: BP 100/68
[2020-01-20] MEDS: GABAPENTIN 300 MG CAPSULE PO SCH ×3 (08:25→21:50)
[2020-01-20] MEDS: ZIPRASIDONE 40MG CAPSULE PO SCH ×2 (08:25→21:50)
[2020-01-20] MEDS: DOXYCYCLINE 100MG CAP PO SCH ×2 (08:25→21:50)
[2020-01-20 13:38] VITALS: BP 104/64
[2020-01-20] MEDS: OXYcodone IR 5MG TABLET PO PRN (18:34)
[2020-01-20 18:43] VITALS: BP 101/59
[2020-01-21 02:34] VITALS: BP 98/57
[2020-01-21] MEDS: MORPHINE SULFATE 4 MG/ML, 1ML IVPush PRN ×4 (05:14→21:16)
[2020-01-21] MEDS: ASPIRIN 81 MG TABLET EC PO SCH (05:50)
[2020-01-21] MEDS: AMOXICILLIN/CLAV 875-125MG TABLET PO SCH ×2 (05:50→17:36)
[2020-01-21 06:43] VITALS: BP 112/78
[2020-01-21] MEDS: ENOXAPARIN 40 MG/0.4 ML SQ SCH (07:42)
[2020-01-21] MEDS: ZIPRASIDONE 40MG CAPSULE PO SCH ×2 (07:46→19:23)
[2020-01-21] MEDS: DOXYCYCLINE 100MG CAP PO SCH ×2 (07:46→19:23)
[2020-01-21] MEDS: GABAPENTIN 300 MG CAPSULE PO SCH ×4 (07:46→19:23)
[2020-01-21] MEDS: FERROUS SULFATE 325 MG TABLET PO SCH (07:46)
[2020-01-21 14:09] VITALS: BP 107/62
[2020-01-21] MEDS: OXYcodone IR 5MG TABLET PO PRN (17:58)
[2020-01-21 19:20] VITALS: BP 102/69
[2020-01-22 00:35] VITALS: BP 116/78
[2020-01-22] MEDS: ASPIRIN 81 MG TABLET EC PO SCH (05:39)
[2020-01-22] MEDS: AMOXICILLIN/CLAV 875-125MG TABLET PO SCH ×2 (05:39→11:28)
[2020-01-22] MEDS: MORPHINE SULFATE 4 MG/ML, 1ML IVPush PRN ×4 (05:40→20:36)
[2020-01-22] MEDS: DOCUSATE 100 MG CAPSULE PO PRN (05:46)
[2020-01-22 08:32] VITALS: BP 96/68
[2020-01-22] MEDS: ENOXAPARIN 40 MG/0.4 ML SQ SCH (11:28)
[2020-01-22] MEDS: DOXYCYCLINE 100MG CAP PO SCH ×2 (11:28→20:35)
[2020-01-22] MEDS: ZIPRASIDONE 40MG CAPSULE PO SCH ×2 (11:28→20:35)
[2020-01-22] MEDS: GABAPENTIN 300 MG CAPSULE PO SCH ×3 (11:28→20:35)
[2020-01-22] MEDS: FERROUS SULFATE 325 MG TABLET PO SCH (11:28)
[2020-01-22 13:55] VITALS: BP 108/75
[2020-01-22] MEDS ORDERED: MAGNESIUM CITRATE 300ML ORAL SOL PO ONE (14:30)
[2020-01-22] MEDS ORDERED: NICOTINE 21 MG/24 HR PATCH.TD24 ONE (17:08)
[2020-01-22] MEDS ORDERED: LACTOBACILLUS CHEW TABLET ONE (17:08)
[2020-01-22 19:34] VITALS: BP 96/64
[2020-01-23 00:39] VITALS: BP 99/65
[2020-01-23] MEDS: MORPHINE SULFATE 4 MG/ML, 1ML IVPush PRN ×4 (04:07→21:40)
[2020-01-23] MEDS: AMOXICILLIN/CLAV 875-125MG TABLET PO SCH ×2 (06:06→17:14)
[2020-01-23] MEDS: ASPIRIN 81 MG TABLET EC PO SCH (06:06)
[2020-01-23 07:57] VITALS: BP 97/67
[2020-01-23] MEDS: DOXYCYCLINE 100MG CAP PO SCH ×2 (09:47→20:52)
[2020-01-23] MEDS: ZIPRASIDONE 40MG CAPSULE PO SCH ×2 (09:48→20:52)
[2020-01-23] MEDS: GABAPENTIN 300 MG CAPSULE PO SCH ×3 (09:48→20:52)
[2020-01-23] MEDS: FERROUS SULFATE 325 MG TABLET PO SCH (09:48)
[2020-01-23] MEDS: ENOXAPARIN 40 MG/0.4 ML SQ SCH (09:48)
[2020-01-23] MEDS ORDERED: MAGNESIUM CITRATE 300ML ORAL SOL PO ONE (11:30)
[2020-01-23 12:21] VITALS: BP 94/60
[2020-01-23 18:15] VITALS: BP 103/73
[2020-01-23] MEDS ORDERED: CATHFLO-ALTEPLASE 2 MG/2 ML CATHFLUSH ONE (23:00)
[2020-01-24 01:49] VITALS: BP 92/64
[2020-01-24 03:59] LABS: CREATININE 0.75 mg/dL (0.55-1.02)
[2020-01-24] MEDS: MORPHINE SULFATE 4 MG/ML, 1ML IVPush PRN ×4 (05:58→20:04)
[2020-01-24] MEDS: ASPIRIN 81 MG TABLET EC PO SCH (05:59)
[2020-01-24] MEDS: AMOXICILLIN/CLAV 875-125MG TABLET PO SCH ×2 (05:59→17:32)
[2020-01-24 07:27] VITALS: BP 92/61
[2020-01-24] MEDS: ENOXAPARIN 40 MG/0.4 ML SQ SCH (09:00)
[2020-01-24] MEDS: ZIPRASIDONE 40MG CAPSULE PO SCH ×2 (10:10→20:03)
[2020-01-24] MEDS: GABAPENTIN 300 MG CAPSULE PO SCH ×3 (10:11→20:03)
[2020-01-24] MEDS: DOXYCYCLINE 100MG CAP PO SCH ×2 (10:11→20:03)
[2020-01-24 13:48] VITALS: BP 101/71
[2020-01-24 18:32] VITALS: BP 103/73
[2020-01-25] MEDS: MORPHINE SULFATE 4 MG/ML, 1ML IVPush PRN ×6 (00:14→22:32)
[2020-01-25 00:17] VITALS: BP 105/71
[2020-01-25] MEDS: AMOXICILLIN/CLAV 875-125MG TABLET PO SCH ×2 (05:31→18:22)
[2020-01-25] MEDS: ASPIRIN 81 MG TABLET EC PO SCH (05:32)
[2020-01-25 07:50] VITALS: BP 91/61
[2020-01-25] MEDS: ENOXAPARIN 40 MG/0.4 ML SQ SCH (09:00)
[2020-01-25] MEDS: DOXYCYCLINE 100MG CAP PO SCH ×2 (09:58→21:12)
[2020-01-25] MEDS: GABAPENTIN 300 MG CAPSULE PO SCH ×3 (09:58→21:12)
[2020-01-25] MEDS: FERROUS SULFATE 325 MG TABLET PO SCH (09:58)
[2020-01-25] MEDS: ZIPRASIDONE 40MG CAPSULE PO SCH ×2 (10:00→21:12)
[2020-01-25 10:10] VITALS: BP 125/84
[2020-01-25 15:59] VITALS: BP 97/64
[2020-01-25 18:26] VITALS: BP 91/63
[2020-01-26 02:07] VITALS: BP 88/60
[2020-01-26] MEDS: AMOXICILLIN/CLAV 875-125MG TABLET PO SCH ×2 (06:01→16:26)
[2020-01-26] MEDS: ASPIRIN 81 MG TABLET EC PO SCH (06:01)
[2020-01-26 06:08] VITALS: BP 90/65
[2020-01-26] MEDS: MORPHINE SULFATE 4 MG/ML, 1ML IVPush PRN ×4 (06:32→21:01)
[2020-01-26] MEDS: ENOXAPARIN 40 MG/0.4 ML SQ SCH (07:37)
[2020-01-26] MEDS: DOXYCYCLINE 100MG CAP PO SCH ×2 (10:44→21:03)
[2020-01-26] MEDS: ZIPRASIDONE 40MG CAPSULE PO SCH ×2 (10:44→21:03)
[2020-01-26] MEDS: GABAPENTIN 300 MG CAPSULE PO SCH ×3 (10:44→21:00)
[2020-01-26 13:11] VITALS: BP 94/70
[2020-01-26 19:14] VITALS: BP 102/69
[2020-01-26] MEDS ORDERED: GABAPENTIN 400 MG CAPSULE ONE (20:54)
[2020-01-26] MEDS ORDERED: GABAPENTIN 100 MG CAPSULE ONE (20:54)
[2020-01-27 01:31] VITALS: BP 92/60
[2020-01-27] MEDS: ASPIRIN 81 MG TABLET EC PO SCH ×2 (06:22→19:24)
[2020-01-27] MEDS: AMOXICILLIN/CLAV 875-125MG TABLET PO SCH ×3 (06:22→19:23)
[2020-01-27 07:39] VITALS: BP 90/59
[2020-01-27] MEDS: MORPHINE SULFATE 4 MG/ML, 1ML IVPush PRN ×5 (07:45→20:59)
[2020-01-27] MEDS: GABAPENTIN 300 MG CAPSULE PO SCH ×3 (07:46→20:58)
[2020-01-27] MEDS: FERROUS SULFATE 325 MG TABLET PO SCH (07:46)
[2020-01-27] MEDS: ZIPRASIDONE 40MG CAPSULE PO SCH ×2 (07:46→20:58)
[2020-01-27] MEDS: DOXYCYCLINE 100MG CAP PO SCH ×2 (07:46→20:59)
[2020-01-27] MEDS: ENOXAPARIN 40 MG/0.4 ML SQ SCH (07:47)
[2020-01-27 11:34] LABS: MEAN CORPUSCULAR HEMOGLOBIN 20.4 pg (27.0-34.8); MEAN CORPUSCULAR HGB CONC 30.5 g/dL (32.4-35.8); MEAN PLATELET VOLUME 6.8 fL (7.4-10.4); PLATELET COUNT 742 x10^3/uL (130-400); RED BLOOD COUNT 4.16 x10^6/uL (3.82-5.3); RED CELL DISTRIBUTION WIDTH 18.5 % (9.6-15.2)
[2020-01-27 11:41] LABS: ALANINE AMINOTRANSFERASE 7 U/L (12-78); ALBUMIN 2.2 g/dL (3.4-5.0); ANION GAP 7 mmol/L (5-15); CALCIUM 8.4 mg/dL (8.5-10.1); CHLORIDE 102 mmol/L (98-107); CREATININE 0.83 mg/dL (0.55-1.02)
[2020-01-27 11:43] LABS: ALKALINE PHOSPHATASE 76 U/L (45-117); BILIRUBIN,TOTAL 0.2 mg/dL (0.2-1.0); TOTAL PROTEIN 6.8 g/dL (6.4-8.2)
[2020-01-27 12:02] LABS: MD YES
[2020-01-27 12:05] LABS: BAND#(MANUAL) 0.06 x10^3/uL; BANDS%(MANUAL) 1 % (0-7); BASOS#(MANUAL) 0.11 x10^3/uL (0-0.1); BASOS% (MANUAL) 2 % (0-1); EOS#(MANUAL) 0.33 x10^3/uL (0.0-0.4); EOS% (MANUAL) 6 % (1-7); LYMPH#(MANUAL) 2.09 x10^3/uL (1-3.4); LYMPHS% (MANUAL) 38 % (22-44); MONOS#(MANUAL) 0.28 x10^3/uL (0.3-2.7); MONOS% (MANUAL) 5 % (2-9); SEG#(MANUAL) 2.64 x10^3/uL (1.8-6.8); SEGS% (MANUAL) 48 % (42-75)
[2020-01-27 12:07] LABS: ANISOCYTOSIS 1+; HYPOCHROMIA 1+; MICROCYTOSIS 1+; POLYCHROMASIA 1+
[2020-01-27 12:09] LABS: ACANTHOCYTES 1+; ECHINOCYTES 1+; OVALOCYTES 1+; SCHISTOCYTES 1+
[2020-01-27 12:13] LABS: <PLATELET ESTIMATE> INCREASED; <PLT MORPHOLOGY> NORMAL PLT MORPH
[2020-01-27 12:14] LABS: TARGET CELLS 1+; TEAR DROPS 1+
[2020-01-27 13:35] VITALS: BP 99/65
[2020-01-27 19:28] VITALS: BP 157/81
[2020-01-27 20:26] VITALS: BP 97/62
[2020-01-27] MEDS ORDERED: OMNIPAQUE 350 MG/ML, 100ML BOTTLE ONE (23:12)
[2020-01-28 01:16] VITALS: BP 95/64
[2020-01-28] MEDS: MORPHINE SULFATE 4 MG/ML, 1ML IVPush PRN ×4 (02:27→21:52)
[2020-01-28] MEDS ORDERED: CATHFLO-ALTEPLASE 2 MG/2 ML CATHFLUSH ONE (03:00)
[2020-01-28 03:24] LABS: MEAN CORPUSCULAR HEMOGLOBIN 20.1 pg (27.0-34.8); MEAN CORPUSCULAR HGB CONC 30.2 g/dL (32.4-35.8); MEAN CORPUSCULAR VOLUME 66.8 fL (80-100); MEAN PLATELET VOLUME 6.5 fL (7.4-10.4); PLATELET COUNT 715 x10^3/uL (130-400); RED BLOOD COUNT 4.05 x10^6/uL (3.82-5.3); RED CELL DISTRIBUTION WIDTH 18.7 % (9.6-15.2)
[2020-01-28 03:30] LABS: INTERNATIONAL NORMALIZED RATIO 1.05 (0.93-1.1); PROTHROMBIN TIME 11.1 Seconds (9.6-11.5)
[2020-01-28 03:33] LABS: ALANINE AMINOTRANSFERASE 7 U/L (12-78); ALBUMIN 2.1 g/dL (3.4-5.0); ANION GAP 7 mmol/L (5-15); CALCIUM 8.5 mg/dL (8.5-10.1); CHLORIDE 107 mmol/L (98-107); CREATININE 0.71 mg/dL (0.55-1.02)
[2020-01-28 03:35] LABS: ALKALINE PHOSPHATASE 75 U/L (45-117); BILIRUBIN,TOTAL 0.1 mg/dL (0.2-1.0); TOTAL PROTEIN 6.4 g/dL (6.4-8.2)
[2020-01-28 04:03] LABS: MD YES
[2020-01-28 04:06] LABS: ANISOCYTOSIS 1+; BASOS#(MANUAL) 0.06 x10^3/uL (0-0.1); BASOS% (MANUAL) 1 % (0-1); ECHINOCYTES 1+; EOS#(MANUAL) 0.25 x10^3/uL (0.0-0.4); EOS% (MANUAL) 4 % (1-7); HYPOCHROMIA 1+; LYMPH#(MANUAL) 2.65 x10^3/uL (1-3.4); LYMPHS% (MANUAL) 42 % (22-44); MICROCYTOSIS 1+; MONOS#(MANUAL) 0.25 x10^3/uL (0.3-2.7); MONOS% (MANUAL) 4 % (2-9); OVALOCYTES 1+; POLYCHROMASIA 1+; SCHISTOCYTES 1+; SEG#(MANUAL) 3.09 x10^3/uL (1.8-6.8); SEGS% (MANUAL) 49 % (42-75); TARGET CELLS 1+; TEAR DROPS 1+
[2020-01-28 04:07] LABS: <PLATELET ESTIMATE> INCREASED; <PLT MORPHOLOGY> NORMAL PLT MORPH
[2020-01-28 07:20] VITALS: BP 95/64
[2020-01-28] MEDS: ZIPRASIDONE 40MG CAPSULE PO SCH ×2 (10:02→21:36)
[2020-01-28] MEDS: GABAPENTIN 300 MG CAPSULE PO SCH ×3 (10:03→21:36)
[2020-01-28] MEDS: DOXYCYCLINE 100MG CAP PO SCH ×2 (10:03→21:37)
[2020-01-28] MEDS: SODIUM CHLORIDE 0.9% 1,000 ML IV SCH ×2 (10:08→23:42)
[2020-01-28] MEDS: HEPARIN 5,000 UNITS/ML, 1ML SQ SCH ×2 (13:00→21:00)
[2020-01-28 13:40] VITALS: BP 88/56
[2020-01-28] MEDS: AMOXICILLIN/CLAV 875-125MG TABLET PO SCH (17:13)
[2020-01-28 19:46] VITALS: BP 86/52
[2020-01-28 21:39] VITALS: BP 109/71
[2020-01-29 01:30] VITALS: BP 91/57
[2020-01-29] MEDS: MORPHINE SULFATE 4 MG/ML, 1ML IVPush PRN ×4 (01:58→23:32)
[2020-01-29] MEDS: HEPARIN 5,000 UNITS/ML, 1ML SQ SCH ×3 (05:00→21:46)
[2020-01-29] MEDS: ASPIRIN 81 MG TABLET EC PO SCH (06:08)
[2020-01-29] MEDS: AMOXICILLIN/CLAV 875-125MG TABLET PO SCH ×2 (06:08→18:14)
[2020-01-29 08:06] VITALS: BP 91/58
[2020-01-29] MEDS: DOXYCYCLINE 100MG CAP PO SCH ×2 (09:30→21:49)
[2020-01-29] MEDS: FERROUS SULFATE 325 MG TABLET PO SCH (09:30)
[2020-01-29] MEDS: GABAPENTIN 300 MG CAPSULE PO SCH ×3 (09:30→21:49)
[2020-01-29] MEDS: ZIPRASIDONE 40MG CAPSULE PO SCH ×2 (09:31→21:49)
[2020-01-29 13:37] VITALS: BP 102/67
[2020-01-29] MEDS: SODIUM CHLORIDE 0.9% 1,000 ML IV SCH (13:43)
[2020-01-29 18:46] VITALS: BP 104/73
[2020-01-30 01:16] VITALS: BP 95/68
[2020-01-30] MEDS: HEPARIN 5,000 UNITS/ML, 1ML SQ SCH ×3 (05:00→21:00)
[2020-01-30 05:45] LABS: ALBUMIN 1.9 g/dL (3.4-5.0); ANION GAP 4 mmol/L (5-15); CALCIUM 8.6 mg/dL (8.5-10.1); CHLORIDE 110 mmol/L (98-107); CREATININE 0.63 mg/dL (0.55-1.02)
[2020-01-30 05:47] LABS: ALKALINE PHOSPHATASE 75 U/L (45-117); BILIRUBIN,TOTAL 0.1 mg/dL (0.2-1.0)
[2020-01-30 05:49] LABS: ALANINE AMINOTRANSFERASE < 6 U/L (12-78)
[2020-01-30 05:54] LABS: MEAN CORPUSCULAR HEMOGLOBIN 20.6 pg (27.0-34.8); MEAN CORPUSCULAR VOLUME 66.5 fL (80-100); MEAN PLATELET VOLUME 6.7 fL (7.4-10.4); PLATELET COUNT 697 x10^3/uL (130-400); RED BLOOD COUNT 3.67 x10^6/uL (3.82-5.3); RED CELL DISTRIBUTION WIDTH 19.1 % (9.6-15.2)
[2020-01-30] MEDS: ASPIRIN 81 MG TABLET EC PO SCH (06:00)
[2020-01-30 06:15] LABS: MD YES
[2020-01-30 06:18] LABS: ANISOCYTOSIS 1+; BASOS#(MANUAL) 0.05 x10^3/uL (0-0.1); BASOS% (MANUAL) 1 % (0-1); EOS#(MANUAL) 0.31 x10^3/uL (0.0-0.4); EOS% (MANUAL) 6 % (1-7); HYPOCHROMIA 1+; LYMPH#(MANUAL) 1.92 x10^3/uL (1-3.4); LYMPHS% (MANUAL) 37 % (22-44); MICROCYTOSIS 1+; MONOS#(MANUAL) 0.36 x10^3/uL (0.3-2.7); MONOS% (MANUAL) 7 % (2-9); OVALOCYTES 1+; POLYCHROMASIA 1+; SCHISTOCYTES 1+; SEG#(MANUAL) 2.55 x10^3/uL (1.8-6.8); SEGS% (MANUAL) 49 % (42-75); TARGET CELLS 1+; TEAR DROPS 1+
[2020-01-30 06:19] LABS: <PLATELET ESTIMATE> INCREASED; <PLT MORPHOLOGY> NORMAL PLT MORPH
[2020-01-30 07:35] VITALS: BP 82/52
[2020-01-30] MEDS: DOXYCYCLINE 100MG CAP PO SCH ×2 (09:51→21:52)
[2020-01-30] MEDS: GABAPENTIN 300 MG CAPSULE PO SCH ×3 (09:53→21:52)
[2020-01-30] MEDS: ZIPRASIDONE 40MG CAPSULE PO SCH ×2 (09:54→21:52)
[2020-01-30 09:55] VITALS: BP 94/62
[2020-01-30] MEDS: AMOXICILLIN/CLAV 875-125MG TABLET PO SCH ×2 (09:59→21:52)
[2020-01-30] MEDS: MORPHINE SULFATE 4 MG/ML, 1ML IVPush PRN ×3 (09:59→18:20)
[2020-01-30 14:17] VITALS: BP 106/72
[2020-01-30 18:43] VITALS: BP 135/85
[2020-01-31 00:26] VITALS: BP 104/71
[2020-01-31] MEDS: MORPHINE SULFATE 4 MG/ML, 1ML IVPush PRN ×4 (03:16→20:46)
[2020-01-31] MEDS: HEPARIN 5,000 UNITS/ML, 1ML SQ SCH ×3 (05:00→21:00)
[2020-01-31] MEDS: ASPIRIN 81 MG TABLET EC PO SCH (06:10)
[2020-01-31] MEDS: DOXYCYCLINE 100MG CAP PO SCH ×2 (09:19→20:46)
[2020-01-31] MEDS: FERROUS SULFATE 325 MG TABLET PO SCH (09:19)
[2020-01-31] MEDS: ZIPRASIDONE 40MG CAPSULE PO SCH ×2 (09:20→20:46)
[2020-01-31] MEDS: GABAPENTIN 300 MG CAPSULE PO SCH ×3 (09:20→20:46)
[2020-01-31] MEDS: AMOXICILLIN/CLAV 875-125MG TABLET PO SCH ×2 (09:24→20:46)
[2020-01-31 09:37] VITALS: BP 96/68
[2020-01-31 14:57] VITALS: BP 104/71
[2020-01-31 19:04] VITALS: BP 110/76
[2020-02-01 02:28] VITALS: BP 92/64
[2020-02-01] MEDS: MORPHINE SULFATE 4 MG/ML, 1ML IVPush PRN ×4 (03:18→20:51)
[2020-02-01] MEDS: HEPARIN 5,000 UNITS/ML, 1ML SQ SCH ×3 (04:03→20:52)
[2020-02-01] MEDS: ASPIRIN 81 MG TABLET EC PO SCH (06:07)
[2020-02-01 07:51] VITALS: BP 94/68
[2020-02-01] MEDS: ZIPRASIDONE 40MG CAPSULE PO SCH ×2 (08:40→20:52)
[2020-02-01] MEDS: DOXYCYCLINE 100MG CAP PO SCH ×2 (08:40→20:52)
[2020-02-01] MEDS: GABAPENTIN 300 MG CAPSULE PO SCH ×3 (08:40→20:52)
[2020-02-01] MEDS: AMOXICILLIN/CLAV 875-125MG TABLET PO SCH ×2 (08:41→20:51)
[2020-02-01] MEDS: ASCORBIC ACID 500 MG TABLET PO SCH (09:29)
[2020-02-01] MEDS: VITAMIN E 400 UNITS CAPSULE PO SCH (09:29)
[2020-02-01] MEDS: MULTIVITAMINS/MINERALS TABLET PO SCH (09:29)
[2020-02-01 12:28] VITALS: BP 95/67
[2020-02-01 18:28] VITALS: BP 120/81
[2020-02-02 02:50] VITALS: BP 102/63
[2020-02-02] MEDS: HEPARIN 5,000 UNITS/ML, 1ML SQ SCH ×3 (05:00→21:00)
[2020-02-02] MEDS: ASPIRIN 81 MG TABLET EC PO SCH (06:07)
[2020-02-02] MEDS: MORPHINE SULFATE 4 MG/ML, 1ML IVPush PRN ×4 (08:14→21:33)
[2020-02-02] MEDS: MULTIVITAMINS/MINERALS TABLET PO SCH (08:15)
[2020-02-02] MEDS: ASCORBIC ACID 500 MG TABLET PO SCH (08:15)
[2020-02-02] MEDS: DOXYCYCLINE 100MG CAP PO SCH ×2 (08:15→21:07)
[2020-02-02] MEDS: FERROUS SULFATE 325 MG TABLET PO SCH (08:15)
[2020-02-02] MEDS: VITAMIN E 400 UNITS CAPSULE PO SCH (08:15)
[2020-02-02] MEDS: ZIPRASIDONE 40MG CAPSULE PO SCH ×2 (08:15→21:07)
[2020-02-02] MEDS: GABAPENTIN 300 MG CAPSULE PO SCH ×3 (08:15→21:08)
[2020-02-02] MEDS: AMOXICILLIN/CLAV 875-125MG TABLET PO SCH ×2 (08:15→21:08)
[2020-02-02 09:17] VITALS: BP 94/65
[2020-02-02 14:06] VITALS: BP 102/71
[2020-02-02 19:00] VITALS: BP 119/78
[2020-02-03 03:00] VITALS: BP 108/73
[2020-02-03] MEDS: MORPHINE SULFATE 4 MG/ML, 1ML IVPush PRN ×4 (04:20→20:21)
[2020-02-03] MEDS: HEPARIN 5,000 UNITS/ML, 1ML SQ SCH ×3 (04:59→22:00)
[2020-02-03] MEDS: ASPIRIN 81 MG TABLET EC PO SCH (06:25)
[2020-02-03 08:38] VITALS: BP 98/64
[2020-02-03] MEDS: DOXYCYCLINE 100MG CAP PO SCH ×2 (09:08→20:21)
[2020-02-03] MEDS: ASCORBIC ACID 500 MG TABLET PO SCH (09:08)
[2020-02-03] MEDS: VITAMIN E 400 UNITS CAPSULE PO SCH (09:09)
[2020-02-03] MEDS: GABAPENTIN 300 MG CAPSULE PO SCH ×3 (09:09→20:21)
[2020-02-03] MEDS: MULTIVITAMINS/MINERALS TABLET PO SCH (09:09)
[2020-02-03] MEDS: ZIPRASIDONE 40MG CAPSULE PO SCH ×2 (09:09→20:21)
[2020-02-03] MEDS: AMOXICILLIN/CLAV 875-125MG TABLET PO SCH ×2 (09:13→20:21)
[2020-02-03 14:17] VITALS: BP 108/74
[2020-02-03 18:28] VITALS: BP 114/74
[2020-02-04 00:07] VITALS: BP 101/70
[2020-02-04] MEDS: HEPARIN 5,000 UNITS/ML, 1ML SQ SCH ×3 (05:00→20:21)
[2020-02-04] MEDS: ASPIRIN 81 MG TABLET EC PO SCH (06:04)
[2020-02-04 08:01] VITALS: BP 111/76
[2020-02-04] MEDS: DOXYCYCLINE 100MG CAP PO SCH ×2 (09:17→20:36)
[2020-02-04] MEDS: ZIPRASIDONE 40MG CAPSULE PO SCH ×2 (09:17→20:36)
[2020-02-04] MEDS: VITAMIN E 400 UNITS CAPSULE PO SCH (09:17)
[2020-02-04] MEDS: FERROUS SULFATE 325 MG TABLET PO SCH (09:18)
[2020-02-04] MEDS: ASCORBIC ACID 500 MG TABLET PO SCH (09:18)
[2020-02-04] MEDS: GABAPENTIN 300 MG CAPSULE PO SCH ×3 (09:18→20:35)
[2020-02-04] MEDS: MULTIVITAMINS/MINERALS TABLET PO SCH (09:18)
[2020-02-04] MEDS: MORPHINE SULFATE 4 MG/ML, 1ML IVPush PRN ×3 (09:25→23:24)
[2020-02-04] MEDS: AMOXICILLIN/CLAV 875-125MG TABLET PO SCH ×2 (09:25→20:36)
[2020-02-04 14:00] VITALS: BP 105/73
[2020-02-04 19:40] VITALS: BP 118/82
[2020-02-05 00:24] VITALS: BP 116/78
[2020-02-05] MEDS: HEPARIN 5,000 UNITS/ML, 1ML SQ SCH ×3 (04:32→20:17)
[2020-02-05] MEDS: ASPIRIN 81 MG TABLET EC PO SCH (05:48)
[2020-02-05 07:54] VITALS: BP 108/71
[2020-02-05] MEDS: ZIPRASIDONE 40MG CAPSULE PO SCH ×2 (08:47→20:15)
[2020-02-05] MEDS: MULTIVITAMINS/MINERALS TABLET PO SCH (08:47)
[2020-02-05] MEDS: DOXYCYCLINE 100MG CAP PO SCH ×2 (08:47→20:15)
[2020-02-05] MEDS: VITAMIN E 400 UNITS CAPSULE PO SCH (08:47)
[2020-02-05] MEDS: ASCORBIC ACID 500 MG TABLET PO SCH (08:47)
[2020-02-05] MEDS: GABAPENTIN 300 MG CAPSULE PO SCH ×3 (08:47→20:16)
[2020-02-05] MEDS: MORPHINE SULFATE 4 MG/ML, 1ML IVPush PRN ×4 (08:48→22:48)
[2020-02-05] MEDS: AMOXICILLIN/CLAV 875-125MG TABLET PO SCH ×2 (08:55→20:15)
[2020-02-05 14:29] VITALS: BP 112/74
[2020-02-05 19:22] VITALS: BP 106/72
[2020-02-06 01:21] VITALS: BP 96/61
[2020-02-06] MEDS: MORPHINE SULFATE 4 MG/ML, 1ML IVPush PRN ×5 (04:05→21:51)
[2020-02-06] MEDS: HEPARIN 5,000 UNITS/ML, 1ML SQ SCH ×3 (05:06→21:58)
[2020-02-06] MEDS: ASPIRIN 81 MG TABLET EC PO SCH (06:06)
[2020-02-06 07:00] VITALS: BP 100/65
[2020-02-06] MEDS: DOXYCYCLINE 100MG CAP PO SCH ×2 (08:20→21:50)
[2020-02-06] MEDS: VITAMIN E 400 UNITS CAPSULE PO SCH (08:20)
[2020-02-06] MEDS: ASCORBIC ACID 500 MG TABLET PO SCH (08:20)
[2020-02-06] MEDS: MULTIVITAMINS/MINERALS TABLET PO SCH (08:20)
[2020-02-06] MEDS: ZIPRASIDONE 40MG CAPSULE PO SCH ×2 (08:20→21:50)
[2020-02-06] MEDS: GABAPENTIN 300 MG CAPSULE PO SCH ×3 (08:20→21:50)
[2020-02-06] MEDS: FERROUS SULFATE 325 MG TABLET PO SCH (09:28)
[2020-02-06] MEDS: AMOXICILLIN/CLAV 875-125MG TABLET PO SCH ×2 (09:28→21:50)
[2020-02-06 10:45] LABS: MEAN CORPUSCULAR HGB CONC 31.5 g/dL (32.4-35.8); MEAN CORPUSCULAR VOLUME 66.8 fL (80-100); MEAN PLATELET VOLUME 6.5 fL (7.4-10.4); PLATELET COUNT 775 x10^3/uL (130-400); RED BLOOD COUNT 3.82 x10^6/uL (3.82-5.3); RED CELL DISTRIBUTION WIDTH 19.9 % (9.6-15.2)
[2020-02-06 10:50] LABS: ALANINE AMINOTRANSFERASE 9 U/L (12-78); ALBUMIN 2.1 g/dL (3.4-5.0); ANION GAP 7 mmol/L (5-15); CALCIUM 8.5 mg/dL (8.5-10.1); CHLORIDE 103 mmol/L (98-107); CREATININE 0.75 mg/dL (0.55-1.02)
[2020-02-06 10:52] LABS: ALKALINE PHOSPHATASE 82 U/L (45-117); BILIRUBIN,TOTAL 0.2 mg/dL (0.2-1.0); TOTAL PROTEIN 6.7 g/dL (6.4-8.2)
[2020-02-06 11:11] LABS: INTERNATIONAL NORMALIZED RATIO 0.99 (0.93-1.1); PROTHROMBIN TIME 10.5 Seconds (9.6-11.5)
[2020-02-06 11:13] LABS: MD YES
[2020-02-06 11:15] LABS: MONOS#(MANUAL) 0.32 x10^3/uL (0.3-2.7); MONOS% (MANUAL) 5 % (2-9)
[2020-02-06 11:16] LABS: ANISOCYTOSIS 1+; EOS#(MANUAL) 0.51 x10^3/uL (0.0-0.4); EOS% (MANUAL) 8 % (1-7); HYPOCHROMIA 1+; LYMPH#(MANUAL) 1.86 x10^3/uL (1-3.4); LYMPHS% (MANUAL) 29 % (22-44); MICROCYTOSIS 1+; OVALOCYTES 1+; POLYCHROMASIA 1+; SCHISTOCYTES 1+; SEG#(MANUAL) 3.71 x10^3/uL (1.8-6.8); SEGS% (MANUAL) 58 % (42-75); TARGET CELLS 1+; TEAR DROPS 1+
[2020-02-06 11:17] LABS: <PLATELET ESTIMATE> INCREASED; <PLT MORPHOLOGY> NORMAL PLT MORPH
[2020-02-06 13:59] VITALS: BP 103/71
[2020-02-06 20:33] VITALS: BP 100/68
[2020-02-07 01:23] VITALS: BP 104/70
[2020-02-07] MEDS: HEPARIN 5,000 UNITS/ML, 1ML SQ SCH ×3 (05:01→21:42)
[2020-02-07 09:19] VITALS: BP 95/64
[2020-02-07] MEDS: VITAMIN E 400 UNITS CAPSULE PO SCH (09:35)
[2020-02-07] MEDS: ZIPRASIDONE 40MG CAPSULE PO SCH ×2 (09:36→19:35)
[2020-02-07] MEDS: MULTIVITAMINS/MINERALS TABLET PO SCH (09:36)
[2020-02-07] MEDS: ASCORBIC ACID 500 MG TABLET PO SCH (09:36)
[2020-02-07] MEDS: DOXYCYCLINE 100MG CAP PO SCH ×2 (09:36→19:35)
[2020-02-07] MEDS: GABAPENTIN 300 MG CAPSULE PO SCH ×3 (09:37→21:42)
[2020-02-07] MEDS: ASPIRIN 81 MG TABLET EC PO SCH (09:37)
[2020-02-07] MEDS: MORPHINE SULFATE 4 MG/ML, 1ML IVPush PRN ×3 (09:50→19:35)
[2020-02-07] MEDS: AMOXICILLIN/CLAV 875-125MG TABLET PO SCH ×2 (09:50→19:35)
[2020-02-07 14:14] VITALS: BP 94/60
[2020-02-07 19:49] VITALS: BP 91/59
[2020-02-08 01:00] VITALS: BP 102/68
[2020-02-08] MEDS: MORPHINE SULFATE 4 MG/ML, 1ML IVPush PRN ×5 (05:02→21:26)
[2020-02-08] MEDS: HEPARIN 5,000 UNITS/ML, 1ML SQ SCH ×3 (05:03→20:48)
[2020-02-08] MEDS: ASPIRIN 81 MG TABLET EC PO SCH (05:59)
[2020-02-08] MEDS: MULTIVITAMINS/MINERALS TABLET PO SCH (07:48)
[2020-02-08] MEDS: FERROUS SULFATE 325 MG TABLET PO SCH (07:48)
[2020-02-08] MEDS: ASCORBIC ACID 500 MG TABLET PO SCH (07:48)
[2020-02-08] MEDS: VITAMIN E 400 UNITS CAPSULE PO SCH (07:48)
[2020-02-08 07:49] VITALS: BP 92/58
[2020-02-08] MEDS: AMOXICILLIN/CLAV 875-125MG TABLET PO SCH ×2 (07:57→20:58)
[2020-02-08] MEDS: DOXYCYCLINE 100MG CAP PO SCH ×2 (07:57→20:58)
[2020-02-08] MEDS: GABAPENTIN 300 MG CAPSULE PO SCH ×3 (07:57→20:58)
[2020-02-08] MEDS: ZIPRASIDONE 40MG CAPSULE PO SCH ×2 (07:58→20:58)
[2020-02-08 08:15] LABS: HCG UR SG 1.009 (1.003-1.030)
[2020-02-08] MEDS ORDERED: MIDAZOLAM 1 MG/ML, 2ML ONE (09:07)
[2020-02-08] MEDS ORDERED: FENTANYL PF 250 MCG/5ML ONE (09:08)
[2020-02-08] MEDS ORDERED: FENTANYL PF 100 MCG/2ML IV PRN (10:30)
[2020-02-08] MEDS ORDERED: LORazepam 2 MG/ML, 1ML IVPush PRN (10:30)
[2020-02-08] MEDS ORDERED: PROMETHAZINE 25 MG/ML, 1ML IV PRN (10:30)
[2020-02-08] MEDS ORDERED: OXYcodone 5 MG/5 ML ORAL.SOL UDC PO PRN (10:30)
[2020-02-08] MEDS ORDERED: ONDANSETRON ODT 8 MG PO PRN (10:30)
[2020-02-08] MEDS ORDERED: ONDANSETRON 2MG/ML, 2ML IV PRN (10:30)
[2020-02-08] MEDS ORDERED: ACETAMINOPHEN 325 MG TABLET PO PRN (10:30)
[2020-02-08] MEDS ORDERED: PROMETHAZINE 12.5 MG SUPP PR PRN (10:30)
[2020-02-08] MEDS ORDERED: HYDROmorphone 2 MG/ML, 1ML IVPush PRN (10:30)
[2020-02-08] MEDS ORDERED: PROMETHAZINE 25 MG SUPP PR PRN (10:30)
[2020-02-08] MEDS ORDERED: FENTANYL PF 100 MCG/2ML ONE ×2 (10:43→11:45)
[2020-02-08] MEDS ORDERED: CEFAZOLIN 1,000 MG ONE (10:44)
[2020-02-08] MEDS ORDERED: NEOSTIGMINE 1 MG/ML, 10ML ONE (10:44)
[2020-02-08] MEDS ORDERED: GLYCOPYRROLATE 0.2MG/1ML, 5ML ONE (10:44)
[2020-02-08] MEDS ORDERED: ONDANSETRON 2MG/ML, 2ML ONE (10:44)
[2020-02-08] MEDS ORDERED: DEXAMETHASONE 4 MG/ML, 1ML ONE (10:44)
[2020-02-08] MEDS ORDERED: ROCURONIUM 10MG/ML,5ML ONE (10:44)
[2020-02-08] MEDS ORDERED: PROPOFOL 10 MG/ML, 20ML ONE (10:44)
[2020-02-08] MEDS ORDERED: SUGAMMADEX 200 MG/2 ML IVPush ONE (10:44)
[2020-02-08] MEDS ORDERED: SUCCINYLCHOLINE 20 MG/ML, 10ML ONE (10:44)
[2020-02-08] MEDS ORDERED: LIDOCAINE-MPF 2% ,5ML ONE (10:47)
[2020-02-08] MEDS ORDERED: KETOROLAC 30 MG/1 ML IM PRN (15:00)
[2020-02-08 15:29] VITALS: BP 125/86
[2020-02-08] MEDS: NICOTINE 7 MG/24 HR PATCH.TD24 TD SCH (17:26)
[2020-02-08 18:55] VITALS: BP 141/87
[2020-02-08] MEDS: CEFAZOLIN PMX 1GM/50ML 50 ML IV SCH (19:13)
[2020-02-09 00:07] VITALS: BP 128/79
[2020-02-09] MEDS: CEFAZOLIN PMX 1GM/50ML 50 ML IV SCH (03:06)
[2020-02-09 04:14] VITALS: BP 124/75
[2020-02-09] MEDS: HEPARIN 5,000 UNITS/ML, 1ML SQ SCH ×4 (04:39→20:03)
[2020-02-09] MEDS: ASPIRIN 81 MG TABLET EC PO SCH (05:30)
[2020-02-09] MEDS: MORPHINE SULFATE 4 MG/ML, 1ML IVPush PRN ×4 (05:30→20:00)
[2020-02-09 06:39] VITALS: BP 113/74
[2020-02-09] MEDS: AMOXICILLIN/CLAV 875-125MG TABLET PO SCH ×2 (09:16→20:01)
[2020-02-09] MEDS: ZIPRASIDONE 40MG CAPSULE PO SCH ×2 (09:16→22:29)
[2020-02-09] MEDS: DOXYCYCLINE 100MG CAP PO SCH ×2 (09:16→20:00)
[2020-02-09] MEDS: KETOROLAC 30 MG/1 ML IVPush PRN ×3 (09:17→22:29)
[2020-02-09] MEDS: ASCORBIC ACID 500 MG TABLET PO SCH (09:17)
[2020-02-09] MEDS: OXYcodone IR 5MG TABLET PO PRN ×3 (09:17→22:29)
[2020-02-09] MEDS: MULTIVITAMINS/MINERALS TABLET PO SCH (09:17)
[2020-02-09] MEDS: GABAPENTIN 300 MG CAPSULE PO SCH ×3 (09:17→20:01)
[2020-02-09] MEDS: VITAMIN E 400 UNITS CAPSULE PO SCH (09:17)
[2020-02-09 15:39] VITALS: BP 96/68
[2020-02-09] MEDS: NICOTINE 7 MG/24 HR PATCH.TD24 TD SCH (18:02)
[2020-02-09 19:31] VITALS: BP 100/70
[2020-02-09] MEDS: DOCUSATE 100 MG CAPSULE PO PRN (22:28)
[2020-02-10] MEDS: MORPHINE SULFATE 4 MG/ML, 1ML IVPush PRN ×5 (00:04→20:14)
[2020-02-10] MEDS: KETOROLAC 30 MG/1 ML IVPush PRN ×3 (04:20→17:59)
[2020-02-10] MEDS: OXYcodone IR 5MG TABLET PO PRN ×3 (04:20→18:00)
[2020-02-10] MEDS: ASPIRIN 81 MG TABLET EC PO SCH (04:21)
[2020-02-10] MEDS: HEPARIN 5,000 UNITS/ML, 1ML SQ SCH ×3 (04:21→20:15)
[2020-02-10 04:28] VITALS: BP 90/62
[2020-02-10 06:53] VITALS: BP 91/59
[2020-02-10] MEDS: AMOXICILLIN/CLAV 875-125MG TABLET PO SCH ×2 (08:51→20:15)
[2020-02-10] MEDS: ASCORBIC ACID 500 MG TABLET PO SCH (08:52)
[2020-02-10] MEDS: FERROUS SULFATE 325 MG TABLET PO SCH (08:52)
[2020-02-10] MEDS: DOXYCYCLINE 100MG CAP PO SCH ×2 (08:52→20:15)
[2020-02-10] MEDS: GABAPENTIN 300 MG CAPSULE PO SCH ×3 (08:52→20:15)
[2020-02-10] MEDS: VITAMIN E 400 UNITS CAPSULE PO SCH (08:52)
[2020-02-10] MEDS: MULTIVITAMINS/MINERALS TABLET PO SCH (08:52)
[2020-02-10] MEDS: ZIPRASIDONE 40MG CAPSULE PO SCH ×2 (08:55→20:15)
[2020-02-10 13:25] VITALS: BP 99/61
[2020-02-10] MEDS: NICOTINE 7 MG/24 HR PATCH.TD24 TD SCH (15:19)
[2020-02-10 19:44] VITALS: BP 95/67
[2020-02-11] MEDS: MORPHINE SULFATE 4 MG/ML, 1ML IVPush PRN ×5 (00:32→20:58)
[2020-02-11] MEDS: KETOROLAC 30 MG/1 ML IVPush PRN ×4 (00:32→20:13)
[2020-02-11 02:05] VITALS: BP 86/58
[2020-02-11] MEDS: HEPARIN 5,000 UNITS/ML, 1ML SQ SCH ×3 (05:00→20:12)
[2020-02-11] MEDS: ASPIRIN 81 MG TABLET EC PO SCH (06:24)
[2020-02-11] MEDS: OXYcodone IR 5MG TABLET PO PRN ×3 (06:24→20:10)
[2020-02-11 06:41] VITALS: BP 93/68
[2020-02-11] MEDS: VITAMIN E 400 UNITS CAPSULE PO SCH (07:21)
[2020-02-11] MEDS: DOXYCYCLINE 100MG CAP PO SCH ×2 (07:21→20:10)
[2020-02-11] MEDS: MULTIVITAMINS/MINERALS TABLET PO SCH (07:21)
[2020-02-11] MEDS: ASCORBIC ACID 500 MG TABLET PO SCH (07:22)
[2020-02-11] MEDS: GABAPENTIN 300 MG CAPSULE PO SCH ×3 (07:22→20:12)
[2020-02-11] MEDS: AMOXICILLIN/CLAV 875-125MG TABLET PO SCH ×2 (07:24→20:11)
[2020-02-11] MEDS: ZIPRASIDONE 40MG CAPSULE PO SCH ×2 (09:00→20:58)
[2020-02-11 12:36] VITALS: BP 99/84
[2020-02-11] MEDS: NICOTINE 7 MG/24 HR PATCH.TD24 TD SCH (16:26)
[2020-02-11 18:45] VITALS: BP 146/91
[2020-02-12 00:42] VITALS: BP 111/75
[2020-02-12] MEDS: MORPHINE SULFATE 4 MG/ML, 1ML IVPush PRN ×5 (01:24→21:30)
[2020-02-12] MEDS: KETOROLAC 30 MG/1 ML IVPush PRN ×2 (04:12→21:31)
[2020-02-12] MEDS: OXYcodone IR 5MG TABLET PO PRN ×3 (04:12→18:04)
[2020-02-12] MEDS: HEPARIN 5,000 UNITS/ML, 1ML SQ SCH ×3 (04:41→21:32)
[2020-02-12] MEDS: ASPIRIN 81 MG TABLET EC PO SCH (06:19)
[2020-02-12] MEDS: GABAPENTIN 300 MG CAPSULE PO SCH ×3 (07:48→21:32)
[2020-02-12] MEDS: ZIPRASIDONE 40MG CAPSULE PO SCH ×2 (07:48→21:31)
[2020-02-12] MEDS: DOXYCYCLINE 100MG CAP PO SCH ×2 (07:48→21:31)
[2020-02-12] MEDS: MULTIVITAMINS/MINERALS TABLET PO SCH (07:48)
[2020-02-12] MEDS: ASCORBIC ACID 500 MG TABLET PO SCH (07:48)
[2020-02-12] MEDS: VITAMIN E 400 UNITS CAPSULE PO SCH (07:48)
[2020-02-12] MEDS: FERROUS SULFATE 325 MG TABLET PO SCH (07:48)
[2020-02-12] MEDS: AMOXICILLIN/CLAV 875-125MG TABLET PO SCH ×2 (07:51→21:44)
[2020-02-12 08:00] VITALS: BP 118/72
[2020-02-12 13:32] VITALS: BP 102/65
[2020-02-12] MEDS: NICOTINE 7 MG/24 HR PATCH.TD24 TD SCH (15:12)
[2020-02-12 20:16] VITALS: BP 143/86
[2020-02-13] MEDS: OXYcodone IR 5MG TABLET PO PRN ×4 (00:23→21:10)
[2020-02-13] MEDS ORDERED: CATHFLO-ALTEPLASE 2 MG/2 ML CATHFLUSH ONE (00:30)
[2020-02-13] MEDS: HEPARIN 5,000 UNITS/ML, 1ML SQ SCH ×3 (05:00→21:00)
[2020-02-13] MEDS: MORPHINE SULFATE 4 MG/ML, 1ML IVPush PRN ×5 (05:14→23:39)
[2020-02-13] MEDS: KETOROLAC 30 MG/1 ML IVPush PRN ×2 (05:15→12:28)
[2020-02-13] MEDS: ASPIRIN 81 MG TABLET EC PO SCH (05:15)
[2020-02-13 05:23] VITALS: BP 109/88
[2020-02-13 07:36] VITALS: BP 94/60
[2020-02-13] MEDS: DOXYCYCLINE 100MG CAP PO SCH ×2 (09:05→21:09)
[2020-02-13] MEDS: AMOXICILLIN/CLAV 875-125MG TABLET PO SCH ×2 (09:05→21:10)
[2020-02-13] MEDS: GABAPENTIN 300 MG CAPSULE PO SCH ×3 (09:05→21:10)
[2020-02-13] MEDS: MULTIVITAMINS/MINERALS TABLET PO SCH (09:05)
[2020-02-13] MEDS: VITAMIN E 400 UNITS CAPSULE PO SCH (09:05)
[2020-02-13] MEDS: ZIPRASIDONE 40MG CAPSULE PO SCH ×2 (09:05→21:09)
[2020-02-13] MEDS: ASCORBIC ACID 500 MG TABLET PO SCH (09:05)
[2020-02-13] MEDS: DOCUSATE 100 MG CAPSULE PO PRN (12:28)
[2020-02-13] MEDS: POLYETHYLENE GLYCOL 17 GM PACKET PO PRN (12:28)
[2020-02-13] MEDS: NICOTINE 7 MG/24 HR PATCH.TD24 TD SCH (15:03)
[2020-02-13 16:14] VITALS: BP 100/60
[2020-02-13 19:00] VITALS: BP 108/73
[2020-02-14 00:32] VITALS: BP 119/79
[2020-02-14] MEDS: HEPARIN 5,000 UNITS/ML, 1ML SQ SCH ×3 (05:00→20:41)
[2020-02-14] MEDS: ASPIRIN 81 MG TABLET EC PO SCH (06:00)
[2020-02-14 07:49] VITALS: BP 96/67
[2020-02-14] MEDS: VITAMIN E 400 UNITS CAPSULE PO SCH (09:00)
[2020-02-14] MEDS: DOXYCYCLINE 100MG CAP PO SCH ×2 (09:00→20:41)
[2020-02-14] MEDS: MORPHINE SULFATE 4 MG/ML, 1ML IVPush PRN ×3 (09:00→19:34)
[2020-02-14] MEDS: MULTIVITAMINS/MINERALS TABLET PO SCH (09:00)
[2020-02-14] MEDS: FERROUS SULFATE 325 MG TABLET PO SCH (09:00)
[2020-02-14] MEDS: AMOXICILLIN/CLAV 875-125MG TABLET PO SCH ×2 (09:01→20:41)
[2020-02-14] MEDS: ZIPRASIDONE 40MG CAPSULE PO SCH ×2 (09:01→20:41)
[2020-02-14] MEDS: ASCORBIC ACID 500 MG TABLET PO SCH (09:01)
[2020-02-14] MEDS: GABAPENTIN 300 MG CAPSULE PO SCH ×3 (09:01→20:40)
[2020-02-14] MEDS: OXYcodone IR 5MG TABLET PO PRN ×2 (09:33→16:47)
[2020-02-14 14:00] VITALS: BP 117/76
[2020-02-14] MEDS: NICOTINE 7 MG/24 HR PATCH.TD24 TD SCH (16:46)
[2020-02-14 21:16] VITALS: BP 107/73
[2020-02-15] MEDS: OXYcodone IR 5MG TABLET PO PRN ×3 (01:02→16:09)
[2020-02-15 01:40] VITALS: BP 111/74
[2020-02-15] MEDS: MORPHINE SULFATE 4 MG/ML, 1ML IVPush PRN ×2 (02:01→05:59)
[2020-02-15] MEDS: HEPARIN 5,000 UNITS/ML, 1ML SQ SCH ×3 (05:59→21:00)
[2020-02-15] MEDS: ASPIRIN 81 MG TABLET EC PO SCH (05:59)
[2020-02-15 07:02] VITALS: BP 97/67
[2020-02-15] MEDS: DOXYCYCLINE 100MG CAP PO SCH ×2 (09:05→21:09)
[2020-02-15] MEDS: MULTIVITAMINS/MINERALS TABLET PO SCH (09:05)
[2020-02-15] MEDS: VITAMIN E 400 UNITS CAPSULE PO SCH (09:05)
[2020-02-15] MEDS: GABAPENTIN 300 MG CAPSULE PO SCH ×3 (09:05→21:09)
[2020-02-15] MEDS: ASCORBIC ACID 500 MG TABLET PO SCH (09:05)
[2020-02-15] MEDS: ZIPRASIDONE 40MG CAPSULE PO SCH ×2 (09:05→21:10)
[2020-02-15] MEDS: AMOXICILLIN/CLAV 875-125MG TABLET PO SCH ×2 (09:09→21:09)
[2020-02-15 13:27] VITALS: BP 97/63
[2020-02-15] MEDS: NICOTINE 7 MG/24 HR PATCH.TD24 TD SCH (16:09)
[2020-02-15 21:10] VITALS: BP 108/74
[2020-02-16 03:44] VITALS: BP 101/70
[2020-02-16] MEDS: OXYcodone IR 5MG TABLET PO PRN (04:17)
[2020-02-16] MEDS: HEPARIN 5,000 UNITS/ML, 1ML SQ SCH ×3 (04:40→21:00)
[2020-02-16] MEDS: MORPHINE SULFATE 4 MG/ML, 1ML IVPush PRN ×4 (05:35→17:55)
[2020-02-16] MEDS: ASPIRIN 81 MG TABLET EC PO SCH (05:36)
[2020-02-16 07:14] VITALS: BP 91/61
[2020-02-16] MEDS: VITAMIN E 400 UNITS CAPSULE PO SCH (09:20)
[2020-02-16] MEDS: GABAPENTIN 300 MG CAPSULE PO SCH ×3 (09:20→21:45)
[2020-02-16] MEDS: ZIPRASIDONE 40MG CAPSULE PO SCH ×2 (09:20→21:45)
[2020-02-16] MEDS: MULTIVITAMINS/MINERALS TABLET PO SCH (09:20)
[2020-02-16] MEDS: DOXYCYCLINE 100MG CAP PO SCH ×2 (09:20→21:45)
[2020-02-16] MEDS: ASCORBIC ACID 500 MG TABLET PO SCH (09:20)
[2020-02-16] MEDS: FERROUS SULFATE 325 MG TABLET PO SCH (09:20)
[2020-02-16] MEDS: AMOXICILLIN/CLAV 875-125MG TABLET PO SCH ×2 (09:31→21:46)
[2020-02-16] MEDS ORDERED: MORPHINE SULFATE 4 MG/ML, 1ML IVPush PRN (10:30)
[2020-02-16 12:55] VITALS: BP 96/57
[2020-02-16] MEDS: NICOTINE 7 MG/24 HR PATCH.TD24 TD SCH (16:12)
[2020-02-16 19:31] VITALS: BP 105/73
[2020-02-17 01:15] VITALS: BP 90/58
[2020-02-17] MEDS: HEPARIN 5,000 UNITS/ML, 1ML SQ SCH ×3 (05:00→21:00)
[2020-02-17 07:29] VITALS: BP 109/75
[2020-02-17] MEDS: ASCORBIC ACID 500 MG TABLET PO SCH (08:56)
[2020-02-17] MEDS: ASPIRIN 81 MG TABLET EC PO SCH (08:56)
[2020-02-17] MEDS: GABAPENTIN 300 MG CAPSULE PO SCH ×3 (08:56→21:04)
[2020-02-17] MEDS: MULTIVITAMINS/MINERALS TABLET PO SCH (08:57)
[2020-02-17] MEDS: DOXYCYCLINE 100MG CAP PO SCH ×2 (08:57→21:04)
[2020-02-17] MEDS: ZIPRASIDONE 40MG CAPSULE PO SCH ×2 (08:57→21:04)
[2020-02-17] MEDS: VITAMIN E 400 UNITS CAPSULE PO SCH (08:58)
[2020-02-17] MEDS: AMOXICILLIN/CLAV 875-125MG TABLET PO SCH ×2 (09:00→21:04)
[2020-02-17] MEDS: MORPHINE SULFATE 4 MG/ML, 1ML IVPush PRN ×4 (09:01→23:01)
[2020-02-17 13:10] VITALS: BP 104/72
[2020-02-17] MEDS: NICOTINE 7 MG/24 HR PATCH.TD24 TD SCH (15:50)
[2020-02-17 19:02] VITALS: BP 112/78
[2020-02-17] MEDS: OXYcodone IR 5MG TABLET PO PRN (21:05)
[2020-02-18 04:25] VITALS: BP 97/66
[2020-02-18] MEDS: MORPHINE SULFATE 4 MG/ML, 1ML IVPush PRN ×5 (04:30→22:14)
[2020-02-18] MEDS: ASPIRIN 81 MG TABLET EC PO SCH (05:59)
[2020-02-18] MEDS: HEPARIN 5,000 UNITS/ML, 1ML SQ SCH ×3 (05:59→21:00)
[2020-02-18] MEDS: OXYcodone IR 5MG TABLET PO PRN (05:59)
[2020-02-18] MEDS: FERROUS SULFATE 325 MG TABLET PO SCH (08:48)
[2020-02-18] MEDS: ASCORBIC ACID 500 MG TABLET PO SCH (08:48)
[2020-02-18] MEDS: GABAPENTIN 300 MG CAPSULE PO SCH ×3 (08:48→22:13)
[2020-02-18] MEDS: MULTIVITAMINS/MINERALS TABLET PO SCH (08:48)
[2020-02-18] MEDS: AMOXICILLIN/CLAV 875-125MG TABLET PO SCH ×2 (08:48→22:20)
[2020-02-18] MEDS: VITAMIN E 400 UNITS CAPSULE PO SCH (08:48)
[2020-02-18] MEDS: ZIPRASIDONE 40MG CAPSULE PO SCH ×2 (08:48→22:13)
[2020-02-18] MEDS: DOXYCYCLINE 100MG CAP PO SCH ×2 (08:49→22:13)
[2020-02-18 09:01] VITALS: BP 104/72
[2020-02-18 14:34] VITALS: BP 112/75
[2020-02-18] MEDS: NICOTINE 7 MG/24 HR PATCH.TD24 TD SCH (15:57)
[2020-02-18 20:00] VITALS: BP 102/66
[2020-02-19] MEDS: MORPHINE SULFATE 4 MG/ML, 1ML IVPush PRN ×5 (02:36→22:47)
[2020-02-19 02:52] VITALS: BP 119/72
[2020-02-19] MEDS: HEPARIN 5,000 UNITS/ML, 1ML SQ SCH ×3 (04:53→20:42)
[2020-02-19] MEDS: ASPIRIN 81 MG TABLET EC PO SCH (05:20)
[2020-02-19 07:37] VITALS: BP 103/70
[2020-02-19] MEDS: GABAPENTIN 300 MG CAPSULE PO SCH ×3 (08:20→20:42)
[2020-02-19] MEDS: MULTIVITAMINS/MINERALS TABLET PO SCH (08:20)
[2020-02-19] MEDS: DOXYCYCLINE 100MG CAP PO SCH ×2 (08:20→20:42)
[2020-02-19] MEDS: ZIPRASIDONE 40MG CAPSULE PO SCH ×2 (08:21→20:41)
[2020-02-19] MEDS: ASCORBIC ACID 500 MG TABLET PO SCH (08:21)
[2020-02-19] MEDS: VITAMIN E 400 UNITS CAPSULE PO SCH (08:21)
[2020-02-19] MEDS: AMOXICILLIN/CLAV 875-125MG TABLET PO SCH ×2 (08:24→20:42)
[2020-02-19 14:13] VITALS: BP 102/71
[2020-02-19] MEDS: NICOTINE 7 MG/24 HR PATCH.TD24 TD SCH (18:22)
[2020-02-19 20:43] VITALS: BP 127/78
[2020-02-20 00:09] VITALS: BP 98/67
[2020-02-20] MEDS: MORPHINE SULFATE 4 MG/ML, 1ML IVPush PRN ×4 (02:43→18:46)
[2020-02-20] MEDS: HEPARIN 5,000 UNITS/ML, 1ML SQ SCH ×3 (04:47→20:15)
[2020-02-20] MEDS: ASPIRIN 81 MG TABLET EC PO SCH (05:53)
[2020-02-20] MEDS: FERROUS SULFATE 325 MG TABLET PO SCH (08:55)
[2020-02-20] MEDS: VITAMIN E 400 UNITS CAPSULE PO SCH (08:55)
[2020-02-20] MEDS: DOXYCYCLINE 100MG CAP PO SCH ×2 (08:56→20:09)
[2020-02-20] MEDS: MULTIVITAMINS/MINERALS TABLET PO SCH (08:56)
[2020-02-20] MEDS: ASCORBIC ACID 500 MG TABLET PO SCH (08:56)
[2020-02-20] MEDS: GABAPENTIN 300 MG CAPSULE PO SCH ×3 (08:56→20:09)
[2020-02-20] MEDS: ZIPRASIDONE 40MG CAPSULE PO SCH (08:57)
[2020-02-20 08:59] VITALS: BP 107/69
[2020-02-20] MEDS: ZIPRASIDONE 20MG CAPSULE PO SCH ×2 (09:06→20:09)
[2020-02-20] MEDS: AMOXICILLIN/CLAV 875-125MG TABLET PO SCH ×2 (09:11→20:09)
[2020-02-20 12:27] VITALS: BP 99/69
[2020-02-20] MEDS: NICOTINE 7 MG/24 HR PATCH.TD24 TD SCH (17:05)
[2020-02-20 19:17] VITALS: BP 113/71
[2020-02-20] MEDS: OXYcodone IR 5MG TABLET PO PRN (20:13)
[2020-02-21 02:29] VITALS: BP 120/77
[2020-02-21] MEDS: ASPIRIN 81 MG TABLET EC PO SCH (05:12)
[2020-02-21] MEDS: MORPHINE SULFATE 4 MG/ML, 1ML IVPush PRN ×4 (05:13→22:35)
[2020-02-21] MEDS: HEPARIN 5,000 UNITS/ML, 1ML SQ SCH ×3 (05:13→21:00)
[2020-02-21] MEDS: OXYcodone IR 5MG TABLET PO PRN ×3 (06:46→23:14)
[2020-02-21 07:03] VITALS: BP 138/75
[2020-02-21] MEDS ORDERED: CHLORHEXIDINE 15 ML UDC MM ONE (08:00)
[2020-02-21] MEDS ORDERED: MIDAZOLAM 1 MG/ML, 2ML ONE (08:02)
[2020-02-21] MEDS ORDERED: FENTANYL PF 250 MCG/5ML ONE (08:03)
[2020-02-21] MEDS ORDERED: ONDANSETRON 2MG/ML, 2ML IV PRN (08:30)
[2020-02-21] MEDS ORDERED: MIDAZOLAM 1 MG/ML, 2ML IV PRN (08:30)
[2020-02-21] MEDS ORDERED: ACETAMINOPHEN 325 MG TABLET PO PRN (08:30)
[2020-02-21] MEDS ORDERED: LABETALOL 5MG/ML, 20ML IV PRN (08:30)
[2020-02-21] MEDS ORDERED: hydrALAzine 20 MG/ML, 1ML IV PRN (08:30)
[2020-02-21] MEDS ORDERED: HYDROmorphone 2 MG/ML, 1ML IVPush PRN (08:30)
[2020-02-21] MEDS ORDERED: MEPERIDINE/PF 25MG/ML,1ML IVPush PRN (08:30)
[2020-02-21] MEDS ORDERED: PROMETHAZINE 25 MG/ML, 1ML IV PRN (08:30)
[2020-02-21] MEDS ORDERED: LIDOCAINE-MPF 2% ,5ML ONE (08:38)
[2020-02-21] MEDS ORDERED: DEXAMETHASONE 4 MG/ML, 1ML ONE (09:00)
[2020-02-21] MEDS ORDERED: ONDANSETRON 2MG/ML, 2ML ONE (09:00)
[2020-02-21] MEDS ORDERED: BUPIVACAINE/PF 0.25% ONE (09:00)
[2020-02-21] MEDS ORDERED: CEFAZOLIN 1,000 MG ONE (09:13)
[2020-02-21] MEDS ORDERED: PROPOFOL 10 MG/ML, 20ML ONE (09:35)
[2020-02-21] MEDS ORDERED: SUCCINYLCHOLINE 20 MG/ML, 10ML ONE (09:36)
[2020-02-21] MEDS ORDERED: FENTANYL PF 100 MCG/2ML ONE ×2 (09:47→10:32)
[2020-02-21] MEDS ORDERED: OXYcodone 5 MG/5 ML ORAL.SOL UDC ONE ×2 (10:33→11:08)
[2020-02-21] MEDS ORDERED: HYDROmorphone 1 MG/ML, 1ML INJ ONE (10:33)
[2020-02-21] MEDS: FENTANYL PF 100 MCG/2ML IV PRN ×2 (10:40→10:55)
[2020-02-21] MEDS ORDERED: ACETAMINOPHEN 650 MG/20.3 ML UDC ONE (10:52)
[2020-02-21] MEDS ORDERED: ACETAMINOPHEN 325 MG TABLET ONE (10:52)
[2020-02-21] MEDS: OXYcodone 5 MG/5 ML ORAL.SOL UDC PO PRN ×2 (10:55→11:10)
[2020-02-21] MEDS: ASCORBIC ACID 500 MG TABLET PO SCH (12:55)
[2020-02-21] MEDS: AMOXICILLIN/CLAV 875-125MG TABLET PO SCH ×2 (12:55→23:14)
[2020-02-21] MEDS: GABAPENTIN 300 MG CAPSULE PO SCH ×3 (12:55→21:11)
[2020-02-21] MEDS: DOXYCYCLINE 100MG CAP PO SCH ×2 (12:56→21:12)
[2020-02-21] MEDS: ZIPRASIDONE 20MG CAPSULE PO SCH ×2 (12:56→21:12)
[2020-02-21] MEDS: MULTIVITAMINS/MINERALS TABLET PO SCH (12:56)
[2020-02-21] MEDS: VITAMIN E 400 UNITS CAPSULE PO SCH (12:56)
[2020-02-21 14:00] VITALS: BP 120/83
[2020-02-21 18:34] VITALS: BP 132/77
[2020-02-21] MEDS: IBUPROFEN 600 MG TABLET PO PRN (21:11)
[2020-02-22] VITALS (9 sets, daily range): BP systolic 99–149; BP diastolic 54–87
[2020-02-22] MEDS: MORPHINE SULFATE 4 MG/ML, 1ML IVPush PRN ×5 (02:46→21:09)
[2020-02-22] MEDS: HEPARIN 5,000 UNITS/ML, 1ML SQ SCH (04:20)
[2020-02-22] MEDS: ASPIRIN 81 MG TABLET EC PO SCH (05:01)
[2020-02-22] MEDS: OXYcodone IR 5MG TABLET PO PRN ×2 (05:02→11:16)
[2020-02-22 05:27] LABS: ALANINE AMINOTRANSFERASE 11 U/L (12-78); ALBUMIN 2.3 g/dL (3.4-5.0); ANION GAP 7 mmol/L (5-15); CALCIUM 8.4 mg/dL (8.5-10.1); CHLORIDE 98 mmol/L (98-107); CREATININE 0.64 mg/dL (0.55-1.02)
[2020-02-22 05:29] LABS: ALKALINE PHOSPHATASE 63 U/L (45-117); TOTAL PROTEIN 6.5 g/dL (6.4-8.2)
[2020-02-22 05:30] LABS: BILIRUBIN,TOTAL < 0.1 mg/dL (0.2-1.0)
[2020-02-22 05:31] LABS: MEAN CORPUSCULAR HEMOGLOBIN 20.9 pg (27.0-34.8); MEAN CORPUSCULAR HGB CONC 30.5 g/dL (32.4-35.8); MEAN CORPUSCULAR VOLUME 68.7 fL (80-100); MEAN PLATELET VOLUME 7.2 fL (7.4-10.4); PLATELET COUNT 607 x10^3/uL (130-400); RED BLOOD COUNT 3.17 x10^6/uL (3.82-5.3); RED CELL DISTRIBUTION WIDTH 23.2 % (9.6-15.2)
[2020-02-22 06:17] LABS: MD YES
[2020-02-22 06:18] LABS: EOS#(MANUAL) 0.34 x10^3/uL (0.0-0.4); EOS% (MANUAL) 3 % (1-7); LYMPH#(MANUAL) 2.85 x10^3/uL (1-3.4); LYMPHS% (MANUAL) 25 % (22-44); MONOS#(MANUAL) 0.68 x10^3/uL (0.3-2.7); MONOS% (MANUAL) 6 % (2-9); SEG#(MANUAL) 7.52 x10^3/uL (1.8-6.8); SEGS% (MANUAL) 66 % (42-75)
[2020-02-22 06:19] LABS: ANISOCYTOSIS 2+; HYPOCHROMIA 1+; MICROCYTOSIS 1+; OVALOCYTES 1+; POLYCHROMASIA 1+; SCHISTOCYTES 1+
[2020-02-22 06:20] LABS: ACANTHOCYTES 1+; TARGET CELLS 1+; TEAR DROPS 1+
[2020-02-22 06:21] LABS: <PLATELET ESTIMATE> INCREASED; <PLT MORPHOLOGY> NORMAL PLT MORPH
[2020-02-22] MEDS: VITAMIN E 400 UNITS CAPSULE PO SCH (09:00)
[2020-02-22] MEDS: ZIPRASIDONE 20MG CAPSULE PO SCH ×2 (09:12→21:09)
[2020-02-22] MEDS: GABAPENTIN 300 MG CAPSULE PO SCH ×3 (09:12→21:09)
[2020-02-22] MEDS: ASCORBIC ACID 500 MG TABLET PO SCH (09:12)
[2020-02-22] MEDS: MULTIVITAMINS/MINERALS TABLET PO SCH (09:12)
[2020-02-22] MEDS: DOXYCYCLINE 100MG CAP PO SCH ×2 (09:13→21:10)
[2020-02-22] MEDS: FERROUS SULFATE 325 MG TABLET PO SCH ×3 (09:13→16:19)
[2020-02-22] MEDS: AMOXICILLIN/CLAV 875-125MG TABLET PO SCH (11:16)
[2020-02-22] MEDS: IBUPROFEN 600 MG TABLET PO PRN (14:40)
[2020-02-23 00:17] VITALS: BP 132/85
[2020-02-23] MEDS: MORPHINE SULFATE 4 MG/ML, 1ML IVPush PRN ×5 (01:29→21:03)
[2020-02-23] MEDS: AMOXICILLIN/CLAV 875-125MG TABLET PO SCH ×2 (01:30→11:45)
[2020-02-23] MEDS: ASPIRIN 81 MG TABLET EC PO SCH (05:46)
[2020-02-23 06:31] LABS: MEAN CORPUSCULAR HEMOGLOBIN 22.7 pg (27.0-34.8); MEAN CORPUSCULAR HGB CONC 31.5 g/dL (32.4-35.8); MEAN CORPUSCULAR VOLUME 72.1 fL (80-100); MEAN PLATELET VOLUME 7.6 fL (7.4-10.4); PLATELET COUNT 618 x10^3/uL (130-400); RED BLOOD COUNT 3.65 x10^6/uL (3.82-5.3); RED CELL DISTRIBUTION WIDTH 25.8 % (9.6-15.2)
[2020-02-23 06:43] LABS: ANION GAP 4 mmol/L (5-15); CALCIUM 8.7 mg/dL (8.5-10.1); CHLORIDE 100 mmol/L (98-107); CREATININE 0.57 mg/dL (0.55-1.02)
[2020-02-23 06:55] LABS: MD YES
[2020-02-23 06:56] VITALS: BP 141/87
[2020-02-23 07:28] LABS: LYMPH#(MANUAL) 3.69 x10^3/uL (1-3.4); LYMPHS% (MANUAL) 26 % (22-44); MONOS#(MANUAL) 0.28 x10^3/uL (0.3-2.7); MONOS% (MANUAL) 2 % (2-9); SEG#(MANUAL) 10.22 x10^3/uL (1.8-6.8); SEGS% (MANUAL) 72 % (42-75)
[2020-02-23 07:29] LABS: ACANTHOCYTES 1+; ANISOCYTOSIS 2+; MICROCYTOSIS 1+
[2020-02-23 07:30] LABS: <PLATELET ESTIMATE> INCREASED; <PLT MORPHOLOGY> NORMAL PLT MORPH; OVALOCYTES 1+; SCHISTOCYTES 2+
[2020-02-23] MEDS: GABAPENTIN 300 MG CAPSULE PO SCH ×3 (08:07→21:03)
[2020-02-23] MEDS: ZIPRASIDONE 20MG CAPSULE PO SCH ×2 (08:08→21:04)
[2020-02-23] MEDS: ASCORBIC ACID 500 MG TABLET PO SCH (08:08)
[2020-02-23] MEDS: FERROUS SULFATE 325 MG TABLET PO SCH ×3 (08:08→15:59)
[2020-02-23] MEDS: OXYcodone IR 5MG TABLET PO PRN ×2 (08:08→15:59)
[2020-02-23] MEDS: MULTIVITAMINS/MINERALS TABLET PO SCH (08:08)
[2020-02-23] MEDS: VITAMIN E 400 UNITS CAPSULE PO SCH (08:09)
[2020-02-23] MEDS: DOXYCYCLINE 100MG CAP PO SCH ×2 (10:00→21:27)
[2020-02-23 12:32] VITALS: BP 112/74
[2020-02-23 19:32] VITALS: BP 122/82
[2020-02-24 00:38] VITALS: BP 114/76
[2020-02-24] MEDS: AMOXICILLIN/CLAV 875-125MG TABLET PO SCH ×3 (01:19→23:38)
[2020-02-24] MEDS: MORPHINE SULFATE 4 MG/ML, 1ML IVPush PRN ×5 (01:19→21:16)
[2020-02-24] MEDS: ASPIRIN 81 MG TABLET EC PO SCH (06:12)
[2020-02-24 06:41] LABS: ANION GAP 4 mmol/L (5-15); CALCIUM 8.9 mg/dL (8.5-10.1); CHLORIDE 103 mmol/L (98-107); CREATININE 0.59 mg/dL (0.55-1.02)
[2020-02-24 06:46] LABS: MEAN CORPUSCULAR HEMOGLOBIN 22.5 pg (27.0-34.8); MEAN CORPUSCULAR HGB CONC 30.9 g/dL (32.4-35.8); MEAN CORPUSCULAR VOLUME 72.7 fL (80-100); MEAN PLATELET VOLUME 7.3 fL (7.4-10.4); PLATELET COUNT 670 x10^3/uL (130-400); RED BLOOD COUNT 3.67 x10^6/uL (3.82-5.3); RED CELL DISTRIBUTION WIDTH 25.9 % (9.6-15.2)
[2020-02-24 06:51] VITALS: BP 111/74
[2020-02-24 07:18] LABS: MD YES
[2020-02-24 07:21] LABS: EOS#(MANUAL) 0.31 x10^3/uL (0.0-0.4); EOS% (MANUAL) 3 % (1-7); LYMPHS% (MANUAL) 24 % (22-44); MONOS#(MANUAL) 0.62 x10^3/uL (0.3-2.7); MONOS% (MANUAL) 6 % (2-9); SEG#(MANUAL) 6.97 x10^3/uL (1.8-6.8); SEGS% (MANUAL) 67 % (42-75)
[2020-02-24 07:22] LABS: ANISOCYTOSIS 2+; HYPOCHROMIA 1+; MICROCYTOSIS 1+; OVALOCYTES 1+; POLYCHROMASIA 1+
[2020-02-24 07:23] LABS: ACANTHOCYTES 1+; SCHISTOCYTES 1+
[2020-02-24 07:24] LABS: <PLATELET ESTIMATE> INCREASED; <PLT MORPHOLOGY> NORMAL PLT MORPH
[2020-02-24] MEDS: VITAMIN E 400 UNITS CAPSULE PO SCH (09:00)
[2020-02-24] MEDS: OXYcodone IR 5MG TABLET PO PRN ×3 (09:12→22:26)
[2020-02-24] MEDS: FERROUS SULFATE 325 MG TABLET PO SCH ×3 (09:13→16:29)
[2020-02-24] MEDS: DOXYCYCLINE 100MG CAP PO SCH ×2 (09:13→21:16)
[2020-02-24] MEDS: ASCORBIC ACID 500 MG TABLET PO SCH (09:13)
[2020-02-24] MEDS: ZIPRASIDONE 20MG CAPSULE PO SCH ×2 (09:13→21:17)
[2020-02-24] MEDS: MULTIVITAMINS/MINERALS TABLET PO SCH (09:13)
[2020-02-24] MEDS: GABAPENTIN 300 MG CAPSULE PO SCH ×3 (09:14→21:16)
[2020-02-24 14:09] VITALS: BP 106/70
[2020-02-24] MEDS: IBUPROFEN 600 MG TABLET PO PRN (14:28)
[2020-02-24 18:53] VITALS: BP 108/72
[2020-02-24] MEDS: ACETAMINOPHEN 500 MG TABLET PO PRN (22:25)
[2020-02-25] MEDS: MORPHINE SULFATE 4 MG/ML, 1ML IVPush PRN ×5 (01:43→23:56)
[2020-02-25 01:45] VITALS: BP 106/68
[2020-02-25] MEDS: OXYcodone IR 5MG TABLET PO PRN ×3 (06:30→22:02)
[2020-02-25] MEDS: ASPIRIN 81 MG TABLET EC PO SCH (06:30)
[2020-02-25 06:41] VITALS: BP 105/67
[2020-02-25] MEDS: VITAMIN E 400 UNITS CAPSULE PO SCH (08:57)
[2020-02-25] MEDS: ASCORBIC ACID 500 MG TABLET PO SCH (08:57)
[2020-02-25] MEDS: FERROUS SULFATE 325 MG TABLET PO SCH ×3 (08:57→17:04)
[2020-02-25] MEDS: DOXYCYCLINE 100MG CAP PO SCH ×2 (08:57→22:02)
[2020-02-25] MEDS: GABAPENTIN 300 MG CAPSULE PO SCH ×3 (08:57→22:03)
[2020-02-25] MEDS: ZIPRASIDONE 20MG CAPSULE PO SCH (08:58)
[2020-02-25] MEDS: MULTIVITAMINS/MINERALS TABLET PO SCH (08:58)
[2020-02-25] MEDS: ENOXAPARIN 40 MG/0.4 ML SQ SCH (11:46)
[2020-02-25] MEDS: AMOXICILLIN/CLAV 875-125MG TABLET PO SCH ×2 (11:46→23:55)
[2020-02-25 13:11] VITALS: BP 103/68
[2020-02-25] MEDS: IBUPROFEN 600 MG TABLET PO PRN (18:11)
[2020-02-25 18:23] VITALS: BP 103/64
[2020-02-25] MEDS: ZIPRASIDONE 40MG CAPSULE PO SCH (22:02)
[2020-02-26 01:34] VITALS: BP 96/63
[2020-02-26 06:16] LABS: MEAN CORPUSCULAR HEMOGLOBIN 22.6 pg (27.0-34.8); MEAN CORPUSCULAR HGB CONC 31.2 g/dL (32.4-35.8); MEAN CORPUSCULAR VOLUME 72.5 fL (80-100); MEAN PLATELET VOLUME 7.2 fL (7.4-10.4); PLATELET COUNT 736 x10^3/uL (130-400); RED BLOOD COUNT 3.76 x10^6/uL (3.82-5.3); RED CELL DISTRIBUTION WIDTH 25.3 % (9.6-15.2)
[2020-02-26 06:49] LABS: ANION GAP 7 mmol/L (5-15); CALCIUM 9.3 mg/dL (8.5-10.1); CHLORIDE 106 mmol/L (98-107)
[2020-02-26 07:17] LABS: BASOPHILS # (AUTO) 0.08 x10^3/uL (0-0.1); BASOPHILS % (AUTO) 1 % (0-1); EOSINOPHILS # (AUTO) 0.36 x10^3/uL (0-0.4); EOSINOPHILS % (AUTO) 5 % (1-7); LYMPHOCYTES # (AUTO) 2.35 x10^3/uL (1-3.4); LYMPHOCYTES % (AUTO) 32 % (22-44); MD MORPH REVIEW ONLY; MONOCYTES # (AUTO) 0.44 x10^3/uL (0.2-0.8); MONOCYTES % (AUTO) 6 % (2-9); NEUTROPHILS # (AUTO) 4.11 x10^3/uL (1.8-6.8); NEUTROPHILS % (AUTO) 56 % (42-75)
[2020-02-26 07:18] LABS: ACANTHOCYTES 1+; ANISOCYTOSIS 2+; HYPOCHROMIA 1+; OVALOCYTES 1+; POLYCHROMASIA 1+; SCHISTOCYTES 1+
[2020-02-26 07:19] LABS: <PLATELET ESTIMATE> INCREASED; <PLT MORPHOLOGY> NORMAL PLT MORPH; SPHEROCYTES 1+
[2020-02-26 07:20] LABS: MICROCYTOSIS 1+
[2020-02-26 07:40] VITALS: BP 108/63
[2020-02-26] MEDS: MORPHINE SULFATE 4 MG/ML, 1ML IVPush PRN ×3 (08:51→22:12)
[2020-02-26] MEDS: ASPIRIN 81 MG TABLET EC PO SCH (08:51)
[2020-02-26] MEDS: VITAMIN E 400 UNITS CAPSULE PO SCH (08:51)
[2020-02-26] MEDS: ASCORBIC ACID 500 MG TABLET PO SCH (08:51)
[2020-02-26] MEDS: ZIPRASIDONE 40MG CAPSULE PO SCH ×2 (08:51→22:13)
[2020-02-26] MEDS: MULTIVITAMINS/MINERALS TABLET PO SCH (08:51)
[2020-02-26] MEDS: DOXYCYCLINE 100MG CAP PO SCH ×2 (08:52→22:13)
[2020-02-26] MEDS: GABAPENTIN 300 MG CAPSULE PO SCH ×3 (08:52→22:13)
[2020-02-26] MEDS: FERROUS SULFATE 325 MG TABLET PO SCH ×3 (08:52→17:02)
[2020-02-26] MEDS: AMOXICILLIN/CLAV 875-125MG TABLET PO SCH (11:02)
[2020-02-26] MEDS: ENOXAPARIN 40 MG/0.4 ML SQ SCH (11:04)
[2020-02-26 13:27] VITALS: BP 107/60
[2020-02-26] MEDS: IBUPROFEN 600 MG TABLET PO PRN (14:30)
[2020-02-26 18:31] VITALS: BP 129/87
[2020-02-26] MEDS: ACETAMINOPHEN 500 MG TABLET PO PRN (19:23)
[2020-02-26] MEDS: OXYcodone IR 5MG TABLET PO PRN (19:25)
[2020-02-27] MEDS: AMOXICILLIN/CLAV 875-125MG TABLET PO SCH ×2 (01:01→12:20)
[2020-02-27 01:02] VITALS: BP 109/69
[2020-02-27] MEDS: ASPIRIN 81 MG TABLET EC PO SCH (05:40)
[2020-02-27] MEDS: OXYcodone IR 5MG TABLET PO PRN ×2 (05:40→12:21)
[2020-02-27 08:00] VITALS: BP 126/78
[2020-02-27] MEDS ORDERED: ZIPRASIDONE 20MG CAPSULE ONE (08:27)
[2020-02-27] MEDS: ASCORBIC ACID 500 MG TABLET PO SCH (08:35)
[2020-02-27] MEDS: ZIPRASIDONE 40MG CAPSULE PO SCH ×2 (08:35→21:49)
[2020-02-27] MEDS: MORPHINE SULFATE 4 MG/ML, 1ML IVPush PRN ×3 (08:35→21:49)
[2020-02-27] MEDS: VITAMIN E 400 UNITS CAPSULE PO SCH (08:35)
[2020-02-27] MEDS: GABAPENTIN 300 MG CAPSULE PO SCH ×3 (08:36→21:49)
[2020-02-27] MEDS: FERROUS SULFATE 325 MG TABLET PO SCH ×3 (08:36→16:46)
[2020-02-27] MEDS: MULTIVITAMINS/MINERALS TABLET PO SCH (08:36)
[2020-02-27] MEDS: ENOXAPARIN 40 MG/0.4 ML SQ SCH (10:27)
[2020-02-27] MEDS: DOXYCYCLINE 100MG CAP PO SCH ×2 (10:27→21:48)
[2020-02-27 12:00] VITALS: BP 109/75
[2020-02-27 18:49] VITALS: BP 109/75
[2020-02-28] MEDS: AMOXICILLIN/CLAV 875-125MG TABLET PO SCH ×2 (00:16→11:11)
[2020-02-28 03:28] VITALS: BP 99/63
[2020-02-28] MEDS: MORPHINE SULFATE 4 MG/ML, 1ML IVPush PRN ×4 (03:33→20:40)
[2020-02-28] MEDS: ASPIRIN 81 MG TABLET EC PO SCH (06:16)
[2020-02-28 07:07] VITALS: BP 118/72
[2020-02-28] MEDS: FERROUS SULFATE 325 MG TABLET PO SCH ×3 (09:00→16:18)
[2020-02-28] MEDS: VITAMIN E 400 UNITS CAPSULE PO SCH (09:00)
[2020-02-28] MEDS: MULTIVITAMINS/MINERALS TABLET PO SCH (09:01)
[2020-02-28] MEDS: ZIPRASIDONE 40MG CAPSULE PO SCH ×2 (09:01→20:39)
[2020-02-28] MEDS: GABAPENTIN 300 MG CAPSULE PO SCH ×3 (09:01→20:38)
[2020-02-28] MEDS: ASCORBIC ACID 500 MG TABLET PO SCH (09:01)
[2020-02-28] MEDS: DOXYCYCLINE 100MG CAP PO SCH ×2 (09:01→20:39)
[2020-02-28] MEDS: ENOXAPARIN 40 MG/0.4 ML SQ SCH (11:00)
[2020-02-28 12:52] VITALS: BP 109/73
[2020-02-28] MEDS: IBUPROFEN 600 MG TABLET PO PRN (17:55)
[2020-02-28] MEDS: ACETAMINOPHEN 500 MG TABLET PO PRN (17:55)
[2020-02-28 18:46] VITALS: BP 106/73
[2020-02-28] MEDS: OXYcodone IR 5MG TABLET PO PRN (20:39)
[2020-02-29 00:13] VITALS: BP 93/59
[2020-02-29] MEDS: AMOXICILLIN/CLAV 875-125MG TABLET PO SCH ×2 (00:15→12:13)
[2020-02-29] MEDS: ACETAMINOPHEN 500 MG TABLET PO PRN (00:15)
[2020-02-29] MEDS: OXYcodone IR 5MG TABLET PO PRN ×3 (05:20→21:23)
[2020-02-29] MEDS: ASPIRIN 81 MG TABLET EC PO SCH (05:20)
[2020-02-29] MEDS: IBUPROFEN 600 MG TABLET PO PRN (05:21)
[2020-02-29] MEDS: MORPHINE SULFATE 4 MG/ML, 1ML IVPush PRN ×2 (05:21→20:23)
[2020-02-29 07:53] VITALS: BP 100/68
[2020-02-29] MEDS: VITAMIN E 400 UNITS CAPSULE PO SCH (08:54)
[2020-02-29] MEDS: MULTIVITAMINS/MINERALS TABLET PO SCH (08:54)
[2020-02-29] MEDS: ZIPRASIDONE 40MG CAPSULE PO SCH ×2 (08:54→21:23)
[2020-02-29] MEDS: FERROUS SULFATE 325 MG TABLET PO SCH ×3 (08:55→15:44)
[2020-02-29] MEDS: ASCORBIC ACID 500 MG TABLET PO SCH (08:55)
[2020-02-29] MEDS: GABAPENTIN 300 MG CAPSULE PO SCH ×3 (08:55→21:23)
[2020-02-29] MEDS: ENOXAPARIN 40 MG/0.4 ML SQ SCH (10:18)
[2020-02-29] MEDS: DOXYCYCLINE 100MG CAP PO SCH ×2 (10:18→21:23)
[2020-02-29 11:45] LABS: MEAN CORPUSCULAR HEMOGLOBIN 23.4 pg (27.0-34.8); MEAN CORPUSCULAR HGB CONC 31.7 g/dL (32.4-35.8); MEAN CORPUSCULAR VOLUME 73.9 fL (80-100); MEAN PLATELET VOLUME 7.4 fL (7.4-10.4); PLATELET COUNT 822 x10^3/uL (130-400); RED BLOOD COUNT 3.81 x10^6/uL (3.82-5.3); RED CELL DISTRIBUTION WIDTH 25.5 % (9.6-15.2)
[2020-02-29 11:46] LABS: MD YES
[2020-02-29 11:48] LABS: ANISOCYTOSIS 2+; BASOS#(MANUAL) 0.08 x10^3/uL (0-0.1); BASOS% (MANUAL) 1 % (0-1); EOS#(MANUAL) 0.59 x10^3/uL (0.0-0.4); EOS% (MANUAL) 7 % (1-7); LYMPH#(MANUAL) 3.11 x10^3/uL (1-3.4); LYMPHS% (MANUAL) 37 % (22-44); MONOS#(MANUAL) 0.25 x10^3/uL (0.3-2.7); MONOS% (MANUAL) 3 % (2-9); SEG#(MANUAL) 4.37 x10^3/uL (1.8-6.8); SEGS% (MANUAL) 52 % (42-75)
[2020-02-29 11:49] LABS: HYPOCHROMIA 1+; MICROCYTOSIS 1+; POLYCHROMASIA 1+
[2020-02-29 11:50] LABS: ACANTHOCYTES 1+; OVALOCYTES 1+; SCHISTOCYTES 1+; SPHEROCYTES 1+
[2020-02-29 11:51] LABS: <PLATELET ESTIMATE> INCREASED; <PLT MORPHOLOGY> NORMAL PLT MORPH
[2020-02-29 13:14] VITALS: BP 103/66
[2020-02-29 19:07] VITALS: BP 102/75
[2020-03-01 00:36] VITALS: BP 105/70
[2020-03-01] MEDS: AMOXICILLIN/CLAV 875-125MG TABLET PO SCH ×3 (00:41→23:49)
[2020-03-01] MEDS: MORPHINE SULFATE 4 MG/ML, 1ML IVPush PRN ×4 (00:42→21:28)
[2020-03-01] MEDS: OXYcodone IR 5MG TABLET PO PRN ×3 (05:33→23:57)
[2020-03-01] MEDS: ASPIRIN 81 MG TABLET EC PO SCH (05:33)
[2020-03-01 05:53] LABS: CREATININE 0.68 mg/dL (0.55-1.02)
[2020-03-01 07:31] VITALS: BP 109/73
[2020-03-01] MEDS: GABAPENTIN 300 MG CAPSULE PO SCH ×3 (08:41→21:28)
[2020-03-01] MEDS: ZIPRASIDONE 40MG CAPSULE PO SCH ×2 (08:42→21:28)
[2020-03-01] MEDS: ASCORBIC ACID 500 MG TABLET PO SCH (08:42)
[2020-03-01] MEDS: VITAMIN E 400 UNITS CAPSULE PO SCH (08:42)
[2020-03-01] MEDS: FERROUS SULFATE 325 MG TABLET PO SCH ×3 (08:43→16:34)
[2020-03-01] MEDS: MULTIVITAMINS/MINERALS TABLET PO SCH (08:43)
[2020-03-01] MEDS: DOXYCYCLINE 100MG CAP PO SCH ×2 (10:53→21:28)
[2020-03-01] MEDS: ENOXAPARIN 40 MG/0.4 ML SQ SCH (10:53)
[2020-03-01 12:54] VITALS: BP 93/65
[2020-03-01 19:09] VITALS: BP 101/67
[2020-03-01] MEDS ORDERED: MELATONIN 5 MG TABLET PO ONE (23:30)
[2020-03-01] MEDS ORDERED: DIPHENHYDRAMINE 25 MG CAPSULE PO ONE (23:30)
[2020-03-02 01:01] VITALS: BP 100/69
[2020-03-02] MEDS: MORPHINE SULFATE 4 MG/ML, 1ML IVPush PRN ×4 (04:07→18:09)
[2020-03-02 04:26] LABS: ALANINE AMINOTRANSFERASE 14 U/L (12-78); ALBUMIN 2.6 g/dL (3.4-5.0); ANION GAP 4 mmol/L (5-15); CALCIUM 8.9 mg/dL (8.5-10.1); CHLORIDE 105 mmol/L (98-107); CREATININE 0.65 mg/dL (0.55-1.02)
[2020-03-02 04:28] LABS: MEAN CORPUSCULAR HEMOGLOBIN 22.6 pg (27.0-34.8); MEAN CORPUSCULAR HGB CONC 30.8 g/dL (32.4-35.8); MEAN CORPUSCULAR VOLUME 73.4 fL (80-100); MEAN PLATELET VOLUME 7.1 fL (7.4-10.4); PLATELET COUNT 742 x10^3/uL (130-400); RED BLOOD COUNT 3.81 x10^6/uL (3.82-5.3); RED CELL DISTRIBUTION WIDTH 25.4 % (9.6-15.2)
[2020-03-02 04:29] LABS: ALKALINE PHOSPHATASE 67 U/L (45-117); BILIRUBIN,TOTAL 0.2 mg/dL (0.2-1.0); TOTAL PROTEIN 7.1 g/dL (6.4-8.2)
[2020-03-02 05:38] LABS: MD YES
[2020-03-02 05:40] LABS: ANISOCYTOSIS 2+; EOS#(MANUAL) 0.49 x10^3/uL (0.0-0.4); EOS% (MANUAL) 6 % (1-7); LYMPH#(MANUAL) 2.79 x10^3/uL (1-3.4); LYMPHS% (MANUAL) 34 % (22-44); MONOS#(MANUAL) 0.16 x10^3/uL (0.3-2.7); MONOS% (MANUAL) 2 % (2-9); SEG#(MANUAL) 4.76 x10^3/uL (1.8-6.8); SEGS% (MANUAL) 58 % (42-75)
[2020-03-02 05:41] LABS: HYPOCHROMIA 1+; MICROCYTOSIS 1+; POLYCHROMASIA 1+
[2020-03-02 05:42] LABS: OVALOCYTES 1+; SPHEROCYTES 1+
[2020-03-02 05:46] LABS: <PLATELET ESTIMATE> INCREASED; <PLT MORPHOLOGY> NORMAL PLT MORPH; ACANTHOCYTES 1+; SCHISTOCYTES 1+
[2020-03-02] MEDS: OXYcodone IR 5MG TABLET PO PRN ×3 (06:27→23:52)
[2020-03-02 06:51] VITALS: BP 106/74
[2020-03-02] MEDS: VITAMIN E 400 UNITS CAPSULE PO SCH (07:43)
[2020-03-02] MEDS: MULTIVITAMINS/MINERALS TABLET PO SCH (07:43)
[2020-03-02] MEDS: FERROUS SULFATE 325 MG TABLET PO SCH ×3 (07:43→17:00)
[2020-03-02] MEDS: ASCORBIC ACID 500 MG TABLET PO SCH (07:43)
[2020-03-02] MEDS: ZIPRASIDONE 40MG CAPSULE PO SCH ×2 (07:43→21:01)
[2020-03-02] MEDS: GABAPENTIN 300 MG CAPSULE PO SCH ×3 (07:43→21:01)
[2020-03-02] MEDS: ENOXAPARIN 40 MG/0.4 ML SQ SCH (10:00)
[2020-03-02] MEDS: DOXYCYCLINE 100MG CAP PO SCH ×2 (10:33→21:01)
[2020-03-02] MEDS: AMOXICILLIN/CLAV 875-125MG TABLET PO SCH ×2 (11:39→23:52)
[2020-03-02 12:59] VITALS: BP 112/76
[2020-03-02 19:03] VITALS: BP 120/75
[2020-03-02] MEDS: TRAZODONE 50MG TABLET PO PRN (21:01)
[2020-03-03] MEDS ORDERED: CATHFLO-ALTEPLASE 2 MG/2 ML CATHFLUSH ONE
[2020-03-03 02:21] VITALS: BP 96/66
[2020-03-03 06:58] VITALS: BP 111/78
[2020-03-03] MEDS: GABAPENTIN 300 MG CAPSULE PO SCH ×3 (08:33→20:22)
[2020-03-03] MEDS: ZIPRASIDONE 40MG CAPSULE PO SCH ×2 (08:33→20:22)
[2020-03-03] MEDS: MULTIVITAMINS/MINERALS TABLET PO SCH (08:33)
[2020-03-03] MEDS: VITAMIN E 400 UNITS CAPSULE PO SCH (08:34)
[2020-03-03] MEDS: FERROUS SULFATE 325 MG TABLET PO SCH ×3 (08:34→16:05)
[2020-03-03] MEDS: ASCORBIC ACID 500 MG TABLET PO SCH (08:34)
[2020-03-03] MEDS: MORPHINE SULFATE 4 MG/ML, 1ML IVPush PRN ×3 (08:35→21:52)
[2020-03-03] MEDS: DOXYCYCLINE 100MG CAP PO SCH ×2 (08:38→20:22)
[2020-03-03] MEDS ORDERED: BUPIVACAINE/PF 0.5% ONE (11:30)
[2020-03-03] MEDS ORDERED: LIDOCAINE 1%, 20ML ONE ×2 (11:30→11:38)
[2020-03-03] MEDS: AMOXICILLIN/CLAV 875-125MG TABLET PO SCH ×2 (12:01→23:32)
[2020-03-03] MEDS: OXYcodone IR 5MG TABLET PO PRN ×2 (12:02→20:22)
[2020-03-03 13:24] VITALS: BP 115/68
[2020-03-03 18:50] VITALS: BP 108/73
[2020-03-03] MEDS: TRAZODONE 50MG TABLET PO PRN (21:52)
[2020-03-04 03:55] VITALS: BP 119/68
[2020-03-04] MEDS: GABAPENTIN 300 MG CAPSULE PO SCH ×3 (08:10→22:02)
[2020-03-04] MEDS: ASCORBIC ACID 500 MG TABLET PO SCH (08:10)
[2020-03-04] MEDS: ZIPRASIDONE 40MG CAPSULE PO SCH ×2 (08:10→22:02)
[2020-03-04] MEDS: VITAMIN E 400 UNITS CAPSULE PO SCH (08:11)
[2020-03-04] MEDS: FERROUS SULFATE 325 MG TABLET PO SCH ×3 (08:11→16:12)
[2020-03-04] MEDS: MULTIVITAMINS/MINERALS TABLET PO SCH (08:11)
[2020-03-04 08:15] VITALS: BP 124/90
[2020-03-04] MEDS: MORPHINE SULFATE 4 MG/ML, 1ML IVPush PRN ×4 (08:18→22:02)
[2020-03-04] MEDS: DOXYCYCLINE 100MG CAP PO SCH ×2 (10:05→22:01)
[2020-03-04] MEDS: AMOXICILLIN/CLAV 875-125MG TABLET PO SCH (11:50)
[2020-03-04 12:42] VITALS: BP 107/72
[2020-03-04] MEDS ORDERED: FENTANYL PF 100 MCG/2ML ONE ×3 (17:55→20:45)
[2020-03-04] MEDS ORDERED: MIDAZOLAM 1 MG/ML, 2ML ONE (17:55)
[2020-03-04] MEDS ORDERED: MIDAZOLAM 1 MG/ML, 2ML IV PRN (18:30)
[2020-03-04] MEDS ORDERED: morphine SULFATE 10 MG/ML, 1ML IVPush PRN (18:30)
[2020-03-04] MEDS ORDERED: ALBUTEROL SULFATE 2.5 MG/3 ML NPPB PRN ×2 (18:30→20:30)
[2020-03-04] MEDS ORDERED: FENTANYL PF 100 MCG/2ML IV PRN ×2 (18:30→20:30)
[2020-03-04] MEDS ORDERED: ACETAMINOPHEN 325 MG TABLET PO PRN ×2 (18:30→20:30)
[2020-03-04] MEDS ORDERED: OXYcodone 5 MG/5 ML ORAL.SOL UDC PO PRN ×2 (18:30→20:30)
[2020-03-04] MEDS ORDERED: hydrALAzine 20 MG/ML, 1ML IV PRN ×2 (18:30→20:30)
[2020-03-04] MEDS ORDERED: MEPERIDINE/PF 25MG/0.5ML IVPush PRN (18:30)
[2020-03-04] MEDS ORDERED: PROMETHAZINE 25 MG/ML, 1ML IVPush PRN (18:30)
[2020-03-04] MEDS ORDERED: LABETALOL 5MG/ML, 20ML IV PRN ×2 (18:30→20:30)
[2020-03-04] MEDS ORDERED: ONDANSETRON 2MG/ML, 2ML ONE (18:56)
[2020-03-04] MEDS ORDERED: ROCURONIUM 10 MG/ML,10ML ONE (18:56)
[2020-03-04] MEDS ORDERED: CEFAZOLIN 1,000 MG ONE (18:56)
[2020-03-04] MEDS ORDERED: METOPROLOL 1 MG/ML, 5ML ONE (18:56)
[2020-03-04] MEDS ORDERED: KETOROLAC 30 MG/1 ML ONE (18:56)
[2020-03-04] MEDS ORDERED: PROPOFOL 10 MG/ML, 20ML ONE (18:56)
[2020-03-04] MEDS ORDERED: ESMOLOL 100 MG/10 ML ONE (18:56)
[2020-03-04] MEDS ORDERED: BUPIVACAINE/PF 0.5% ONE (19:52)
[2020-03-04] MEDS ORDERED: FENTANYL PF 250 MCG/5ML ONE (19:55)
[2020-03-04] MEDS ORDERED: SUGAMMADEX 200 MG/2 ML IVPush ONE (20:27)
[2020-03-04] MEDS ORDERED: KETOROLAC 30 MG/1 ML IV PRN (20:30)
[2020-03-04] MEDS ORDERED: DIAZEPAM 5 MG/ML, 2ML IVPush PRN (20:30)
[2020-03-04] MEDS ORDERED: HYDROmorphone 2 MG/ML, 1ML IVPush PRN (20:30)
[2020-03-04] MEDS ORDERED: PROMETHAZINE 25 MG/ML, 1ML IV PRN (20:30)
[2020-03-04] MEDS ORDERED: HYDROmorphone 1 MG/ML, 1ML INJ ONE (20:45)
[2020-03-04] MEDS ORDERED: MEPERIDINE/PF 100 MG/ML ONE (20:45)
[2020-03-04] MEDS: MEPERIDINE/PF 25MG/0.5ML IVPush PRN ×2 (20:47→21:07)
[2020-03-04] MEDS: TRAZODONE 50MG TABLET PO PRN (22:02)
[2020-03-04 23:39] VITALS: BP 91/60
[2020-03-05] MEDS: AMOXICILLIN/CLAV 875-125MG TABLET PO SCH (00:07)
[2020-03-05 03:38] VITALS: BP 90/64
[2020-03-05] MEDS: FERROUS SULFATE 325 MG TABLET PO SCH ×3 (06:47→16:41)
[2020-03-05] MEDS: MORPHINE SULFATE 4 MG/ML, 1ML IVPush PRN ×4 (06:48→20:44)
[2020-03-05 07:07] VITALS: BP 108/70
[2020-03-05] MEDS: ASCORBIC ACID 500 MG TABLET PO SCH (07:56)
[2020-03-05] MEDS: MULTIVITAMINS/MINERALS TABLET PO SCH (07:56)
[2020-03-05] MEDS: ZIPRASIDONE 40MG CAPSULE PO SCH ×2 (07:56→20:44)
[2020-03-05] MEDS: GABAPENTIN 300 MG CAPSULE PO SCH ×3 (07:56→20:45)
[2020-03-05] MEDS: VITAMIN E 400 UNITS CAPSULE PO SCH (07:56)
[2020-03-05] MEDS: OXYcodone IR 5MG TABLET PO PRN ×2 (08:10→14:59)
[2020-03-05 13:18] VITALS: BP 125/83
[2020-03-05] MEDS: IBUPROFEN 600 MG TABLET PO PRN ×2 (14:59→21:44)
[2020-03-05 19:29] VITALS: BP 110/73
[2020-03-05] MEDS: TRAZODONE 50MG TABLET PO PRN (21:44)
[2020-03-06] MEDS: MORPHINE SULFATE 4 MG/ML, 1ML IVPush PRN ×5 (00:34→21:00)
[2020-03-06 04:07] VITALS: BP 103/69
[2020-03-06] MEDS: ZIPRASIDONE 40MG CAPSULE PO SCH ×2 (08:18→20:59)
[2020-03-06] MEDS: GABAPENTIN 300 MG CAPSULE PO SCH ×3 (08:18→20:59)
[2020-03-06] MEDS: ASCORBIC ACID 500 MG TABLET PO SCH (08:18)
[2020-03-06] MEDS: OXYcodone IR 5MG TABLET PO PRN (08:19)
[2020-03-06] MEDS: FERROUS SULFATE 325 MG TABLET PO SCH ×3 (08:19→16:07)
[2020-03-06] MEDS: VITAMIN E 400 UNITS CAPSULE PO SCH (08:19)
[2020-03-06] MEDS: MULTIVITAMINS/MINERALS TABLET PO SCH (08:19)
[2020-03-06 08:23] VITALS: BP 106/72
[2020-03-06 13:40] VITALS: BP 106/73
[2020-03-06] MEDS: IBUPROFEN 600 MG TABLET PO PRN (13:48)
[2020-03-06 18:59] VITALS: BP 91/61
[2020-03-06] MEDS: TRAZODONE 50MG TABLET PO PRN (22:21)
[2020-03-07 01:10] VITALS: BP 93/59
[2020-03-07] MEDS: MORPHINE SULFATE 4 MG/ML, 1ML IVPush PRN ×4 (03:47→19:44)
[2020-03-07 07:57] VITALS: BP 114/73
[2020-03-07] MEDS: GABAPENTIN 300 MG CAPSULE PO SCH ×3 (07:59→19:45)
[2020-03-07] MEDS: MULTIVITAMINS/MINERALS TABLET PO SCH (08:00)
[2020-03-07] MEDS: ZIPRASIDONE 40MG CAPSULE PO SCH ×2 (08:00→19:45)
[2020-03-07] MEDS: FERROUS SULFATE 325 MG TABLET PO SCH ×3 (08:00→16:03)
[2020-03-07] MEDS: VITAMIN E 400 UNITS CAPSULE PO SCH (08:00)
[2020-03-07] MEDS: ASCORBIC ACID 500 MG TABLET PO SCH (08:00)
[2020-03-07] MEDS: OXYcodone IR 5MG TABLET PO PRN (11:35)
[2020-03-07 15:00] VITALS: BP 120/79
[2020-03-07 19:52] VITALS: BP 122/78
[2020-03-07] MEDS: TRAZODONE 50MG TABLET PO PRN (23:15)
[2020-03-08] MEDS: MORPHINE SULFATE 4 MG/ML, 1ML IVPush PRN ×4 (03:49→20:34)
[2020-03-08 03:59] VITALS: BP 102/67
[2020-03-08 07:43] VITALS: BP 112/76
[2020-03-08] MEDS: GABAPENTIN 300 MG CAPSULE PO SCH ×3 (08:13→20:34)
[2020-03-08] MEDS: ASCORBIC ACID 500 MG TABLET PO SCH (08:13)
[2020-03-08] MEDS: MULTIVITAMINS/MINERALS TABLET PO SCH (08:13)
[2020-03-08] MEDS: FERROUS SULFATE 325 MG TABLET PO SCH ×3 (08:13→15:57)
[2020-03-08] MEDS: ZIPRASIDONE 40MG CAPSULE PO SCH ×2 (08:13→20:34)
[2020-03-08] MEDS: VITAMIN E 400 UNITS CAPSULE PO SCH (08:14)
[2020-03-08] MEDS: ENOXAPARIN 40 MG/0.4 ML SQ SCH (09:36)
[2020-03-08] MEDS: OXYcodone IR 5MG TABLET PO PRN (11:17)
[2020-03-08 14:15] VITALS: BP 106/72
[2020-03-08 19:06] VITALS: BP 114/77
[2020-03-08] MEDS: TRAZODONE 50MG TABLET PO PRN (22:34)
[2020-03-09] MEDS: MORPHINE SULFATE 4 MG/ML, 1ML IVPush PRN ×4 (06:41→21:32)
[2020-03-09 06:45] LABS: MEAN CORPUSCULAR HEMOGLOBIN 23.4 pg (27.0-34.8); MEAN CORPUSCULAR VOLUME 75.4 fL (80-100); MEAN PLATELET VOLUME 6.9 fL (7.4-10.4); PLATELET COUNT 614 x10^3/uL (130-400); RED BLOOD COUNT 3.73 x10^6/uL (3.82-5.3); RED CELL DISTRIBUTION WIDTH 26.6 % (9.6-15.2)
[2020-03-09 06:56] LABS: ALANINE AMINOTRANSFERASE 11 U/L (12-78); ALBUMIN 2.9 g/dL (3.4-5.0); ANION GAP 4 mmol/L (5-15); CALCIUM 8.9 mg/dL (8.5-10.1); CHLORIDE 107 mmol/L (98-107)
[2020-03-09 06:59] LABS: ALKALINE PHOSPHATASE 72 U/L (45-117); BILIRUBIN,TOTAL 0.1 mg/dL (0.2-1.0); TOTAL PROTEIN 7.2 g/dL (6.4-8.2)
[2020-03-09 07:11] LABS: BASOPHILS % (AUTO) 0 % (0-1); EOSINOPHILS # (AUTO) 0.36 x10^3/uL (0-0.4); EOSINOPHILS % (AUTO) 6 % (1-7); LYMPHOCYTES # (AUTO) 2.12 x10^3/uL (1-3.4); LYMPHOCYTES % (AUTO) 36 % (22-44); MD MORPH REVIEW ONLY; MONOCYTES # (AUTO) 0.29 x10^3/uL (0.2-0.8); MONOCYTES % (AUTO) 5 % (2-9); NEUTROPHILS # (AUTO) 3.11 x10^3/uL (1.8-6.8); NEUTROPHILS % (AUTO) 53 % (42-75)
[2020-03-09 07:18] LABS: ACANTHOCYTES 1+; ANISOCYTOSIS 2+; HYPOCHROMIA 1+; MICROCYTOSIS 1+; OVALOCYTES 1+; POLYCHROMASIA 1+; SCHISTOCYTES 1+
[2020-03-09 07:19] LABS: <PLATELET ESTIMATE> INCREASED; <PLT MORPHOLOGY> NORMAL PLT MORPH
[2020-03-09 09:12] VITALS: BP 110/69
[2020-03-09] MEDS: MULTIVITAMINS/MINERALS TABLET PO SCH (09:28)
[2020-03-09] MEDS: OXYcodone IR 5MG TABLET PO PRN ×3 (09:28→21:16)
[2020-03-09] MEDS: FERROUS SULFATE 325 MG TABLET PO SCH ×3 (09:28→16:32)
[2020-03-09] MEDS: GABAPENTIN 300 MG CAPSULE PO SCH ×3 (09:28→21:15)
[2020-03-09] MEDS: ZIPRASIDONE 40MG CAPSULE PO SCH ×2 (09:28→21:16)
[2020-03-09] MEDS: ASCORBIC ACID 500 MG TABLET PO SCH (09:28)
[2020-03-09] MEDS: VITAMIN E 400 UNITS CAPSULE PO SCH (09:29)
[2020-03-09] MEDS: ENOXAPARIN 40 MG/0.4 ML SQ SCH (09:36)
[2020-03-09 13:15] VITALS: BP 105/68
[2020-03-09 19:20] VITALS: BP 116/80
[2020-03-09] MEDS: TRAZODONE 50MG TABLET PO PRN (22:58)
[2020-03-10 04:20] VITALS: BP 90/57
[2020-03-10] MEDS: OXYcodone IR 5MG TABLET PO PRN ×3 (07:08→22:05)
[2020-03-10] MEDS: MULTIVITAMINS/MINERALS TABLET PO SCH (08:36)
[2020-03-10] MEDS: ASCORBIC ACID 500 MG TABLET PO SCH (08:36)
[2020-03-10] MEDS: FERROUS SULFATE 325 MG TABLET PO SCH ×3 (08:37→17:29)
[2020-03-10] MEDS: ENOXAPARIN 40 MG/0.4 ML SQ SCH (08:37)
[2020-03-10] MEDS: VITAMIN E 400 UNITS CAPSULE PO SCH (08:37)
[2020-03-10] MEDS: GABAPENTIN 300 MG CAPSULE PO SCH ×3 (08:37→20:03)
[2020-03-10] MEDS: ZIPRASIDONE 40MG CAPSULE PO SCH ×2 (08:37→20:03)
[2020-03-10 09:33] VITALS: BP 110/57
[2020-03-10] MEDS: MORPHINE SULFATE 4 MG/ML, 1ML IVPush PRN ×3 (10:48→20:03)
[2020-03-10 13:39] VITALS: BP 102/70
[2020-03-10 19:22] VITALS: BP 108/59
[2020-03-10] MEDS: TRAZODONE 50MG TABLET PO PRN (22:05)
[2020-03-11 00:41] VITALS: BP 108/77
[2020-03-11] MEDS: MORPHINE SULFATE 4 MG/ML, 1ML IVPush PRN ×3 (03:25→15:41)
[2020-03-11 06:44] VITALS: BP 113/76
[2020-03-11] MEDS: VITAMIN E 400 UNITS CAPSULE PO SCH (08:28)
[2020-03-11] MEDS: MULTIVITAMINS/MINERALS TABLET PO SCH (08:28)
[2020-03-11] MEDS: GABAPENTIN 300 MG CAPSULE PO SCH ×2 (08:28→16:24)
[2020-03-11] MEDS: ENOXAPARIN 40 MG/0.4 ML SQ SCH (08:29)
[2020-03-11] MEDS: OXYcodone IR 5MG TABLET PO PRN ×2 (08:29→16:24)
[2020-03-11] MEDS: ZIPRASIDONE 40MG CAPSULE PO SCH (08:29)
[2020-03-11] MEDS: ASCORBIC ACID 500 MG TABLET PO SCH (08:29)
[2020-03-11] MEDS: FERROUS SULFATE 325 MG TABLET PO SCH ×3 (08:30→16:24)
[2020-03-11] MEDS ORDERED: ACET500T64 PO (12:56)
[2020-03-11] MEDS ORDERED: SENN-99 PO (12:56)
[2020-03-11] MEDS ORDERED: HYDR-3622 PO (12:56)
[2020-03-11] MEDS ORDERED: ZIPR40CA2 PO (12:56)
[2020-03-11 13:27] VITALS: BP 111/77
== END 2020-03-11 17:00 | DRG 854 ==
LOC: ED 14:29 → EDIP 14:30 → 3N 15:25 → 4NE 02-08 12:30 → 3N 02-18 14:32 → 4NE 02-21 12:19
PROVIDERS: ADMIT Emergency Medicine; ATTEND Family Medicine
PROC: 02HV33Z Insertion of Infusion Device into Superior Vena Cava, Percutaneous Approach (ICD-10-PCS; 2019-11-23)
PROC: B5181ZA Fluoroscopy of Superior Vena Cava using Low Osmolar Contrast, Guidance (ICD-10-PCS; 2019-11-23)
PROC: B548ZZA Ultrasonography of Superior Vena Cava, Guidance (ICD-10-PCS; 2019-11-23)
PROC: 02PYX3Z Removal of Infusion Device from Great Vessel, External Approach (ICD-10-PCS; 2019-11-30)
PROC: 02HV33Z Insertion of Infusion Device into Superior Vena Cava, Percutaneous Approach (ICD-10-PCS; 2019-11-30)
PROC: B5181ZA Fluoroscopy of Superior Vena Cava using Low Osmolar Contrast, Guidance (ICD-10-PCS; 2019-11-30)
PROC: 0Y6J0Z2 Detachment at Left Lower Leg, Mid, Open Approach (ICD-10-PCS; principal; 2020-02-08 09:30)
PROC: 0Y6H0Z2 Detachment at Right Lower Leg, Mid, Open Approach (ICD-10-PCS; 2020-02-21)
PROC: 30233N1 Transfusion of Nonautologous Red Blood Cells into Peripheral Vein, Percutaneous Approach (ICD-10-PCS; 2020-02-22)
PROC: 0X6P0Z1 Detachment at Left Index Finger, High, Open Approach (ICD-10-PCS; 2020-03-04)
PROC: 0X6S0Z1 Detachment at Right Ring Finger, High, Open Approach (ICD-10-PCS; 2020-03-04)
PROC: 0X6T0Z1 Detachment at Left Ring Finger, High, Open Approach (ICD-10-PCS; 2020-03-04)
PROC: 0X6Q0Z1 Detachment at Right Middle Finger, High, Open Approach (ICD-10-PCS; 2020-03-04)
PROC: 0X6R0Z1 Detachment at Left Middle Finger, High, Open Approach (ICD-10-PCS; 2020-03-04)
PROC: 0X6V0Z1 Detachment at Right Little Finger, High, Open Approach (ICD-10-PCS; 2020-03-04)
PROC: 0X6N0Z1 Detachment at Right Index Finger, High, Open Approach (ICD-10-PCS; 2020-03-04)
DX: A41.9 Sepsis, unspecified organism (principal); T33.71XA Superficial frostbite of right knee and lower leg, initial encounter; E87.1 Hypo-osmolality and hyponatremia; F31.60 Bipolar disorder, current episode mixed, unspecified; T33.521A Superficial frostbite of right hand, initial encounter; T33.522A Superficial frostbite of left hand, initial encounter; D62 Acute posthemorrhagic anemia; M86.161 Other acute osteomyelitis, right tibia and fibula; I96 Gangrene, not elsewhere classified; D63.8 Anemia in other chronic diseases classified elsewhere; F10.21 Alcohol dependence, in remission; J44.9 Chronic obstructive pulmonary disease, unspecified; B96.20 Unspecified Escherichia coli [E. coli] as the cause of diseases classified elsewhere; E61.1 Iron deficiency; B95.2 Enterococcus as the cause of diseases classified elsewhere; B95.1 Streptococcus, group B, as the cause of diseases classified elsewhere; F12.10 Cannabis abuse, uncomplicated; K59.00 Constipation, unspecified; Z53.20 Procedure and treatment not carried out because of patient's decision for unspecified reasons; G54.6 Phantom limb syndrome with pain; S93.05XA Dislocation of left ankle joint, initial encounter; S82.402A Unspecified fracture of shaft of left fibula, initial encounter for closed fracture; E87.6 Hypokalemia; G47.00 Insomnia, unspecified; G62.9 Polyneuropathy, unspecified; F17.210 Nicotine dependence, cigarettes, uncomplicated; Z59.0 Homelessness; X31.XXXA Exposure to excessive natural cold, initial encounter; Y93.89 Activity, other specified; Y92.89 Other specified places as the place of occurrence of the external cause; Y99.8 Other external cause status; Z89.422 Acquired absence of other left toe(s); Z83.3 Family history of diabetes mellitus; Z82.5 Family history of asthma and other chronic lower respiratory diseases; Z82.49 Family history of ischemic heart disease and other diseases of the circulatory system; Z71.6 Tobacco abuse counseling; Z79.899 Other long term (current) drug therapy; Z86.14 Personal history of Methicillin resistant Staphylococcus aureus infection; Z91.19 Patient's noncompliance with other medical treatment and regimen
CPT/HCPCS: 36415; 73060; 73560; 73610; 77001; 84145; 87400; 99285; J3490; S0020; 36573; 71046; 80048; 80053; 80202; 81003; 81025; 82306; 82550; 82565; 82728; 83540; 83550; 83735; 84100; 84466; 84520; 85014; 85018; 85025; 85610; 85651; 86140; 86850; 86900; 86923; 87040; 87070; 87077; 87147; 87186; 87205; 88307; 93005; G0378; J0295; J0690; J0696; J1100; J1644; J1650; J1885; J2175; J2250; J2405; J2704; J2710; J2997; J3010; J3370; Q9967; A9575; C1751; J0330; J2270; J7030; J7040; J7050; P9016

== ENCOUNTER 2020-04-30 13:59 | Emergency (ER) | payer MEDICAID ==
[~2020-04-30 13:59] MED LIST changes: +ACET500T64 PO; +HYDR-3622 PO; +MULT-449 PO; -MULT1TAB60 PO; +SENN-99 PO; +ZIPR40CA2 PO
[2020-04-30] MEDS ORDERED: TRAZ50TA66 PO (14:10)
--- NOTE | 2020-04-30 14:20 | NUR ---
PT PLACED ON ALL ROOM MONITORING. WARM BLANKET PROVIDED. EKG COMPLETED ON ARRIVAL TO ED. SEE TRIAGE-AGREE. PT RECEIVED 324MG ASA ACID RETORT OPERATOR BY [facility], IV NS INFUSING AT THIS TIME. PT REPORTS OF 8/10 STERNAL CP WITH RADIATION ACROSS CHEST. PT DENIES SOB, N/V, OR PAIN TO BACK. PT STATES PAIN HAS BEEN CONSTANT AND AT 8/10 LEVEL SINCE YESTERDAY, NOTHING WORSENING PAIN OR IMPROVING IT. SMALL PRESSURE ULCER/BLISTER NOTED TO R KNEE. CALL LIGHT WITHIN REACH.
[2020-04-30 14:54] LABS: MEAN CORPUSCULAR HEMOGLOBIN 25.6 pg (27.0-34.8); MEAN CORPUSCULAR HGB CONC 32.4 g/dL (32.4-35.8); MEAN PLATELET VOLUME 7.6 fL (7.4-10.4); PLATELET COUNT 400 x10^3/uL (130-400); RED BLOOD COUNT 4.76 x10^6/uL (3.82-5.3); RED CELL DISTRIBUTION WIDTH 20.7 % (9.6-15.2)
[2020-04-30 15:00] LABS: ALBUMIN 3.5 g/dL (3.4-5.0); ANION GAP 7 mmol/L (5-15); CALCIUM 8.4 mg/dL (8.5-10.1); CHLORIDE 105 mmol/L (98-107); CREATININE 0.61 mg/dL (0.55-1.02)
[2020-04-30] MEDS ORDERED: SODIUM CHLORIDE 0.9% 1,000ML IVBOLUS ONE (15:00)
[2020-04-30 15:04] LABS: TROPONIN I < 0.015 ng/mL (0.000-0.045)
--- NOTE | 2020-04-30 15:11 | NUR ---
PT ASSISTED UP TO BSC, URINE COLLECTED/SENT TO LAB. DURING ACTIVITY OF GETTING OOB TO BSC, PT'S HR INCREASED TO 178. AFTER SETTLING BACK INTO BED, PT'S HR RETURNED TO 140S. PT DENIES ANY WORSENING SX WITH ACTIVITY. DR ONEILL IN TO SEE PT. ADD ON CTA. CALL LIGHT WITHIN REACH, LIGHTS DIMMED PER REQUEST.
[2020-04-30 15:15] LABS: MD YES
[2020-04-30 15:18] LABS: ANISOCYTOSIS 2+; HYPOCHROMIA 1+; LYMPHS% (MANUAL) 21 % (22-44); MICROCYTOSIS 1+; MONOS#(MANUAL) 0.24 x10^3/uL (0.3-2.7); MONOS% (MANUAL) 2 % (2-9); OVALOCYTES 1+; POLYCHROMASIA 1+; SEG#(MANUAL) 9.16 x10^3/uL (1.8-6.8); SEGS% (MANUAL) 77 % (42-75)
[2020-04-30 15:19] LABS: ACANTHOCYTES 1+
[2020-04-30 15:20] LABS: <PLATELET ESTIMATE> ADEQUATE; <PLT MORPHOLOGY> NORMAL PLT MORPH; SCHISTOCYTES 1+
--- NOTE | 2020-04-30 15:28 | NUR ---
IV PLACED BY [facility] TESTED WITH PRESSURED SALINE FLUSH FOR CTA. SMALL INFILTRATE OBSERVED. NEW IV PLACED, FLUSHES WELL.
[2020-04-30 15:33] LABS: T4 (THYROXINE) 10.4 mcg/dL (4.8-13.9)
[2020-04-30 15:38] LABS: AMPHETAMINE SCREEN, URINE Negative (Negative); BARBITURATE SCREEN, URINE Negative (Negative); BENZODIAZEPINE SCREEN, URINE Negative (Negative); CANNABINOID SCREEN, URINE Positive (Negative); COCAINE SCREEN, URINE Negative (Negative); METHADONE SCREEN, URINE Negative (Negative); OPIATE SCREEN, URINE Negative (Negative)
--- NOTE | 2020-04-30 16:09 | NUR ---
PT TO CT.
--- NOTE | 2020-04-30 16:25 | NUR ---
PT BACK FROM CT. VSS/UPDATED IN COMPUTER. PT WATCHING TV, NAD.
[2020-04-30] MEDS ORDERED: OMNIPAQUE 350 MG/ML, 100ML BOTTLE ONE (16:42)
[2020-04-30 16:55] VITALS: BP 142/72
--- NOTE | 2020-04-30 16:56 | NUR ---
CTA RESULTED, PT FOR RECHECK.
== END 2020-04-30 17:23 | disposition home or self-care (01) ==
LOC: ED 16:35
DX: L03.90 Cellulitis, unspecified (principal); R07.89 Other chest pain; R00.0 Tachycardia, unspecified; E11.9 Type 2 diabetes mellitus without complications; J44.9 Chronic obstructive pulmonary disease, unspecified; F17.200 Nicotine dependence, unspecified, uncomplicated
CPT/HCPCS: 36415; 71045; 71275; 80048; 80307; 82040; 84436; 84443; 84484; 85025; 93005; 99285; J7030; Q9967

== ENCOUNTER 2020-05-20 18:29 | Inpatient (IN) | payer MEDICAID ==
[~2020-05-20] VITALS: Ht 162.6 cm; Wt 93.6 kg
[~2020-05-20 18:29] MED LIST changes: +TRAZ50TA66 PO
--- NOTE | 2020-05-20 18:55 | NUR ---
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 PT UNABLE TO CARE FOR SELF AFTER RELEASED FROM SNF. 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 ALSO C/O DIFFUSE ABD PAIN. STARTED A FEW DAYS AGO. MONITORS APPLIED. PT RESTING ON GURNEY. ALINE JOSHI HAS SEEN PT. REPORT GIVEN TO PERICO LEI RN.
--- NOTE | 2020-05-20 18:57 | NUR ---
ERP DR. CAROLINA NOTIFIED OF PT HR. EKG BEING COMPLETED BY DRYING EQUIPMENT OPERATOR AND IVF INITIATED BY WILD SMITH PER ERP.
--- NOTE | 2020-05-20 18:57 | NUR ---
WILD SMITH INITIATED PIV.
--- NOTE | 2020-05-20 18:57 | NUR ---
REPORT OF PT FROM WILD CERVANTES AND ASSUMING CARE OF PT AT THIS TIME.
[2020-05-20] MEDS ORDERED: SODIUM CHLORIDE 0.9%, 500ML IVBOLUS ONE (19:00)
[2020-05-20] MEDS ORDERED: MAALOX/HYOSCYAMINE/LIDOCAINE 45 ML BTL PO ONE (19:00)
[2020-05-20] MEDS ORDERED: ONDANSETRON 2MG/ML, 2ML IVPush ONE (19:00)
[2020-05-20] MEDS ORDERED: ONDANSETRON ODT 4 MG PO ONE (19:00)
[2020-05-20] MEDS ORDERED: ONDANSETRON 2MG/ML, 2ML ONE (19:06)
[2020-05-20] MEDS ORDERED: MAALOX/HYOSCYAMINE/LIDOCAINE 45 ML BTL ONE (19:06)
[2020-05-20 19:08] LABS: ALANINE AMINOTRANSFERASE 43 U/L (12-78); ALBUMIN 3.6 g/dL (3.4-5.0); ANION GAP 8 mmol/L (5-15); CALCIUM 9.1 mg/dL (8.5-10.1); CHLORIDE 99 mmol/L (98-107); CREATININE 0.93 mg/dL (0.55-1.02)
[2020-05-20 19:10] LABS: ALKALINE PHOSPHATASE 120 U/L (45-117); BILIRUBIN,TOTAL 0.7 mg/dL (0.2-1.0); TOTAL PROTEIN 7.8 g/dL (6.4-8.2)
--- NOTE | 2020-05-20 19:13 | NUR ---
PT MEDICATED PER MAR.
[2020-05-20 19:18] LABS: MEAN CORPUSCULAR HEMOGLOBIN 26.2 pg (27.0-34.8); MEAN PLATELET VOLUME 9.3 fL (7.4-10.4); PLATELET COUNT 170 x10^3/uL (130-400); RED BLOOD COUNT 5.24 x10^6/uL (3.82-5.3); RED CELL DISTRIBUTION WIDTH 18.3 % (9.6-15.2)
--- NOTE | 2020-05-20 19:21 | NUR ---
PER DR CAROLINA, PT IS TO BE ADMITTED. PT RESTING COMFORTABLY IN GURNEY AT THIS TIME AND VERBALIZES UNDERSTANDING OF POC.
[2020-05-20 19:41] LABS: MD YES
[2020-05-20 19:44] LABS: BAND#(MANUAL) 0.17 x10^3/uL; BANDS%(MANUAL) 3 % (0-7); LYMPH#(MANUAL) 1.23 x10^3/uL (1-3.4); LYMPHS% (MANUAL) 22 % (22-44); MONOS#(MANUAL) 0.11 x10^3/uL (0.3-2.7); MONOS% (MANUAL) 2 % (2-9); SEG#(MANUAL) 4.09 x10^3/uL (1.8-6.8); SEGS% (MANUAL) 73 % (42-75)
[2020-05-20 19:45] LABS: ANISOCYTOSIS 1+; HYPOCHROMIA 1+; MICROCYTOSIS 1+
[2020-05-20 19:49] LABS: OVALOCYTES 1+
[2020-05-20 19:54] LABS: <PLATELET ESTIMATE> ADEQUATE
--- NOTE | 2020-05-20 19:56 | NUR ---
PT VSS AND UPDATED IN EMR. PT RESTING COMFORTABLY IN [facility] AT THIS TIME WITH CALL LIGHT WITHIN REACH.
[2020-05-20] MEDS ORDERED: DOCUSATE 100 MG CAPSULE PO PRN (20:30)
[2020-05-20] MEDS ORDERED: BISACODYL 10 MG SUPP PR PRN (20:30)
[2020-05-20] MEDS ORDERED: HYDROcodone/APAP 10/325 MG TABLET PO PRN (20:30)
[2020-05-20] MEDS ORDERED: ONDANSETRON 2MG/ML, 2ML IVPush PRN (20:30)
[2020-05-20] MEDS ORDERED: POLYETHYLENE GLYCOL 17 GM PACKET PO PRN (20:30)
[2020-05-20 21:13] VITALS: BP 137/89
[2020-05-20] MEDS: GABAPENTIN 300 MG CAPSULE PO SCH (21:22)
[2020-05-20] MEDS: TRAZODONE 50MG TABLET PO SCH (21:22)
[2020-05-20] MEDS: ZIPRASIDONE 40MG CAPSULE PO SCH (21:22)
[2020-05-20] MEDS: NICOTINE 7 MG/24 HR PATCH.TD24 TD SCH (21:50)
[2020-05-20] MEDS: HEPARIN 5,000 UNITS/ML, 1ML SQ SCH (21:50)
[2020-05-20] MEDS: SODIUM CHLORIDE 0.9% 1,000 ML IV SCH (21:50)
[2020-05-21 00:28] VITALS: BP 114/74
[2020-05-21] MEDS: HEPARIN 5,000 UNITS/ML, 1ML SQ SCH ×3 (05:44→21:36)
[2020-05-21 09:22] VITALS: BP 103/65
[2020-05-21] MEDS: GABAPENTIN 300 MG CAPSULE PO SCH ×3 (09:53→21:35)
[2020-05-21] MEDS: ZIPRASIDONE 40MG CAPSULE PO SCH ×2 (09:54→21:35)
[2020-05-21] MEDS: SODIUM CHLORIDE 0.9% 1,000 ML IV SCH (12:01)
[2020-05-21 15:00] VITALS: BP 101/66
[2020-05-21 17:02] LABS: MICROSCOPIC AUTO
[2020-05-21] MEDS: METOPROLOL TARTRATE 25 MG TAB PO SCH (17:19)
[2020-05-21 21:31] VITALS: BP 111/66
[2020-05-21] MEDS: NICOTINE 7 MG/24 HR PATCH.TD24 TD SCH (21:35)
[2020-05-21] MEDS: TRAZODONE 50MG TABLET PO SCH (21:35)
[2020-05-22 01:00] VITALS: BP 92/61
[2020-05-22 05:48] VITALS: BP 102/68
[2020-05-22] MEDS: METOPROLOL TARTRATE 25 MG TAB PO SCH ×2 (05:49→17:01)
[2020-05-22] MEDS: HEPARIN 5,000 UNITS/ML, 1ML SQ SCH ×3 (05:49→22:08)
[2020-05-22 07:53] VITALS: BP 118/76
[2020-05-22] MEDS: ZIPRASIDONE 40MG CAPSULE PO SCH ×2 (09:18→22:08)
[2020-05-22] MEDS: GABAPENTIN 300 MG CAPSULE PO SCH ×3 (09:19→22:08)
[2020-05-22] MEDS: LORATADINE 10 MG TABLET PO SCH (11:30)
[2020-05-22] MEDS: LOPERAMIDE 2 MG CAPSULE PO PRN ×2 (11:30→22:08)
[2020-05-22] MEDS: ALBUTEROL HFA 90 MCG/SPRAY INH PRN ×2 (13:52→15:21)
[2020-05-22 14:54] VITALS: BP 122/78
[2020-05-22] MEDS: ACETAMINOPHEN 325 MG TABLET PO PRN (18:31)
[2020-05-22 19:59] VITALS: BP 119/78
[2020-05-22] MEDS: TRAZODONE 50MG TABLET PO SCH (21:00)
[2020-05-22] MEDS: MELATONIN 3 MG TABLET PO SCH (22:07)
[2020-05-22] MEDS: NICOTINE 7 MG/24 HR PATCH.TD24 TD SCH (22:08)
[2020-05-23 00:35] VITALS: BP 121/79
[2020-05-23] MEDS: TRAZODONE 50MG TABLET PO SCH (00:39)
[2020-05-23] MEDS: ALBUTEROL HFA 90 MCG/SPRAY INH PRN ×2 (00:43→10:08)
[2020-05-23] MEDS: ACETAMINOPHEN 325 MG TABLET PO PRN (00:43)
[2020-05-23 05:28] VITALS: BP 123/81
[2020-05-23] MEDS: METOPROLOL TARTRATE 25 MG TAB PO SCH ×2 (05:30→16:59)
[2020-05-23] MEDS: HEPARIN 5,000 UNITS/ML, 1ML SQ SCH ×3 (05:30→22:24)
[2020-05-23 08:52] VITALS: BP 124/84
[2020-05-23] MEDS: GABAPENTIN 300 MG CAPSULE PO SCH (09:00)
[2020-05-23] MEDS ORDERED: GABAPENTIN 100 MG CAPSULE PO SCH (10:00)
[2020-05-23] MEDS: ZIPRASIDONE 40MG CAPSULE PO SCH ×2 (10:07→22:24)
[2020-05-23] MEDS: LORATADINE 10 MG TABLET PO SCH (10:07)
[2020-05-23] MEDS: FLUTICASONE NASAL SPRAY 16GM NAS PRN (10:08)
[2020-05-23] MEDS: CAPSAICIN CRM 0.075%, 60GM TP SCH ×2 (13:07→22:23)
[2020-05-23 13:56] VITALS: BP 113/76
[2020-05-23] MEDS: GABAPENTIN 400 MG CAPSULE PO SCH ×2 (16:59→22:24)
[2020-05-23 19:34] VITALS: BP 160/92
[2020-05-23] MEDS: NICOTINE 7 MG/24 HR PATCH.TD24 TD SCH (22:24)
[2020-05-23] MEDS: MELATONIN 3 MG TABLET PO SCH (22:24)
[2020-05-24] MEDS: TRAZODONE 50MG TABLET PO SCH ×2 (00:14→22:20)
[2020-05-24 01:56] VITALS: BP 95/61
[2020-05-24 05:39] VITALS: BP 112/79
[2020-05-24] MEDS: HEPARIN 5,000 UNITS/ML, 1ML SQ SCH ×3 (05:40→22:21)
[2020-05-24] MEDS: METOPROLOL TARTRATE 25 MG TAB PO SCH ×2 (05:41→19:37)
[2020-05-24 08:24] VITALS: BP 110/69
[2020-05-24] MEDS: ZIPRASIDONE 40MG CAPSULE PO SCH ×2 (10:17→22:21)
[2020-05-24] MEDS: LORATADINE 10 MG TABLET PO SCH (10:17)
[2020-05-24] MEDS: FLUTICASONE NASAL SPRAY 16GM NAS PRN ×2 (10:18→22:21)
[2020-05-24] MEDS: GABAPENTIN 400 MG CAPSULE PO SCH ×3 (10:18→22:20)
[2020-05-24] MEDS: ALBUTEROL HFA 90 MCG/SPRAY INH PRN (10:30)
[2020-05-24] MEDS: CAPSAICIN CRM 0.075%, 60GM TP SCH ×2 (10:30→22:21)
[2020-05-24 14:00] VITALS: BP 118/57
[2020-05-24] MEDS: ACETAMINOPHEN 325 MG TABLET PO PRN (14:59)
[2020-05-24 18:47] VITALS: BP 114/76
[2020-05-24] MEDS: NICOTINE 7 MG/24 HR PATCH.TD24 TD SCH (22:20)
[2020-05-24] MEDS: MELATONIN 3 MG TABLET PO SCH (22:20)
[2020-05-25 00:40] VITALS: BP 121/82
[2020-05-25] MEDS: HEPARIN 5,000 UNITS/ML, 1ML SQ SCH ×3 (05:45→21:46)
[2020-05-25 05:46] VITALS: BP 118/79
[2020-05-25] MEDS: METOPROLOL TARTRATE 25 MG TAB PO SCH (05:48)
[2020-05-25 08:50] VITALS: BP 91/58
[2020-05-25 09:15] VITALS: BP 108/70
[2020-05-25] MEDS: GABAPENTIN 400 MG CAPSULE PO SCH ×3 (09:38→21:46)
[2020-05-25] MEDS: ZIPRASIDONE 40MG CAPSULE PO SCH ×2 (09:39→21:46)
[2020-05-25] MEDS: LORATADINE 10 MG TABLET PO SCH (09:39)
[2020-05-25] MEDS: CAPSAICIN CRM 0.075%, 60GM TP SCH ×2 (09:43→21:45)
[2020-05-25] MEDS: FLUTICASONE NASAL SPRAY 16GM NAS PRN ×3 (09:44→21:46)
[2020-05-25] MEDS: ALBUTEROL HFA 90 MCG/SPRAY INH PRN ×3 (09:51→21:45)
[2020-05-25 14:08] VITALS: BP 128/80
[2020-05-25 19:22] VITALS: BP 123/80
[2020-05-25] MEDS: MELATONIN 3 MG TABLET PO SCH (21:46)
[2020-05-25] MEDS: TRAZODONE 50MG TABLET PO SCH (21:47)
[2020-05-25] MEDS: NICOTINE 7 MG/24 HR PATCH.TD24 TD SCH (21:47)
[2020-05-26 00:45] VITALS: BP 105/71
[2020-05-26 07:56] VITALS: BP 120/74
[2020-05-26] MEDS: ZIPRASIDONE 40MG CAPSULE PO SCH ×2 (10:18→21:12)
[2020-05-26] MEDS: LORATADINE 10 MG TABLET PO SCH (10:18)
[2020-05-26] MEDS: GABAPENTIN 400 MG CAPSULE PO SCH ×3 (10:18→21:12)
[2020-05-26] MEDS: HEPARIN 5,000 UNITS/ML, 1ML SQ SCH ×2 (10:19→21:13)
[2020-05-26] MEDS: CAPSAICIN CRM 0.075%, 60GM TP SCH ×2 (10:19→21:12)
[2020-05-26 12:31] VITALS: BP 123/87
[2020-05-26] MEDS: ASCORBIC ACID 500 MG TABLET PO SCH (12:44)
[2020-05-26] MEDS: MULTIVITAMINS/MINERALS TABLET PO SCH (12:44)
[2020-05-26] MEDS: ACETAMINOPHEN 325 MG TABLET PO PRN (12:47)
[2020-05-26 18:35] VITALS: BP 136/83
[2020-05-26] MEDS: NICOTINE 7 MG/24 HR PATCH.TD24 TD SCH (21:12)
[2020-05-26] MEDS: MELATONIN 3 MG TABLET PO SCH (21:12)
[2020-05-26] MEDS: TRAZODONE 50MG TABLET PO SCH (21:12)
[2020-05-26] MEDS: FLUTICASONE NASAL SPRAY 16GM NAS PRN (21:13)
[2020-05-26] MEDS: ALBUTEROL HFA 90 MCG/SPRAY INH PRN (21:13)
[2020-05-27 00:38] VITALS: BP 127/81
[2020-05-27 07:45] VITALS: BP 96/63
[2020-05-27] MEDS: CAPSAICIN CRM 0.075%, 60GM TP SCH ×2 (09:00→20:54)
[2020-05-27] MEDS: LORATADINE 10 MG TABLET PO SCH (09:22)
[2020-05-27] MEDS: HEPARIN 5,000 UNITS/ML, 1ML SQ SCH ×2 (09:22→20:47)
[2020-05-27] MEDS: ASCORBIC ACID 500 MG TABLET PO SCH (09:22)
[2020-05-27] MEDS: ACETAMINOPHEN 325 MG TABLET PO PRN (09:23)
[2020-05-27] MEDS: MULTIVITAMINS/MINERALS TABLET PO SCH (09:23)
[2020-05-27] MEDS: GABAPENTIN 400 MG CAPSULE PO SCH ×3 (09:23→20:48)
[2020-05-27] MEDS: ZIPRASIDONE 40MG CAPSULE PO SCH ×2 (09:25→20:48)
[2020-05-27 13:25] VITALS: BP 106/66
[2020-05-27] MEDS: MELATONIN 3 MG TABLET PO SCH (20:47)
[2020-05-27] MEDS: TRAZODONE 50MG TABLET PO SCH (20:48)
[2020-05-27] MEDS: NICOTINE 7 MG/24 HR PATCH.TD24 TD SCH (20:49)
[2020-05-27] MEDS: ALBUTEROL HFA 90 MCG/SPRAY INH PRN (20:54)
[2020-05-27 21:10] VITALS: BP 117/79
[2020-05-28 01:30] VITALS: BP 111/72
[2020-05-28] MEDS: MULTIVITAMINS/MINERALS TABLET PO SCH (08:52)
[2020-05-28] MEDS: ZINC SULFATE 220 MG CAPSULE PO SCH (08:53)
[2020-05-28] MEDS: LORATADINE 10 MG TABLET PO SCH (08:53)
[2020-05-28] MEDS: ASCORBIC ACID 500 MG TABLET PO SCH (08:53)
[2020-05-28] MEDS: HEPARIN 5,000 UNITS/ML, 1ML SQ SCH ×2 (08:53→21:32)
[2020-05-28] MEDS: ZIPRASIDONE 40MG CAPSULE PO SCH ×2 (08:53→21:31)
[2020-05-28] MEDS: GABAPENTIN 400 MG CAPSULE PO SCH ×3 (08:53→21:31)
[2020-05-28] MEDS: ACETAMINOPHEN 325 MG TABLET PO PRN (08:55)
[2020-05-28] MEDS: CAPSAICIN CRM 0.075%, 60GM TP SCH ×2 (09:02→21:41)
[2020-05-28] MEDS: ALBUTEROL HFA 90 MCG/SPRAY INH PRN ×2 (09:02→21:41)
[2020-05-28 09:13] VITALS: BP 112/74
[2020-05-28] MEDS: FLUTICASONE NASAL SPRAY 16GM NAS PRN ×2 (09:58→21:40)
[2020-05-28 12:16] VITALS: BP 97/63
[2020-05-28 18:45] VITALS: BP 98/68
[2020-05-28] MEDS: MELATONIN 3 MG TABLET PO SCH (21:31)
[2020-05-28] MEDS: TRAZODONE 50MG TABLET PO SCH (21:31)
[2020-05-28] MEDS: NICOTINE 7 MG/24 HR PATCH.TD24 TD SCH (21:32)
[2020-05-29 01:18] VITALS: BP 94/59
[2020-05-29 06:47] VITALS: BP 95/63
[2020-05-29] MEDS: ZINC SULFATE 220 MG CAPSULE PO SCH (08:39)
[2020-05-29] MEDS: ASCORBIC ACID 500 MG TABLET PO SCH (08:39)
[2020-05-29] MEDS: LORATADINE 10 MG TABLET PO SCH (08:39)
[2020-05-29] MEDS: MULTIVITAMINS/MINERALS TABLET PO SCH (08:39)
[2020-05-29] MEDS: HEPARIN 5,000 UNITS/ML, 1ML SQ SCH ×2 (08:39→21:28)
[2020-05-29] MEDS: GABAPENTIN 400 MG CAPSULE PO SCH ×3 (08:39→21:30)
[2020-05-29] MEDS: ZIPRASIDONE 40MG CAPSULE PO SCH ×2 (08:39→21:28)
[2020-05-29] MEDS: CAPSAICIN CRM 0.075%, 60GM TP SCH ×2 (08:41→21:28)
[2020-05-29 13:10] VITALS: BP 96/62
[2020-05-29 19:00] VITALS: BP 114/67
[2020-05-29] MEDS: MELATONIN 3 MG TABLET PO SCH (21:00)
[2020-05-29] MEDS: FLUTICASONE NASAL SPRAY 16GM NAS PRN (21:27)
[2020-05-29] MEDS: ALBUTEROL HFA 90 MCG/SPRAY INH PRN (21:28)
[2020-05-29] MEDS: NICOTINE 7 MG/24 HR PATCH.TD24 TD SCH (21:28)
[2020-05-29] MEDS: TRAZODONE 50MG TABLET PO SCH (21:29)
[2020-05-30 01:17] VITALS: BP 107/69
[2020-05-30 06:59] VITALS: BP 104/72
[2020-05-30] MEDS: THIAMINE 100MG TABLET PO SCH (08:18)
[2020-05-30] MEDS: ZINC SULFATE 220 MG CAPSULE PO SCH (08:18)
[2020-05-30] MEDS: MULTIVITAMINS/MINERALS TABLET PO SCH (08:18)
[2020-05-30] MEDS: ASCORBIC ACID 500 MG TABLET PO SCH (08:19)
[2020-05-30] MEDS: LORATADINE 10 MG TABLET PO SCH (08:19)
[2020-05-30] MEDS: FOLIC ACID 1 MG TABLET PO SCH (08:19)
[2020-05-30] MEDS: GABAPENTIN 400 MG CAPSULE PO SCH ×3 (08:19→21:26)
[2020-05-30] MEDS: ZIPRASIDONE 40MG CAPSULE PO SCH ×2 (08:19→21:06)
[2020-05-30] MEDS: HEPARIN 5,000 UNITS/ML, 1ML SQ SCH ×2 (08:20→21:05)
[2020-05-30] MEDS: CAPSAICIN CRM 0.075%, 60GM TP SCH ×2 (08:20→21:04)
[2020-05-30 13:17] VITALS: BP 112/68
[2020-05-30] MEDS: ALBUTEROL HFA 90 MCG/SPRAY INH PRN ×2 (14:01→21:04)
[2020-05-30] MEDS: FLUTICASONE NASAL SPRAY 16GM NAS PRN ×2 (14:02→21:04)
[2020-05-30 18:26] VITALS: BP 105/71
[2020-05-30] MEDS: MELATONIN 3 MG TABLET PO SCH (21:00)
[2020-05-30] MEDS: TRAZODONE 50MG TABLET PO SCH (21:05)
[2020-05-30] MEDS: NICOTINE 7 MG/24 HR PATCH.TD24 TD SCH (21:07)
[2020-05-31 01:07] VITALS: BP 106/71
[2020-05-31 08:21] VITALS: BP 136/74
[2020-05-31] MEDS: GABAPENTIN 400 MG CAPSULE PO SCH ×3 (08:24→21:43)
[2020-05-31] MEDS: MULTIVITAMINS/MINERALS TABLET PO SCH (08:24)
[2020-05-31] MEDS: ASCORBIC ACID 500 MG TABLET PO SCH (08:24)
[2020-05-31] MEDS: HEPARIN 5,000 UNITS/ML, 1ML SQ SCH ×2 (08:24→21:42)
[2020-05-31] MEDS: LORATADINE 10 MG TABLET PO SCH (08:24)
[2020-05-31] MEDS: THIAMINE 100MG TABLET PO SCH (08:24)
[2020-05-31] MEDS: ZINC SULFATE 220 MG CAPSULE PO SCH (08:24)
[2020-05-31] MEDS: FOLIC ACID 1 MG TABLET PO SCH (08:25)
[2020-05-31] MEDS: CAPSAICIN CRM 0.075%, 60GM TP SCH ×2 (08:25→21:43)
[2020-05-31] MEDS: ZIPRASIDONE 40MG CAPSULE PO SCH ×2 (08:25→21:43)
[2020-05-31] MEDS: ALBUTEROL HFA 90 MCG/SPRAY INH PRN ×2 (08:32→21:44)
[2020-05-31] MEDS: FLUTICASONE NASAL SPRAY 16GM NAS PRN ×2 (08:32→21:44)
[2020-05-31 15:00] VITALS: BP 105/48
[2020-05-31] MEDS: NICOTINE 7 MG/24 HR PATCH.TD24 TD SCH (21:43)
[2020-05-31] MEDS: MELATONIN 3 MG TABLET PO SCH (21:43)
[2020-05-31] MEDS: TRAZODONE 50MG TABLET PO SCH (21:43)
[2020-05-31 21:55] VITALS: BP 98/65
[2020-06-01] MEDS: ACETAMINOPHEN 325 MG TABLET PO PRN ×3 (00:30→16:13)
[2020-06-01 01:07] VITALS: BP 105/69
[2020-06-01 07:28] VITALS: BP 100/62
[2020-06-01] MEDS: ZIPRASIDONE 40MG CAPSULE PO SCH ×2 (08:08→21:13)
[2020-06-01] MEDS: GABAPENTIN 400 MG CAPSULE PO SCH ×3 (08:08→21:13)
[2020-06-01] MEDS: ASCORBIC ACID 500 MG TABLET PO SCH (08:08)
[2020-06-01] MEDS: MULTIVITAMINS/MINERALS TABLET PO SCH (08:08)
[2020-06-01] MEDS: LORATADINE 10 MG TABLET PO SCH (08:08)
[2020-06-01] MEDS: ZINC SULFATE 220 MG CAPSULE PO SCH (08:08)
[2020-06-01] MEDS: FOLIC ACID 1 MG TABLET PO SCH (08:08)
[2020-06-01] MEDS: THIAMINE 100MG TABLET PO SCH (08:08)
[2020-06-01] MEDS: HEPARIN 5,000 UNITS/ML, 1ML SQ SCH ×2 (08:09→21:13)
[2020-06-01] MEDS: FLUTICASONE NASAL SPRAY 16GM NAS PRN ×2 (08:16→21:21)
[2020-06-01] MEDS: CAPSAICIN CRM 0.075%, 60GM TP SCH ×2 (08:16→21:14)
[2020-06-01] MEDS: ALBUTEROL HFA 90 MCG/SPRAY INH PRN ×2 (08:16→21:21)
[2020-06-01 13:52] VITALS: BP 103/74
[2020-06-01 19:58] VITALS: BP 102/68
[2020-06-01] MEDS: MELATONIN 3 MG TABLET PO SCH (21:00)
[2020-06-01] MEDS: NICOTINE 7 MG/24 HR PATCH.TD24 TD SCH (21:12)
[2020-06-01] MEDS: TRAZODONE 50MG TABLET PO SCH (21:13)
[2020-06-02 01:00] VITALS: BP 116/77
[2020-06-02 07:10] VITALS: BP 118/79
[2020-06-02] MEDS: ASCORBIC ACID 500 MG TABLET PO SCH (08:56)
[2020-06-02] MEDS: THIAMINE 100MG TABLET PO SCH (08:56)
[2020-06-02] MEDS: GABAPENTIN 400 MG CAPSULE PO SCH ×3 (08:56→20:33)
[2020-06-02] MEDS: MULTIVITAMINS/MINERALS TABLET PO SCH (08:56)
[2020-06-02] MEDS: ZINC SULFATE 220 MG CAPSULE PO SCH (08:56)
[2020-06-02] MEDS: LORATADINE 10 MG TABLET PO SCH (08:57)
[2020-06-02] MEDS: ZIPRASIDONE 40MG CAPSULE PO SCH ×2 (08:57→20:32)
[2020-06-02] MEDS: HEPARIN 5,000 UNITS/ML, 1ML SQ SCH ×2 (08:57→20:34)
[2020-06-02] MEDS: CAPSAICIN CRM 0.075%, 60GM TP SCH ×2 (09:02→20:48)
[2020-06-02] MEDS: FOLIC ACID 1 MG TABLET PO SCH (09:02)
[2020-06-02] MEDS: FLUTICASONE NASAL SPRAY 16GM NAS PRN ×2 (09:02→20:48)
[2020-06-02 13:37] VITALS: BP 109/72
[2020-06-02 19:18] VITALS: BP 125/77
[2020-06-02] MEDS: TRAZODONE 50MG TABLET PO SCH (20:32)
[2020-06-02] MEDS: MELATONIN 3 MG TABLET PO SCH (20:33)
[2020-06-02] MEDS: NICOTINE 7 MG/24 HR PATCH.TD24 TD SCH (20:34)
[2020-06-02] MEDS: ACETAMINOPHEN 325 MG TABLET PO PRN (20:47)
[2020-06-02] MEDS: ALBUTEROL HFA 90 MCG/SPRAY INH PRN (20:49)
[2020-06-03 00:51] VITALS: BP 96/65
[2020-06-03 08:00] VITALS: BP 103/67
[2020-06-03] MEDS: CAPSAICIN CRM 0.075%, 60GM TP SCH ×2 (08:08→23:31)
[2020-06-03] MEDS: ALBUTEROL HFA 90 MCG/SPRAY INH PRN ×2 (08:08→23:48)
[2020-06-03] MEDS: ACETAMINOPHEN 325 MG TABLET PO PRN (08:08)
[2020-06-03] MEDS: FLUTICASONE NASAL SPRAY 16GM NAS PRN (08:08)
[2020-06-03] MEDS: LORATADINE 10 MG TABLET PO SCH (08:08)
[2020-06-03] MEDS: ZINC SULFATE 220 MG CAPSULE PO SCH (08:09)
[2020-06-03] MEDS: FOLIC ACID 1 MG TABLET PO SCH (08:09)
[2020-06-03] MEDS: MULTIVITAMINS/MINERALS TABLET PO SCH (08:09)
[2020-06-03] MEDS: THIAMINE 100MG TABLET PO SCH (08:09)
[2020-06-03] MEDS: ZIPRASIDONE 40MG CAPSULE PO SCH ×2 (08:09→23:32)
[2020-06-03] MEDS: ASCORBIC ACID 500 MG TABLET PO SCH (08:09)
[2020-06-03] MEDS: GABAPENTIN 400 MG CAPSULE PO SCH ×3 (08:09→23:31)
[2020-06-03] MEDS: HEPARIN 5,000 UNITS/ML, 1ML SQ SCH ×2 (08:10→23:31)
[2020-06-03 12:07] VITALS: BP 113/76
[2020-06-03 20:09] VITALS: BP 123/82
[2020-06-03] MEDS: MELATONIN 3 MG TABLET PO SCH (23:31)
[2020-06-03] MEDS: TRAZODONE 50MG TABLET PO SCH (23:32)
[2020-06-03] MEDS: NICOTINE 7 MG/24 HR PATCH.TD24 TD SCH (23:36)
[2020-06-04 00:24] VITALS: BP 108/68
[2020-06-04 08:56] VITALS: BP 107/73
[2020-06-04] MEDS: THIAMINE 100MG TABLET PO SCH (08:59)
[2020-06-04] MEDS: GABAPENTIN 400 MG CAPSULE PO SCH ×3 (08:59→21:10)
[2020-06-04] MEDS: MULTIVITAMINS/MINERALS TABLET PO SCH (08:59)
[2020-06-04] MEDS: ASCORBIC ACID 500 MG TABLET PO SCH (08:59)
[2020-06-04] MEDS: ZIPRASIDONE 40MG CAPSULE PO SCH ×2 (09:00→21:10)
[2020-06-04] MEDS: FOLIC ACID 1 MG TABLET PO SCH (09:00)
[2020-06-04] MEDS: HEPARIN 5,000 UNITS/ML, 1ML SQ SCH ×2 (09:00→21:10)
[2020-06-04] MEDS: CAPSAICIN CRM 0.075%, 60GM TP SCH ×2 (09:00→21:09)
[2020-06-04] MEDS: FLUTICASONE NASAL SPRAY 16GM NAS PRN ×2 (09:03→21:11)
[2020-06-04] MEDS: ZINC SULFATE 220 MG CAPSULE PO SCH (11:35)
[2020-06-04] MEDS: LORATADINE 10 MG TABLET PO SCH (11:35)
[2020-06-04 12:27] VITALS: BP 111/72
[2020-06-04 19:18] VITALS: BP 124/78
[2020-06-04] MEDS: ALBUTEROL HFA 90 MCG/SPRAY INH PRN (21:09)
[2020-06-04] MEDS: MELATONIN 3 MG TABLET PO SCH (21:09)
[2020-06-04] MEDS: NICOTINE 7 MG/24 HR PATCH.TD24 TD SCH (21:10)
[2020-06-04] MEDS: TRAZODONE 50MG TABLET PO SCH (21:11)
[2020-06-04] MEDS: ACETAMINOPHEN 325 MG TABLET PO PRN (21:20)
[2020-06-05 01:31] VITALS: BP 112/74
[2020-06-05] MEDS: MULTIVITAMINS/MINERALS TABLET PO SCH (08:31)
[2020-06-05] MEDS: FOLIC ACID 1 MG TABLET PO SCH (08:31)
[2020-06-05] MEDS: ZINC SULFATE 220 MG CAPSULE PO SCH (08:31)
[2020-06-05] MEDS: ASCORBIC ACID 500 MG TABLET PO SCH (08:31)
[2020-06-05] MEDS: LORATADINE 10 MG TABLET PO SCH (08:31)
[2020-06-05] MEDS: THIAMINE 100MG TABLET PO SCH (08:32)
[2020-06-05] MEDS: GABAPENTIN 400 MG CAPSULE PO SCH ×3 (08:32→21:00)
[2020-06-05] MEDS: HEPARIN 5,000 UNITS/ML, 1ML SQ SCH ×2 (08:32→21:00)
[2020-06-05] MEDS: ZIPRASIDONE 40MG CAPSULE PO SCH ×2 (08:32→21:00)
[2020-06-05] MEDS: CAPSAICIN CRM 0.075%, 60GM TP SCH ×2 (08:33→21:02)
[2020-06-05] MEDS: FLUTICASONE NASAL SPRAY 16GM NAS PRN ×2 (08:33→21:00)
[2020-06-05 08:43] VITALS: BP 106/74
[2020-06-05 12:49] VITALS: BP 100/68
[2020-06-05 19:43] VITALS: BP 120/78
[2020-06-05] MEDS: TRAZODONE 50MG TABLET PO SCH (21:00)
[2020-06-05] MEDS: NICOTINE 7 MG/24 HR PATCH.TD24 TD SCH (21:00)
[2020-06-05] MEDS: MELATONIN 3 MG TABLET PO SCH (21:00)
[2020-06-05] MEDS: ALBUTEROL HFA 90 MCG/SPRAY INH PRN (21:01)
[2020-06-06 01:24] VITALS: BP 101/65
[2020-06-06 07:11] VITALS: BP 111/76
[2020-06-06] MEDS: HEPARIN 5,000 UNITS/ML, 1ML SQ SCH ×2 (09:17→21:44)
[2020-06-06] MEDS: FOLIC ACID 1 MG TABLET PO SCH (09:18)
[2020-06-06] MEDS: LORATADINE 10 MG TABLET PO SCH (09:18)
[2020-06-06] MEDS: GABAPENTIN 400 MG CAPSULE PO SCH ×3 (09:18→21:45)
[2020-06-06] MEDS: ZINC SULFATE 220 MG CAPSULE PO SCH (09:18)
[2020-06-06] MEDS: THIAMINE 100MG TABLET PO SCH (09:18)
[2020-06-06] MEDS: ZIPRASIDONE 40MG CAPSULE PO SCH ×2 (09:18→21:45)
[2020-06-06] MEDS: ASCORBIC ACID 500 MG TABLET PO SCH (09:18)
[2020-06-06] MEDS: CAPSAICIN CRM 0.075%, 60GM TP SCH ×2 (09:19→21:00)
[2020-06-06] MEDS: MULTIVITAMINS/MINERALS TABLET PO SCH (09:19)
[2020-06-06] MEDS: FLUTICASONE NASAL SPRAY 16GM NAS PRN ×2 (09:28→22:00)
[2020-06-06] MEDS: ALBUTEROL HFA 90 MCG/SPRAY INH PRN ×2 (09:28→21:59)
[2020-06-06 19:51] VITALS: BP 130/80
[2020-06-06] MEDS: TRAZODONE 50MG TABLET PO SCH (21:45)
[2020-06-06] MEDS: MELATONIN 3 MG TABLET PO SCH (21:46)
[2020-06-06] MEDS: NICOTINE 7 MG/24 HR PATCH.TD24 TD SCH (22:00)
[2020-06-07 02:03] VITALS: BP 105/70
[2020-06-07] MEDS: ASCORBIC ACID 500 MG TABLET PO SCH (08:10)
[2020-06-07] MEDS: THIAMINE 100MG TABLET PO SCH (08:10)
[2020-06-07] MEDS: ZIPRASIDONE 40MG CAPSULE PO SCH ×2 (08:10→21:30)
[2020-06-07] MEDS: LORATADINE 10 MG TABLET PO SCH (08:10)
[2020-06-07] MEDS: GABAPENTIN 400 MG CAPSULE PO SCH ×3 (08:10→21:29)
[2020-06-07] MEDS: ZINC SULFATE 220 MG CAPSULE PO SCH (08:11)
[2020-06-07] MEDS: MULTIVITAMINS/MINERALS TABLET PO SCH (08:11)
[2020-06-07] MEDS: CAPSAICIN CRM 0.075%, 60GM TP SCH ×2 (08:11→21:00)
[2020-06-07] MEDS: HEPARIN 5,000 UNITS/ML, 1ML SQ SCH ×2 (08:11→21:30)
[2020-06-07] MEDS: ALBUTEROL HFA 90 MCG/SPRAY INH PRN ×2 (08:11→22:02)
[2020-06-07] MEDS: FLUTICASONE NASAL SPRAY 16GM NAS PRN ×2 (08:11→22:03)
[2020-06-07] MEDS: FOLIC ACID 1 MG TABLET PO SCH (08:16)
[2020-06-07 08:49] VITALS: BP 132/78
[2020-06-07 14:22] VITALS: BP 111/72
[2020-06-07 19:59] VITALS: BP 112/74
[2020-06-07] MEDS: NICOTINE 7 MG/24 HR PATCH.TD24 TD SCH (21:29)
[2020-06-07] MEDS: MELATONIN 3 MG TABLET PO SCH (21:30)
[2020-06-07] MEDS: TRAZODONE 50MG TABLET PO SCH (21:30)
[2020-06-08 01:23] VITALS: BP 107/68
[2020-06-08 08:20] VITALS: BP 97/64
[2020-06-08] MEDS: CAPSAICIN CRM 0.075%, 60GM TP SCH ×2 (08:21→21:00)
[2020-06-08] MEDS: THIAMINE 100MG TABLET PO SCH (08:26)
[2020-06-08] MEDS: MULTIVITAMINS/MINERALS TABLET PO SCH (08:26)
[2020-06-08] MEDS: ZIPRASIDONE 40MG CAPSULE PO SCH ×2 (08:26→21:12)
[2020-06-08] MEDS: ASCORBIC ACID 500 MG TABLET PO SCH (08:26)
[2020-06-08] MEDS: GABAPENTIN 400 MG CAPSULE PO SCH ×3 (08:26→21:12)
[2020-06-08] MEDS: ZINC SULFATE 220 MG CAPSULE PO SCH (08:26)
[2020-06-08] MEDS: FOLIC ACID 1 MG TABLET PO SCH (08:26)
[2020-06-08] MEDS: ALBUTEROL HFA 90 MCG/SPRAY INH PRN ×2 (08:27→21:15)
[2020-06-08] MEDS: HEPARIN 5,000 UNITS/ML, 1ML SQ SCH ×2 (08:27→21:11)
[2020-06-08] MEDS: FLUTICASONE NASAL SPRAY 16GM NAS PRN ×2 (08:27→21:15)
[2020-06-08] MEDS: LORATADINE 10 MG TABLET PO SCH (08:30)
[2020-06-08 14:10] VITALS: BP 114/73
[2020-06-08 18:57] VITALS: BP 113/67
[2020-06-08] MEDS: TRAZODONE 50MG TABLET PO SCH (21:12)
[2020-06-08] MEDS: MONTELUKAST 10 MG TABLET PO SCH (21:12)
[2020-06-08] MEDS: MELATONIN 3 MG TABLET PO SCH (21:14)
[2020-06-08] MEDS: NICOTINE 7 MG/24 HR PATCH.TD24 TD SCH (21:15)
[2020-06-09] VITALS: BP 110/63
[2020-06-09 08:00] VITALS: BP 103/67
[2020-06-09] MEDS: GABAPENTIN 400 MG CAPSULE PO SCH ×3 (08:07→21:39)
[2020-06-09] MEDS: LORATADINE 10 MG TABLET PO SCH (08:07)
[2020-06-09] MEDS: HEPARIN 5,000 UNITS/ML, 1ML SQ SCH ×2 (08:07→21:39)
[2020-06-09] MEDS: THIAMINE 100MG TABLET PO SCH (08:07)
[2020-06-09] MEDS: ASCORBIC ACID 500 MG TABLET PO SCH (08:07)
[2020-06-09] MEDS: ZIPRASIDONE 40MG CAPSULE PO SCH ×2 (08:07→21:39)
[2020-06-09] MEDS: MULTIVITAMINS/MINERALS TABLET PO SCH (08:07)
[2020-06-09] MEDS: ALBUTEROL HFA 90 MCG/SPRAY INH PRN ×2 (08:08→21:40)
[2020-06-09] MEDS: FLUTICASONE NASAL SPRAY 16GM NAS PRN ×2 (08:08→21:40)
[2020-06-09] MEDS: CAPSAICIN CRM 0.075%, 60GM TP SCH ×2 (08:08→21:40)
[2020-06-09] MEDS: FOLIC ACID 1 MG TABLET PO SCH (08:08)
[2020-06-09] MEDS: ZINC SULFATE 220 MG CAPSULE PO SCH (08:08)
--- NOTE | 2020-06-09 11:46 | NUR ---
REC: senior living and ETOH program Addendum: 06/09/20 at 1147 by Nicky LAGUERRE Amended: Links added.
[2020-06-09 13:58] VITALS: BP 120/74
[2020-06-09 20:24] VITALS: BP 121/72
[2020-06-09] MEDS: MELATONIN 3 MG TABLET PO SCH (21:39)
[2020-06-09] MEDS: TRAZODONE 50MG TABLET PO SCH (21:39)
[2020-06-09] MEDS: MONTELUKAST 10 MG TABLET PO SCH (21:39)
[2020-06-09] MEDS: NICOTINE 7 MG/24 HR PATCH.TD24 TD SCH (21:40)
[2020-06-10 02:00] VITALS: BP 126/83
[2020-06-10 07:06] VITALS: BP 105/67
[2020-06-10] MEDS: LORATADINE 10 MG TABLET PO SCH (09:13)
[2020-06-10] MEDS: THIAMINE 100MG TABLET PO SCH (09:13)
[2020-06-10] MEDS: FLUTICASONE NASAL SPRAY 16GM NAS PRN ×2 (09:15→21:28)
[2020-06-10] MEDS: ZINC SULFATE 220 MG CAPSULE PO SCH (09:15)
[2020-06-10] MEDS: GABAPENTIN 400 MG CAPSULE PO SCH ×3 (09:15→21:29)
[2020-06-10] MEDS: MULTIVITAMINS/MINERALS TABLET PO SCH (09:15)
[2020-06-10] MEDS: ASCORBIC ACID 500 MG TABLET PO SCH (09:15)
[2020-06-10] MEDS: FOLIC ACID 1 MG TABLET PO SCH (09:15)
[2020-06-10] MEDS: HEPARIN 5,000 UNITS/ML, 1ML SQ SCH ×2 (09:16→21:30)
[2020-06-10] MEDS: ZIPRASIDONE 40MG CAPSULE PO SCH ×2 (09:23→21:29)
[2020-06-10] MEDS: CAPSAICIN CRM 0.075%, 60GM TP SCH ×2 (09:49→21:30)
[2020-06-10] MEDS: ACETAMINOPHEN 325 MG TABLET PO PRN (09:50)
[2020-06-10 15:03] VITALS: BP 126/77
[2020-06-10 18:36] VITALS: BP 125/68
[2020-06-10] MEDS: ALBUTEROL HFA 90 MCG/SPRAY INH PRN (21:28)
[2020-06-10] MEDS: MONTELUKAST 10 MG TABLET PO SCH (21:29)
[2020-06-10] MEDS: MELATONIN 3 MG TABLET PO SCH (21:29)
[2020-06-10] MEDS: TRAZODONE 50MG TABLET PO SCH (21:29)
[2020-06-10] MEDS: NICOTINE 7 MG/24 HR PATCH.TD24 TD SCH (21:30)
[2020-06-10] MEDS: NAPROXEN 500 MG TABLET PO PRN (21:39)
[2020-06-11 00:25] VITALS: BP 100/74
[2020-06-11 07:14] VITALS: BP 111/74
[2020-06-11] MEDS: ZIPRASIDONE 40MG CAPSULE PO SCH ×2 (09:48→21:33)
[2020-06-11] MEDS: GABAPENTIN 400 MG CAPSULE PO SCH ×3 (09:48→21:00)
[2020-06-11] MEDS: ASCORBIC ACID 500 MG TABLET PO SCH (09:48)
[2020-06-11] MEDS: ZINC SULFATE 220 MG CAPSULE PO SCH (09:48)
[2020-06-11] MEDS: FOLIC ACID 1 MG TABLET PO SCH (09:48)
[2020-06-11] MEDS: THIAMINE 100MG TABLET PO SCH (09:48)
[2020-06-11] MEDS: MULTIVITAMINS/MINERALS TABLET PO SCH (09:48)
[2020-06-11] MEDS: LORATADINE 10 MG TABLET PO SCH (09:48)
[2020-06-11] MEDS: HEPARIN 5,000 UNITS/ML, 1ML SQ SCH ×2 (09:49→21:36)
[2020-06-11] MEDS: CAPSAICIN CRM 0.075%, 60GM TP SCH ×3 (09:49→21:35)
[2020-06-11] MEDS: NAPROXEN 500 MG TABLET PO PRN (09:53)
[2020-06-11] MEDS: ALBUTEROL HFA 90 MCG/SPRAY INH PRN ×2 (09:55→21:46)
[2020-06-11] MEDS: FLUTICASONE NASAL SPRAY 16GM NAS PRN ×2 (09:55→21:46)
[2020-06-11 13:27] VITALS: BP 109/64
[2020-06-11 20:00] VITALS: BP 119/67
[2020-06-11] MEDS ORDERED: GABAPENTIN 100 MG CAPSULE ONE (21:24)
[2020-06-11] MEDS ORDERED: GABAPENTIN 300 MG CAPSULE ONE (21:25)
[2020-06-11] MEDS: MELATONIN 3 MG TABLET PO SCH (21:32)
[2020-06-11] MEDS: TRAZODONE 50MG TABLET PO SCH (21:33)
[2020-06-11] MEDS: MONTELUKAST 10 MG TABLET PO SCH (21:33)
[2020-06-11] MEDS: NICOTINE 7 MG/24 HR PATCH.TD24 TD SCH (21:35)
[2020-06-12 00:55] VITALS: BP 125/72
[2020-06-12 07:17] VITALS: BP 113/70
[2020-06-12] MEDS: CAPSAICIN CRM 0.075%, 60GM TP SCH ×2 (09:00→21:29)
[2020-06-12] MEDS: ASCORBIC ACID 500 MG TABLET PO SCH (09:14)
[2020-06-12] MEDS: ZINC SULFATE 220 MG CAPSULE PO SCH (09:14)
[2020-06-12] MEDS: THIAMINE 100MG TABLET PO SCH (09:14)
[2020-06-12] MEDS: FOLIC ACID 1 MG TABLET PO SCH (09:15)
[2020-06-12] MEDS: GABAPENTIN 400 MG CAPSULE PO SCH ×3 (09:15→21:17)
[2020-06-12] MEDS: MULTIVITAMINS/MINERALS TABLET PO SCH (09:15)
[2020-06-12] MEDS: ZIPRASIDONE 40MG CAPSULE PO SCH ×2 (09:15→21:17)
[2020-06-12] MEDS: LORATADINE 10 MG TABLET PO SCH (09:15)
[2020-06-12] MEDS: HEPARIN 5,000 UNITS/ML, 1ML SQ SCH ×2 (09:16→21:18)
[2020-06-12 13:37] VITALS: BP 112/71
[2020-06-12 19:02] VITALS: BP 105/70
[2020-06-12] MEDS: MELATONIN 3 MG TABLET PO SCH (21:17)
[2020-06-12] MEDS: TRAZODONE 50MG TABLET PO SCH (21:17)
[2020-06-12] MEDS: MONTELUKAST 10 MG TABLET PO SCH (21:18)
[2020-06-12] MEDS: NICOTINE 7 MG/24 HR PATCH.TD24 TD SCH (21:18)
[2020-06-13 00:57] VITALS: BP 105/71
[2020-06-13 06:59] VITALS: BP 102/68
[2020-06-13] MEDS: CAPSAICIN CRM 0.075%, 60GM TP SCH ×2 (09:00→21:00)
[2020-06-13] MEDS: HEPARIN 5,000 UNITS/ML, 1ML SQ SCH ×2 (09:28→21:32)
[2020-06-13] MEDS: LORATADINE 10 MG TABLET PO SCH (09:28)
[2020-06-13] MEDS: MULTIVITAMINS/MINERALS TABLET PO SCH (09:29)
[2020-06-13] MEDS: ZIPRASIDONE 40MG CAPSULE PO SCH ×2 (09:29→21:33)
[2020-06-13] MEDS: ASCORBIC ACID 500 MG TABLET PO SCH (09:29)
[2020-06-13] MEDS: ZINC SULFATE 220 MG CAPSULE PO SCH (09:29)
[2020-06-13] MEDS: FOLIC ACID 1 MG TABLET PO SCH (09:29)
[2020-06-13] MEDS: GABAPENTIN 400 MG CAPSULE PO SCH ×3 (09:29→21:33)
[2020-06-13] MEDS: THIAMINE 50MG TABLET PO SCH (11:00)
[2020-06-13] MEDS: NAPROXEN 500 MG TABLET PO PRN (11:53)
[2020-06-13 14:56] VITALS: BP 128/74
[2020-06-13 19:01] VITALS: BP 114/78
[2020-06-13] MEDS: ACETAMINOPHEN 325 MG TABLET PO PRN (21:32)
[2020-06-13] MEDS: MONTELUKAST 10 MG TABLET PO SCH (21:33)
[2020-06-13] MEDS: MELATONIN 3 MG TABLET PO SCH (21:33)
[2020-06-13] MEDS: TRAZODONE 50MG TABLET PO SCH (21:33)
[2020-06-13] MEDS: NICOTINE 7 MG/24 HR PATCH.TD24 TD SCH (21:37)
[2020-06-13] MEDS: ALBUTEROL HFA 90 MCG/SPRAY INH PRN (21:49)
[2020-06-13] MEDS: FLUTICASONE NASAL SPRAY 16GM NAS PRN (21:49)
[2020-06-14 00:12] VITALS: BP 99/61
[2020-06-14] MEDS: NAPROXEN 500 MG TABLET PO PRN ×3 (00:23→23:18)
[2020-06-14 07:03] VITALS: BP 111/69
[2020-06-14] MEDS: HEPARIN 5,000 UNITS/ML, 1ML SQ SCH ×2 (08:51→21:03)
[2020-06-14] MEDS: LORATADINE 10 MG TABLET PO SCH (08:51)
[2020-06-14] MEDS: FOLIC ACID 1 MG TABLET PO SCH (08:51)
[2020-06-14] MEDS: MULTIVITAMINS/MINERALS TABLET PO SCH (08:52)
[2020-06-14] MEDS: CAPSAICIN CRM 0.075%, 60GM TP SCH ×2 (08:52→21:00)
[2020-06-14] MEDS: ASCORBIC ACID 500 MG TABLET PO SCH (08:52)
[2020-06-14] MEDS: GABAPENTIN 400 MG CAPSULE PO SCH ×3 (08:52→21:02)
[2020-06-14] MEDS: ZINC SULFATE 220 MG CAPSULE PO SCH (08:52)
[2020-06-14] MEDS: ZIPRASIDONE 40MG CAPSULE PO SCH ×2 (08:52→21:01)
[2020-06-14] MEDS: THIAMINE 50MG TABLET PO SCH (08:52)
[2020-06-14] MEDS: FLUTICASONE NASAL SPRAY 16GM NAS PRN ×2 (09:00→20:59)
[2020-06-14] MEDS: ALBUTEROL HFA 90 MCG/SPRAY INH PRN (09:01)
[2020-06-14 13:15] VITALS: BP 113/60
[2020-06-14] MEDS: ACETAMINOPHEN 325 MG TABLET PO PRN (15:54)
[2020-06-14 20:36] VITALS: BP 119/75
[2020-06-14] MEDS: MONTELUKAST 10 MG TABLET PO SCH (21:00)
[2020-06-14] MEDS: TRAZODONE 50MG TABLET PO SCH (21:01)
[2020-06-14] MEDS: MELATONIN 3 MG TABLET PO SCH (21:01)
[2020-06-14] MEDS: NICOTINE 7 MG/24 HR PATCH.TD24 TD SCH (21:03)
[2020-06-15 00:17] VITALS: BP 103/70
[2020-06-15 07:51] VITALS: BP 100/68
[2020-06-15] MEDS: CAPSAICIN CRM 0.075%, 60GM TP SCH ×2 (09:00→21:00)
[2020-06-15] MEDS: MULTIVITAMINS/MINERALS TABLET PO SCH (09:13)
[2020-06-15] MEDS: ZIPRASIDONE 40MG CAPSULE PO SCH ×2 (09:13→22:38)
[2020-06-15] MEDS: ASCORBIC ACID 500 MG TABLET PO SCH (09:13)
[2020-06-15] MEDS: ZINC SULFATE 220 MG CAPSULE PO SCH (09:14)
[2020-06-15] MEDS: THIAMINE 50MG TABLET PO SCH (09:14)
[2020-06-15] MEDS: LORATADINE 10 MG TABLET PO SCH (09:14)
[2020-06-15] MEDS: GABAPENTIN 400 MG CAPSULE PO SCH ×3 (09:14→22:40)
[2020-06-15] MEDS: FOLIC ACID 1 MG TABLET PO SCH (09:14)
[2020-06-15] MEDS: HEPARIN 5,000 UNITS/ML, 1ML SQ SCH ×2 (09:14→22:39)
[2020-06-15] MEDS: NAPROXEN 500 MG TABLET PO PRN (09:27)
[2020-06-15] MEDS: FLUTICASONE NASAL SPRAY 16GM NAS PRN ×2 (09:29→22:37)
[2020-06-15] MEDS: ALBUTEROL HFA 90 MCG/SPRAY INH PRN ×2 (09:29→22:37)
[2020-06-15 13:43] VITALS: BP 101/65
[2020-06-15 20:00] VITALS: BP 105/67
[2020-06-15] MEDS: MELATONIN 3 MG TABLET PO SCH (22:38)
[2020-06-15] MEDS: MONTELUKAST 10 MG TABLET PO SCH (22:38)
[2020-06-15] MEDS: TRAZODONE 50MG TABLET PO SCH (22:38)
[2020-06-15] MEDS: NICOTINE 7 MG/24 HR PATCH.TD24 TD SCH (22:39)
[2020-06-16] MEDS: NAPROXEN 500 MG TABLET PO PRN ×2 (00:57→20:30)
[2020-06-16 08:40] VITALS: BP 103/69
[2020-06-16] MEDS: CAPSAICIN CRM 0.075%, 60GM TP SCH ×2 (09:00→20:18)
[2020-06-16] MEDS: THIAMINE 50MG TABLET PO SCH (10:03)
[2020-06-16] MEDS: FOLIC ACID 1 MG TABLET PO SCH (10:03)
[2020-06-16] MEDS: ZINC SULFATE 220 MG CAPSULE PO SCH (10:03)
[2020-06-16] MEDS: FLUTICASONE NASAL SPRAY 16GM NAS PRN ×2 (10:03→20:27)
[2020-06-16] MEDS: HEPARIN 5,000 UNITS/ML, 1ML SQ SCH ×2 (10:04→20:26)
[2020-06-16] MEDS: ZIPRASIDONE 40MG CAPSULE PO SCH ×2 (10:04→20:26)
[2020-06-16] MEDS: GABAPENTIN 400 MG CAPSULE PO SCH ×3 (10:04→20:26)
[2020-06-16] MEDS: LORATADINE 10 MG TABLET PO SCH (10:04)
[2020-06-16] MEDS: MULTIVITAMINS/MINERALS TABLET PO SCH (10:04)
[2020-06-16] MEDS: ASCORBIC ACID 500 MG TABLET PO SCH (10:04)
[2020-06-16 14:29] VITALS: BP 122/74
[2020-06-16 19:31] VITALS: BP 103/70
[2020-06-16] MEDS: MONTELUKAST 10 MG TABLET PO SCH (20:26)
[2020-06-16] MEDS: MELATONIN 3 MG TABLET PO SCH (20:26)
[2020-06-16] MEDS: ALBUTEROL HFA 90 MCG/SPRAY INH PRN (20:27)
[2020-06-16] MEDS: NICOTINE 7 MG/24 HR PATCH.TD24 TD SCH (20:27)
[2020-06-16] MEDS: TRAZODONE 50MG TABLET PO SCH (20:30)
[2020-06-17 00:57] VITALS: BP 107/69
[2020-06-17 07:38] VITALS: BP 104/71
[2020-06-17] MEDS: CAPSAICIN CRM 0.075%, 60GM TP SCH ×2 (09:00→20:44)
[2020-06-17] MEDS: FLUTICASONE NASAL SPRAY 16GM NAS PRN ×2 (09:11→20:58)
[2020-06-17] MEDS: MULTIVITAMINS/MINERALS TABLET PO SCH (09:12)
[2020-06-17] MEDS: ZINC SULFATE 220 MG CAPSULE PO SCH (09:12)
[2020-06-17] MEDS: FOLIC ACID 1 MG TABLET PO SCH (09:12)
[2020-06-17] MEDS: ASCORBIC ACID 500 MG TABLET PO SCH (09:12)
[2020-06-17] MEDS: ZIPRASIDONE 40MG CAPSULE PO SCH ×2 (09:12→20:59)
[2020-06-17] MEDS: LORATADINE 10 MG TABLET PO SCH (09:12)
[2020-06-17] MEDS: THIAMINE 50MG TABLET PO SCH (09:12)
[2020-06-17] MEDS: GABAPENTIN 400 MG CAPSULE PO SCH ×3 (09:12→20:59)
[2020-06-17] MEDS: NAPROXEN 500 MG TABLET PO PRN ×2 (09:13→21:00)
[2020-06-17] MEDS: HEPARIN 5,000 UNITS/ML, 1ML SQ SCH ×2 (09:13→20:59)
[2020-06-17] MEDS: ALBUTEROL HFA 90 MCG/SPRAY INH PRN ×2 (09:13→20:59)
[2020-06-17 12:46] VITALS: BP 106/69
[2020-06-17 19:14] VITALS: BP 114/74
[2020-06-17] MEDS: MELATONIN 3 MG TABLET PO SCH (20:59)
[2020-06-17] MEDS: TRAZODONE 50MG TABLET PO SCH (21:00)
[2020-06-17] MEDS: MONTELUKAST 10 MG TABLET PO SCH (21:00)
[2020-06-17] MEDS: NICOTINE 7 MG/24 HR PATCH.TD24 TD SCH (21:01)
[2020-06-18 07:37] VITALS: BP 115/65
[2020-06-18] MEDS: CAPSAICIN CRM 0.075%, 60GM TP SCH ×2 (09:00→21:16)
[2020-06-18] MEDS: THIAMINE 50MG TABLET PO SCH (09:16)
[2020-06-18] MEDS: LORATADINE 10 MG TABLET PO SCH (09:17)
[2020-06-18] MEDS: ZIPRASIDONE 40MG CAPSULE PO SCH ×2 (09:17→21:28)
[2020-06-18] MEDS: HEPARIN 5,000 UNITS/ML, 1ML SQ SCH ×2 (09:17→21:29)
[2020-06-18] MEDS: GABAPENTIN 400 MG CAPSULE PO SCH ×3 (09:17→21:28)
[2020-06-18] MEDS: MULTIVITAMINS/MINERALS TABLET PO SCH (09:17)
[2020-06-18] MEDS: FOLIC ACID 1 MG TABLET PO SCH (09:17)
[2020-06-18] MEDS: ASCORBIC ACID 500 MG TABLET PO SCH (09:17)
[2020-06-18] MEDS: ZINC SULFATE 220 MG CAPSULE PO SCH (09:17)
[2020-06-18 13:10] VITALS: BP 104/66
[2020-06-18 20:02] VITALS: BP 119/77
[2020-06-18] MEDS: FLUTICASONE NASAL SPRAY 16GM NAS PRN (21:27)
[2020-06-18] MEDS: ALBUTEROL HFA 90 MCG/SPRAY INH PRN (21:27)
[2020-06-18] MEDS: TRAZODONE 50MG TABLET PO SCH (21:28)
[2020-06-18] MEDS: MELATONIN 3 MG TABLET PO SCH (21:28)
[2020-06-18] MEDS: MONTELUKAST 10 MG TABLET PO SCH (21:28)
[2020-06-18] MEDS: NICOTINE 7 MG/24 HR PATCH.TD24 TD SCH (21:29)
[2020-06-18] MEDS: NAPROXEN 500 MG TABLET PO PRN (21:29)
[2020-06-19 00:16] VITALS: BP 104/68
[2020-06-19 07:41] VITALS: BP 111/76
[2020-06-19] MEDS: CAPSAICIN CRM 0.075%, 60GM TP SCH ×2 (09:00→21:36)
[2020-06-19] MEDS: GABAPENTIN 400 MG CAPSULE PO SCH ×3 (10:11→21:38)
[2020-06-19] MEDS: FOLIC ACID 1 MG TABLET PO SCH (10:11)
[2020-06-19] MEDS: LORATADINE 10 MG TABLET PO SCH (10:11)
[2020-06-19] MEDS: ASCORBIC ACID 500 MG TABLET PO SCH (10:12)
[2020-06-19] MEDS: MULTIVITAMINS/MINERALS TABLET PO SCH (10:12)
[2020-06-19] MEDS: ZINC SULFATE 220 MG CAPSULE PO SCH (10:12)
[2020-06-19] MEDS: THIAMINE 50MG TABLET PO SCH (10:12)
[2020-06-19] MEDS: HEPARIN 5,000 UNITS/ML, 1ML SQ SCH ×2 (10:12→21:38)
[2020-06-19] MEDS: ZIPRASIDONE 40MG CAPSULE PO SCH ×2 (10:12→21:37)
[2020-06-19] MEDS: NAPROXEN 500 MG TABLET PO PRN ×2 (10:19→21:43)
[2020-06-19 13:56] VITALS: BP 115/68
[2020-06-19 18:32] VITALS: BP 113/73
[2020-06-19] MEDS: NICOTINE 7 MG/24 HR PATCH.TD24 TD SCH (21:36)
[2020-06-19] MEDS: MELATONIN 3 MG TABLET PO SCH (21:37)
[2020-06-19] MEDS: TRAZODONE 50MG TABLET PO SCH (21:37)
[2020-06-19] MEDS: MONTELUKAST 10 MG TABLET PO SCH (21:37)
[2020-06-20 07:38] VITALS: BP 105/67
[2020-06-20] MEDS: CAPSAICIN CRM 0.075%, 60GM TP SCH ×2 (09:00→20:12)
[2020-06-20] MEDS: LORATADINE 10 MG TABLET PO SCH (10:02)
[2020-06-20] MEDS: ZINC SULFATE 220 MG CAPSULE PO SCH (10:02)
[2020-06-20] MEDS: THIAMINE 50MG TABLET PO SCH (10:02)
[2020-06-20] MEDS: MULTIVITAMINS/MINERALS TABLET PO SCH (10:02)
[2020-06-20] MEDS: ZIPRASIDONE 40MG CAPSULE PO SCH ×2 (10:02→19:56)
[2020-06-20] MEDS: FOLIC ACID 1 MG TABLET PO SCH (10:02)
[2020-06-20] MEDS: HEPARIN 5,000 UNITS/ML, 1ML SQ SCH ×2 (10:03→19:55)
[2020-06-20] MEDS: ASCORBIC ACID 500 MG TABLET PO SCH (10:03)
[2020-06-20] MEDS: GABAPENTIN 400 MG CAPSULE PO SCH ×3 (10:03→19:56)
[2020-06-20] MEDS: ALBUTEROL HFA 90 MCG/SPRAY INH PRN ×2 (10:04→20:11)
[2020-06-20] MEDS: NAPROXEN 500 MG TABLET PO PRN ×2 (10:04→20:17)
[2020-06-20] MEDS: FLUTICASONE NASAL SPRAY 16GM NAS PRN ×2 (10:59→20:06)
[2020-06-20 13:59] VITALS: BP 116/71
[2020-06-20 19:40] VITALS: BP 121/63
[2020-06-20] MEDS: MONTELUKAST 10 MG TABLET PO SCH (19:55)
[2020-06-20] MEDS: MELATONIN 3 MG TABLET PO SCH (19:56)
[2020-06-20] MEDS: TRAZODONE 50MG TABLET PO SCH (19:56)
[2020-06-20] MEDS: NICOTINE 7 MG/24 HR PATCH.TD24 TD SCH (19:59)
[2020-06-21 01:14] VITALS: BP 103/66
[2020-06-21 08:18] VITALS: BP 97/66
[2020-06-21] MEDS: CAPSAICIN CRM 0.075%, 60GM TP SCH ×2 (09:00→21:00)
[2020-06-21] MEDS: GABAPENTIN 400 MG CAPSULE PO SCH (10:06)
[2020-06-21] MEDS: ASCORBIC ACID 500 MG TABLET PO SCH (10:06)
[2020-06-21] MEDS: THIAMINE 50MG TABLET PO SCH (10:06)
[2020-06-21] MEDS: LORATADINE 10 MG TABLET PO SCH (10:06)
[2020-06-21] MEDS: HEPARIN 5,000 UNITS/ML, 1ML SQ SCH ×2 (10:06→19:50)
[2020-06-21] MEDS: MULTIVITAMINS/MINERALS TABLET PO SCH (10:06)
[2020-06-21] MEDS: ZINC SULFATE 220 MG CAPSULE PO SCH (10:06)
[2020-06-21] MEDS: FOLIC ACID 1 MG TABLET PO SCH (10:06)
[2020-06-21] MEDS: ZIPRASIDONE 40MG CAPSULE PO SCH ×2 (10:07→19:50)
[2020-06-21] MEDS: ALBUTEROL HFA 90 MCG/SPRAY INH PRN ×2 (10:15→19:50)
[2020-06-21] MEDS: FLUTICASONE NASAL SPRAY 16GM NAS PRN ×2 (10:15→19:50)
[2020-06-21] MEDS: NAPROXEN 500 MG TABLET PO PRN ×2 (10:16→19:57)
[2020-06-21 13:26] VITALS: BP 111/63
[2020-06-21] MEDS: GABAPENTIN 300 MG CAPSULE PO SCH ×2 (16:56→19:49)
[2020-06-21] MEDS: ACETAMINOPHEN 325 MG TABLET PO PRN (18:39)
[2020-06-21 19:24] VITALS: BP 119/66
[2020-06-21] MEDS ORDERED: GABAPENTIN 100 MG CAPSULE ONE (19:42)
[2020-06-21] MEDS ORDERED: GABAPENTIN 400 MG CAPSULE ONE (19:43)
[2020-06-21] MEDS: MELATONIN 3 MG TABLET PO SCH (19:49)
[2020-06-21] MEDS: MONTELUKAST 10 MG TABLET PO SCH (19:50)
[2020-06-21] MEDS: TRAZODONE 50MG TABLET PO SCH (19:50)
[2020-06-21] MEDS: NICOTINE 7 MG/24 HR PATCH.TD24 TD SCH (19:57)
[2020-06-22 00:20] VITALS: BP 99/66
[2020-06-22 06:47] VITALS: BP 107/69
[2020-06-22] MEDS: CAPSAICIN CRM 0.075%, 60GM TP SCH ×2 (09:00→20:53)
[2020-06-22] MEDS: FLUTICASONE NASAL SPRAY 16GM NAS PRN ×2 (09:28→21:07)
[2020-06-22] MEDS: LORATADINE 10 MG TABLET PO SCH (09:29)
[2020-06-22] MEDS: MULTIVITAMINS/MINERALS TABLET PO SCH (09:29)
[2020-06-22] MEDS: ZIPRASIDONE 40MG CAPSULE PO SCH ×2 (09:29→20:51)
[2020-06-22] MEDS: GABAPENTIN 300 MG CAPSULE PO SCH ×3 (09:29→20:51)
[2020-06-22] MEDS: ASCORBIC ACID 500 MG TABLET PO SCH (09:29)
[2020-06-22] MEDS: FOLIC ACID 1 MG TABLET PO SCH (09:29)
[2020-06-22] MEDS: THIAMINE 50MG TABLET PO SCH (09:29)
[2020-06-22] MEDS: HEPARIN 5,000 UNITS/ML, 1ML SQ SCH ×2 (09:29→20:53)
[2020-06-22] MEDS: ZINC SULFATE 220 MG CAPSULE PO SCH (09:29)
[2020-06-22] MEDS: NAPROXEN 500 MG TABLET PO PRN ×2 (09:30→21:09)
[2020-06-22] MEDS: ALBUTEROL HFA 90 MCG/SPRAY INH PRN (09:30)
[2020-06-22 12:48] VITALS: BP 117/65
[2020-06-22 19:05] VITALS: BP_SYST 126; BP_DIAS 73; BP_DIAS 78
[2020-06-22] MEDS: MONTELUKAST 10 MG TABLET PO SCH (20:51)
[2020-06-22] MEDS: TRAZODONE 50MG TABLET PO SCH (20:51)
[2020-06-22] MEDS: MELATONIN 3 MG TABLET PO SCH (20:51)
[2020-06-22] MEDS: NICOTINE 7 MG/24 HR PATCH.TD24 TD SCH (20:52)
[2020-06-23 01:30] VITALS: BP 109/69
[2020-06-23 07:22] VITALS: BP 110/72
[2020-06-23] MEDS: FOLIC ACID 1 MG TABLET PO SCH (08:13)
[2020-06-23] MEDS: ZIPRASIDONE 40MG CAPSULE PO SCH ×2 (08:13→20:09)
[2020-06-23] MEDS: GABAPENTIN 300 MG CAPSULE PO SCH ×3 (08:13→20:09)
[2020-06-23] MEDS: ASCORBIC ACID 500 MG TABLET PO SCH (08:13)
[2020-06-23] MEDS: LORATADINE 10 MG TABLET PO SCH (08:13)
[2020-06-23] MEDS: MULTIVITAMINS/MINERALS TABLET PO SCH (08:13)
[2020-06-23] MEDS: ZINC SULFATE 220 MG CAPSULE PO SCH (08:13)
[2020-06-23] MEDS: ALBUTEROL HFA 90 MCG/SPRAY INH PRN ×2 (08:14→20:10)
[2020-06-23] MEDS: CAPSAICIN CRM 0.075%, 60GM TP SCH ×2 (08:14→20:18)
[2020-06-23] MEDS: HEPARIN 5,000 UNITS/ML, 1ML SQ SCH ×2 (08:14→20:08)
[2020-06-23] MEDS: FLUTICASONE NASAL SPRAY 16GM NAS PRN ×2 (08:14→20:09)
[2020-06-23] MEDS: NAPROXEN 500 MG TABLET PO PRN (08:16)
[2020-06-23 13:56] VITALS: BP 102/46
[2020-06-23 19:12] VITALS: BP 125/80
[2020-06-23] MEDS: TRAZODONE 50MG TABLET PO SCH (20:08)
[2020-06-23] MEDS: MELATONIN 3 MG TABLET PO SCH (20:09)
[2020-06-23] MEDS: NICOTINE 7 MG/24 HR PATCH.TD24 TD SCH (20:09)
[2020-06-23] MEDS: MONTELUKAST 10 MG TABLET PO SCH (20:09)
[2020-06-24 00:02] VITALS: BP 103/68
[2020-06-24 07:39] VITALS: BP 119/79
[2020-06-24] MEDS: ZIPRASIDONE 40MG CAPSULE PO SCH ×2 (08:43→20:22)
[2020-06-24] MEDS: LORATADINE 10 MG TABLET PO SCH (08:43)
[2020-06-24] MEDS: ZINC SULFATE 220 MG CAPSULE PO SCH (08:44)
[2020-06-24] MEDS: HEPARIN 5,000 UNITS/ML, 1ML SQ SCH ×2 (08:44→20:22)
[2020-06-24] MEDS: ALBUTEROL HFA 90 MCG/SPRAY INH PRN ×2 (08:44→20:22)
[2020-06-24] MEDS: MULTIVITAMINS/MINERALS TABLET PO SCH (08:44)
[2020-06-24] MEDS: GABAPENTIN 300 MG CAPSULE PO SCH ×3 (08:44→20:23)
[2020-06-24] MEDS: FOLIC ACID 1 MG TABLET PO SCH (08:44)
[2020-06-24] MEDS: ASCORBIC ACID 500 MG TABLET PO SCH (08:44)
[2020-06-24] MEDS: FLUTICASONE NASAL SPRAY 16GM NAS PRN ×2 (08:44→20:22)
[2020-06-24] MEDS: NAPROXEN 500 MG TABLET PO PRN (08:45)
[2020-06-24] MEDS: CAPSAICIN CRM 0.075%, 60GM TP SCH ×2 (08:46→21:03)
[2020-06-24 14:51] VITALS: BP 112/74
[2020-06-24 19:53] VITALS: BP 116/71
[2020-06-24] MEDS: TRAZODONE 50MG TABLET PO SCH (20:22)
[2020-06-24] MEDS: NICOTINE 7 MG/24 HR PATCH.TD24 TD SCH (20:22)
[2020-06-24] MEDS: MELATONIN 3 MG TABLET PO SCH (20:23)
[2020-06-24] MEDS: MONTELUKAST 10 MG TABLET PO SCH (20:23)
[2020-06-25 02:18] VITALS: BP 105/67
[2020-06-25 07:03] VITALS: BP 109/71
[2020-06-25] MEDS: CAPSAICIN CRM 0.075%, 60GM TP SCH ×2 (08:54→21:08)
[2020-06-25] MEDS: GABAPENTIN 300 MG CAPSULE PO SCH ×3 (09:13→21:18)
[2020-06-25] MEDS: ZINC SULFATE 220 MG CAPSULE PO SCH (09:14)
[2020-06-25] MEDS: LORATADINE 10 MG TABLET PO SCH (09:14)
[2020-06-25] MEDS: ASCORBIC ACID 500 MG TABLET PO SCH (09:14)
[2020-06-25] MEDS: MULTIVITAMINS/MINERALS TABLET PO SCH (09:14)
[2020-06-25] MEDS: NAPROXEN 500 MG TABLET PO PRN ×2 (09:14→21:19)
[2020-06-25] MEDS: ZIPRASIDONE 40MG CAPSULE PO SCH ×2 (09:14→21:17)
[2020-06-25] MEDS: FLUTICASONE NASAL SPRAY 16GM NAS PRN ×2 (09:15→21:33)
[2020-06-25] MEDS: ALBUTEROL HFA 90 MCG/SPRAY INH PRN ×2 (09:15→21:18)
[2020-06-25] MEDS: FOLIC ACID 1 MG TABLET PO SCH (09:15)
[2020-06-25] MEDS: HEPARIN 5,000 UNITS/ML, 1ML SQ SCH ×2 (09:15→21:19)
[2020-06-25 13:17] VITALS: BP 110/74
[2020-06-25 18:58] VITALS: BP 119/72
[2020-06-25] MEDS: NICOTINE 7 MG/24 HR PATCH.TD24 TD SCH (21:17)
[2020-06-25] MEDS: TRAZODONE 50MG TABLET PO SCH (21:18)
[2020-06-25] MEDS: MONTELUKAST 10 MG TABLET PO SCH (21:18)
[2020-06-25] MEDS: MELATONIN 3 MG TABLET PO SCH (21:19)
[2020-06-26 01:26] VITALS: BP 102/69
[2020-06-26 06:49] VITALS: BP 107/73
[2020-06-26] MEDS: ASCORBIC ACID 500 MG TABLET PO SCH (09:16)
[2020-06-26] MEDS: MULTIVITAMINS/MINERALS TABLET PO SCH (09:16)
[2020-06-26] MEDS: ZIPRASIDONE 40MG CAPSULE PO SCH ×2 (09:16→20:17)
[2020-06-26] MEDS: LORATADINE 10 MG TABLET PO SCH (09:16)
[2020-06-26] MEDS: GABAPENTIN 300 MG CAPSULE PO SCH ×3 (09:16→20:15)
[2020-06-26] MEDS: ZINC SULFATE 220 MG CAPSULE PO SCH (09:16)
[2020-06-26] MEDS: FOLIC ACID 1 MG TABLET PO SCH (09:16)
[2020-06-26] MEDS: ALBUTEROL HFA 90 MCG/SPRAY INH PRN ×2 (09:19→20:17)
[2020-06-26] MEDS: FLUTICASONE NASAL SPRAY 16GM NAS PRN ×2 (09:20→20:17)
[2020-06-26] MEDS: CAPSAICIN CRM 0.075%, 60GM TP SCH ×2 (09:20→20:18)
[2020-06-26] MEDS: NAPROXEN 500 MG TABLET PO PRN ×2 (09:20→20:16)
[2020-06-26] MEDS: HEPARIN 5,000 UNITS/ML, 1ML SQ SCH ×2 (10:35→20:15)
[2020-06-26 13:31] VITALS: BP 104/67
[2020-06-26 19:42] VITALS: BP 110/69
[2020-06-26] MEDS: TRAZODONE 50MG TABLET PO SCH (20:15)
[2020-06-26] MEDS: MELATONIN 3 MG TABLET PO SCH (20:15)
[2020-06-26] MEDS: MONTELUKAST 10 MG TABLET PO SCH (20:15)
[2020-06-26] MEDS: NICOTINE 7 MG/24 HR PATCH.TD24 TD SCH (20:16)
[2020-06-26 20:41] VITALS: BP 111/75
[2020-06-27 03:05] VITALS: BP 99/63
[2020-06-27 07:04] VITALS: BP 124/80
[2020-06-27] MEDS: GABAPENTIN 300 MG CAPSULE PO SCH ×3 (08:04→19:59)
[2020-06-27] MEDS: LORATADINE 10 MG TABLET PO SCH (08:04)
[2020-06-27] MEDS: ZIPRASIDONE 40MG CAPSULE PO SCH ×2 (08:04→19:58)
[2020-06-27] MEDS: HEPARIN 5,000 UNITS/ML, 1ML SQ SCH ×2 (08:04→20:00)
[2020-06-27] MEDS: FOLIC ACID 1 MG TABLET PO SCH (08:04)
[2020-06-27] MEDS: MULTIVITAMINS/MINERALS TABLET PO SCH (08:04)
[2020-06-27] MEDS: ASCORBIC ACID 500 MG TABLET PO SCH (08:04)
[2020-06-27] MEDS: ZINC SULFATE 220 MG CAPSULE PO SCH (08:04)
[2020-06-27] MEDS: CAPSAICIN CRM 0.075%, 60GM TP SCH ×2 (08:05→20:00)
[2020-06-27] MEDS: FLUTICASONE NASAL SPRAY 16GM NAS PRN ×2 (08:12→20:00)
[2020-06-27] MEDS: ALBUTEROL HFA 90 MCG/SPRAY INH PRN ×2 (08:12→20:00)
[2020-06-27] MEDS: NAPROXEN 500 MG TABLET PO PRN ×2 (08:12→19:59)
[2020-06-27 13:51] VITALS: BP 105/71
[2020-06-27 18:48] VITALS: BP 110/73
[2020-06-27] MEDS: TRAZODONE 50MG TABLET PO SCH (19:58)
[2020-06-27] MEDS: MELATONIN 3 MG TABLET PO SCH (19:58)
[2020-06-27] MEDS: MONTELUKAST 10 MG TABLET PO SCH (19:59)
[2020-06-27] MEDS: NICOTINE 7 MG/24 HR PATCH.TD24 TD SCH (19:59)
[2020-06-27] MEDS: ACETAMINOPHEN 325 MG TABLET PO PRN (23:51)
[2020-06-28 00:16] VITALS: BP 106/71
[2020-06-28 06:51] VITALS: BP 106/76
[2020-06-28] MEDS: LORATADINE 10 MG TABLET PO SCH (09:00)
[2020-06-28] MEDS: HEPARIN 5,000 UNITS/ML, 1ML SQ SCH ×2 (09:00→21:08)
[2020-06-28] MEDS: ZINC SULFATE 220 MG CAPSULE PO SCH (09:00)
[2020-06-28] MEDS: CAPSAICIN CRM 0.075%, 60GM TP SCH ×2 (09:01→21:00)
[2020-06-28] MEDS: FOLIC ACID 1 MG TABLET PO SCH (09:01)
[2020-06-28] MEDS: ASCORBIC ACID 500 MG TABLET PO SCH (09:01)
[2020-06-28] MEDS: FLUTICASONE NASAL SPRAY 16GM NAS PRN ×2 (09:01→21:13)
[2020-06-28] MEDS: NAPROXEN 500 MG TABLET PO PRN ×2 (09:01→21:13)
[2020-06-28] MEDS: ZIPRASIDONE 40MG CAPSULE PO SCH ×2 (09:01→21:09)
[2020-06-28] MEDS: GABAPENTIN 300 MG CAPSULE PO SCH ×3 (09:01→21:09)
[2020-06-28] MEDS: MULTIVITAMINS/MINERALS TABLET PO SCH (09:01)
[2020-06-28 14:20] VITALS: BP 105/62
[2020-06-28 19:33] VITALS: BP 124/80
[2020-06-28] MEDS: NICOTINE 7 MG/24 HR PATCH.TD24 TD SCH (21:09)
[2020-06-28] MEDS: MELATONIN 3 MG TABLET PO SCH (21:09)
[2020-06-28] MEDS: TRAZODONE 50MG TABLET PO SCH (21:09)
[2020-06-28] MEDS: MONTELUKAST 10 MG TABLET PO SCH (21:10)
[2020-06-29 00:44] VITALS: BP 103/69
[2020-06-29 08:52] VITALS: BP 103/70
[2020-06-29] MEDS: CAPSAICIN CRM 0.075%, 60GM TP SCH ×2 (09:00→20:40)
[2020-06-29] MEDS: LORATADINE 10 MG TABLET PO SCH (09:27)
[2020-06-29] MEDS: ASCORBIC ACID 500 MG TABLET PO SCH (09:27)
[2020-06-29] MEDS: MULTIVITAMINS/MINERALS TABLET PO SCH (09:27)
[2020-06-29] MEDS: ZINC SULFATE 220 MG CAPSULE PO SCH (09:27)
[2020-06-29] MEDS: NAPROXEN 500 MG TABLET PO PRN ×2 (09:27→20:29)
[2020-06-29] MEDS: ZIPRASIDONE 40MG CAPSULE PO SCH ×2 (09:27→20:21)
[2020-06-29] MEDS: FOLIC ACID 1 MG TABLET PO SCH (09:28)
[2020-06-29] MEDS: FLUTICASONE NASAL SPRAY 16GM NAS PRN ×2 (09:28→20:28)
[2020-06-29] MEDS: HEPARIN 5,000 UNITS/ML, 1ML SQ SCH ×2 (09:28→20:22)
[2020-06-29] MEDS: ALBUTEROL HFA 90 MCG/SPRAY INH PRN (09:28)
[2020-06-29] MEDS: GABAPENTIN 300 MG CAPSULE PO SCH ×3 (09:28→20:21)
[2020-06-29 13:41] VITALS: BP 108/72
[2020-06-29 18:41] VITALS: BP 125/85
[2020-06-29] MEDS: NICOTINE 7 MG/24 HR PATCH.TD24 TD SCH (20:21)
[2020-06-29] MEDS: MELATONIN 3 MG TABLET PO SCH (20:22)
[2020-06-29] MEDS: TRAZODONE 50MG TABLET PO SCH (20:22)
[2020-06-29] MEDS: MONTELUKAST 10 MG TABLET PO SCH (20:22)
[2020-06-30 00:39] VITALS: BP 105/69
[2020-06-30 07:10] VITALS: BP 116/78
[2020-06-30] MEDS: LORATADINE 10 MG TABLET PO SCH (08:54)
[2020-06-30] MEDS: GABAPENTIN 300 MG CAPSULE PO SCH ×3 (08:54→20:59)
[2020-06-30] MEDS: ASCORBIC ACID 500 MG TABLET PO SCH (08:54)
[2020-06-30] MEDS: ZINC SULFATE 220 MG CAPSULE PO SCH (08:54)
[2020-06-30] MEDS: CAPSAICIN CRM 0.075%, 60GM TP SCH ×2 (08:55→21:00)
[2020-06-30] MEDS: ALBUTEROL HFA 90 MCG/SPRAY INH PRN (08:55)
[2020-06-30] MEDS: FLUTICASONE NASAL SPRAY 16GM NAS PRN ×2 (08:55→21:00)
[2020-06-30] MEDS: ZIPRASIDONE 40MG CAPSULE PO SCH ×2 (08:55→20:59)
[2020-06-30] MEDS: FOLIC ACID 1 MG TABLET PO SCH (08:55)
[2020-06-30] MEDS: HEPARIN 5,000 UNITS/ML, 1ML SQ SCH ×2 (08:55→21:00)
[2020-06-30] MEDS: MULTIVITAMINS/MINERALS TABLET PO SCH (08:55)
[2020-06-30] MEDS: NAPROXEN 500 MG TABLET PO PRN ×2 (08:56→21:00)
[2020-06-30 12:46] VITALS: BP 142/86
--- NOTE | 2020-06-30 14:10 | NUR ---
issued nurses green activity sheet and put in room- RN and pt agreed: exercise program up to chair for meals amb with nursing 1-3 times a day with FWW Addendum: 06/30/20 at 1414 by Socorro Christopher PT Amended: Links added.
[2020-06-30] MEDS ORDERED: GABAPENTIN 100 MG CAPSULE ONE (15:57)
[2020-06-30] MEDS ORDERED: GABAPENTIN 400 MG CAPSULE ONE (15:58)
[2020-06-30 18:30] VITALS: BP 121/75
[2020-06-30] MEDS: MONTELUKAST 10 MG TABLET PO SCH (20:59)
[2020-06-30] MEDS: MELATONIN 3 MG TABLET PO SCH (21:00)
[2020-06-30] MEDS: TRAZODONE 50MG TABLET PO SCH (21:00)
[2020-06-30] MEDS: NICOTINE 7 MG/24 HR PATCH.TD24 TD SCH (21:00)
[2020-07-01 00:50] VITALS: BP 108/68
[2020-07-01 07:55] VITALS: BP 116/77
[2020-07-01] MEDS: ZINC SULFATE 220 MG CAPSULE PO SCH (08:44)
[2020-07-01] MEDS: FLUTICASONE NASAL SPRAY 16GM NAS PRN ×2 (08:45→21:38)
[2020-07-01] MEDS: FOLIC ACID 1 MG TABLET PO SCH (08:45)
[2020-07-01] MEDS: GABAPENTIN 300 MG CAPSULE PO SCH ×3 (08:45→21:38)
[2020-07-01] MEDS: ALBUTEROL HFA 90 MCG/SPRAY INH PRN (08:45)
[2020-07-01] MEDS: ASCORBIC ACID 500 MG TABLET PO SCH (08:45)
[2020-07-01] MEDS: MULTIVITAMINS/MINERALS TABLET PO SCH (08:45)
[2020-07-01] MEDS: ZIPRASIDONE 40MG CAPSULE PO SCH ×2 (08:45→21:38)
[2020-07-01] MEDS: LORATADINE 10 MG TABLET PO SCH (08:45)
[2020-07-01] MEDS: HEPARIN 5,000 UNITS/ML, 1ML SQ SCH ×2 (08:46→21:39)
[2020-07-01] MEDS: NAPROXEN 500 MG TABLET PO PRN ×2 (08:46→21:38)
[2020-07-01] MEDS: CAPSAICIN CRM 0.075%, 60GM TP SCH ×2 (09:00→21:00)
[2020-07-01 13:50] VITALS: BP 117/75
[2020-07-01 20:42] VITALS: BP 106/69
[2020-07-01] MEDS: MONTELUKAST 10 MG TABLET PO SCH (21:38)
[2020-07-01] MEDS: TRAZODONE 50MG TABLET PO SCH (21:38)
[2020-07-01] MEDS: NICOTINE 7 MG/24 HR PATCH.TD24 TD SCH (21:39)
[2020-07-02 00:32] VITALS: BP 133/89
[2020-07-02 07:56] VITALS: BP 104/71
[2020-07-02] MEDS: CAPSAICIN CRM 0.075%, 60GM TP SCH ×2 (09:00→21:41)
[2020-07-02] MEDS: GABAPENTIN 300 MG CAPSULE PO SCH ×3 (09:17→21:40)
[2020-07-02] MEDS: ASCORBIC ACID 500 MG TABLET PO SCH (09:17)
[2020-07-02] MEDS: MULTIVITAMINS/MINERALS TABLET PO SCH (09:18)
[2020-07-02] MEDS: ZIPRASIDONE 40MG CAPSULE PO SCH ×2 (09:18→21:39)
[2020-07-02] MEDS: ZINC SULFATE 220 MG CAPSULE PO SCH (09:18)
[2020-07-02] MEDS: LORATADINE 10 MG TABLET PO SCH (09:18)
[2020-07-02] MEDS: HEPARIN 5,000 UNITS/ML, 1ML SQ SCH ×2 (09:19→21:40)
[2020-07-02 12:14] VITALS: BP 109/71
[2020-07-02 18:48] VITALS: BP 113/71
[2020-07-02] MEDS: NICOTINE 7 MG/24 HR PATCH.TD24 TD SCH (21:38)
[2020-07-02] MEDS: TRAZODONE 50MG TABLET PO SCH (21:39)
[2020-07-02] MEDS: MONTELUKAST 10 MG TABLET PO SCH (21:40)
[2020-07-02] MEDS: FLUTICASONE NASAL SPRAY 16GM NAS PRN (21:46)
[2020-07-03 02:12] VITALS: BP 92/64
[2020-07-03] MEDS: CAPSAICIN CRM 0.075%, 60GM TP SCH ×2 (09:00→20:54)
[2020-07-03 09:14] VITALS: BP 103/68
[2020-07-03] MEDS: ASCORBIC ACID 500 MG TABLET PO SCH (09:36)
[2020-07-03] MEDS: GABAPENTIN 300 MG CAPSULE PO SCH ×3 (09:36→20:59)
[2020-07-03] MEDS: HEPARIN 5,000 UNITS/ML, 1ML SQ SCH ×2 (09:37→20:59)
[2020-07-03] MEDS: ZINC SULFATE 220 MG CAPSULE PO SCH (09:37)
[2020-07-03] MEDS: MULTIVITAMINS/MINERALS TABLET PO SCH (09:37)
[2020-07-03] MEDS: LORATADINE 10 MG TABLET PO SCH (09:37)
[2020-07-03] MEDS: ZIPRASIDONE 40MG CAPSULE PO SCH ×2 (09:37→20:59)
[2020-07-03] MEDS: NAPROXEN 500 MG TABLET PO PRN ×2 (10:01→20:58)
[2020-07-03] MEDS: ALBUTEROL HFA 90 MCG/SPRAY INH PRN (10:03)
[2020-07-03 15:43] VITALS: BP 111/72
[2020-07-03] MEDS: FLUTICASONE NASAL SPRAY 16GM NAS PRN (17:21)
[2020-07-03 18:40] VITALS: BP 120/78
[2020-07-03] MEDS: BUTALB/APAP/CAFFEINE 50MG/325MG/40MG PO PRN (20:59)
[2020-07-03] MEDS: NICOTINE 7 MG/24 HR PATCH.TD24 TD SCH (20:59)
[2020-07-03] MEDS: TRAZODONE 50MG TABLET PO SCH (21:00)
[2020-07-03] MEDS: MONTELUKAST 10 MG TABLET PO SCH (21:00)
[2020-07-04 00:38] VITALS: BP 123/77
[2020-07-04 07:21] VITALS: BP 112/72
[2020-07-04] MEDS: CAPSAICIN CRM 0.075%, 60GM TP SCH ×2 (09:00→20:34)
[2020-07-04] MEDS: LORATADINE 10 MG TABLET PO SCH (10:10)
[2020-07-04] MEDS: GABAPENTIN 300 MG CAPSULE PO SCH ×3 (10:10→20:32)
[2020-07-04] MEDS: ZINC SULFATE 220 MG CAPSULE PO SCH (10:11)
[2020-07-04] MEDS: ZIPRASIDONE 40MG CAPSULE PO SCH ×2 (10:11→20:32)
[2020-07-04] MEDS: HEPARIN 5,000 UNITS/ML, 1ML SQ SCH ×2 (10:11→20:33)
[2020-07-04] MEDS: MULTIVITAMINS/MINERALS TABLET PO SCH (10:11)
[2020-07-04] MEDS: ASCORBIC ACID 500 MG TABLET PO SCH (10:11)
[2020-07-04] MEDS: FLUTICASONE NASAL SPRAY 16GM NAS PRN ×3 (10:12→20:31)
[2020-07-04] MEDS: BUTALB/APAP/CAFFEINE 50MG/325MG/40MG PO PRN ×2 (10:12→20:32)
[2020-07-04] MEDS: ALBUTEROL HFA 90 MCG/SPRAY INH PRN ×2 (10:12→20:31)
[2020-07-04 13:02] VITALS: BP 108/71
[2020-07-04 18:58] VITALS: BP 110/74
[2020-07-04] MEDS: NICOTINE 7 MG/24 HR PATCH.TD24 TD SCH (20:32)
[2020-07-04] MEDS: MONTELUKAST 10 MG TABLET PO SCH (20:32)
[2020-07-04] MEDS: TRAZODONE 50MG TABLET PO SCH (20:32)
[2020-07-04] MEDS: NAPROXEN 500 MG TABLET PO PRN (20:33)
[2020-07-05 00:47] VITALS: BP 105/68
[2020-07-05 08:47] VITALS: BP 105/69
[2020-07-05] MEDS: CAPSAICIN CRM 0.075%, 60GM TP SCH ×2 (09:00→21:00)
[2020-07-05] MEDS: FLUTICASONE NASAL SPRAY 16GM NAS PRN ×2 (09:49→20:25)
[2020-07-05] MEDS: ACETAMINOPHEN 325 MG TABLET PO PRN ×2 (09:49→15:28)
[2020-07-05] MEDS: ASCORBIC ACID 500 MG TABLET PO SCH (09:49)
[2020-07-05] MEDS: LORATADINE 10 MG TABLET PO SCH (09:49)
[2020-07-05] MEDS: ALBUTEROL HFA 90 MCG/SPRAY INH PRN ×2 (09:49→20:26)
[2020-07-05] MEDS: BUTALB/APAP/CAFFEINE 50MG/325MG/40MG PO PRN ×2 (09:49→20:24)
[2020-07-05] MEDS: GABAPENTIN 300 MG CAPSULE PO SCH ×3 (09:49→20:22)
[2020-07-05] MEDS: ZINC SULFATE 220 MG CAPSULE PO SCH (09:50)
[2020-07-05] MEDS: HEPARIN 5,000 UNITS/ML, 1ML SQ SCH ×2 (09:50→20:23)
[2020-07-05] MEDS: ZIPRASIDONE 40MG CAPSULE PO SCH ×2 (09:50→20:23)
[2020-07-05] MEDS: MULTIVITAMINS/MINERALS TABLET PO SCH (09:50)
[2020-07-05 14:01] VITALS: BP 129/77
[2020-07-05 18:44] VITALS: BP 119/63
[2020-07-05] MEDS: MONTELUKAST 10 MG TABLET PO SCH (20:22)
[2020-07-05] MEDS: NICOTINE 7 MG/24 HR PATCH.TD24 TD SCH (20:24)
[2020-07-05] MEDS: NAPROXEN 500 MG TABLET PO PRN (20:26)
[2020-07-05] MEDS: TRAZODONE 50MG TABLET PO SCH (20:43)
[2020-07-06 00:08] VITALS: BP 115/65
[2020-07-06] MEDS: MELATONIN 3 MG TABLET PO PRN (01:31)
[2020-07-06 08:03] VITALS: BP 117/75
[2020-07-06] MEDS: CAPSAICIN CRM 0.075%, 60GM TP SCH ×2 (09:00→21:00)
[2020-07-06] MEDS: FLUTICASONE NASAL SPRAY 16GM NAS PRN ×2 (09:42→23:43)
[2020-07-06] MEDS: ALBUTEROL HFA 90 MCG/SPRAY INH PRN (09:42)
[2020-07-06] MEDS: MULTIVITAMINS/MINERALS TABLET PO SCH (09:43)
[2020-07-06] MEDS: ASCORBIC ACID 500 MG TABLET PO SCH (09:43)
[2020-07-06] MEDS: BUTALB/APAP/CAFFEINE 50MG/325MG/40MG PO PRN ×2 (09:43→23:42)
[2020-07-06] MEDS: GABAPENTIN 300 MG CAPSULE PO SCH ×3 (09:43→23:34)
[2020-07-06] MEDS: ZINC SULFATE 220 MG CAPSULE PO SCH (09:43)
[2020-07-06] MEDS: HEPARIN 5,000 UNITS/ML, 1ML SQ SCH ×2 (09:43→23:34)
[2020-07-06] MEDS: ZIPRASIDONE 40MG CAPSULE PO SCH ×2 (09:44→23:34)
[2020-07-06] MEDS: LORATADINE 10 MG TABLET PO SCH (09:44)
[2020-07-06 12:29] VITALS: BP 106/71
[2020-07-06] MEDS ORDERED: KETOROLAC 30 MG/1 ML IM PRN (15:30)
[2020-07-06 19:56] VITALS: BP 106/69
[2020-07-06] MEDS: MONTELUKAST 10 MG TABLET PO SCH (23:34)
[2020-07-06] MEDS: TRAZODONE 50MG TABLET PO SCH (23:34)
[2020-07-06] MEDS: NICOTINE 7 MG/24 HR PATCH.TD24 TD SCH (23:37)
[2020-07-06] MEDS: NAPROXEN 500 MG TABLET PO PRN (23:42)
[2020-07-07 01:24] VITALS: BP 105/69
[2020-07-07 07:36] VITALS: BP 102/70
[2020-07-07] MEDS: CAPSAICIN CRM 0.075%, 60GM TP SCH ×2 (08:42→21:00)
[2020-07-07] MEDS: FLUTICASONE NASAL SPRAY 16GM NAS PRN ×2 (08:52→21:31)
[2020-07-07] MEDS: ALBUTEROL HFA 90 MCG/SPRAY INH PRN (08:53)
[2020-07-07] MEDS: ZIPRASIDONE 40MG CAPSULE PO SCH ×2 (08:54→21:35)
[2020-07-07] MEDS: ZINC SULFATE 220 MG CAPSULE PO SCH (08:54)
[2020-07-07] MEDS: GABAPENTIN 300 MG CAPSULE PO SCH ×3 (08:54→21:36)
[2020-07-07] MEDS: BUTALB/APAP/CAFFEINE 50MG/325MG/40MG PO PRN (08:54)
[2020-07-07] MEDS: HEPARIN 5,000 UNITS/ML, 1ML SQ SCH ×2 (08:54→21:31)
[2020-07-07] MEDS: LORATADINE 10 MG TABLET PO SCH (08:54)
[2020-07-07] MEDS: MULTIVITAMINS/MINERALS TABLET PO SCH (08:54)
[2020-07-07] MEDS: ASCORBIC ACID 500 MG TABLET PO SCH (08:55)
[2020-07-07] MEDS: NAPROXEN 500 MG TABLET PO PRN (08:55)
[2020-07-07 14:27] VITALS: BP 123/77
[2020-07-07] MEDS: ACETAMINOPHEN 325 MG TABLET PO PRN (15:11)
[2020-07-07 21:19] VITALS: BP 117/70
[2020-07-07] MEDS: KETOROLAC 30 MG/1 ML IM PRN (21:34)
[2020-07-07] MEDS: TRAZODONE 50MG TABLET PO SCH (21:36)
[2020-07-07] MEDS: MONTELUKAST 10 MG TABLET PO SCH (21:36)
[2020-07-07] MEDS: NICOTINE 7 MG/24 HR PATCH.TD24 TD SCH (21:36)
[2020-07-07] MEDS: MELATONIN 3 MG TABLET PO PRN (21:37)
[2020-07-08 04:24] VITALS: BP 103/70
[2020-07-08] MEDS ORDERED: PANTOPRAZOLE 40MG TABLET PO SCH (06:00)
[2020-07-08 06:51] VITALS: BP 109/63
[2020-07-08] MEDS: GABAPENTIN 300 MG CAPSULE PO SCH ×3 (08:36→21:06)
[2020-07-08] MEDS: ZINC SULFATE 220 MG CAPSULE PO SCH (08:36)
[2020-07-08] MEDS: MULTIVITAMINS/MINERALS TABLET PO SCH (08:37)
[2020-07-08] MEDS: ZIPRASIDONE 40MG CAPSULE PO SCH ×2 (08:37→21:06)
[2020-07-08] MEDS: ASCORBIC ACID 500 MG TABLET PO SCH (08:37)
[2020-07-08] MEDS: HEPARIN 5,000 UNITS/ML, 1ML SQ SCH ×2 (08:37→21:07)
[2020-07-08] MEDS: LORATADINE 10 MG TABLET PO SCH (08:38)
[2020-07-08] MEDS: CAPSAICIN CRM 0.075%, 60GM TP SCH ×2 (08:38→20:39)
[2020-07-08] MEDS: KETOROLAC 30 MG/1 ML IM PRN ×2 (08:44→21:08)
[2020-07-08] MEDS: FLUTICASONE NASAL SPRAY 16GM NAS PRN ×2 (08:51→21:07)
[2020-07-08] MEDS: ALBUTEROL HFA 90 MCG/SPRAY INH PRN (08:51)
[2020-07-08 12:57] VITALS: BP 107/68
[2020-07-08] MEDS: PANTOPRAZOLE 40MG TABLET PO SCH ×2 (18:27→21:06)
[2020-07-08 18:35] VITALS: BP 122/70
[2020-07-08] MEDS: MELATONIN 3 MG TABLET PO PRN (21:06)
[2020-07-08] MEDS: MONTELUKAST 10 MG TABLET PO SCH (21:06)
[2020-07-08] MEDS: NICOTINE 7 MG/24 HR PATCH.TD24 TD SCH (21:07)
[2020-07-08] MEDS: TRAZODONE 50MG TABLET PO SCH (21:07)
[2020-07-09] VITALS: BP 103/69
[2020-07-09 07:14] VITALS: BP 113/71
[2020-07-09] MEDS: CAPSAICIN CRM 0.075%, 60GM TP SCH ×2 (09:00→21:00)
[2020-07-09] MEDS: FLUTICASONE NASAL SPRAY 16GM NAS PRN ×2 (09:09→22:53)
[2020-07-09] MEDS: HEPARIN 5,000 UNITS/ML, 1ML SQ SCH ×2 (09:10→22:56)
[2020-07-09] MEDS: ALBUTEROL HFA 90 MCG/SPRAY INH PRN (09:10)
[2020-07-09] MEDS: ASCORBIC ACID 500 MG TABLET PO SCH (09:11)
[2020-07-09] MEDS: MULTIVITAMINS/MINERALS TABLET PO SCH (09:11)
[2020-07-09] MEDS: GABAPENTIN 300 MG CAPSULE PO SCH ×3 (09:11→22:53)
[2020-07-09] MEDS: LORATADINE 10 MG TABLET PO SCH (09:11)
[2020-07-09] MEDS: ZINC SULFATE 220 MG CAPSULE PO SCH (09:11)
[2020-07-09] MEDS: PANTOPRAZOLE 40MG TABLET PO SCH ×2 (09:11→22:55)
[2020-07-09] MEDS: ZIPRASIDONE 40MG CAPSULE PO SCH ×2 (09:11→22:54)
[2020-07-09] MEDS: KETOROLAC 30 MG/1 ML IM PRN ×2 (09:12→23:01)
[2020-07-09 13:54] VITALS: BP 96/64
[2020-07-09 19:57] VITALS: BP 116/79
[2020-07-09] MEDS: TRAZODONE 50MG TABLET PO SCH (22:54)
[2020-07-09] MEDS: MONTELUKAST 10 MG TABLET PO SCH (22:54)
[2020-07-09] MEDS: NICOTINE 7 MG/24 HR PATCH.TD24 TD SCH (22:55)
[2020-07-10 01:05] VITALS: BP 110/74
[2020-07-10 07:53] VITALS: BP 101/60
[2020-07-10] MEDS: LORATADINE 10 MG TABLET PO SCH (08:37)
[2020-07-10] MEDS: MULTIVITAMINS/MINERALS TABLET PO SCH (08:37)
[2020-07-10] MEDS: HEPARIN 5,000 UNITS/ML, 1ML SQ SCH ×2 (08:37→20:11)
[2020-07-10] MEDS: GABAPENTIN 300 MG CAPSULE PO SCH ×3 (08:37→20:11)
[2020-07-10] MEDS: ZIPRASIDONE 40MG CAPSULE PO SCH ×2 (08:38→20:11)
[2020-07-10] MEDS: CAPSAICIN CRM 0.075%, 60GM TP SCH ×2 (08:38→20:12)
[2020-07-10] MEDS: PANTOPRAZOLE 40MG TABLET PO SCH ×2 (08:38→20:11)
[2020-07-10] MEDS: ASCORBIC ACID 500 MG TABLET PO SCH (08:38)
[2020-07-10] MEDS: ZINC SULFATE 220 MG CAPSULE PO SCH (08:38)
[2020-07-10] MEDS: ALBUTEROL HFA 90 MCG/SPRAY INH PRN (08:45)
[2020-07-10] MEDS: FLUTICASONE NASAL SPRAY 16GM NAS PRN (08:45)
[2020-07-10] MEDS: KETOROLAC 30 MG/1 ML IM PRN ×2 (08:45→20:12)
[2020-07-10 13:34] VITALS: BP 105/67
[2020-07-10 19:50] VITALS: BP 129/83
[2020-07-10] MEDS: MONTELUKAST 10 MG TABLET PO SCH (20:11)
[2020-07-10] MEDS: TRAZODONE 50MG TABLET PO SCH (20:11)
[2020-07-10] MEDS: PROPRANOLOL 20 MG TABLET PO SCH (20:11)
[2020-07-10] MEDS: NICOTINE 7 MG/24 HR PATCH.TD24 TD SCH (20:12)
[2020-07-11 02:05] VITALS: BP 93/61
[2020-07-11 05:35] VITALS: BP 103/66
[2020-07-11] MEDS: PROPRANOLOL 20 MG TABLET PO SCH ×2 (05:35→17:44)
[2020-07-11 06:40] VITALS: BP 113/76
[2020-07-11] MEDS: CAPSAICIN CRM 0.075%, 60GM TP SCH ×2 (09:00→21:00)
[2020-07-11] MEDS: FLUTICASONE NASAL SPRAY 16GM NAS PRN ×2 (09:14→21:49)
[2020-07-11] MEDS: ZINC SULFATE 220 MG CAPSULE PO SCH (09:15)
[2020-07-11] MEDS: LORATADINE 10 MG TABLET PO SCH (09:15)
[2020-07-11] MEDS: PANTOPRAZOLE 40MG TABLET PO SCH ×2 (09:15→21:50)
[2020-07-11] MEDS: ZIPRASIDONE 40MG CAPSULE PO SCH ×2 (09:15→21:50)
[2020-07-11] MEDS: GABAPENTIN 300 MG CAPSULE PO SCH ×3 (09:15→21:50)
[2020-07-11] MEDS: ALBUTEROL HFA 90 MCG/SPRAY INH PRN (09:15)
[2020-07-11] MEDS: ASCORBIC ACID 500 MG TABLET PO SCH (09:15)
[2020-07-11] MEDS: HEPARIN 5,000 UNITS/ML, 1ML SQ SCH ×2 (09:16→21:49)
[2020-07-11] MEDS: MULTIVITAMINS/MINERALS TABLET PO SCH (09:16)
[2020-07-11] MEDS: KETOROLAC 30 MG/1 ML IM PRN ×2 (09:43→21:49)
[2020-07-11 14:14] VITALS: BP 106/64
[2020-07-11 20:14] VITALS: BP 101/68
[2020-07-11] MEDS: MONTELUKAST 10 MG TABLET PO SCH (21:49)
[2020-07-11] MEDS: TRAZODONE 50MG TABLET PO SCH (21:50)
[2020-07-11] MEDS: NICOTINE 7 MG/24 HR PATCH.TD24 TD SCH (21:50)
[2020-07-11] MEDS: MELATONIN 3 MG TABLET PO PRN (21:55)
[2020-07-12 02:07] VITALS: BP 92/60
[2020-07-12] MEDS: PROPRANOLOL 20 MG TABLET PO SCH ×2 (05:50→17:34)
[2020-07-12 07:36] VITALS: BP 100/63
[2020-07-12] MEDS: ASCORBIC ACID 500 MG TABLET PO SCH (08:51)
[2020-07-12] MEDS: ZINC SULFATE 220 MG CAPSULE PO SCH (08:51)
[2020-07-12] MEDS: GABAPENTIN 300 MG CAPSULE PO SCH ×3 (08:51→20:39)
[2020-07-12] MEDS: MULTIVITAMINS/MINERALS TABLET PO SCH (08:52)
[2020-07-12] MEDS: LORATADINE 10 MG TABLET PO SCH (08:52)
[2020-07-12] MEDS: PANTOPRAZOLE 40MG TABLET PO SCH ×2 (08:52→17:34)
[2020-07-12] MEDS: CAPSAICIN CRM 0.075%, 60GM TP SCH ×2 (08:53→20:40)
[2020-07-12] MEDS: HEPARIN 5,000 UNITS/ML, 1ML SQ SCH ×2 (08:53→20:40)
[2020-07-12] MEDS: FLUTICASONE NASAL SPRAY 16GM NAS PRN ×2 (08:53→20:39)
[2020-07-12] MEDS: ZIPRASIDONE 40MG CAPSULE PO SCH ×2 (08:53→20:40)
[2020-07-12] MEDS: ALBUTEROL HFA 90 MCG/SPRAY INH PRN (08:54)
[2020-07-12 13:04] VITALS: BP 114/77
[2020-07-12 13:12] VITALS: BP 98/67
[2020-07-12] MEDS ORDERED: CALCIUM CARBONATE 500 MG TAB.CHEW PO PRN (16:00)
[2020-07-12] MEDS ORDERED: ONDANSETRON ODT 4 MG PO PRN (16:00)
[2020-07-12 19:18] VITALS: BP 105/69
[2020-07-12] MEDS: MONTELUKAST 10 MG TABLET PO SCH (20:39)
[2020-07-12] MEDS: TRAZODONE 50MG TABLET PO SCH (20:39)
[2020-07-12] MEDS: MELATONIN 3 MG TABLET PO PRN (20:39)
[2020-07-13] MEDS ORDERED: NICOTINE 7 MG/24 HR PATCH.TD24 ONE (00:17)
[2020-07-13] MEDS: NICOTINE 7 MG/24 HR PATCH.TD24 TD SCH (00:19)
[2020-07-13 00:55] VITALS: BP 113/73
[2020-07-13] MEDS: PROPRANOLOL 20 MG TABLET PO SCH ×2 (05:22→17:28)
[2020-07-13] MEDS: PANTOPRAZOLE 40MG TABLET PO SCH ×2 (05:24→17:28)
[2020-07-13 07:15] VITALS: BP 111/71
[2020-07-13] MEDS: CAPSAICIN CRM 0.075%, 60GM TP SCH ×2 (09:00→21:00)
[2020-07-13] MEDS: FLUTICASONE NASAL SPRAY 16GM NAS PRN ×2 (09:14→21:35)
[2020-07-13] MEDS: MULTIVITAMINS/MINERALS TABLET PO SCH (09:15)
[2020-07-13] MEDS: ZIPRASIDONE 40MG CAPSULE PO SCH ×2 (09:15→21:34)
[2020-07-13] MEDS: GABAPENTIN 300 MG CAPSULE PO SCH ×3 (09:15→21:34)
[2020-07-13] MEDS: ALBUTEROL HFA 90 MCG/SPRAY INH PRN (09:15)
[2020-07-13] MEDS: HEPARIN 5,000 UNITS/ML, 1ML SQ SCH ×2 (09:16→21:34)
[2020-07-13] MEDS: LORATADINE 10 MG TABLET PO SCH (09:16)
[2020-07-13 13:51] VITALS: BP 118/70
[2020-07-13 18:44] VITALS: BP 116/73
[2020-07-13] MEDS: MONTELUKAST 10 MG TABLET PO SCH (21:34)
[2020-07-13] MEDS: TRAZODONE 50MG TABLET PO SCH (21:34)
[2020-07-14] MEDS: NICOTINE 7 MG/24 HR PATCH.TD24 TD SCH (00:04)
[2020-07-14 00:36] VITALS: BP 107/65
[2020-07-14] MEDS: PROPRANOLOL 20 MG TABLET PO SCH ×2 (05:59→17:05)
[2020-07-14] MEDS: PANTOPRAZOLE 40MG TABLET PO SCH ×2 (05:59→17:05)
[2020-07-14 06:48] VITALS: BP 116/73
[2020-07-14] MEDS: ZIPRASIDONE 40MG CAPSULE PO SCH ×2 (08:39→21:33)
[2020-07-14] MEDS: HEPARIN 5,000 UNITS/ML, 1ML SQ SCH ×2 (08:39→21:35)
[2020-07-14] MEDS: GABAPENTIN 300 MG CAPSULE PO SCH ×3 (08:39→21:33)
[2020-07-14] MEDS: MULTIVITAMINS/MINERALS TABLET PO SCH (08:39)
[2020-07-14] MEDS: LORATADINE 10 MG TABLET PO SCH (08:39)
[2020-07-14] MEDS: CAPSAICIN CRM 0.075%, 60GM TP SCH ×2 (08:45→21:00)
[2020-07-14 13:04] VITALS: BP 120/76
[2020-07-14] MEDS: ALBUTEROL HFA 90 MCG/SPRAY INH PRN (13:31)
[2020-07-14] MEDS: FLUTICASONE NASAL SPRAY 16GM NAS PRN ×2 (13:31→21:34)
[2020-07-14 18:29] VITALS: BP 120/77
[2020-07-14] MEDS: MELATONIN 3 MG TABLET PO PRN (21:33)
[2020-07-14] MEDS: MONTELUKAST 10 MG TABLET PO SCH (21:34)
[2020-07-14] MEDS: TRAZODONE 50MG TABLET PO SCH (21:34)
[2020-07-15] MEDS: NICOTINE 7 MG/24 HR PATCH.TD24 TD SCH (00:03)
[2020-07-15 00:11] VITALS: BP 98/63
[2020-07-15] MEDS: PROPRANOLOL 20 MG TABLET PO SCH ×2 (06:04→18:00)
[2020-07-15] MEDS: PANTOPRAZOLE 40MG TABLET PO SCH ×2 (06:04→16:21)
[2020-07-15 07:14] VITALS: BP 115/74
[2020-07-15] MEDS: CAPSAICIN CRM 0.075%, 60GM TP SCH ×2 (09:00→21:00)
[2020-07-15] MEDS: FLUTICASONE NASAL SPRAY 16GM NAS PRN ×2 (09:37→21:46)
[2020-07-15] MEDS: ALBUTEROL HFA 90 MCG/SPRAY INH PRN (09:38)
[2020-07-15] MEDS: LORATADINE 10 MG TABLET PO SCH (09:39)
[2020-07-15] MEDS: MULTIVITAMINS/MINERALS TABLET PO SCH (09:42)
[2020-07-15] MEDS: ZIPRASIDONE 40MG CAPSULE PO SCH ×2 (09:42→21:48)
[2020-07-15] MEDS: GABAPENTIN 300 MG CAPSULE PO SCH ×3 (09:43→21:47)
[2020-07-15] MEDS: HEPARIN 5,000 UNITS/ML, 1ML SQ SCH ×2 (09:45→21:47)
[2020-07-15 13:16] VITALS: BP 105/77
[2020-07-15] MEDS: ACETAMINOPHEN 325 MG TABLET PO PRN (15:34)
[2020-07-15 18:02] VITALS: BP 118/77
[2020-07-15 18:44] VITALS: BP 107/71
[2020-07-15] MEDS: TRAZODONE 50MG TABLET PO SCH (21:48)
[2020-07-15] MEDS: MELATONIN 3 MG TABLET PO PRN (21:48)
[2020-07-15] MEDS: MONTELUKAST 10 MG TABLET PO SCH (21:48)
[2020-07-16 02:19] VITALS: BP 98/64
[2020-07-16] MEDS: NICOTINE 7 MG/24 HR PATCH.TD24 TD SCH (04:37)
[2020-07-16] MEDS: PANTOPRAZOLE 40MG TABLET PO SCH ×2 (05:02→17:00)
[2020-07-16] MEDS: PROPRANOLOL 20 MG TABLET PO SCH ×2 (05:02→17:55)
[2020-07-16] MEDS: LORATADINE 10 MG TABLET PO SCH (08:55)
[2020-07-16] MEDS: ZIPRASIDONE 40MG CAPSULE PO SCH ×2 (08:55→20:20)
[2020-07-16] MEDS: MULTIVITAMINS/MINERALS TABLET PO SCH (08:56)
[2020-07-16] MEDS: GABAPENTIN 300 MG CAPSULE PO SCH ×3 (08:56→20:19)
[2020-07-16] MEDS: HEPARIN 5,000 UNITS/ML, 1ML SQ SCH ×2 (08:56→20:19)
[2020-07-16] MEDS: CAPSAICIN CRM 0.075%, 60GM TP SCH ×2 (08:57→20:21)
[2020-07-16 08:59] VITALS: BP 111/71
[2020-07-16] MEDS: ALBUTEROL HFA 90 MCG/SPRAY INH PRN (08:59)
[2020-07-16] MEDS: FLUTICASONE NASAL SPRAY 16GM NAS PRN ×2 (08:59→20:19)
[2020-07-16] MEDS: ACETAMINOPHEN 325 MG TABLET PO PRN (11:24)
[2020-07-16 12:39] VITALS: BP 101/66
[2020-07-16 17:57] VITALS: BP 112/74
[2020-07-16 19:38] VITALS: BP 112/72
[2020-07-16] MEDS: MELATONIN 3 MG TABLET PO PRN (20:19)
[2020-07-16] MEDS: MONTELUKAST 10 MG TABLET PO SCH (20:20)
[2020-07-16] MEDS: TRAZODONE 50MG TABLET PO SCH (20:20)
[2020-07-17 01:44] VITALS: BP 97/63
[2020-07-17] MEDS: PANTOPRAZOLE 40MG TABLET PO SCH ×2 (05:06→16:29)
[2020-07-17] MEDS: PROPRANOLOL 20 MG TABLET PO SCH ×2 (05:06→18:42)
[2020-07-17] MEDS: NICOTINE 7 MG/24 HR PATCH.TD24 TD SCH (05:06)
[2020-07-17] MEDS: ALBUTEROL HFA 90 MCG/SPRAY INH PRN (08:02)
[2020-07-17] MEDS: FLUTICASONE NASAL SPRAY 16GM NAS PRN ×2 (08:02→19:39)
[2020-07-17] MEDS: HEPARIN 5,000 UNITS/ML, 1ML SQ SCH ×2 (08:02→19:39)
[2020-07-17] MEDS: ZIPRASIDONE 40MG CAPSULE PO SCH ×2 (08:03→19:39)
[2020-07-17] MEDS: MULTIVITAMINS/MINERALS TABLET PO SCH (08:03)
[2020-07-17] MEDS: GABAPENTIN 300 MG CAPSULE PO SCH ×3 (08:03→19:38)
[2020-07-17] MEDS: LORATADINE 10 MG TABLET PO SCH (08:03)
[2020-07-17] MEDS: TOPIRAMATE 25 MG TABLET PO SCH (08:12)
[2020-07-17] MEDS: CAPSAICIN CRM 0.075%, 60GM TP SCH ×2 (08:12→21:00)
[2020-07-17 09:30] VITALS: BP 98/64
[2020-07-17 12:32] VITALS: BP 111/71
[2020-07-17] MEDS ORDERED: KETOROLAC 30 MG/1 ML IVPush ONE (14:00)
[2020-07-17] MEDS ORDERED: VALPROATE SODIUM 250 MG in DEXTROSE 5% 100 ML IV ONE (14:00)
[2020-07-17] MEDS ORDERED: METOCLOPRAMIDE 5 MG/ML, 2ML IVPush ONE (14:00)
[2020-07-17 19:30] VITALS: BP 97/59
[2020-07-17] MEDS: MELATONIN 3 MG TABLET PO PRN (19:38)
[2020-07-17] MEDS: MONTELUKAST 10 MG TABLET PO SCH (19:38)
[2020-07-17] MEDS: TRAZODONE 50MG TABLET PO SCH (19:39)
[2020-07-18 01:25] VITALS: BP 82/59
[2020-07-18 05:40] VITALS: BP 115/76
[2020-07-18] MEDS: NICOTINE 7 MG/24 HR PATCH.TD24 TD SCH (05:40)
[2020-07-18] MEDS: PROPRANOLOL 20 MG TABLET PO SCH ×2 (05:40→17:46)
[2020-07-18] MEDS: PANTOPRAZOLE 40MG TABLET PO SCH ×2 (05:50→16:28)
[2020-07-18 07:01] VITALS: BP 106/69
[2020-07-18] MEDS: FLUTICASONE NASAL SPRAY 16GM NAS PRN ×2 (08:34→20:49)
[2020-07-18] MEDS: GABAPENTIN 300 MG CAPSULE PO SCH ×3 (08:35→20:50)
[2020-07-18] MEDS: ALBUTEROL HFA 90 MCG/SPRAY INH PRN (08:35)
[2020-07-18] MEDS: LORATADINE 10 MG TABLET PO SCH (08:36)
[2020-07-18] MEDS: TOPIRAMATE 25 MG TABLET PO SCH (08:36)
[2020-07-18] MEDS: MULTIVITAMINS/MINERALS TABLET PO SCH (08:36)
[2020-07-18] MEDS: ZIPRASIDONE 40MG CAPSULE PO SCH ×2 (08:36→20:50)
[2020-07-18] MEDS: HEPARIN 5,000 UNITS/ML, 1ML SQ SCH ×2 (08:37→20:50)
[2020-07-18] MEDS: CAPSAICIN CRM 0.075%, 60GM TP SCH ×2 (08:37→20:52)
[2020-07-18] MEDS ORDERED: DOXYCYCLINE 100MG TABLET PO SCH (09:00)
[2020-07-18] MEDS ORDERED: VANCOMYCIN PER PHARMACY MC PRN (11:30)
[2020-07-18] MEDS ORDERED: PHARMACOKINETIC MONITORING MC PRN (11:30)
[2020-07-18] MEDS ORDERED: PHARMACOKINETIC CONSULTATION MC ONE (11:30)
[2020-07-18] MEDS: VANCOMYCIN 2,000 MG in SODIUM CHLORIDE 0.9% 500 ML IV ONE ×2 (12:21→12:54)
[2020-07-18] MEDS: BUTALB/APAP/CAFFEINE 50MG/325MG/40MG PO PRN (12:54)
[2020-07-18 14:28] VITALS: BP 102/64
[2020-07-18 19:04] VITALS: BP 111/75
[2020-07-18] MEDS: MONTELUKAST 10 MG TABLET PO SCH (20:49)
[2020-07-18] MEDS: MELATONIN 3 MG TABLET PO PRN (20:50)
[2020-07-18] MEDS: TRAZODONE 50MG TABLET PO SCH (20:50)
[2020-07-19] MEDS: VANCOMYCIN 1,400 MG in SODIUM CHLORIDE 0.9% 250 ML IV SCH ×3 (00:16→14:42)
[2020-07-19] MEDS: DIHYDROERGOTAMINE 1 MG/ML, 1ML IM PRN (00:17)
[2020-07-19 02:34] VITALS: BP 119/81
[2020-07-19] MEDS: NICOTINE 7 MG/24 HR PATCH.TD24 TD SCH (03:20)
[2020-07-19 05:01] LABS: BASOPHILS # (AUTO) 0.05 x10^3/uL (0-0.1); BASOPHILS % (AUTO) 1 % (0-1); EOSINOPHILS # (AUTO) 0.16 x10^3/uL (0-0.4); EOSINOPHILS % (AUTO) 3 % (1-7); LYMPHOCYTES # (AUTO) 2.43 x10^3/uL (1-3.4); LYMPHOCYTES % (AUTO) 39 % (22-44); MD NO; MEAN CORPUSCULAR HGB CONC 32.1 g/dL (32.4-35.8); MEAN PLATELET VOLUME 7.6 fL (7.4-10.4); MONOCYTES # (AUTO) 0.46 x10^3/uL (0.2-0.8); MONOCYTES % (AUTO) 7 % (2-9); NEUTROPHILS # (AUTO) 3.19 x10^3/uL (1.8-6.8); NEUTROPHILS % (AUTO) 51 % (42-75); PLATELET COUNT 386 x10^3/uL (130-400); RED BLOOD COUNT 4.43 x10^6/uL (3.82-5.3); RED CELL DISTRIBUTION WIDTH 17.5 % (9.6-15.2)
[2020-07-19 05:11] LABS: ANION GAP 6 mmol/L (5-15); CHLORIDE 109 mmol/L (98-107)
[2020-07-19 05:12] LABS: CREATININE 0.86 mg/dL (0.55-1.02)
[2020-07-19] MEDS: PANTOPRAZOLE 40MG TABLET PO SCH ×2 (05:49→15:14)
[2020-07-19] MEDS: PROPRANOLOL 20 MG TABLET PO SCH ×2 (05:50→17:23)
[2020-07-19 06:00] VITALS: BP 105/76
[2020-07-19] MEDS: TOPIRAMATE 25 MG TABLET PO SCH (08:53)
[2020-07-19] MEDS: ZIPRASIDONE 40MG CAPSULE PO SCH ×2 (08:53→22:55)
[2020-07-19] MEDS: LORATADINE 10 MG TABLET PO SCH (08:53)
[2020-07-19] MEDS: GABAPENTIN 300 MG CAPSULE PO SCH ×3 (08:53→22:55)
[2020-07-19] MEDS: MULTIVITAMINS/MINERALS TABLET PO SCH (08:54)
[2020-07-19] MEDS: HEPARIN 5,000 UNITS/ML, 1ML SQ SCH ×2 (08:55→22:55)
[2020-07-19] MEDS: CAPSAICIN CRM 0.075%, 60GM TP SCH ×2 (09:00→22:56)
[2020-07-19] MEDS: FLUTICASONE NASAL SPRAY 16GM NAS PRN ×2 (09:07→23:18)
[2020-07-19] MEDS: ALBUTEROL HFA 90 MCG/SPRAY INH PRN (09:08)
[2020-07-19 14:57] VITALS: BP 116/80
[2020-07-19] MEDS: ASCORBIC ACID 500 MG TABLET PO SCH (17:00)
[2020-07-19 20:40] VITALS: BP 102/69
[2020-07-19] MEDS: MONTELUKAST 10 MG TABLET PO SCH (22:55)
[2020-07-19] MEDS: TRAZODONE 50MG TABLET PO SCH (22:55)
[2020-07-19] MEDS: MELATONIN 3 MG TABLET PO PRN (22:57)
[2020-07-20 00:54] VITALS: BP 110/73
[2020-07-20] MEDS: DIHYDROERGOTAMINE 1 MG/ML, 1ML IM PRN ×2 (01:26→18:24)
[2020-07-20] MEDS: VANCOMYCIN 1,400 MG in SODIUM CHLORIDE 0.9% 250 ML IV SCH ×2 (02:07→19:51)
[2020-07-20] MEDS: PROPRANOLOL 20 MG TABLET PO SCH ×2 (06:45→18:30)
[2020-07-20] MEDS: PANTOPRAZOLE 40MG TABLET PO SCH (06:45)
[2020-07-20] MEDS: NICOTINE 7 MG/24 HR PATCH.TD24 TD SCH (06:46)
[2020-07-20 07:17] VITALS: BP 110/69
[2020-07-20] MEDS: CAPSAICIN CRM 0.075%, 60GM TP SCH ×2 (09:00→21:00)
[2020-07-20] MEDS: ZINC SULFATE 220 MG CAPSULE PO SCH (11:02)
[2020-07-20] MEDS: ZIPRASIDONE 40MG CAPSULE PO SCH ×2 (11:02→21:55)
[2020-07-20] MEDS: GABAPENTIN 300 MG CAPSULE PO SCH ×3 (11:03→21:55)
[2020-07-20] MEDS: LACTOBACILLUS CHEW TABLET PO SCH ×3 (11:03→21:55)
[2020-07-20] MEDS: ASCORBIC ACID 500 MG TABLET PO SCH ×2 (11:03→18:24)
[2020-07-20] MEDS: MULTIVITAMINS/MINERALS TABLET PO SCH (11:03)
[2020-07-20] MEDS: LORATADINE 10 MG TABLET PO SCH (11:03)
[2020-07-20] MEDS: TOPIRAMATE 25 MG TABLET PO SCH (11:03)
[2020-07-20] MEDS: HEPARIN 5,000 UNITS/ML, 1ML SQ SCH ×2 (11:04→21:56)
[2020-07-20] MEDS: FLUTICASONE NASAL SPRAY 16GM NAS PRN ×2 (11:07→21:56)
[2020-07-20] MEDS: ALBUTEROL HFA 90 MCG/SPRAY INH PRN (11:08)
[2020-07-20 12:42] VITALS: BP 112/73
[2020-07-20 18:59] VITALS: BP 131/87
[2020-07-20] MEDS: MELATONIN 3 MG TABLET PO PRN (21:55)
[2020-07-20] MEDS: MONTELUKAST 10 MG TABLET PO SCH (21:55)
[2020-07-20] MEDS: TRAZODONE 50MG TABLET PO SCH (21:55)
[2020-07-21 00:32] VITALS: BP 102/69
[2020-07-21] MEDS: NICOTINE 7 MG/24 HR PATCH.TD24 TD SCH (05:54)
[2020-07-21] MEDS: PANTOPRAZOLE 40MG TABLET PO SCH (05:55)
[2020-07-21] MEDS: PROPRANOLOL 20 MG TABLET PO SCH ×2 (05:55→17:50)
[2020-07-21] MEDS: FLUTICASONE NASAL SPRAY 16GM NAS PRN ×2 (08:48→21:30)
[2020-07-21] MEDS: ALBUTEROL HFA 90 MCG/SPRAY INH PRN (08:49)
[2020-07-21] MEDS: MULTIVITAMINS/MINERALS TABLET PO SCH (08:50)
[2020-07-21] MEDS: CAPSAICIN CRM 0.075%, 60GM TP SCH ×2 (08:51→21:00)
[2020-07-21] MEDS: LACTOBACILLUS CHEW TABLET PO SCH ×3 (08:51→21:29)
[2020-07-21] MEDS: ZINC SULFATE 220 MG CAPSULE PO SCH (08:51)
[2020-07-21] MEDS: TOPIRAMATE 25 MG TABLET PO SCH (08:51)
[2020-07-21] MEDS: GABAPENTIN 300 MG CAPSULE PO SCH ×3 (08:51→21:29)
[2020-07-21] MEDS: ZIPRASIDONE 40MG CAPSULE PO SCH ×2 (08:51→21:29)
[2020-07-21] MEDS: ASCORBIC ACID 500 MG TABLET PO SCH ×2 (08:51→16:12)
[2020-07-21] MEDS: HEPARIN 5,000 UNITS/ML, 1ML SQ SCH ×2 (08:51→21:28)
[2020-07-21] MEDS: LORATADINE 10 MG TABLET PO SCH (08:51)
[2020-07-21 08:59] VITALS: BP 105/69
[2020-07-21] MEDS: VANCOMYCIN 1,400 MG in SODIUM CHLORIDE 0.9% 250 ML IV SCH (14:01)
[2020-07-21 14:10] VITALS: BP 101/68
[2020-07-21 17:50] VITALS: BP 116/79
[2020-07-21] MEDS: DIHYDROERGOTAMINE 1 MG/ML, 1ML IM PRN (17:51)
[2020-07-21] MEDS ORDERED: MUPIROCIN OINT 2%, 22GM TP SCH (18:00)
[2020-07-21 18:50] VITALS: BP 132/86
[2020-07-21] MEDS: TRAZODONE 50MG TABLET PO SCH (21:28)
[2020-07-21] MEDS: MELATONIN 3 MG TABLET PO PRN (21:29)
[2020-07-21] MEDS: MONTELUKAST 10 MG TABLET PO SCH (21:29)
[2020-07-21] MEDS: MUPIROCIN OINT 2%, 22GM TP SCH (23:33)
[2020-07-22 00:18] VITALS: BP 111/75
[2020-07-22] MEDS: PANTOPRAZOLE 40MG TABLET PO SCH (06:01)
[2020-07-22] MEDS: PROPRANOLOL 20 MG TABLET PO SCH ×2 (06:02→17:38)
[2020-07-22] MEDS: NICOTINE 7 MG/24 HR PATCH.TD24 TD SCH (06:02)
[2020-07-22 07:33] VITALS: BP 105/72
[2020-07-22] MEDS: ZINC SULFATE 220 MG CAPSULE PO SCH (08:20)
[2020-07-22] MEDS: LACTOBACILLUS CHEW TABLET PO SCH ×3 (08:20→20:48)
[2020-07-22] MEDS: FLUTICASONE NASAL SPRAY 16GM NAS PRN ×2 (08:20→20:47)
[2020-07-22] MEDS: ASCORBIC ACID 500 MG TABLET PO SCH ×2 (08:20→16:15)
[2020-07-22] MEDS: LORATADINE 10 MG TABLET PO SCH (08:20)
[2020-07-22] MEDS: ZIPRASIDONE 40MG CAPSULE PO SCH ×2 (08:20→20:47)
[2020-07-22] MEDS: MULTIVITAMINS/MINERALS TABLET PO SCH (08:20)
[2020-07-22] MEDS: GABAPENTIN 300 MG CAPSULE PO SCH ×3 (08:21→20:48)
[2020-07-22] MEDS: TOPIRAMATE 25 MG TABLET PO SCH (08:21)
[2020-07-22] MEDS: HEPARIN 5,000 UNITS/ML, 1ML SQ SCH ×2 (08:21→20:47)
[2020-07-22] MEDS: MUPIROCIN OINT 2%, 22GM TP SCH ×2 (08:22→21:00)
[2020-07-22] MEDS: ALBUTEROL HFA 90 MCG/SPRAY INH PRN (08:22)
[2020-07-22 12:52] VITALS: BP 121/81
[2020-07-22 17:38] VITALS: BP 100/60
[2020-07-22] MEDS: DIHYDROERGOTAMINE 1 MG/ML, 1ML IM PRN (18:26)
[2020-07-22 18:55] VITALS: BP 120/76
[2020-07-22] MEDS: MONTELUKAST 10 MG TABLET PO SCH (20:48)
[2020-07-22] MEDS: TRAZODONE 50MG TABLET PO SCH (20:48)
[2020-07-22] MEDS: ACETAMINOPHEN 325 MG TABLET PO PRN (20:48)
[2020-07-23 01:54] VITALS: BP 107/71
[2020-07-23 05:17] VITALS: BP 97/61
[2020-07-23] MEDS: NICOTINE 7 MG/24 HR PATCH.TD24 TD SCH (05:18)
[2020-07-23] MEDS: PROPRANOLOL 20 MG TABLET PO SCH ×2 (05:18→19:36)
[2020-07-23] MEDS: PANTOPRAZOLE 40MG TABLET PO SCH (05:18)
[2020-07-23 07:30] VITALS: BP 120/76
[2020-07-23] MEDS: MUPIROCIN OINT 2%, 22GM TP SCH ×2 (09:00→21:00)
[2020-07-23] MEDS: TOPIRAMATE 25 MG TABLET PO SCH (09:56)
[2020-07-23] MEDS: MULTIVITAMINS/MINERALS TABLET PO SCH (09:57)
[2020-07-23] MEDS: GABAPENTIN 300 MG CAPSULE PO SCH ×3 (09:57→21:52)
[2020-07-23] MEDS: ASCORBIC ACID 500 MG TABLET PO SCH ×2 (09:57→16:20)
[2020-07-23] MEDS: LORATADINE 10 MG TABLET PO SCH (09:57)
[2020-07-23] MEDS: HEPARIN 5,000 UNITS/ML, 1ML SQ SCH ×2 (09:58→21:53)
[2020-07-23] MEDS: ZIPRASIDONE 40MG CAPSULE PO SCH ×2 (09:58→21:52)
[2020-07-23] MEDS: ZINC SULFATE 220 MG CAPSULE PO SCH (09:58)
[2020-07-23] MEDS: LACTOBACILLUS CHEW TABLET PO SCH ×3 (09:58→21:52)
[2020-07-23] MEDS: FLUTICASONE NASAL SPRAY 16GM NAS PRN ×2 (10:02→21:52)
[2020-07-23] MEDS: ALBUTEROL HFA 90 MCG/SPRAY INH PRN (10:02)
[2020-07-23 13:56] VITALS: BP 109/71
[2020-07-23] MEDS: ACETAMINOPHEN 325 MG TABLET PO PRN (16:20)
[2020-07-23 19:29] VITALS: BP 109/76
[2020-07-23] MEDS: TRAZODONE 50MG TABLET PO SCH (21:52)
[2020-07-23] MEDS: MONTELUKAST 10 MG TABLET PO SCH (21:52)
[2020-07-24 01:10] VITALS: BP 110/73
[2020-07-24] MEDS: NICOTINE 7 MG/24 HR PATCH.TD24 TD SCH (05:08)
[2020-07-24] MEDS: PANTOPRAZOLE 40MG TABLET PO SCH (05:08)
[2020-07-24 06:31] VITALS: BP 109/69
[2020-07-24] MEDS: ASCORBIC ACID 500 MG TABLET PO SCH ×2 (08:25→17:15)
[2020-07-24] MEDS: LORATADINE 10 MG TABLET PO SCH (08:25)
[2020-07-24] MEDS: MULTIVITAMINS/MINERALS TABLET PO SCH (08:25)
[2020-07-24] MEDS: GABAPENTIN 300 MG CAPSULE PO SCH ×3 (08:25→21:33)
[2020-07-24] MEDS: ZIPRASIDONE 40MG CAPSULE PO SCH ×2 (08:25→21:33)
[2020-07-24] MEDS: MUPIROCIN OINT 2%, 22GM TP SCH ×2 (08:26→21:00)
[2020-07-24] MEDS: HEPARIN 5,000 UNITS/ML, 1ML SQ SCH ×2 (08:26→21:32)
[2020-07-24] MEDS: LACTOBACILLUS CHEW TABLET PO SCH ×3 (08:26→21:33)
[2020-07-24] MEDS: TOPIRAMATE 25 MG TABLET PO SCH (08:26)
[2020-07-24] MEDS: ZINC SULFATE 220 MG CAPSULE PO SCH (08:26)
[2020-07-24] MEDS: ALBUTEROL HFA 90 MCG/SPRAY INH PRN (08:27)
[2020-07-24] MEDS: FLUTICASONE NASAL SPRAY 16GM NAS PRN ×2 (08:27→21:33)
[2020-07-24 13:59] VITALS: BP 97/66
[2020-07-24 19:22] VITALS: BP 117/76
[2020-07-24] MEDS: PROPRANOLOL 20 MG TABLET PO SCH (19:23)
[2020-07-24] MEDS: DIHYDROERGOTAMINE 1 MG/ML, 1ML IM PRN (19:36)
[2020-07-24] MEDS: TRAZODONE 50MG TABLET PO SCH (21:33)
[2020-07-24] MEDS: MONTELUKAST 10 MG TABLET PO SCH (21:33)
[2020-07-25 00:42] VITALS: BP 116/73
[2020-07-25] MEDS: PANTOPRAZOLE 40MG TABLET PO SCH (05:27)
[2020-07-25] MEDS: NICOTINE 7 MG/24 HR PATCH.TD24 TD SCH (05:27)
[2020-07-25 08:09] VITALS: BP 89/60
[2020-07-25] MEDS: ZINC SULFATE 220 MG CAPSULE PO SCH (08:34)
[2020-07-25] MEDS: LORATADINE 10 MG TABLET PO SCH (08:34)
[2020-07-25] MEDS: TOPIRAMATE 25 MG TABLET PO SCH (08:34)
[2020-07-25] MEDS: LACTOBACILLUS CHEW TABLET PO SCH ×3 (08:34→21:32)
[2020-07-25] MEDS: ZIPRASIDONE 40MG CAPSULE PO SCH ×2 (08:34→21:32)
[2020-07-25] MEDS: ASCORBIC ACID 500 MG TABLET PO SCH ×2 (08:34→16:30)
[2020-07-25] MEDS: MULTIVITAMINS/MINERALS TABLET PO SCH (08:35)
[2020-07-25] MEDS: GABAPENTIN 300 MG CAPSULE PO SCH ×3 (08:35→21:33)
[2020-07-25] MEDS: HEPARIN 5,000 UNITS/ML, 1ML SQ SCH ×2 (08:35→21:32)
[2020-07-25] MEDS: ALBUTEROL HFA 90 MCG/SPRAY INH PRN (08:36)
[2020-07-25] MEDS: FLUTICASONE NASAL SPRAY 16GM NAS PRN (08:36)
[2020-07-25] MEDS: MUPIROCIN OINT 2%, 22GM TP SCH ×2 (08:45→21:00)
[2020-07-25 14:52] VITALS: BP 110/72
[2020-07-25 19:38] VITALS: BP 110/73
[2020-07-25] MEDS: MELATONIN 3 MG TABLET PO PRN (21:32)
[2020-07-25] MEDS: PROPRANOLOL 20 MG TABLET PO SCH (21:33)
[2020-07-25] MEDS: TRAZODONE 50MG TABLET PO SCH (21:33)
[2020-07-25] MEDS: MONTELUKAST 10 MG TABLET PO SCH (21:33)
[2020-07-26] MEDS: BUTALB/APAP/CAFFEINE 50MG/325MG/40MG PO PRN ×2 (00:19→09:13)
[2020-07-26 00:24] VITALS: BP 104/66
[2020-07-26] MEDS: NICOTINE 7 MG/24 HR PATCH.TD24 TD SCH (06:05)
[2020-07-26] MEDS: PANTOPRAZOLE 40MG TABLET PO SCH (06:05)
[2020-07-26] MEDS: MUPIROCIN OINT 2%, 22GM TP SCH ×2 (09:00→21:00)
[2020-07-26] MEDS: LACTOBACILLUS CHEW TABLET PO SCH ×3 (09:12→20:21)
[2020-07-26] MEDS: ZIPRASIDONE 40MG CAPSULE PO SCH ×2 (09:13→20:22)
[2020-07-26] MEDS: TOPIRAMATE 25 MG TABLET PO SCH (09:13)
[2020-07-26] MEDS: ASCORBIC ACID 500 MG TABLET PO SCH ×2 (09:13→16:19)
[2020-07-26] MEDS: LORATADINE 10 MG TABLET PO SCH (09:13)
[2020-07-26] MEDS: GABAPENTIN 300 MG CAPSULE PO SCH ×3 (09:13→20:22)
[2020-07-26] MEDS: MULTIVITAMINS/MINERALS TABLET PO SCH (09:13)
[2020-07-26] MEDS: ZINC SULFATE 220 MG CAPSULE PO SCH (09:13)
[2020-07-26] MEDS: HEPARIN 5,000 UNITS/ML, 1ML SQ SCH ×2 (09:14→20:23)
[2020-07-26] MEDS: FLUTICASONE NASAL SPRAY 16GM NAS PRN ×2 (09:14→20:23)
[2020-07-26 09:22] VITALS: BP 110/74
[2020-07-26] MEDS: ALBUTEROL HFA 90 MCG/SPRAY INH PRN (09:47)
[2020-07-26 12:57] VITALS: BP 113/74
[2020-07-26] MEDS: MONTELUKAST 10 MG TABLET PO SCH (20:21)
[2020-07-26] MEDS: PROPRANOLOL 20 MG TABLET PO SCH (20:21)
[2020-07-26] MEDS: TRAZODONE 50MG TABLET PO SCH (20:21)
[2020-07-26] MEDS: MELATONIN 3 MG TABLET PO PRN (20:22)
[2020-07-26 20:28] VITALS: BP 105/68
[2020-07-27 00:13] VITALS: BP 99/66
[2020-07-27] MEDS: NICOTINE 7 MG/24 HR PATCH.TD24 TD SCH (05:26)
[2020-07-27] MEDS: PANTOPRAZOLE 40MG TABLET PO SCH (05:26)
[2020-07-27 07:25] VITALS: BP 104/62
[2020-07-27] MEDS: LACTOBACILLUS CHEW TABLET PO SCH ×3 (09:00→21:18)
[2020-07-27] MEDS: MUPIROCIN OINT 2%, 22GM TP SCH ×2 (09:00→21:55)
[2020-07-27] MEDS: ALBUTEROL HFA 90 MCG/SPRAY INH SCH (09:00)
[2020-07-27] MEDS: FLUTICASONE NASAL SPRAY 16GM NAS PRN ×2 (10:06→21:17)
[2020-07-27] MEDS: TOPIRAMATE 25 MG TABLET PO SCH (10:07)
[2020-07-27] MEDS: ASCORBIC ACID 500 MG TABLET PO SCH ×2 (10:07→16:43)
[2020-07-27] MEDS: LORATADINE 10 MG TABLET PO SCH (10:07)
[2020-07-27] MEDS: MULTIVITAMINS/MINERALS TABLET PO SCH (10:07)
[2020-07-27] MEDS: GABAPENTIN 300 MG CAPSULE PO SCH ×3 (10:07→21:18)
[2020-07-27] MEDS: ZINC SULFATE 220 MG CAPSULE PO SCH (10:08)
[2020-07-27] MEDS: ZIPRASIDONE 40MG CAPSULE PO SCH ×2 (10:08→21:18)
[2020-07-27] MEDS: FOLIC ACID 1 MG TABLET PO SCH (10:08)
[2020-07-27] MEDS: HEPARIN 5,000 UNITS/ML, 1ML SQ SCH ×2 (10:09→21:18)
[2020-07-27 15:04] VITALS: BP 116/76
[2020-07-27 21:14] VITALS: BP 112/73
[2020-07-27] MEDS: MONTELUKAST 10 MG TABLET PO SCH (21:18)
[2020-07-27] MEDS: DIHYDROERGOTAMINE 1 MG/ML, 1ML IM PRN (21:18)
[2020-07-27] MEDS: PROPRANOLOL 20 MG TABLET PO SCH (21:18)
[2020-07-27] MEDS: TRAZODONE 50MG TABLET PO SCH (21:18)
[2020-07-28] MEDS: NICOTINE 7 MG/24 HR PATCH.TD24 TD SCH (05:31)
[2020-07-28] MEDS: PANTOPRAZOLE 40MG TABLET PO SCH (05:31)
[2020-07-28 07:29] VITALS: BP 105/69
[2020-07-28] MEDS: LACTOBACILLUS CHEW TABLET PO SCH ×3 (07:37→20:44)
[2020-07-28] MEDS: ZINC SULFATE 220 MG CAPSULE PO SCH (07:38)
[2020-07-28] MEDS: MULTIVITAMINS/MINERALS TABLET PO SCH (07:38)
[2020-07-28] MEDS: GABAPENTIN 300 MG CAPSULE PO SCH ×3 (07:38→20:45)
[2020-07-28] MEDS: TOPIRAMATE 25 MG TABLET PO SCH (07:38)
[2020-07-28] MEDS: FOLIC ACID 1 MG TABLET PO SCH (07:38)
[2020-07-28] MEDS: ASCORBIC ACID 500 MG TABLET PO SCH ×2 (07:38→15:42)
[2020-07-28] MEDS: ZIPRASIDONE 40MG CAPSULE PO SCH ×2 (07:38→20:44)
[2020-07-28] MEDS: ALBUTEROL HFA 90 MCG/SPRAY INH SCH (07:39)
[2020-07-28] MEDS: LORATADINE 10 MG TABLET PO SCH (07:39)
[2020-07-28] MEDS: HEPARIN 5,000 UNITS/ML, 1ML SQ SCH ×2 (07:39→20:45)
[2020-07-28] MEDS: MUPIROCIN OINT 2%, 22GM TP SCH ×2 (07:40→22:50)
[2020-07-28] MEDS: FLUTICASONE NASAL SPRAY 16GM NAS PRN ×2 (07:52→20:44)
[2020-07-28 14:34] VITALS: BP 132/82
[2020-07-28 19:09] VITALS: BP 126/75
[2020-07-28] MEDS: TRAZODONE 50MG TABLET PO SCH (20:44)
[2020-07-28] MEDS: PROPRANOLOL 20 MG TABLET PO SCH (20:44)
[2020-07-28] MEDS: MONTELUKAST 10 MG TABLET PO SCH (20:44)
[2020-07-29 01:17] VITALS: BP 99/62
[2020-07-29] MEDS: NICOTINE 7 MG/24 HR PATCH.TD24 TD SCH (05:42)
[2020-07-29] MEDS: PANTOPRAZOLE 40MG TABLET PO SCH (05:42)
[2020-07-29 07:38] VITALS: BP 121/75
[2020-07-29] MEDS: HEPARIN 5,000 UNITS/ML, 1ML SQ SCH ×2 (09:01→20:09)
[2020-07-29] MEDS: ASCORBIC ACID 500 MG TABLET PO SCH ×2 (09:02→16:21)
[2020-07-29] MEDS: GABAPENTIN 300 MG CAPSULE PO SCH ×3 (09:02→20:09)
[2020-07-29] MEDS: ZIPRASIDONE 40MG CAPSULE PO SCH ×2 (09:02→20:10)
[2020-07-29] MEDS: LORATADINE 10 MG TABLET PO SCH (09:02)
[2020-07-29] MEDS: ZINC SULFATE 220 MG CAPSULE PO SCH (09:03)
[2020-07-29] MEDS: LACTOBACILLUS CHEW TABLET PO SCH ×3 (09:03→20:10)
[2020-07-29] MEDS: TOPIRAMATE 25 MG TABLET PO SCH (09:03)
[2020-07-29] MEDS: MULTIVITAMINS/MINERALS TABLET PO SCH (09:03)
[2020-07-29] MEDS: FOLIC ACID 1 MG TABLET PO SCH (09:04)
[2020-07-29] MEDS: FLUTICASONE NASAL SPRAY 16GM NAS PRN ×2 (09:05→20:10)
[2020-07-29] MEDS: MUPIROCIN OINT 2%, 22GM TP SCH ×2 (09:09→22:45)
[2020-07-29] MEDS: ALBUTEROL HFA 90 MCG/SPRAY INH SCH ×2 (09:23→09:30)
[2020-07-29 12:26] VITALS: BP 109/68
[2020-07-29] MEDS: MONTELUKAST 10 MG TABLET PO SCH (20:09)
[2020-07-29] MEDS: TRAZODONE 50MG TABLET PO SCH (20:09)
[2020-07-29] MEDS: DIHYDROERGOTAMINE 1 MG/ML, 1ML IM PRN (20:10)
[2020-07-29] MEDS: PROPRANOLOL 20 MG TABLET PO SCH (20:10)
[2020-07-29 20:16] VITALS: BP 131/78
[2020-07-30] MEDS: NICOTINE 7 MG/24 HR PATCH.TD24 TD SCH (05:35)
[2020-07-30] MEDS: PANTOPRAZOLE 40MG TABLET PO SCH (05:35)
[2020-07-30 08:03] VITALS: BP 115/79
[2020-07-30] MEDS: ALBUTEROL HFA 90 MCG/SPRAY INH SCH (08:17)
[2020-07-30] MEDS: MUPIROCIN OINT 2%, 22GM TP SCH ×2 (09:00→20:35)
[2020-07-30] MEDS: MULTIVITAMINS/MINERALS TABLET PO SCH (09:23)
[2020-07-30] MEDS: GABAPENTIN 300 MG CAPSULE PO SCH ×3 (09:23→20:37)
[2020-07-30] MEDS: TOPIRAMATE 25 MG TABLET PO SCH (09:23)
[2020-07-30] MEDS: HEPARIN 5,000 UNITS/ML, 1ML SQ SCH ×2 (09:23→20:36)
[2020-07-30] MEDS: LORATADINE 10 MG TABLET PO SCH (09:23)
[2020-07-30] MEDS: FOLIC ACID 1 MG TABLET PO SCH (09:24)
[2020-07-30] MEDS: LACTOBACILLUS CHEW TABLET PO SCH ×3 (09:24→20:36)
[2020-07-30] MEDS: ASCORBIC ACID 500 MG TABLET PO SCH ×2 (09:24→16:25)
[2020-07-30] MEDS: ZIPRASIDONE 40MG CAPSULE PO SCH ×2 (09:24→20:37)
[2020-07-30] MEDS: ZINC SULFATE 220 MG CAPSULE PO SCH (09:24)
[2020-07-30] MEDS: FLUTICASONE NASAL SPRAY 16GM NAS PRN ×2 (09:25→20:35)
[2020-07-30 14:00] VITALS: BP 120/78
[2020-07-30 16:04] VITALS: BP 102/69
[2020-07-30] MEDS: BUTALB/APAP/CAFFEINE 50MG/325MG/40MG PO PRN (16:25)
[2020-07-30] MEDS: PROPRANOLOL 20 MG TABLET PO SCH (20:36)
[2020-07-30] MEDS: MONTELUKAST 10 MG TABLET PO SCH (20:36)
[2020-07-30] MEDS: TRAZODONE 50MG TABLET PO SCH (20:36)
[2020-07-30] MEDS: MELATONIN 3 MG TABLET PO PRN (20:42)
[2020-07-30 20:45] VITALS: BP 109/72
[2020-07-31] MEDS: PANTOPRAZOLE 40MG TABLET PO SCH (05:48)
[2020-07-31] MEDS: NICOTINE 7 MG/24 HR PATCH.TD24 TD SCH (05:49)
[2020-07-31 08:25] VITALS: BP 125/77
[2020-07-31] MEDS: ALBUTEROL HFA 90 MCG/SPRAY INH SCH (08:38)
[2020-07-31] MEDS: MULTIVITAMINS/MINERALS TABLET PO SCH (08:38)
[2020-07-31] MEDS: HEPARIN 5,000 UNITS/ML, 1ML SQ SCH ×2 (08:38→20:23)
[2020-07-31] MEDS: FLUTICASONE NASAL SPRAY 16GM NAS PRN ×2 (08:38→20:23)
[2020-07-31] MEDS: ASCORBIC ACID 500 MG TABLET PO SCH ×2 (08:39→17:14)
[2020-07-31] MEDS: LORATADINE 10 MG TABLET PO SCH (08:39)
[2020-07-31] MEDS: ZIPRASIDONE 40MG CAPSULE PO SCH ×2 (08:39→20:24)
[2020-07-31] MEDS: GABAPENTIN 300 MG CAPSULE PO SCH ×3 (08:39→20:24)
[2020-07-31] MEDS: LACTOBACILLUS CHEW TABLET PO SCH ×3 (08:39→20:23)
[2020-07-31] MEDS: TOPIRAMATE 25 MG TABLET PO SCH (08:39)
[2020-07-31] MEDS: FOLIC ACID 1 MG TABLET PO SCH (08:40)
[2020-07-31] MEDS: MUPIROCIN OINT 2%, 22GM TP SCH ×2 (08:40→22:51)
[2020-07-31] MEDS: ZINC SULFATE 220 MG CAPSULE PO SCH (08:40)
[2020-07-31 12:20] VITALS: BP 103/66
[2020-07-31] MEDS: DIHYDROERGOTAMINE 1 MG/ML, 1ML IM PRN (17:14)
[2020-07-31 19:41] VITALS: BP 114/74
[2020-07-31] MEDS: TRAZODONE 50MG TABLET PO SCH (20:23)
[2020-07-31] MEDS: MONTELUKAST 10 MG TABLET PO SCH (20:23)
[2020-07-31] MEDS: MELATONIN 3 MG TABLET PO PRN (20:24)
[2020-07-31] MEDS: PROPRANOLOL 20 MG TABLET PO SCH (20:25)
[2020-08-01] MEDS: NICOTINE 7 MG/24 HR PATCH.TD24 TD SCH (06:18)
[2020-08-01] MEDS: PANTOPRAZOLE 40MG TABLET PO SCH (06:18)
[2020-08-01] MEDS: ALBUTEROL HFA 90 MCG/SPRAY INH SCH (08:14)
[2020-08-01] MEDS: HEPARIN 5,000 UNITS/ML, 1ML SQ SCH ×2 (09:07→21:19)
[2020-08-01] MEDS: MULTIVITAMINS/MINERALS TABLET PO SCH (09:07)
[2020-08-01] MEDS: FLUTICASONE NASAL SPRAY 16GM NAS PRN ×2 (09:07→21:17)
[2020-08-01] MEDS: ZINC SULFATE 220 MG CAPSULE PO SCH (09:08)
[2020-08-01] MEDS: LORATADINE 10 MG TABLET PO SCH (09:08)
[2020-08-01] MEDS: ZIPRASIDONE 40MG CAPSULE PO SCH ×2 (09:08→21:18)
[2020-08-01] MEDS: GABAPENTIN 300 MG CAPSULE PO SCH ×3 (09:08→21:19)
[2020-08-01] MEDS: MUPIROCIN OINT 2%, 22GM TP SCH ×2 (09:08→21:20)
[2020-08-01] MEDS: FOLIC ACID 1 MG TABLET PO SCH (09:08)
[2020-08-01] MEDS: TOPIRAMATE 25 MG TABLET PO SCH (09:08)
[2020-08-01] MEDS: ASCORBIC ACID 500 MG TABLET PO SCH ×2 (09:08→17:23)
[2020-08-01] MEDS: LACTOBACILLUS CHEW TABLET PO SCH ×3 (09:08→21:18)
[2020-08-01 12:52] VITALS: BP 114/74
[2020-08-01] MEDS: MELATONIN 3 MG TABLET PO PRN (21:18)
[2020-08-01] MEDS: MONTELUKAST 10 MG TABLET PO SCH (21:18)
[2020-08-01] MEDS: TRAZODONE 50MG TABLET PO SCH (21:19)
[2020-08-01] MEDS: PROPRANOLOL 20 MG TABLET PO SCH (21:19)
[2020-08-02 01:00] VITALS: BP 112/73
[2020-08-02] MEDS: DIHYDROERGOTAMINE 1 MG/ML, 1ML IM PRN ×2 (01:54→18:28)
[2020-08-02] MEDS: PANTOPRAZOLE 40MG TABLET PO SCH (06:41)
[2020-08-02] MEDS: ASCORBIC ACID 500 MG TABLET PO SCH ×2 (06:41→17:19)
[2020-08-02] MEDS: NICOTINE 7 MG/24 HR PATCH.TD24 TD SCH (06:43)
[2020-08-02 06:45] VITALS: BP 118/76
[2020-08-02] MEDS: LORATADINE 10 MG TABLET PO SCH (08:06)
[2020-08-02] MEDS: ZIPRASIDONE 40MG CAPSULE PO SCH ×2 (08:06→20:30)
[2020-08-02] MEDS: MULTIVITAMINS/MINERALS TABLET PO SCH (08:06)
[2020-08-02] MEDS: TOPIRAMATE 25 MG TABLET PO SCH (08:06)
[2020-08-02] MEDS: GABAPENTIN 300 MG CAPSULE PO SCH ×3 (08:06→20:29)
[2020-08-02] MEDS: FOLIC ACID 1 MG TABLET PO SCH (08:06)
[2020-08-02] MEDS: LACTOBACILLUS CHEW TABLET PO SCH ×3 (08:06→20:28)
[2020-08-02] MEDS: HEPARIN 5,000 UNITS/ML, 1ML SQ SCH ×2 (08:06→20:28)
[2020-08-02] MEDS: ZINC SULFATE 220 MG CAPSULE PO SCH (08:06)
[2020-08-02] MEDS: FLUTICASONE NASAL SPRAY 16GM NAS PRN (08:07)
[2020-08-02] MEDS: MUPIROCIN OINT 2%, 22GM TP SCH ×3 (08:10→23:05)
[2020-08-02] MEDS: ALBUTEROL HFA 90 MCG/SPRAY INH SCH (08:21)
[2020-08-02 13:13] VITALS: BP 117/71
[2020-08-02 18:54] VITALS: BP 129/83
[2020-08-02] MEDS: MONTELUKAST 10 MG TABLET PO SCH (20:28)
[2020-08-02] MEDS: TRAZODONE 50MG TABLET PO SCH (20:28)
[2020-08-02] MEDS: PROPRANOLOL 20 MG TABLET PO SCH (20:28)
[2020-08-03 01:36] VITALS: BP 102/67
[2020-08-03] MEDS: PANTOPRAZOLE 40MG TABLET PO SCH (06:13)
[2020-08-03] MEDS: NICOTINE 7 MG/24 HR PATCH.TD24 TD SCH (06:13)
[2020-08-03] MEDS: ALBUTEROL HFA 90 MCG/SPRAY INH SCH (07:50)
[2020-08-03 07:54] VITALS: BP 97/59
[2020-08-03] MEDS: ASCORBIC ACID 500 MG TABLET PO SCH ×2 (08:06→16:14)
[2020-08-03] MEDS: LORATADINE 10 MG TABLET PO SCH (08:06)
[2020-08-03] MEDS: GABAPENTIN 300 MG CAPSULE PO SCH ×3 (08:06→20:44)
[2020-08-03] MEDS: HEPARIN 5,000 UNITS/ML, 1ML SQ SCH ×2 (08:06→20:44)
[2020-08-03] MEDS: MULTIVITAMINS/MINERALS TABLET PO SCH (08:06)
[2020-08-03] MEDS: ZINC SULFATE 220 MG CAPSULE PO SCH (08:07)
[2020-08-03] MEDS: TOPIRAMATE 25 MG TABLET PO SCH (08:07)
[2020-08-03] MEDS: ZIPRASIDONE 40MG CAPSULE PO SCH ×2 (08:07→20:44)
[2020-08-03] MEDS: LACTOBACILLUS CHEW TABLET PO SCH ×3 (08:07→20:44)
[2020-08-03] MEDS: FOLIC ACID 1 MG TABLET PO SCH (08:07)
[2020-08-03 12:20] VITALS: BP 110/71
[2020-08-03] MEDS: MONTELUKAST 10 MG TABLET PO SCH (20:44)
[2020-08-03] MEDS: TRAZODONE 50MG TABLET PO SCH (20:44)
[2020-08-03] MEDS: PROPRANOLOL 20 MG TABLET PO SCH (20:44)
[2020-08-03] MEDS: FLUTICASONE NASAL SPRAY 16GM NAS PRN (20:44)
[2020-08-03 21:08] VITALS: BP 130/78
[2020-08-04] MEDS: NICOTINE 7 MG/24 HR PATCH.TD24 TD SCH (05:48)
[2020-08-04] MEDS: PANTOPRAZOLE 40MG TABLET PO SCH (05:48)
[2020-08-04 07:50] VITALS: BP 104/69
[2020-08-04] MEDS: ALBUTEROL HFA 90 MCG/SPRAY INH SCH (08:15)
[2020-08-04] MEDS: ASCORBIC ACID 500 MG TABLET PO SCH ×2 (08:33→16:52)
[2020-08-04] MEDS: LACTOBACILLUS CHEW TABLET PO SCH ×3 (08:33→20:42)
[2020-08-04] MEDS: FLUTICASONE NASAL SPRAY 16GM NAS PRN ×2 (08:33→20:41)
[2020-08-04] MEDS: GABAPENTIN 300 MG CAPSULE PO SCH ×3 (08:34→20:41)
[2020-08-04] MEDS: ZIPRASIDONE 40MG CAPSULE PO SCH ×2 (08:34→20:41)
[2020-08-04] MEDS: FOLIC ACID 1 MG TABLET PO SCH (08:34)
[2020-08-04] MEDS: ZINC SULFATE 220 MG CAPSULE PO SCH (08:34)
[2020-08-04] MEDS: LORATADINE 10 MG TABLET PO SCH (08:34)
[2020-08-04] MEDS: TOPIRAMATE 25 MG TABLET PO SCH (08:35)
[2020-08-04] MEDS: HEPARIN 5,000 UNITS/ML, 1ML SQ SCH ×2 (08:35→20:41)
[2020-08-04] MEDS: MULTIVITAMINS/MINERALS TABLET PO SCH (08:35)
[2020-08-04] MEDS: MUPIROCIN OINT 2%, 22GM TP SCH ×2 (08:35→22:36)
[2020-08-04 14:10] VITALS: BP 120/77
[2020-08-04 20:30] VITALS: BP 108/70
[2020-08-04] MEDS: PROPRANOLOL 20 MG TABLET PO SCH (20:41)
[2020-08-04] MEDS: MONTELUKAST 10 MG TABLET PO SCH (20:41)
[2020-08-04] MEDS: TRAZODONE 50MG TABLET PO SCH (20:42)
[2020-08-05] MEDS: PANTOPRAZOLE 40MG TABLET PO SCH (05:29)
[2020-08-05] MEDS: NICOTINE 7 MG/24 HR PATCH.TD24 TD SCH (05:29)
[2020-08-05 07:50] VITALS: BP 104/71
[2020-08-05] MEDS: ALBUTEROL HFA 90 MCG/SPRAY INH SCH (08:25)
[2020-08-05] MEDS: MUPIROCIN OINT 2%, 22GM TP SCH ×2 (09:00→22:37)
[2020-08-05] MEDS: ZINC SULFATE 220 MG CAPSULE PO SCH (10:07)
[2020-08-05] MEDS: MULTIVITAMINS/MINERALS TABLET PO SCH (10:07)
[2020-08-05] MEDS: LACTOBACILLUS CHEW TABLET PO SCH ×3 (10:07→20:35)
[2020-08-05] MEDS: FOLIC ACID 1 MG TABLET PO SCH (10:08)
[2020-08-05] MEDS: GABAPENTIN 300 MG CAPSULE PO SCH ×3 (10:08→20:35)
[2020-08-05] MEDS: LORATADINE 10 MG TABLET PO SCH (10:08)
[2020-08-05] MEDS: ZIPRASIDONE 40MG CAPSULE PO SCH ×2 (10:08→20:35)
[2020-08-05] MEDS: TOPIRAMATE 25 MG TABLET PO SCH (10:08)
[2020-08-05] MEDS: HEPARIN 5,000 UNITS/ML, 1ML SQ SCH ×2 (10:08→20:34)
[2020-08-05] MEDS: ASCORBIC ACID 500 MG TABLET PO SCH ×2 (10:08→16:42)
[2020-08-05 12:46] VITALS: BP 121/84
[2020-08-05] MEDS: DIHYDROERGOTAMINE 1 MG/ML, 1ML IM PRN (16:42)
[2020-08-05 18:34] VITALS: BP 124/75
[2020-08-05] MEDS: MONTELUKAST 10 MG TABLET PO SCH (20:34)
[2020-08-05] MEDS: TRAZODONE 50MG TABLET PO SCH (20:35)
[2020-08-05] MEDS: PROPRANOLOL 20 MG TABLET PO SCH (20:35)
[2020-08-06 01:34] VITALS: BP 104/70
[2020-08-06] MEDS: PANTOPRAZOLE 40MG TABLET PO SCH (05:51)
[2020-08-06] MEDS: NICOTINE 7 MG/24 HR PATCH.TD24 TD SCH (05:52)
[2020-08-06 07:34] VITALS: BP 120/69
[2020-08-06] MEDS: ALBUTEROL HFA 90 MCG/SPRAY INH SCH (08:40)
[2020-08-06] MEDS: LACTOBACILLUS CHEW TABLET PO SCH ×3 (09:42→21:50)
[2020-08-06] MEDS: TOPIRAMATE 25 MG TABLET PO SCH (09:42)
[2020-08-06] MEDS: FLUTICASONE NASAL SPRAY 16GM NAS PRN ×2 (09:42→21:52)
[2020-08-06] MEDS: ASCORBIC ACID 500 MG TABLET PO SCH ×2 (09:42→17:07)
[2020-08-06] MEDS: MULTIVITAMINS/MINERALS TABLET PO SCH (09:42)
[2020-08-06] MEDS: ZIPRASIDONE 40MG CAPSULE PO SCH ×2 (09:42→21:50)
[2020-08-06] MEDS: ZINC SULFATE 220 MG CAPSULE PO SCH (09:43)
[2020-08-06] MEDS: FOLIC ACID 1 MG TABLET PO SCH (09:43)
[2020-08-06] MEDS: GABAPENTIN 300 MG CAPSULE PO SCH ×3 (09:43→21:50)
[2020-08-06] MEDS: LORATADINE 10 MG TABLET PO SCH (09:43)
[2020-08-06] MEDS: HEPARIN 5,000 UNITS/ML, 1ML SQ SCH ×2 (09:43→21:49)
[2020-08-06] MEDS: MUPIROCIN OINT 2%, 22GM TP SCH ×2 (10:32→23:00)
[2020-08-06 13:01] VITALS: BP 113/74
[2020-08-06 21:35] VITALS: BP 113/76
[2020-08-06] MEDS: PROPRANOLOL 20 MG TABLET PO SCH (21:51)
[2020-08-06] MEDS: TRAZODONE 50MG TABLET PO SCH (21:51)
[2020-08-06] MEDS: MONTELUKAST 10 MG TABLET PO SCH (21:51)
[2020-08-06] MEDS: MELATONIN 3 MG TABLET PO PRN (21:52)
[2020-08-07 06:03] VITALS: BP 110/75
[2020-08-07] MEDS: NICOTINE 7 MG/24 HR PATCH.TD24 TD SCH (06:05)
[2020-08-07] MEDS: PANTOPRAZOLE 40MG TABLET PO SCH (06:05)
[2020-08-07] MEDS: ASCORBIC ACID 500 MG TABLET PO SCH ×2 (08:32→18:11)
[2020-08-07] MEDS: LACTOBACILLUS CHEW TABLET PO SCH ×3 (08:32→21:49)
[2020-08-07] MEDS: ZINC SULFATE 220 MG CAPSULE PO SCH (08:32)
[2020-08-07] MEDS: MULTIVITAMINS/MINERALS TABLET PO SCH (08:32)
[2020-08-07] MEDS: FOLIC ACID 1 MG TABLET PO SCH (08:32)
[2020-08-07] MEDS: TOPIRAMATE 25 MG TABLET PO SCH (08:32)
[2020-08-07] MEDS: GABAPENTIN 300 MG CAPSULE PO SCH ×3 (08:32→21:49)
[2020-08-07] MEDS: ALBUTEROL HFA 90 MCG/SPRAY INH SCH ×2 (08:33→08:37)
[2020-08-07] MEDS: LORATADINE 10 MG TABLET PO SCH (08:33)
[2020-08-07] MEDS: HEPARIN 5,000 UNITS/ML, 1ML SQ SCH ×2 (08:33→21:48)
[2020-08-07] MEDS: FLUTICASONE NASAL SPRAY 16GM NAS PRN ×2 (08:33→21:48)
[2020-08-07] MEDS: MUPIROCIN OINT 2%, 22GM TP SCH ×2 (08:33→23:57)
[2020-08-07] MEDS: ZIPRASIDONE 40MG CAPSULE PO SCH ×2 (08:33→21:49)
[2020-08-07 12:37] VITALS: BP 92/64
[2020-08-07 21:46] VITALS: BP 109/74
[2020-08-07] MEDS: MELATONIN 3 MG TABLET PO PRN (21:49)
[2020-08-07] MEDS: PROPRANOLOL 20 MG TABLET PO SCH (21:49)
[2020-08-07] MEDS: MONTELUKAST 10 MG TABLET PO SCH (21:49)
[2020-08-07] MEDS: TRAZODONE 50MG TABLET PO SCH (21:49)
[2020-08-08] VITALS: BP 94/65
[2020-08-08] MEDS: NICOTINE 7 MG/24 HR PATCH.TD24 TD SCH (06:07)
[2020-08-08] MEDS: PANTOPRAZOLE 40MG TABLET PO SCH (06:07)
[2020-08-08 07:02] VITALS: BP 104/71
[2020-08-08] MEDS: ZIPRASIDONE 40MG CAPSULE PO SCH ×2 (08:35→21:37)
[2020-08-08] MEDS: ZINC SULFATE 220 MG CAPSULE PO SCH (08:35)
[2020-08-08] MEDS: GABAPENTIN 300 MG CAPSULE PO SCH ×3 (08:35→21:37)
[2020-08-08] MEDS: HEPARIN 5,000 UNITS/ML, 1ML SQ SCH ×2 (08:36→21:37)
[2020-08-08] MEDS: ASCORBIC ACID 500 MG TABLET PO SCH ×2 (08:36→17:30)
[2020-08-08] MEDS: TOPIRAMATE 25 MG TABLET PO SCH (08:36)
[2020-08-08] MEDS: MULTIVITAMINS/MINERALS TABLET PO SCH (08:36)
[2020-08-08] MEDS: FOLIC ACID 1 MG TABLET PO SCH (08:36)
[2020-08-08] MEDS: LACTOBACILLUS CHEW TABLET PO SCH ×3 (08:36→21:38)
[2020-08-08] MEDS: LORATADINE 10 MG TABLET PO SCH (08:36)
[2020-08-08] MEDS: ALBUTEROL HFA 90 MCG/SPRAY INH SCH (08:42)
[2020-08-08] MEDS: FLUTICASONE NASAL SPRAY 16GM NAS PRN ×2 (09:56→21:37)
[2020-08-08] MEDS: MUPIROCIN OINT 2%, 22GM TP SCH (09:56)
[2020-08-08] MEDS: DIHYDROERGOTAMINE 1 MG/ML, 1ML IM PRN ×2 (09:57→22:33)
[2020-08-08 12:21] VITALS: BP 125/80
[2020-08-08 20:09] VITALS: BP 116/78
[2020-08-08] MEDS: PROPRANOLOL 20 MG TABLET PO SCH (21:38)
[2020-08-08] MEDS: TRAZODONE 50MG TABLET PO SCH (21:38)
[2020-08-08] MEDS: MONTELUKAST 10 MG TABLET PO SCH (21:38)
[2020-08-08] MEDS: MELATONIN 3 MG TABLET PO PRN (21:39)
[2020-08-09] MEDS: MUPIROCIN OINT 2%, 22GM TP SCH ×2 (00:05→08:56)
[2020-08-09 01:31] VITALS: BP 119/80
[2020-08-09] MEDS: NICOTINE 7 MG/24 HR PATCH.TD24 TD SCH (05:23)
[2020-08-09] MEDS: PANTOPRAZOLE 40MG TABLET PO SCH (05:23)
[2020-08-09 07:53] VITALS: BP 109/72
[2020-08-09] MEDS: FLUTICASONE NASAL SPRAY 16GM NAS PRN ×2 (08:45→22:49)
[2020-08-09] MEDS: HEPARIN 5,000 UNITS/ML, 1ML SQ SCH ×2 (08:45→22:46)
[2020-08-09] MEDS: GABAPENTIN 300 MG CAPSULE PO SCH ×3 (08:45→22:45)
[2020-08-09] MEDS: MULTIVITAMINS/MINERALS TABLET PO SCH (08:46)
[2020-08-09] MEDS: FOLIC ACID 1 MG TABLET PO SCH (08:46)
[2020-08-09] MEDS: ASCORBIC ACID 500 MG TABLET PO SCH ×2 (08:46→16:44)
[2020-08-09] MEDS: LACTOBACILLUS CHEW TABLET PO SCH ×3 (08:46→22:45)
[2020-08-09] MEDS: ZINC SULFATE 220 MG CAPSULE PO SCH (08:46)
[2020-08-09] MEDS: ZIPRASIDONE 40MG CAPSULE PO SCH ×2 (08:46→23:06)
[2020-08-09] MEDS: LORATADINE 10 MG TABLET PO SCH (08:46)
[2020-08-09] MEDS: TOPIRAMATE 25 MG TABLET PO SCH (08:46)
[2020-08-09] MEDS: ALBUTEROL HFA 90 MCG/SPRAY INH SCH (09:01)
[2020-08-09] MEDS: DIHYDROERGOTAMINE 1 MG/ML, 1ML IM PRN (10:31)
[2020-08-09 13:16] VITALS: BP 112/75
[2020-08-09 20:36] VITALS: BP 119/80
[2020-08-09] MEDS: MONTELUKAST 10 MG TABLET PO SCH (22:45)
[2020-08-09] MEDS: TRAZODONE 50MG TABLET PO SCH (22:45)
[2020-08-09 22:58] VITALS: BP 100/68
[2020-08-09] MEDS: PROPRANOLOL 20 MG TABLET PO SCH (23:06)
[2020-08-09] MEDS: MELATONIN 3 MG TABLET PO PRN (23:06)
[2020-08-10] MEDS: MUPIROCIN OINT 2%, 22GM TP SCH ×3 (00:48→20:20)
[2020-08-10 02:53] VITALS: BP 107/72
[2020-08-10] MEDS: PANTOPRAZOLE 40MG TABLET PO SCH (06:00)
[2020-08-10] MEDS: NICOTINE 7 MG/24 HR PATCH.TD24 TD SCH (06:00)
[2020-08-10 08:27] VITALS: BP 118/79
[2020-08-10] MEDS ORDERED: ZIPRASIDONE 20MG CAPSULE ONE ×2 (09:46→19:58)
[2020-08-10] MEDS: LACTOBACILLUS CHEW TABLET PO SCH (09:54)
[2020-08-10] MEDS: ZINC SULFATE 220 MG CAPSULE PO SCH (09:54)
[2020-08-10] MEDS: ASCORBIC ACID 500 MG TABLET PO SCH (09:55)
[2020-08-10] MEDS: LORATADINE 10 MG TABLET PO SCH (09:55)
[2020-08-10] MEDS: MULTIVITAMINS/MINERALS TABLET PO SCH (09:55)
[2020-08-10] MEDS: FOLIC ACID 1 MG TABLET PO SCH (09:55)
[2020-08-10] MEDS: GABAPENTIN 300 MG CAPSULE PO SCH ×3 (09:55→20:02)
[2020-08-10] MEDS: ZIPRASIDONE 40MG CAPSULE PO SCH ×2 (09:56→20:20)
[2020-08-10] MEDS: HEPARIN 5,000 UNITS/ML, 1ML SQ SCH ×2 (09:56→20:03)
[2020-08-10] MEDS: FLUTICASONE NASAL SPRAY 16GM NAS PRN ×2 (09:57→20:03)
[2020-08-10] MEDS: TOPIRAMATE 25 MG TABLET PO SCH (10:29)
[2020-08-10] MEDS: ALBUTEROL HFA 90 MCG/SPRAY INH SCH (11:00)
[2020-08-10 14:17] VITALS: BP 115/72
[2020-08-10 19:07] VITALS: BP 106/66
[2020-08-10] MEDS: MELATONIN 3 MG TABLET PO PRN (20:01)
[2020-08-10] MEDS: TRAZODONE 50MG TABLET PO SCH (20:01)
[2020-08-10] MEDS: MONTELUKAST 10 MG TABLET PO SCH (20:02)
[2020-08-10] MEDS: PROPRANOLOL 20 MG TABLET PO SCH (20:02)
[2020-08-10] MEDS: DIHYDROERGOTAMINE 1 MG/ML, 1ML IM PRN (23:00)
[2020-08-11 01:35] VITALS: BP 103/67
[2020-08-11] MEDS: NICOTINE 7 MG/24 HR PATCH.TD24 TD SCH (05:40)
[2020-08-11 06:48] VITALS: BP 103/67
[2020-08-11] MEDS: ALBUTEROL HFA 90 MCG/SPRAY INH SCH (07:10)
[2020-08-11] MEDS: FLUTICASONE NASAL SPRAY 16GM NAS PRN ×2 (09:52→19:42)
[2020-08-11] MEDS: TOPIRAMATE 25 MG TABLET PO SCH (09:53)
[2020-08-11] MEDS: GABAPENTIN 300 MG CAPSULE PO SCH ×3 (09:53→19:41)
[2020-08-11] MEDS: LORATADINE 10 MG TABLET PO SCH (09:53)
[2020-08-11] MEDS: HEPARIN 5,000 UNITS/ML, 1ML SQ SCH ×2 (09:54→19:42)
[2020-08-11] MEDS: ZIPRASIDONE 40MG CAPSULE PO SCH ×2 (09:54→19:42)
[2020-08-11] MEDS: FOLIC ACID 1 MG TABLET PO SCH (09:54)
[2020-08-11] MEDS: THIAMINE 100MG TABLET PO SCH (09:54)
[2020-08-11] MEDS: MULTIVITAMINS/MINERALS TABLET PO SCH (09:54)
[2020-08-11] MEDS: MUPIROCIN OINT 2%, 22GM TP SCH ×2 (09:55→19:45)
[2020-08-11 14:16] VITALS: BP 101/68
[2020-08-11 18:38] VITALS: BP 101/68
[2020-08-11] MEDS: MELATONIN 3 MG TABLET PO PRN (19:42)
[2020-08-11] MEDS: MONTELUKAST 10 MG TABLET PO SCH (19:42)
[2020-08-11] MEDS: TRAZODONE 50MG TABLET PO SCH (19:43)
[2020-08-11] MEDS: PROPRANOLOL 20 MG TABLET PO SCH (19:43)
[2020-08-12 00:52] VITALS: BP 105/66
[2020-08-12] MEDS: NICOTINE 7 MG/24 HR PATCH.TD24 TD SCH (06:08)
[2020-08-12 06:57] VITALS: BP 111/68
[2020-08-12] MEDS: ALBUTEROL HFA 90 MCG/SPRAY INH SCH (08:45)
[2020-08-12] MEDS: TOPIRAMATE 25 MG TABLET PO SCH (09:51)
[2020-08-12] MEDS: HEPARIN 5,000 UNITS/ML, 1ML SQ SCH ×2 (09:51→20:53)
[2020-08-12] MEDS: THIAMINE 100MG TABLET PO SCH (09:52)
[2020-08-12] MEDS: MULTIVITAMINS/MINERALS TABLET PO SCH (09:52)
[2020-08-12] MEDS: LORATADINE 10 MG TABLET PO SCH (09:52)
[2020-08-12] MEDS: FOLIC ACID 1 MG TABLET PO SCH (09:52)
[2020-08-12] MEDS: FLUTICASONE NASAL SPRAY 16GM NAS PRN (09:52)
[2020-08-12] MEDS: ZIPRASIDONE 40MG CAPSULE PO SCH ×2 (09:52→20:52)
[2020-08-12] MEDS: GABAPENTIN 300 MG CAPSULE PO SCH ×3 (09:52→20:53)
[2020-08-12] MEDS: MUPIROCIN OINT 2%, 22GM TP SCH (10:04)
[2020-08-12 13:50] VITALS: BP 108/74
[2020-08-12 20:12] VITALS: BP 106/73
[2020-08-12] MEDS: TRAZODONE 50MG TABLET PO SCH (20:52)
[2020-08-12] MEDS: PROPRANOLOL 20 MG TABLET PO SCH (20:53)
[2020-08-12] MEDS: MONTELUKAST 10 MG TABLET PO SCH (20:53)
[2020-08-12] MEDS: DIHYDROERGOTAMINE 1 MG/ML, 1ML IM PRN (23:27)
[2020-08-13 00:48] VITALS: BP 110/74
[2020-08-13] MEDS: NICOTINE 7 MG/24 HR PATCH.TD24 TD SCH (06:00)
[2020-08-13 07:21] VITALS: BP 109/71
[2020-08-13] MEDS: ALBUTEROL HFA 90 MCG/SPRAY INH SCH (09:39)
[2020-08-13] MEDS: HEPARIN 5,000 UNITS/ML, 1ML SQ SCH ×2 (10:30→20:41)
[2020-08-13] MEDS: MULTIVITAMINS/MINERALS TABLET PO SCH (10:30)
[2020-08-13] MEDS: GABAPENTIN 300 MG CAPSULE PO SCH ×3 (10:30→20:40)
[2020-08-13] MEDS: FOLIC ACID 1 MG TABLET PO SCH (10:31)
[2020-08-13] MEDS: TOPIRAMATE 25 MG TABLET PO SCH (10:31)
[2020-08-13] MEDS: THIAMINE 100MG TABLET PO SCH (10:31)
[2020-08-13] MEDS: LORATADINE 10 MG TABLET PO SCH (10:31)
[2020-08-13] MEDS: ZIPRASIDONE 40MG CAPSULE PO SCH ×2 (10:31→20:40)
[2020-08-13] MEDS: FLUTICASONE NASAL SPRAY 16GM NAS PRN ×2 (10:31→20:41)
[2020-08-13 12:32] VITALS: BP 111/76
[2020-08-13 19:20] VITALS: BP 103/56
[2020-08-13] MEDS: TRAZODONE 50MG TABLET PO SCH (20:39)
[2020-08-13] MEDS: MONTELUKAST 10 MG TABLET PO SCH (20:40)
[2020-08-13] MEDS: PROPRANOLOL 20 MG TABLET PO SCH (20:40)
[2020-08-14 01:11] VITALS: BP 97/66
[2020-08-14] MEDS: NICOTINE 7 MG/24 HR PATCH.TD24 TD SCH (05:22)
[2020-08-14 06:20] VITALS: BP 100/60
[2020-08-14] MEDS: FOLIC ACID 1 MG TABLET PO SCH (08:37)
[2020-08-14] MEDS: THIAMINE 100MG TABLET PO SCH (08:37)
[2020-08-14] MEDS: ZIPRASIDONE 40MG CAPSULE PO SCH ×2 (08:37→19:23)
[2020-08-14] MEDS: GABAPENTIN 300 MG CAPSULE PO SCH ×3 (08:38→19:24)
[2020-08-14] MEDS: TOPIRAMATE 25 MG TABLET PO SCH (08:38)
[2020-08-14] MEDS: LORATADINE 10 MG TABLET PO SCH (08:38)
[2020-08-14] MEDS: HEPARIN 5,000 UNITS/ML, 1ML SQ SCH ×2 (08:38→19:24)
[2020-08-14] MEDS: MULTIVITAMINS/MINERALS TABLET PO SCH (08:38)
[2020-08-14] MEDS: ALBUTEROL HFA 90 MCG/SPRAY INH SCH (09:02)
[2020-08-14 13:59] VITALS: BP 102/69
[2020-08-14] MEDS: DIHYDROERGOTAMINE 1 MG/ML, 1ML IM PRN (16:43)
[2020-08-14 19:13] VITALS: BP 120/81
[2020-08-14] MEDS: TRAZODONE 50MG TABLET PO SCH (19:22)
[2020-08-14] MEDS: PROPRANOLOL 20 MG TABLET PO SCH (19:23)
[2020-08-14] MEDS: MONTELUKAST 10 MG TABLET PO SCH (19:24)
[2020-08-14] MEDS: FLUTICASONE NASAL SPRAY 16GM NAS PRN (19:25)
[2020-08-14] MEDS: MELATONIN 3 MG TABLET PO PRN (21:44)
[2020-08-15 01:43] VITALS: BP 111/70
[2020-08-15] MEDS: NICOTINE 7 MG/24 HR PATCH.TD24 TD SCH (05:12)
[2020-08-15 06:52] VITALS: BP 110/79
[2020-08-15] MEDS: GABAPENTIN 300 MG CAPSULE PO SCH ×3 (08:23→20:54)
[2020-08-15] MEDS: HEPARIN 5,000 UNITS/ML, 1ML SQ SCH ×2 (08:23→20:55)
[2020-08-15] MEDS: ZIPRASIDONE 40MG CAPSULE PO SCH ×2 (08:24→20:54)
[2020-08-15] MEDS: MULTIVITAMINS/MINERALS TABLET PO SCH (08:24)
[2020-08-15] MEDS: TOPIRAMATE 25 MG TABLET PO SCH (08:24)
[2020-08-15] MEDS: FOLIC ACID 1 MG TABLET PO SCH (08:24)
[2020-08-15] MEDS: THIAMINE 100MG TABLET PO SCH (08:24)
[2020-08-15] MEDS: LORATADINE 10 MG TABLET PO SCH (08:24)
[2020-08-15] MEDS: ALBUTEROL HFA 90 MCG/SPRAY INH SCH (09:00)
[2020-08-15 14:40] VITALS: BP 100/67
[2020-08-15] MEDS: DIHYDROERGOTAMINE 1 MG/ML, 1ML IM PRN (18:08)
[2020-08-15 19:55] VITALS: BP 101/68
[2020-08-15 20:51] VITALS: BP 113/67
[2020-08-15] MEDS: MONTELUKAST 10 MG TABLET PO SCH (20:54)
[2020-08-15] MEDS: TRAZODONE 50MG TABLET PO SCH (20:54)
[2020-08-15] MEDS: PROPRANOLOL 20 MG TABLET PO SCH (20:55)
[2020-08-15] MEDS: MELATONIN 3 MG TABLET PO PRN (20:56)
[2020-08-16 00:58] VITALS: BP 98/66
[2020-08-16] MEDS: NICOTINE 7 MG/24 HR PATCH.TD24 TD SCH (05:43)
[2020-08-16] MEDS: GABAPENTIN 300 MG CAPSULE PO SCH ×3 (08:07→19:33)
[2020-08-16] MEDS: ZIPRASIDONE 40MG CAPSULE PO SCH ×2 (08:07→19:32)
[2020-08-16] MEDS: THIAMINE 100MG TABLET PO SCH (08:07)
[2020-08-16] MEDS: LORATADINE 10 MG TABLET PO SCH (08:07)
[2020-08-16] MEDS: TOPIRAMATE 25 MG TABLET PO SCH (08:07)
[2020-08-16] MEDS: FOLIC ACID 1 MG TABLET PO SCH (08:07)
[2020-08-16] MEDS: MULTIVITAMINS/MINERALS TABLET PO SCH (08:07)
[2020-08-16] MEDS: HEPARIN 5,000 UNITS/ML, 1ML SQ SCH ×2 (08:08→19:33)
[2020-08-16] MEDS: ALBUTEROL HFA 90 MCG/SPRAY INH SCH (09:00)
[2020-08-16] MEDS: DIHYDROERGOTAMINE 1 MG/ML, 1ML IM PRN (12:31)
[2020-08-16 19:30] VITALS: BP 114/77
[2020-08-16] MEDS: FLUTICASONE NASAL SPRAY 16GM NAS PRN (19:32)
[2020-08-16] MEDS: MELATONIN 3 MG TABLET PO PRN (19:33)
[2020-08-16] MEDS: MONTELUKAST 10 MG TABLET PO SCH (19:33)
[2020-08-16] MEDS: TRAZODONE 50MG TABLET PO SCH (19:33)
[2020-08-16] MEDS: PROPRANOLOL 20 MG TABLET PO SCH (19:33)
[2020-08-17 01:00] VITALS: BP 101/67
[2020-08-17] MEDS: NICOTINE 7 MG/24 HR PATCH.TD24 TD SCH (05:36)
[2020-08-17 06:53] VITALS: BP 102/69
[2020-08-17] MEDS: ALBUTEROL HFA 90 MCG/SPRAY INH SCH (08:48)
[2020-08-17] MEDS: HEPARIN 5,000 UNITS/ML, 1ML SQ SCH ×2 (09:23→20:47)
[2020-08-17] MEDS: FOLIC ACID 1 MG TABLET PO SCH (09:24)
[2020-08-17] MEDS: ZIPRASIDONE 40MG CAPSULE PO SCH ×2 (09:24→20:45)
[2020-08-17] MEDS: TOPIRAMATE 25 MG TABLET PO SCH (09:24)
[2020-08-17] MEDS: LORATADINE 10 MG TABLET PO SCH (09:24)
[2020-08-17] MEDS: MULTIVITAMINS/MINERALS TABLET PO SCH (09:24)
[2020-08-17] MEDS: THIAMINE 100MG TABLET PO SCH (09:24)
[2020-08-17] MEDS: GABAPENTIN 300 MG CAPSULE PO SCH ×3 (09:24→20:45)
[2020-08-17] MEDS: FLUTICASONE NASAL SPRAY 16GM NAS PRN ×2 (09:27→20:45)
[2020-08-17 13:19] VITALS: BP 101/65
[2020-08-17] MEDS: DIHYDROERGOTAMINE 1 MG/ML, 1ML IM PRN (15:03)
[2020-08-17 19:25] VITALS: BP 119/81
[2020-08-17] MEDS: TRAZODONE 50MG TABLET PO SCH (20:45)
[2020-08-17] MEDS: MONTELUKAST 10 MG TABLET PO SCH (20:45)
[2020-08-17] MEDS: MELATONIN 3 MG TABLET PO PRN (20:45)
[2020-08-17] MEDS: PROPRANOLOL 20 MG TABLET PO SCH (20:45)
[2020-08-18] VITALS: BP 99/67
[2020-08-18] MEDS: NICOTINE 7 MG/24 HR PATCH.TD24 TD SCH (05:49)
[2020-08-18 07:00] VITALS: BP 135/71
[2020-08-18] MEDS: MULTIVITAMINS/MINERALS TABLET PO SCH (09:00)
[2020-08-18] MEDS: GABAPENTIN 300 MG CAPSULE PO SCH ×3 (10:33→20:17)
[2020-08-18] MEDS: HEPARIN 5,000 UNITS/ML, 1ML SQ SCH ×2 (10:33→20:16)
[2020-08-18] MEDS: LORATADINE 10 MG TABLET PO SCH (10:33)
[2020-08-18] MEDS: ZIPRASIDONE 40MG CAPSULE PO SCH ×2 (10:33→20:16)
[2020-08-18] MEDS: FOLIC ACID 1 MG TABLET PO SCH (10:34)
[2020-08-18] MEDS: TOPIRAMATE 25 MG TABLET PO SCH (10:34)
[2020-08-18] MEDS: THIAMINE 100MG TABLET PO SCH (10:34)
[2020-08-18 11:07] LABS: ANION GAP 10 mmol/L (5-15); CALCIUM 9.4 mg/dL (8.5-10.1); CHLORIDE 106 mmol/L (98-107)
[2020-08-18 11:10] LABS: BASOPHILS % (AUTO) 2 % (0-1); EOSINOPHILS % (AUTO) 2 % (1-7); LYMPHOCYTES % (AUTO) 31 % (22-44); MEAN CORPUSCULAR HEMOGLOBIN 28.2 pg (27.0-34.8); MEAN CORPUSCULAR HGB CONC 32.5 g/dL (32.4-35.8); MEAN PLATELET VOLUME 7.7 fL (7.4-10.4); MONOCYTES % (AUTO) 6 % (2-9); NEUTROPHILS % (AUTO) 59 % (42-75); PLATELET COUNT 353 x10^3/uL (130-400); RED BLOOD COUNT 4.37 x10^6/uL (3.82-5.3); RED CELL DISTRIBUTION WIDTH 14.7 % (9.6-15.2)
[2020-08-18 12:10] LABS: MD SCAN
[2020-08-18 12:48] VITALS: BP 134/76
[2020-08-18 19:20] VITALS: BP 114/75
[2020-08-18] MEDS: MELATONIN 3 MG TABLET PO PRN (20:17)
[2020-08-18] MEDS: PROPRANOLOL 20 MG TABLET PO SCH (20:17)
[2020-08-18] MEDS: TRAZODONE 50MG TABLET PO SCH (20:17)
[2020-08-18] MEDS: MONTELUKAST 10 MG TABLET PO SCH (20:17)
[2020-08-18] MEDS: FLUTICASONE NASAL SPRAY 16GM NAS PRN (20:17)
[2020-08-19 01:29] VITALS: BP 106/70
[2020-08-19] MEDS: NICOTINE 7 MG/24 HR PATCH.TD24 TD SCH (05:55)
[2020-08-19 08:15] VITALS: BP 107/75
[2020-08-19] MEDS: ALBUTEROL HFA 90 MCG/SPRAY INH SCH ×2 (08:30→09:00)
[2020-08-19] MEDS: FOLIC ACID 1 MG TABLET PO SCH (10:17)
[2020-08-19] MEDS: ZIPRASIDONE 40MG CAPSULE PO SCH ×2 (10:17→20:48)
[2020-08-19] MEDS: LORATADINE 10 MG TABLET PO SCH (10:18)
[2020-08-19] MEDS: TOPIRAMATE 25 MG TABLET PO SCH (10:18)
[2020-08-19] MEDS: MULTIVITAMINS/MINERALS TABLET PO SCH (10:18)
[2020-08-19] MEDS: THIAMINE 100MG TABLET PO SCH (10:18)
[2020-08-19] MEDS: GABAPENTIN 300 MG CAPSULE PO SCH ×3 (10:18→20:48)
[2020-08-19] MEDS: HEPARIN 5,000 UNITS/ML, 1ML SQ SCH ×2 (10:22→20:47)
[2020-08-19 12:58] VITALS: BP 106/75
[2020-08-19 19:26] VITALS: BP 104/69
[2020-08-19] MEDS: TRAZODONE 50MG TABLET PO SCH (20:47)
[2020-08-19] MEDS: FLUTICASONE NASAL SPRAY 16GM NAS PRN (20:47)
[2020-08-19] MEDS: PROPRANOLOL 20 MG TABLET PO SCH (20:48)
[2020-08-19] MEDS: MONTELUKAST 10 MG TABLET PO SCH (20:48)
[2020-08-20 00:44] VITALS: BP 113/75
[2020-08-20] MEDS: NICOTINE 7 MG/24 HR PATCH.TD24 TD SCH (05:25)
[2020-08-20 06:48] VITALS: BP 102/69
[2020-08-20] MEDS: ALBUTEROL HFA 90 MCG/SPRAY INH SCH (06:51)
[2020-08-20] MEDS: TOPIRAMATE 25 MG TABLET PO SCH (09:06)
[2020-08-20] MEDS: GABAPENTIN 300 MG CAPSULE PO SCH ×3 (09:06→21:15)
[2020-08-20] MEDS: FOLIC ACID 1 MG TABLET PO SCH (09:06)
[2020-08-20] MEDS: THIAMINE 100MG TABLET PO SCH (09:06)
[2020-08-20] MEDS: ZIPRASIDONE 40MG CAPSULE PO SCH ×2 (09:06→20:23)
[2020-08-20] MEDS: LORATADINE 10 MG TABLET PO SCH (09:06)
[2020-08-20] MEDS: MULTIVITAMINS/MINERALS TABLET PO SCH (09:06)
[2020-08-20] MEDS: HEPARIN 5,000 UNITS/ML, 1ML SQ SCH ×2 (09:07→20:24)
[2020-08-20] MEDS: FLUTICASONE NASAL SPRAY 16GM NAS PRN (09:13)
[2020-08-20 12:31] VITALS: BP 113/72
[2020-08-20 19:01] VITALS: BP 106/71
[2020-08-20 20:21] VITALS: BP 108/73
[2020-08-20] MEDS: MONTELUKAST 10 MG TABLET PO SCH (20:24)
[2020-08-20] MEDS: TRAZODONE 50MG TABLET PO SCH (20:24)
[2020-08-20] MEDS: PROPRANOLOL 20 MG TABLET PO SCH (20:24)
[2020-08-20] MEDS: MELATONIN 3 MG TABLET PO PRN (21:15)
[2020-08-21 00:40] VITALS: BP 112/74
[2020-08-21] MEDS: DIHYDROERGOTAMINE 1 MG/ML, 1ML IM PRN (00:41)
[2020-08-21 01:30] VITALS: BP 103/65
[2020-08-21] MEDS: NICOTINE 7 MG/24 HR PATCH.TD24 TD SCH (06:01)
[2020-08-21] MEDS: FOLIC ACID 1 MG TABLET PO SCH (08:27)
[2020-08-21] MEDS: LORATADINE 10 MG TABLET PO SCH (08:27)
[2020-08-21] MEDS: MULTIVITAMINS/MINERALS TABLET PO SCH (08:27)
[2020-08-21] MEDS: GABAPENTIN 300 MG CAPSULE PO SCH ×3 (08:27→21:31)
[2020-08-21] MEDS: THIAMINE 100MG TABLET PO SCH (08:27)
[2020-08-21] MEDS: TOPIRAMATE 25 MG TABLET PO SCH (08:27)
[2020-08-21] MEDS: FLUTICASONE NASAL SPRAY 16GM NAS PRN ×2 (08:28→21:30)
[2020-08-21] MEDS: HEPARIN 5,000 UNITS/ML, 1ML SQ SCH ×2 (08:28→21:30)
[2020-08-21] MEDS: ZIPRASIDONE 40MG CAPSULE PO SCH ×2 (08:28→21:31)
[2020-08-21] MEDS: ALBUTEROL HFA 90 MCG/SPRAY INH SCH (09:20)
[2020-08-21 10:29] VITALS: BP 103/71
[2020-08-21 13:54] VITALS: BP 101/69
[2020-08-21 21:27] VITALS: BP 100/68
[2020-08-21] MEDS: TRAZODONE 50MG TABLET PO SCH (21:31)
[2020-08-21] MEDS: MONTELUKAST 10 MG TABLET PO SCH (21:31)
[2020-08-21] MEDS: MELATONIN 3 MG TABLET PO PRN (21:31)
[2020-08-21] MEDS: PROPRANOLOL 20 MG TABLET PO SCH (21:31)
[2020-08-22] MEDS: DIHYDROERGOTAMINE 1 MG/ML, 1ML IM PRN (00:36)
[2020-08-22 00:39] VITALS: BP 112/74
[2020-08-22] MEDS: NICOTINE 7 MG/24 HR PATCH.TD24 TD SCH (06:28)
[2020-08-22 08:02] VITALS: BP 120/84
[2020-08-22] MEDS: LORATADINE 10 MG TABLET PO SCH (08:56)
[2020-08-22] MEDS: GABAPENTIN 300 MG CAPSULE PO SCH ×3 (08:56→21:51)
[2020-08-22] MEDS: HEPARIN 5,000 UNITS/ML, 1ML SQ SCH ×2 (08:57→21:50)
[2020-08-22] MEDS: ZIPRASIDONE 40MG CAPSULE PO SCH ×2 (08:57→21:50)
[2020-08-22] MEDS: MULTIVITAMINS/MINERALS TABLET PO SCH (08:57)
[2020-08-22] MEDS: FOLIC ACID 1 MG TABLET PO SCH (08:57)
[2020-08-22] MEDS: THIAMINE 100MG TABLET PO SCH (08:57)
[2020-08-22] MEDS: TOPIRAMATE 25 MG TABLET PO SCH (08:57)
[2020-08-22] MEDS: ALBUTEROL HFA 90 MCG/SPRAY INH SCH (09:30)
[2020-08-22] MEDS: FLUTICASONE NASAL SPRAY 16GM NAS PRN ×2 (10:43→21:50)
[2020-08-22 14:44] VITALS: BP 107/75
[2020-08-22 21:39] VITALS: BP 97/65
[2020-08-22] MEDS: MONTELUKAST 10 MG TABLET PO SCH (21:50)
[2020-08-22] MEDS: TRAZODONE 50MG TABLET PO SCH (21:51)
[2020-08-22] MEDS: MELATONIN 3 MG TABLET PO PRN (21:51)
[2020-08-22] MEDS: PROPRANOLOL 20 MG TABLET PO SCH (21:51)
[2020-08-22 21:53] VITALS: BP 107/72
[2020-08-23 02:06] VITALS: BP 112/68
[2020-08-23] MEDS: NICOTINE 7 MG/24 HR PATCH.TD24 TD SCH (06:13)
[2020-08-23 07:39] VITALS: BP 91/66
[2020-08-23] MEDS: ALBUTEROL HFA 90 MCG/SPRAY INH SCH (09:00)
[2020-08-23] MEDS: HEPARIN 5,000 UNITS/ML, 1ML SQ SCH ×3 (09:00→21:39)
[2020-08-23] MEDS: LORATADINE 10 MG TABLET PO SCH (09:20)
[2020-08-23] MEDS: GABAPENTIN 300 MG CAPSULE PO SCH ×3 (09:20→21:39)
[2020-08-23] MEDS: MULTIVITAMINS/MINERALS TABLET PO SCH (09:20)
[2020-08-23] MEDS: TOPIRAMATE 25 MG TABLET PO SCH (09:20)
[2020-08-23] MEDS: THIAMINE 100MG TABLET PO SCH (09:21)
[2020-08-23] MEDS: ZIPRASIDONE 40MG CAPSULE PO SCH ×2 (09:21→21:39)
[2020-08-23] MEDS: FLUTICASONE NASAL SPRAY 16GM NAS PRN ×2 (09:21→21:38)
[2020-08-23] MEDS: FOLIC ACID 1 MG TABLET PO SCH (09:21)
[2020-08-23 13:03] VITALS: BP 134/83
[2020-08-23 20:03] VITALS: BP 123/77
[2020-08-23] MEDS: MONTELUKAST 10 MG TABLET PO SCH (21:39)
[2020-08-23] MEDS: PROPRANOLOL 20 MG TABLET PO SCH (21:39)
[2020-08-23] MEDS: TRAZODONE 50MG TABLET PO SCH (21:39)
[2020-08-23] MEDS: DIHYDROERGOTAMINE 1 MG/ML, 1ML IM PRN (23:26)
[2020-08-24 01:22] VITALS: BP 118/73
[2020-08-24] MEDS: NICOTINE 7 MG/24 HR PATCH.TD24 TD SCH (06:26)
[2020-08-24] MEDS: ALBUTEROL HFA 90 MCG/SPRAY INH SCH ×2 (09:00→09:13)
[2020-08-24 09:10] VITALS: BP 103/62
[2020-08-24] MEDS: ZIPRASIDONE 40MG CAPSULE PO SCH ×2 (09:11→20:37)
[2020-08-24] MEDS: TOPIRAMATE 25 MG TABLET PO SCH (09:11)
[2020-08-24] MEDS: GABAPENTIN 300 MG CAPSULE PO SCH ×3 (09:11→20:37)
[2020-08-24] MEDS: MULTIVITAMINS/MINERALS TABLET PO SCH (09:11)
[2020-08-24] MEDS: LORATADINE 10 MG TABLET PO SCH (09:11)
[2020-08-24] MEDS: THIAMINE 100MG TABLET PO SCH (09:11)
[2020-08-24] MEDS: FOLIC ACID 1 MG TABLET PO SCH (09:11)
[2020-08-24] MEDS: HEPARIN 5,000 UNITS/ML, 1ML SQ SCH ×3 (09:12→20:37)
[2020-08-24] MEDS: FLUTICASONE NASAL SPRAY 16GM NAS PRN ×2 (09:12→20:36)
[2020-08-24 15:00] VITALS: BP 117/77
[2020-08-24 20:33] VITALS: BP 109/75
[2020-08-24] MEDS: MELATONIN 3 MG TABLET PO PRN (20:37)
[2020-08-24] MEDS: TRAZODONE 50MG TABLET PO SCH (20:37)
[2020-08-24] MEDS: MONTELUKAST 10 MG TABLET PO SCH (20:37)
[2020-08-24] MEDS: PROPRANOLOL 20 MG TABLET PO SCH (20:38)
[2020-08-25 02:14] VITALS: BP 112/72
[2020-08-25] MEDS: NICOTINE 7 MG/24 HR PATCH.TD24 TD SCH (06:02)
[2020-08-25 07:07] VITALS: BP 109/73
[2020-08-25] MEDS: LORATADINE 10 MG TABLET PO SCH (08:48)
[2020-08-25] MEDS: MULTIVITAMINS/MINERALS TABLET PO SCH (08:48)
[2020-08-25] MEDS: ZIPRASIDONE 40MG CAPSULE PO SCH ×2 (08:48→21:05)
[2020-08-25] MEDS: THIAMINE 100MG TABLET PO SCH (08:49)
[2020-08-25] MEDS: TOPIRAMATE 25 MG TABLET PO SCH (08:49)
[2020-08-25] MEDS: FOLIC ACID 1 MG TABLET PO SCH (08:49)
[2020-08-25] MEDS: GABAPENTIN 300 MG CAPSULE PO SCH ×3 (08:49→21:05)
[2020-08-25] MEDS: ALBUTEROL HFA 90 MCG/SPRAY INH SCH ×2 (08:49→08:50)
[2020-08-25] MEDS: HEPARIN 5,000 UNITS/ML, 1ML SQ SCH ×3 (08:50→21:06)
[2020-08-25 14:40] VITALS: BP 103/71
[2020-08-25 19:55] VITALS: BP 104/70
[2020-08-25] MEDS: TRAZODONE 50MG TABLET PO SCH (21:05)
[2020-08-25] MEDS: MONTELUKAST 10 MG TABLET PO SCH (21:06)
[2020-08-25] MEDS: PROPRANOLOL 20 MG TABLET PO SCH (21:06)
[2020-08-25] MEDS: MELATONIN 3 MG TABLET PO PRN (21:06)
[2020-08-25] MEDS: FLUTICASONE NASAL SPRAY 16GM NAS PRN (21:07)
[2020-08-26 01:12] VITALS: BP 121/78
[2020-08-26] MEDS: NICOTINE 7 MG/24 HR PATCH.TD24 TD SCH (06:19)
[2020-08-26] MEDS: THIAMINE 100MG TABLET PO SCH (08:43)
[2020-08-26] MEDS: ZIPRASIDONE 40MG CAPSULE PO SCH ×2 (08:43→21:06)
[2020-08-26] MEDS: LORATADINE 10 MG TABLET PO SCH (08:43)
[2020-08-26] MEDS: MULTIVITAMINS/MINERALS TABLET PO SCH (08:43)
[2020-08-26] MEDS: TOPIRAMATE 25 MG TABLET PO SCH (08:43)
[2020-08-26] MEDS: GABAPENTIN 300 MG CAPSULE PO SCH ×3 (08:43→21:19)
[2020-08-26] MEDS: FOLIC ACID 1 MG TABLET PO SCH (08:43)
[2020-08-26] MEDS: HEPARIN 5,000 UNITS/ML, 1ML SQ SCH ×3 (08:44→21:20)
[2020-08-26 09:56] VITALS: BP 109/75
[2020-08-26] MEDS: ALBUTEROL HFA 90 MCG/SPRAY INH SCH (10:30)
[2020-08-26 15:59] VITALS: BP 104/69
[2020-08-26 20:21] VITALS: BP 107/72
[2020-08-26] MEDS: MONTELUKAST 10 MG TABLET PO SCH (21:07)
[2020-08-26] MEDS: MELATONIN 3 MG TABLET PO PRN (21:15)
[2020-08-26] MEDS: PROPRANOLOL 20 MG TABLET PO SCH (21:16)
[2020-08-26] MEDS: TRAZODONE 50MG TABLET PO SCH (21:16)
[2020-08-26] MEDS: FLUTICASONE NASAL SPRAY 16GM NAS PRN (21:19)
[2020-08-26] MEDS: DIHYDROERGOTAMINE 1 MG/ML, 1ML IM PRN (22:09)
[2020-08-27 00:44] VITALS: BP 95/68
[2020-08-27] MEDS: NICOTINE 7 MG/24 HR PATCH.TD24 TD SCH (06:37)
[2020-08-27] MEDS: FLUTICASONE NASAL SPRAY 16GM NAS PRN ×3 (08:48→20:57)
[2020-08-27] MEDS: ZIPRASIDONE 40MG CAPSULE PO SCH ×2 (08:48→20:58)
[2020-08-27] MEDS: LORATADINE 10 MG TABLET PO SCH (08:49)
[2020-08-27] MEDS: GABAPENTIN 300 MG CAPSULE PO SCH ×3 (08:49→20:58)
[2020-08-27] MEDS: TOPIRAMATE 25 MG TABLET PO SCH (08:49)
[2020-08-27] MEDS: THIAMINE 100MG TABLET PO SCH (08:49)
[2020-08-27] MEDS: HEPARIN 5,000 UNITS/ML, 1ML SQ SCH ×3 (08:49→20:57)
[2020-08-27] MEDS: FOLIC ACID 1 MG TABLET PO SCH (08:49)
[2020-08-27] MEDS: MULTIVITAMINS/MINERALS TABLET PO SCH (08:49)
[2020-08-27] MEDS: ALBUTEROL HFA 90 MCG/SPRAY INH SCH (09:00)
[2020-08-27 12:22] VITALS: BP 107/72
[2020-08-27] MEDS: DIHYDROERGOTAMINE 1 MG/ML, 1ML IM PRN (16:05)
[2020-08-27] MEDS ORDERED: PINK BISMUTH 87.33 MG/5 ML ORAL SUSP PO PRN (20:00)
[2020-08-27 20:54] VITALS: BP 111/75
[2020-08-27] MEDS: PROPRANOLOL 20 MG TABLET PO SCH (20:58)
[2020-08-27] MEDS: TRAZODONE 50MG TABLET PO SCH (20:58)
[2020-08-27] MEDS: MONTELUKAST 10 MG TABLET PO SCH (20:58)
[2020-08-27] MEDS: MELATONIN 3 MG TABLET PO PRN (21:09)
[2020-08-28 02:24] VITALS: BP 111/76
[2020-08-28] MEDS: NICOTINE 7 MG/24 HR PATCH.TD24 TD SCH (06:27)
[2020-08-28 07:41] VITALS: BP 130/86
[2020-08-28] MEDS: THIAMINE 100MG TABLET PO SCH (09:53)
[2020-08-28] MEDS: MULTIVITAMINS/MINERALS TABLET PO SCH (09:53)
[2020-08-28] MEDS: GABAPENTIN 300 MG CAPSULE PO SCH ×3 (09:54→20:49)
[2020-08-28] MEDS: TOPIRAMATE 25 MG TABLET PO SCH (09:54)
[2020-08-28] MEDS: FOLIC ACID 1 MG TABLET PO SCH (09:54)
[2020-08-28] MEDS: ZIPRASIDONE 40MG CAPSULE PO SCH ×2 (09:54→20:49)
[2020-08-28] MEDS: HEPARIN 5,000 UNITS/ML, 1ML SQ SCH ×3 (10:32→20:48)
[2020-08-28] MEDS: LORATADINE 10 MG TABLET PO SCH (10:36)
[2020-08-28] MEDS: ALBUTEROL HFA 90 MCG/SPRAY INH SCH (10:36)
[2020-08-28 12:04] VITALS: BP 110/76
[2020-08-28 19:04] VITALS: BP 112/82
[2020-08-28] MEDS: FLUTICASONE NASAL SPRAY 16GM NAS PRN (20:48)
[2020-08-28] MEDS: MELATONIN 3 MG TABLET PO PRN (20:49)
[2020-08-28] MEDS: MONTELUKAST 10 MG TABLET PO SCH (20:49)
[2020-08-28] MEDS: PROPRANOLOL 20 MG TABLET PO SCH (20:49)
[2020-08-28] MEDS: TRAZODONE 50MG TABLET PO SCH (20:49)
[2020-08-29 02:30] VITALS: BP 97/67
[2020-08-29] MEDS: NICOTINE 7 MG/24 HR PATCH.TD24 TD SCH (06:20)
[2020-08-29] MEDS: FOLIC ACID 1 MG TABLET PO SCH (08:32)
[2020-08-29] MEDS: THIAMINE 100MG TABLET PO SCH (08:32)
[2020-08-29] MEDS: HEPARIN 5,000 UNITS/ML, 1ML SQ SCH (08:32)
[2020-08-29] MEDS: MULTIVITAMINS/MINERALS TABLET PO SCH (08:32)
[2020-08-29] MEDS: GABAPENTIN 300 MG CAPSULE PO SCH (08:32)
[2020-08-29] MEDS: ZIPRASIDONE 40MG CAPSULE PO SCH (08:32)
[2020-08-29] MEDS: LORATADINE 10 MG TABLET PO SCH (08:32)
[2020-08-29] MEDS: TOPIRAMATE 25 MG TABLET PO SCH (08:32)
[2020-08-29] MEDS: ALBUTEROL HFA 90 MCG/SPRAY INH SCH (09:00)
[2020-08-29 09:26] VITALS: BP 116/77
[2020-08-29] MEDS: DIHYDROERGOTAMINE 1 MG/ML, 1ML IM PRN (10:03)
[2020-08-29] MEDS ORDERED: GABA300C PO (10:52)
[2020-08-29] MEDS ORDERED: TOPI25TA32 PO (10:52)
[2020-08-29] MEDS ORDERED: MONT10TA11 PO (10:52)
[2020-08-29] MEDS ORDERED: BISM262O17 PO (10:52)
[2020-08-29] MEDS ORDERED: LORA-247 PO (10:52)
[2020-08-29] MEDS ORDERED: PROP20TA PO (10:52)
[2020-08-29] MEDS ORDERED: MELA3TAB31 PO (10:52)
[2020-08-29] MEDS ORDERED: TRAZ50TA66 PO (10:52)
[2020-08-29] MEDS ORDERED: ALBU18HF INH (10:52)
[2020-08-29] MEDS ORDERED: MULT-484 PO (10:52)
[2020-08-29] MEDS ORDERED: ACET325T26 PO (10:52)
[2020-08-29] MEDS ORDERED: FLUT16SP24 NAS (10:52)
[2020-08-29 12:06] VITALS: BP 102/66
== END 2020-08-29 16:15 | DRG 641 ==
LOC: ED 20:57 → EDIP 21:01 → 3N 21:10
PROVIDERS: ADMIT Internal Medicine; ATTEND Internal Medicine
DX: R62.7 Adult failure to thrive (principal); E11.52 Type 2 diabetes mellitus with diabetic peripheral angiopathy with gangrene; E44.0 Moderate protein-calorie malnutrition; F17.213 Nicotine dependence, cigarettes, with withdrawal; J44.1 Chronic obstructive pulmonary disease with (acute) exacerbation; Z20.828 Contact with and (suspected) exposure to other viral communicable diseases; D63.8 Anemia in other chronic diseases classified elsewhere; F12.10 Cannabis abuse, uncomplicated; F31.9 Bipolar disorder, unspecified; G31.84 Mild cognitive impairment of uncertain or unknown etiology; F10.20 Alcohol dependence, uncomplicated; Y90.9 Presence of alcohol in blood, level not specified; G43.909 Migraine, unspecified, not intractable, without status migrainosus; G47.00 Insomnia, unspecified; G54.6 Phantom limb syndrome with pain; E66.9 Obesity, unspecified; J45.20 Mild intermittent asthma, uncomplicated; L98.9 Disorder of the skin and subcutaneous tissue, unspecified; F25.0 Schizoaffective disorder, bipolar type; Z82.49 Family history of ischemic heart disease and other diseases of the circulatory system; Z82.5 Family history of asthma and other chronic lower respiratory diseases; Z83.3 Family history of diabetes mellitus; Z86.14 Personal history of Methicillin resistant Staphylococcus aureus infection; Z89.511 Acquired absence of right leg below knee; Z89.512 Acquired absence of left leg below knee; Z68.33 Body mass index [BMI] 33.0-33.9, adult; Z91.018 Allergy to other foods; Z59.0 Homelessness; Y99.8 Other external cause status; Z68.35 Body mass index [BMI] 35.0-35.9, adult; Z91.19 Patient's noncompliance with other medical treatment and regimen
CPT/HCPCS: 36415; 71045; 80048; 80053; 80202; 81001; 82565; 82728; 83036; 83540; 83550; 83690; 85025; 86480; 87070; 87077; 87186; 87205; 87635; 93005; 94640; 96361; 96374; 99285; G0378; J1644; J1885; J2405; J3370; 92522-GN; J1110; J2765; J7030; J7040; J7050